=== PATIENT | female | born 1945 | race Caucasian/White ===

== ENCOUNTER 2018-05-31 22:02 | Outpatient (REF) | payer MEDICARE, SELFPAY | END 2018-05-31 22:22 | LOC: NCHCN 22:02 | PROVIDERS: PCP Family Medicine; Visit Provider Physician Assistant Medical | DX: J02.9 Acute pharyngitis, unspecified (principal) | CPT/HCPCS: 87070 ==

== ENCOUNTER 2018-08-24 12:11 | Outpatient (REF) | payer MEDICARE, SELFPAY ==
[2018-08-24 20:37] LABS: Abs Immature Grans 0.01 k/cumm (0.0-0.09); Absolute Basophil Count 0.03 k/cumm (0.0-0.2); Absolute Eosinophil Count 0.11 k/cumm (0.0-0.7); Absolute Monocyte Count 0.47 k/cumm (0.11-0.7); Absolute Neutrophil Count 3.11 k/cumm (1.2-6.7); Basophils % 0.6; HCT 35.9 % (36.0-46.0); HGB 12.3 g/dL (12.0-15.5); Immature Grans % 0.2; Lymphocytes % 31.3; Mean Corp. HGB Concentration 34.3 g/dL (32.0-36.0); Mean Corpuscular Hemoglobin 31.5 pg (27.0-33.0); Mean Corpuscular Volume 92.1 fL (80-95); Monocytes % 8.7; Neutrophils % 57.2; Platelet Count 251 x1000/uL (130-400); RBC Distribution Width 12.2 % (11.7-14.6); White Blood Cell Count 5.43 k/cumm (4.4-10.8)
[2018-08-24 20:49] LABS: ALT 27 U/L (12-78); AST 24 U/L (15-37); Albumin 3.7 g/dL (3.4-5.0); Alkaline Phosphatase 99 U/L (46-116); Anion Gap 7.3 mmol/L (3-11); BUN 25 mg/dL (7-18); Bilirubin, Total 0.4 mg/dL (0.2-1.0); CO2 29.7 mmol/L (21.0-32.0); CREATININE 0.92 mg/dL (0.55-1.02); Calcium 9.4 mg/dL (8.5-10.1); Chloride 104 mmol/L (98-107); Estimated GFR 59.84 (mL/min/1.73m2); Glucose 85 mg/dL (70-100); Potassium 4.3 mmol/L (3.5-5.1); Sodium 141 mmol/L (136-145); Total Protein 6.5 g/dL (6.4-8.2)
== END 2018-08-24 12:31 ==
LOC: NCHCN 12:11
PROVIDERS: PCP Family Medicine; Visit Provider Specialist/Technologist Athletic Trainer
DX: R55 Syncope and collapse (principal); D64.9 Anemia, unspecified; I10 Essential (primary) hypertension
CPT/HCPCS: 80053; 83735; 85025

== ENCOUNTER 2018-08-29 01:40 | Outpatient (CLI) | payer MEDICARE, SELFPAY | END 2018-08-29 02:00 | PROVIDERS: PCP Family Medicine; Visit Provider Specialist/Technologist Athletic Trainer | DX: R55 Syncope and collapse (principal); I49.1 Atrial premature depolarization; I47.1 Supraventricular tachycardia | CPT/HCPCS: 93225 ==

== ENCOUNTER 2018-09-01 09:04 | Outpatient (CLI) | payer MEDICARE, SELFPAY ==
--- NOTE | 2018-09-01 13:33 | W.HOLTRPT ---
Holter Monitor Report Holter Monitor Note: 48-hour Holter monitor. Indication: Syncope Baseline: Sinus rhythm. Average heart rate 73 bpm. There are rare isolated PVCs. No nonsustained VT. Rare PACs. No atrial fibrillation. No significant pauses or bradyarrhythmias. No diary entries. Overall sinus rhythm with rare ectopy.
--- NOTE | 2018-09-05 09:41 | HOLTER_ITS ---
HOLTER MONITOR DATE OF DICTATION September 05, 2018 Baseline rhythm sinus. Rare single PAC. 2 bursts SVT, longest 3-beat duration, fastest 171 beats per minute. No fibrillation . Rare single PVC. No VT. Nocturnal heart rate as low as 50-55 beats per minute, sinus bradycardia. Average heart rate 73 beats per minute. SYMPTOMS None. Meliton Balderrama M.D. ROXANA/calvin T - 09/05/2018
== END 2018-09-01 09:24 ==
PROVIDERS: PCP Family Medicine; Visit Provider Specialist/Technologist Athletic Trainer
DX: I49.1 Atrial premature depolarization (principal); I47.1 Supraventricular tachycardia; R55 Syncope and collapse
CPT/HCPCS: 93226

== ENCOUNTER 2018-09-05 08:52 | Outpatient (CLI) | payer MEDICARE, SELFPAY | END 2018-09-05 09:12 | PROVIDERS: PCP Family Medicine; Referring Provider Family Medicine; Visit Provider Internal Medicine Interventional Cardiology | DX: R55 Syncope and collapse (principal); I49.1 Atrial premature depolarization; I47.1 Supraventricular tachycardia | CPT/HCPCS: 93227 ==

== ENCOUNTER 2018-09-13 01:26 | Outpatient (CLI) | payer MEDICARE, SELFPAY ==
--- NOTE | 2018-09-13 15:15 | DI.US_ITS ---
SYMPTOM/DIAGNOSIS: SYNCOPE, COLLAPSE, R55 CAROTID ULTRASOUND: Note is made of mild plaque in the left carotid bulb. Note is also made of mild intimal thickening bilaterally. There is bilateral antegrade flow in the vertebrals. SUMMARY: No evidence of significant carotid stenosis. Please see the ultrasound laboratory worksheet for the complete results of this study.
== END 2018-09-13 01:46 ==
PROVIDERS: PCP Family Medicine; Visit Provider Specialist/Technologist Athletic Trainer
DX: R55 Syncope and collapse (principal); I65.22 Occlusion and stenosis of left carotid artery
CPT/HCPCS: 93880

== ENCOUNTER 2018-10-28 11:16 | Outpatient (REF) | payer MEDICARE, SELFPAY | END 2018-10-28 11:36 | LOC: NCHCN 11:16 | PROVIDERS: PCP Family Medicine; Visit Provider Family Medicine | DX: R35.0 Frequency of micturition (principal) | CPT/HCPCS: 87086 ==

== ENCOUNTER 2019-10-31 12:42 | Outpatient (REF) | payer MEDICARE, SELFPAY ==
[2019-10-31 21:50] LABS: HCT 36.2 % (36.0-46.0); HGB 12.1 g/dL (12.0-15.5); Mean Corp. HGB Concentration 33.4 g/dL (32.0-36.0); Mean Corpuscular Hemoglobin 30.5 pg (27.0-33.0); Mean Corpuscular Volume 91.2 fL (80-95); Mean Platelet Volume 10.4 fL (8.0-11.0); Platelet Count 263 x1000/uL (130-400); RBC 3.97 m/cumm (4.00-5.20); RBC Distribution Width 12.2 % (11.7-14.6); White Blood Cell Count 5.24 k/cumm (4.4-10.8)
[2019-10-31 22:26] LABS: Anion Gap 7.4 mmol/L (3-11); BUN 19 mg/dL (7-18); CO2 28.6 mmol/L (21.0-32.0); CREATININE 1.06 mg/dL (0.55-1.02); Chloride 105 mmol/L (98-107); Estimated GFR 50.67 (mL/min/1.73m2); Glucose 76 mg/dL (74-106); Potassium 4.1 mmol/L (3.5-5.1); Sodium 141 mmol/L (136-145); TSH (W/Ref FT4) 1.92 uIU/mL (0.36-3.74)
== END 2019-10-31 13:02 ==
LOC: NCHCN 12:42
PROVIDERS: PCP Family Medicine; Visit Provider Family Medicine
DX: D64.9 Anemia, unspecified (principal); I10 Essential (primary) hypertension; G62.9 Polyneuropathy, unspecified
CPT/HCPCS: 80048; 85027; 84443

== ENCOUNTER 2019-11-24 04:16 | Outpatient (CLI) | payer MEDICARE, SELFPAY ==
--- NOTE | 2019-11-24 13:38 | DI.US_ITS ---
APPROVED REPORT EXAM: Comprehensive 2D, Doppler, and color-flow Echocardiogram Patient Location: Out-Patient Mechanical Inspector: Delma Tee RDCS (AE) Indications: Dyspnea on Exertion Conclusion Left Ventricle : The left ventricle is mildly dilated. Left ventricular systolic function is mildly d ecreased. There is normal left ventricular wall thickness. There is normal LV segmental wall motion. Apical and anterolateral segments are poorly visualized without contrast. The left ventricular diast olic function is normal. LVEF is 45-49%. Right Ventricle : The right ventricle is normal size. The right ventricular systolic function is norm al. Atria : The left atrium size is normal. The right atrium size is normal. Aortic Valve : Aortic valve is trileaflet. Trace aortic regurgitation. There is no aortic valvular st enosis. Mitral Valve : The mitral valve is normal in structure. Mild mitral regurgitation. No evidence of larry ral valve stenosis. Tricuspid Valve : The tricuspid valve is normal in structure. Trace to mild tricuspid regurgitation. Great Vessels : The aortic root is normal in size. IVC is normal in size and collapses >50% with ins piration. The ascending aorta is normal in size. There is no prior echocardiogram available for comparison. Wall motion Left Ventricle The left ventricle is mildly dilated. Left ventricular systolic function is mildly decreased. There i s normal left ventricular wall thickness. There is normal LV segmental wall motion. Apical and ridge lateral segments are poorly visualized without contrast. The left ventricular diastolic function is n ormal. LVEF is 45-49%. Right Ventricle The right ventricle is normal size. The right ventricular systolic function is normal. Atria The left atrium size is normal. The right atrium size is normal. Aortic Valve Aortic valve is trileaflet. There is no aortic valvular stenosis. Trace aortic regurgitation. Mitral Valve The mitral valve is normal in structure. No evidence of mitral valve stenosis. Mild mitral regurgitat ion. Tricuspid Valve The tricuspid valve is normal in structure. There is no tricuspid valve stenosis. Trace to mild tricu spid regurgitation. Pulmonic Valve The pulmonary valve is normal in structure. There is no pulmonic valvular stenosis. Trace pulmonic re gurgitation. Great Vessels The aortic root is normal in size. The ascending aorta is normal in size. IVC is normal in size and c ollapses >50% with inspiration. 2D Dimensions IVSD d PLAX 0.79 cm F: 0.6-1.0 LV Vol A2C d MOD 83.4 mL LVPW d PLAX 0.76 cm F: 0.6 - 1.0 LV Vol A4C d MOD 96.0 mL LVID d PLAX 5.55 cm F: 3.8 - 5.2 LA vol/ BSA A2C s A-L 29.5 mL/m2 LVDs 3.90 cm F: 2.2 - 3.5 LA vol/ BSA A4C s A-L 30.2 mL/m2 Ao Root d 2.96 cm F: 2.7 - 3.3 LA Vol/ BSA Biplane s A-L 30.1 mL/m2 RA Area A4C 15.96 cm2 LA Area A4C s MOD 19.80 cm2 RA Vol/ BSA A4C s A-L 18.9 mL/m2 LA Area A2C s MOD 19.40 cm2 Ao Asc Diam d 3.17 cm F: 2.3 - 3.1 LV EF A4C MOD 51.0 % LV EF Teichholz 55.3 % LV EF A2C MOD 50.6 % LVEF (Bullock's) 49.76 % F: 54 - 74 LV EF Biplane MOD 49.8 % LV Volume 65.21 mL F: 46 - 106 LV Volume Index 29.77 mL/m2 F: 29 - 61 LV Vol Biplane MOD 89.6 mL FS 29.10 % LV Diastology MV E' medial 0.076 (>0.07 m/s) E/A Ratio 0.9 LV E/e MED 10.30 (<14) MV E Vmax 0.79 (0.4-1.3 m/s) MV E' lateral 0.084 (>0.1 m/s) MV A Vmax 0.90 (0.4-1.3 m/s) LV E/e LAT 9.35 (<14) MV E/A Ratio 0.86 MV E/E' medial 10.34 MV E/E' lateral 9.38 Aortic Valve LVOT Area 3.02 cm2 AoV Area Vmax 2.35 cm2 LVOT Vmax 1.18 m/s AoV Area/ BSA (Vmax) 1.07 cm2/m2 LVOT Mean Jerson. 0.72 m/s MARSHAL Mean Jerson. 2.01 cm2 LVOT Peak Grad 5.6 mmHg MARSHAL Mean Jerson. Index 0.92 cm2/m2 LVOT Mean Grad 2.5 mmHg AR DT 1842 msec LVOT VTI 0.264 m AR PHT 534 msec LVOT Diam s 1.95 cm (M/F) 1.5-2.5 AoV Vmax 1.52 (0.5-1.3 m/s) Velocity Ratio 0.77 AoV Mean Jerson. 1.07 m/s AoV Peak Grad 9.2 mmHg LVOT SV 79.86 mL AoV Mean Grad 5.0 (<5 mmHg) AoV VTI 0.361 (0.18-0.25 m) AoV Area VTI 2.21 (2.5-4.5 cm2) AoV Area/ BSA (VTI) 1.01 cm/m2 Mitral Valve MV DT 193 (160-240 msec) MR Vmax 5.27 m/s MV PHT 56 msec MR VTI 2.019 m MV Area PHT 3.94 cm2 MR Peak Grad 111.0 mmHg MR Mean Grad 88.5 mmHg Pulmonary Valve PV Vmax 1.05 (0.5-1.5 m/s) RVOT Peak Gr. 1.91 mmHg PV Peak Grad 4.4 mmHg RVOT Mean Gr. 0.90 mmHg PV Mean Grad 2.4 mmHg RVOT VTI 0.152 m PV VTI 0.227 m RVOT Vmax 0.69 m/s Tricuspid Valve TR Peak Grad 31.4 mmHg TR Vmax 2.80 m/s
== END 2019-11-24 04:36 ==
PROVIDERS: PCP Family Medicine; Visit Provider Family Medicine
DX: R06.09 Other forms of dyspnea (principal); I50.1 Left ventricular failure, unspecified; I34.0 Nonrheumatic mitral (valve) insufficiency
CPT/HCPCS: 93306

== ENCOUNTER 2020-01-11 00:07 | Outpatient (CLI) | payer MEDICARE, SELFPAY ==
--- NOTE | 2020-01-11 08:45 | DI.NM_ITS ---
APPROVED REPORT Exam: Exercise Treadmill Patient Location: Out-Patient Room/Bed: Stress Nurse: Lillie Morales RN BMI: 30.68 Baseline Rhythm: Sinus Rhythm Indications: Dyspnea on exertion. Systolic heart murmur. Medical History Medical History: HTN Cardiac Medications: hydrochlorothiazide. LosartanPotassium. Aspirin., Allergies: No known drug allergies Cardiac Risk Factors: HTN, FHX of CAD Pretest Chest Pain Characteristics: Dyspnea on exertion Exercise History: Physically active Lung Sounds: Clear to auscultation Heart Sounds: Murmur Stress Test Details Test: Exercise stress testing was performed using a Per protocol. Nuclear Acquisition: Rest Tc-99m/Stress Tc-99m 1 day Rest Isotope: Tc-99m Sestamibi. Dose: 10.8 Date: 01/11/2020 Injection Time: 0900 Stress Isotope: Tc-99m Sestamibi. Dose: 34.0 Date: 01/11/2020 Injection Time: 1025 HR Resting HR Supine: 67 bpm Max Heart Rate (APMHR): 146 bpm Resting HR Standin bpm Target HR (85% APMHR): 124 bpm Max HR Achieved: 130 bpm % of APMHR: 89 Recovery HR: 89 bpm HR response to stress: Normal HR response to stress BP Resting BP Supine: 170/90 mmHg Resting BP Standin/80 mmHg Max BP: 184/76 mmHg Recovery BP: 174/80 mmHg BP response to stress: Normal blood pressure response to stress. ECG Resting ECG: Sinus Rhythm Stress ECG: Sinus Tachycardia ST Change: No significant ST segment changes Recovery ECG: Sinus Rhythm Recovery ST Change: No significant ST segment changes Clinical Reason for Termination: Dizziness Stress Symptoms: Dizziness Exercise duration: 4 min30 sec Highest Stage Reached: Stage 2: 2.5 mph at 12% grade. Exercise capacity: 6.43 METs Functional Capacity: Average Capacity Stress ECG Conclusion 1. She excised for 4 minutes and 30 seconds (6 METS). Exercise was stopped due to dizziness. 2. Rate-pressure product was 22,000. 3. There is no evidence of ischemia on the ECG portion of the exam Stress Test Summary STAGE Time (mins) Speed (mph) Grade (%) HR BP SYMPTOMS METS Supine 67 170/90 Standing 75 168/80 1 3 1.7 10 117 174/92 4.6 1 min recovery 120 174/88 Dizzyness. 3 min recovery 99 184/76 6 min recovery 89 174/80 Dizzyness subsided. MPI Conclusion Ejection fraction was 68%. There were no wall motion abnormalities. There was no evidence of reversible ischemia on the imaging portion of the exam. A small fixed perfu elizabeth defect at the apex likely represents artifact. This represents a normal SPECT stress test. Radiologist Interpretation Radiologist agrees with Feed Project Engineer's Interpretation. Radiologist Interpretation by: Shellie Majano MD Interpretation Date/Time: 01/11/2020 13:23:30
== END 2020-01-11 00:27 ==
PROVIDERS: PCP Family Medicine; Visit Provider Family Medicine
DX: R06.09 Other forms of dyspnea (principal); R01.1 Cardiac murmur, unspecified; I10 Essential (primary) hypertension; Z82.49 Family history of ischemic heart disease and other diseases of the circulatory system
CPT/HCPCS: 78452; 93016; 93018; 93017

== ENCOUNTER → 2020-01-23 14:55 | Outpatient (BNVA) | payer MEDICARE, SELFPAY | PROVIDERS: PCP Family Medicine; Referring Provider Family Medicine; Visit Provider Internal Medicine Cardiovascular Disease | DX: R06.02 Shortness of breath (principal); I10 Essential (primary) hypertension | CPT/HCPCS: 99204; 99443 ==

== ENCOUNTER 2020-02-27 08:18 | Outpatient (CLI) | payer MEDICARE, SELFPAY ==
[2020-02-28 02:49] LABS: COVID-19 RT-PCR UVMMC Result Negative (Negative)
== END 2020-02-27 08:38 ==
PROVIDERS: PCP Family Medicine; Visit Provider Family Medicine
DX: Z11.59 Encounter for screening for other viral diseases (principal)
CPT/HCPCS: U0003

== ENCOUNTER 2020-03-01 02:47 | Outpatient (CLI) | payer MEDICARE, SELFPAY ==
--- NOTE | 2020-03-06 08:35 | W.PFT ---
Date of service: 03/01/20 Time of Service: 12:56 Pulmonary Function Test Result Interpretation Spirometry: Spirometry shows no evidence of obstructive airways disease, no bronchodilator response Lung Volumes: No evidence of restriction Diffusion Capacity: Moderately severe fully reduced diffusion capacity which is mildly reduced when corrected to alveolar volume Airway Pressure: Normal Impression Isolated moderate diffusion defect. This can be seen in early developing interstitial lung disease or in pulmonary hypertension. Therefore if any of these entities are suspected, further evaluation is recommended. Clinical correlation recommended. Clinical Correlation therefore is recommended.
== END 2020-03-01 03:07 ==
PROVIDERS: PCP Family Medicine; Visit Provider Internal Medicine Cardiovascular Disease
DX: R06.02 Shortness of breath (principal); R06.9 Unspecified abnormalities of breathing
CPT/HCPCS: 94060; 94726; 94729

== ENCOUNTER 2020-05-02 01:20 | Outpatient (CLI) | payer MEDICARE, SELFPAY ==
--- NOTE | 2020-05-02 12:50 | DI.CT_ITS ---
EXAM: CT CHEST WO CLINICAL HISTORY: DYSPNEA, R06.00 COMPARISON: No exams were available for comparison FINDINGS: CT examination of chest was performed without contrast administration. Images obtained through the u pper abdomen show a 25 mm in diameter fluid attenuation mass of the right hepatic lobe and a 12 gerson meter fluid attenuation left hepatic lobe mass also noted, these are consistent with cysts. Visuali zed spleen is unremarkable. There is probable wall thickening of the mid to distal esophagus with more focal wall thickening a fe w cm above the GE junction at the level of the right atrium. The possibility of neoplasm of the esoph polo is raised. Correlation with esophagoscopy is suggested. No gross mediastinal or hilar adenopathy. Thoracic aorta is of normal diameter. The lungs are predominantly clear with unremarkable appearance of the pulmonary interstitium. There is a 7 x 4 x 3 millimeter in diameter nodule which may be a fissural nodule of the superior aspect of the right middle lobe. Follow-up chest CT recommended in 12 months. Tracheobronchial tree appears intact. No pleural effusion. IMPRESSION: Findings suggesting mid esophageal wall thickening and/or mass. Correlation with esophagoscopy reque sted to evaluate the possibility of neoplasm. Incidental non calcified 5 millimeter mean diameter right pulmonary nodule which may be fissural. Fo llow-up chest CT recommended in 12 months.
== END 2020-05-02 01:40 ==
PROVIDERS: PCP Family Medicine; Visit Provider Internal Medicine
DX: R06.00 Dyspnea, unspecified (principal); R91.1 Solitary pulmonary nodule
CPT/HCPCS: 71250

== ENCOUNTER 2020-05-22 12:10 | Emergency (ER) | payer MEDICARE, SELFPAY ==
--- NOTE | 2020-05-22 12:56 | NUR.NOTE ---
Nursing Note: Per Mishel Moreno RN the patient does not want to be a patient. She was entered in error. Ayaka Lund
--- NOTE | 2020-05-22 15:00 | W.ED.GENAD ---
Discharge Plan Disposition Patient Disposition: OTHER Condition: Stable Discharge Details Primary Care Provider: Nanci Gomez V ED Provider: Maribeth Vidal Home Meds and New Rx's Prescriptions: No Action losartan 25 mg tablet 25 mg PO DAILY RF: 0 gabapentin 100 mg capsule 100 mg PO QHS RF: 0 multivitamin [Daily Multi-Vitamin] 1 EACH tablet 1 tab PO DAILY RF: 0 fexofenadine [Constanza Allergy] 60 MG tablet 1 cap PO DAILY RF: 0 Stress B Plus Zinc 1 EACH tablet 1 tab PO .QHS RF: 0 hydrochlorothiazide 12.5 MG tablet 12.5 mg PO DAILY RF: 0 Fish Oil 300 MG capsule 300 mg PO .QHS RF: 0 Discharge Data Discharge Date/Time-TO BE ENTERED AT DEPARTURE: 05/22/20 12:22 HPI Related Data Home Medications Medication Instructions Recorded Confirmed Stress B Plus Zinc 1 tab PO .QHS 05/02/13 01/23/20 fexofenadine [Constanza Allergy] 1 cap PO DAILY 05/02/13 01/23/20 hydrochlorothiazide 12.5 mg PO DAILY 05/02/13 01/23/20 multivitamin [Multi-Vitamin Daily] 1 tab PO DAILY 05/02/13 01/23/20 omega-3 fatty acids [Fish Oil] 300 mg PO .QHS 05/02/13 01/23/20 gabapentin 100 mg capsule 100 mg PO QHS 01/23/20 01/23/20 losartan 25 mg tablet 25 mg PO DAILY 01/23/20 01/23/20 Allergies Allergy/AdvReac Type Severity Reaction Status Date / Time seasonal Allergy Mild Uncoded 05/02/13 16:52 PFSH Social History Smoking/Tobacco Use Status: Never Drug use: Never
== END 2020-05-22 12:22 | disposition other institution (70) ==
LOC: ER 12:23
PROVIDERS: Emergency Provider Registered Nurse Emergency; PCP Family Medicine
DX: Z53.21 Procedure and treatment not carried out due to patient leaving prior to being seen by health care provider (principal)

== ENCOUNTER → 2020-07-16 09:13 | Outpatient (BNVA) | payer MEDICARE, SELFPAY | PROVIDERS: PCP Family Medicine; Referring Provider Family Medicine; Visit Provider Internal Medicine Cardiovascular Disease | DX: R06.09 Other forms of dyspnea (principal); I10 Essential (primary) hypertension | CPT/HCPCS: 99214 ==

== ENCOUNTER 2020-10-18 01:50 | Outpatient (CLI) | payer MEDICARE, SELFPAY ==
[2020-10-20 10:35] LABS: COVID-19 RT-PCR Result NEGATIVE (Negative)
== END 2020-10-18 02:10 ==
PROVIDERS: PCP Family Medicine; Visit Provider Family Medicine
DX: Z11.52 Encounter for screening for COVID-19 (principal); Z01.811 Encounter for preprocedural respiratory examination
CPT/HCPCS: U0003

== ENCOUNTER 2020-10-21 05:27 | Outpatient (CLI) | payer MEDICARE, SELFPAY ==
--- NOTE | 2020-10-23 16:37 | W.PFT ---
Date of service: 10/21/20 Time of Service: 10:02 Pulmonary Function Test Result Interpretation Spirometry: Respiratory neuromuscular function testing shows MIP and MVV but extremely low MEP Impression Isolated extremely severe expiratory respiratory neuromuscular weakness with an MEP of 31% predicted. MIP and MVV were normal. Clinical Correlation therefore is recommended.
== END 2020-10-21 05:47 ==
PROVIDERS: PCP Family Medicine; Visit Provider Internal Medicine
DX: R06.09 Other forms of dyspnea (principal); J98.8 Other specified respiratory disorders
CPT/HCPCS: 94200

== ENCOUNTER 2020-10-31 09:54 | Outpatient (REF) | payer MEDICARE, SELFPAY ==
[2020-10-31 15:35] LABS: HCT 34.2 % (36.0-46.0); HGB 11.6 g/dL (11.2-15.7)
[2020-11-01 07:45] LABS: ESR 20 mm/hr (<30)
[2020-11-01 17:07] LABS: CRP, High Sensitivity 3.76 mg/L (See Note)
[2020-11-04 15:09] LABS: ANA Interpretation Negative (Negative)
== END 2020-10-31 09:55 | disposition home or self-care (01) ==
LOC: NCHCN 09:54
PROVIDERS: PCP Family Medicine; Visit Provider Family Medicine
DX: R51.9 Headache, unspecified (principal); K22.8 Other specified diseases of esophagus; R06.09 Other forms of dyspnea; I10 Essential (primary) hypertension
CPT/HCPCS: 85652; 86141; 85014; 85018; 86038

== ENCOUNTER 2021-04-09 01:47 | Outpatient (CLI) | payer MEDICARE, SELFPAY ==
--- NOTE | 2021-04-09 | DI.MAMMO_ITS ---
Exam(s) MAMMO SCREENING EXAM: MAMMO SCREENING CLINICAL HISTORY: SCREENING, PREVENTIVE [facility],Z00.00. TECHNIQUE: Bilateral full field digital CC and MLO mammographic images were obtained with 3D tomosyn thesis and utilizing computer aided detection (CAD). COMPARISON: Prior mammograms dating back to 2010, the most recent being February 2020.. Sister with breast cancer FINDINGS: In the left breast there is a 6 by 5 well-defined noncalcified nodule lateral of center approximately 5 cm in from the nipple approximately 3 o'clock position. This has slightly increased in size from prior study. Ultrasound recommended. More posteriorly in the left breast there is another nodule se en on the 3D MLO imaging approximately 9 cm in from the nipple which more evident on prior studies me asures approximately 6 x 4 millimeters. Posteriorly in the right breast there is an asymmetric density-nodular density located 10 cm in from the nipple which is unchanged from prior studies. In addition, there are few small benign-appearing nodules lateral of center in the right breast located approximately 10 cm in from the nipple which pr obably benign lymph nodes., similar to previous. Malignant-appearing microcalcifications in either breast There is no significant architectural distortion nor skin thickening-retraction. IMPRESSION: No radiographic evidence of malignancy in the right breast. Two findings in left breast which have increased from previous. Spot compression view and ultrasound recommended. BI-RADS Category 0 - Assessment Incomplete: Need additional imaging evaluation Breast Density - Category B - Scattered areas of fibroglandular density Breast density Category C or D implies that the patient has dense breast tissue. Dense breast tissue can make it harder to find cancer on a mammogram. Dense breast tissue is also associated with an incr eased risk of breast cancer. This information about the result of the mammogram report was provided to the patient to raise their awareness. Use this report when you speak with the patient about their risks for breast cancer, which includes their family history. At that time, you may recommend additional screening tests (Ultrasoun d or MRI) as these tests may add significant information. A negative radiographic report should not delay biopsy if a dominant or clinically suspicious mass is present. Up to ten percent of cancers are not identified on mammography. A negative report may reinforce clinical impression. Adenosis and dense breasts may obscure an underlying neoplasm. False positive reports average 6 to 10%. Patient will receive a letter notifying them of these results.
== END 2021-04-09 02:07 ==
PROVIDERS: PCP Family Medicine; Visit Provider Family Medicine
DX: Z12.31 Encounter for screening mammogram for malignant neoplasm of breast (principal); R92.8 Other abnormal and inconclusive findings on diagnostic imaging of breast; Z80.3 Family history of malignant neoplasm of breast
CPT/HCPCS: 77063; 77067

== ENCOUNTER → 2021-04-14 09:37 | Outpatient (BNVA) | payer MEDICARE, SELFPAY | PROVIDERS: PCP Family Medicine; Referring Provider Internal Medicine; Visit Provider Psychiatry & Neurology Neurology | DX: G62.9 Polyneuropathy, unspecified (principal); R06.00 Dyspnea, unspecified; R51.9 Headache, unspecified; G89.29 Other chronic pain | CPT/HCPCS: 99215; G2212 ==

== ENCOUNTER 2021-04-17 01:17 | Outpatient (CLI) | payer MEDICARE, SELFPAY ==
--- NOTE | 2021-04-17 | DI.MAMMO_ITS ---
Exam(s) MG MAMMO SCREEN CALL BACK UNI US BREAST LT COMPLETE EXAM: MG MAMMO SCREEN CALL BACK UNI -LEFT AND COMPLETE LEFT BREAST ULTRASOUND CLINICAL HISTORY: F/U MAMMO, LT BREAST NODULE,INCREASED IN SIZE. TECHNIQUE: Unilateral spot mammographic images were obtained with 3D tomosynthesis and utilizing [employer] puter aided detection (CAD). . LEFT Breast Ultrasound was also performed, including all 4 quadrants, the retroareolar region, and th e left axilla.. COMPARISON: Prior mammograms were reviewed. This additional imaging was performed due to findings described on the recent screening mammogram of 04/09/2021. FINDINGS: Additional mammographic views performed todayrender the more posterior of the 2 nodules somewhat less concerning appearance exhibiting a notch probably benign lymph node.The more anterior of the 2 nodul e persists. Ultrasound performed following this mammogram today reveals 2 findings.. At the 1 o'clock position th ere is a wider than taller 5 x 3 millimeter microcyst. This corresponds to the more anterior of the 2 findings on the mammogram. At the 3 o'clock position there is a smaller microcysts measuring 3 millimeters. This does not corres pond to anything visible on the mammogram. There are no focal ultrasound findings to correspond to the more posteriorly of the 2 nodules seen on the mammogram (which has appearance of probable benign intramammary lymph node on spot compression m ammographic view performed today). Most importantly, there are no solid lesions seen in all 4 quadrants of the left breast nor in the re troareolar region. The left axilla is negative for significant adenopathy. IMPRESSION: Benign findings, as described above. Appropriate follow-up is repeat left breast imaging in 6 months to include repeat left breast mammogr am and ultrasound. The patient was informed of these findings and recommendations by myself prior to leaving the departm ent today. BI-RADS Category 3 - 6 month - Probably Benign Finding: Recommend follow-up mammography in 6 months Breast Density - Category B - Scattered areas of fibroglandular density Breast density Category C or D implies that the patient has dense breast tissue. Dense breast tissue can make it harder to find cancer on a mammogram. Dense breast tissue is also associated with an incr eased risk of breast cancer. This information about the result of the mammogram report was provided to the patient to raise their awareness. Use this report when you speak with the patient about their risks for breast cancer, which includes their family history. At that time, you may recommend additional screening tests (Ultrasoun d or MRI) as these tests may add significant information. A negative radiographic report should not delay biopsy if a dominant or clinically suspicious mass is present. Up to ten percent of cancers are not identified on mammography. A negative report may reinforce clinical impression. Adenosis and dense breasts may obscure an underlying neoplasm. False positive reports average 6 to 10%. Patient will receive a letter notifying them of these results.
== END 2021-04-17 01:37 ==
PROVIDERS: PCP Family Medicine; Visit Provider Family Medicine
DX: R92.8 Other abnormal and inconclusive findings on diagnostic imaging of breast (principal); N63.20 Unspecified lump in the left breast, unspecified quadrant
CPT/HCPCS: 76642; 77063; 77067

== ENCOUNTER 2021-07-02 01:15 | Outpatient (CLI) | payer MEDICARE, SELFPAY ==
--- NOTE | 2021-07-02 07:00 | DI.CT_ITS ---
Exam(s) CT CHEST WO EXAM: CT CHEST WO CLINICAL HISTORY: f/u nodule seen 1 year ago,R91.1,DYSPNEA ON EXERTION, R06.00. TECHNIQUE: Imaging protocol: Axial computed tomography images were obtained and coronal and sagittal reformatted images were created and reviewed. COMPARISON: CT CT CHEST WO from 05/02/2020 FINDINGS: The examination is limited due to patient motion artifact. Tracheobronchial tree: Patent where visualized. Pulmonary parenchyma: No focal consolidating infiltrate. There is a stable 7 mm nodule in the right middle lobe. No other pulmonary nodules are identified. No architectural distortion. Mediastinum and Haritha: No dominant adenopathy or fluid collection. Small hiatal hernia. There is unch anged diffuse thickening of the wall of the esophagus. Thyroid gland: Unremarkable. Pleura: No effusion or pneumothorax. Heart: Mild cardiomegaly. Coronary artery calcification. No pericardial effusion. Aorta: Thoracic aorta non-dilated. Atherosclerosis. Upper abdomen: Stable hepatic cysts. 5.4 cm incompletely imaged right renal cyst. Lymph nodes: Within normal limits. Soft tissues: Unremarkable. Bones:Within normal limits for the patient's age. IMPRESSION: 1. Stable right middle lobe pulmonary nodule. Follow-up CT scan in 1 year is recommended. 2. Diffuse thickening of the wall of the esophagus. This may represent an infectious or inflammatory esophagitis. Upper GI or endoscopy should be considered for further evaluation. 3. Hepatic cysts. 4. Incompletely imaged right renal cyst. Ultrasound of the right kidney may be obtained for further characterization. RADIATION DOSE DELIVERED: 594.58mGy.cm Total DLP 594.58mGy.cm Total DLP DATA REPOSITORY: All CT scans at this facility are submitted to the National Radiology Data Registry (NRDR) Dose Index Registry (DIR) with the [employer] (ACR). RADIATION OPTIMIZATION: All CT scans at this facility use at least one of these dose optimization te chniques: automated exposure control; mA and/or kV adjustment per patient size (includes targeted exa ms where dose is matched to clinical indication); or iterative reconstruction.
--- NOTE | 2021-07-02 07:00 | DI.NM_ITS ---
Exam(s) NM LUNG SCAN VENT PERF GRP EXAM: NM LUNG SCAN VENT PERF GRP CLINICAL HISTORY: concern for CTED/CTEPH,DYSPNEA ON EXERTION,R06.00,ABNL PFT'S.R94.2. TECHNIQUE: Injected Dose: Ventilation: 29.2 mCi Tc-99m DTPA via inhalation Perfusion: 5.1 mCi Tc-99m MAA via IV COMPARISON: CT CT CHEST WO from 07/02/[address] CHEST WO from 07/02/2021 FINDINGS: Perfusion: Normal. Ventilation:Normal IMPRESSION: 1. Normal VQ scan. No perfusion or ventilation defects. Modified PIOPED II criteria Probability Criteria High Two or more segments of V/Q mismatch Low Normal Perfusion, Non segmental perfusion abnormalitie s, pleural effusion in at least 1/3 of pleural cavity with no other defect Radiograph/perfusion matched defect in mid to upper lung confined to segment, one to three small segmental perfusion defects (<25% of segment) Perfusion defect smaller than corresponding radiogra phic lesion. Intermediate All other findings DATA REPOSITORY:
== END 2021-07-02 01:35 ==
PROVIDERS: PCP Family Medicine; Visit Provider Student in an Organized Health Care Education/Training Program
DX: R06.00 Dyspnea, unspecified (principal); R94.2 Abnormal results of pulmonary function studies; R91.1 Solitary pulmonary nodule; K76.89 Other specified diseases of liver; N28.1 Cyst of kidney, acquired
CPT/HCPCS: 71250; 78582

== ENCOUNTER → 2021-07-24 11:30 | Outpatient (BNVA) | payer MEDICARE, SELFPAY | PROVIDERS: PCP Family Medicine; Referring Provider Family Medicine; Visit Provider Internal Medicine Cardiovascular Disease | DX: R06.00 Dyspnea, unspecified (principal); I10 Essential (primary) hypertension | CPT/HCPCS: 99213 ==

== ENCOUNTER 2021-07-30 01:00 | Outpatient (CLI) | payer MEDICARE, SELFPAY ==
--- NOTE | 2021-07-30 13:49 | DI.US_ITS ---
APPROVED REPORT EXAM: Comprehensive 2D, Doppler, and color-flow Echocardiogram Patient Location: Out-Patient Wigs Salesperson: Delma Tee RDCS (AE) Indications: Dyspnea, Concern for pulmonary HTN Other Information Study Quality: Fair. Technically limited study due to body habitus. Conclusion Normal left ventricular wall thickness and chamber size. Estimated ejection fraction is 65 to 70%. Wall motion is normal The right ventricle appears normal in size and systolic function Both atria are normal in size The aortic valve is trileaflet and mildly thickened with trace to mild regurgitation Normal mitral valve with trace regurgitation Normal tricuspid valve with trace regurgitation. Estimated right ventricular systolic pressure is 29 mmHg Wall motion Left Ventricle The left ventricle is normal size. The left ventricular systolic function is normal. The left ventric ular ejection fraction is within the normal range. There is normal left ventricular wall thickness. T here is normal LV segmental wall motion. There is no ventricular septal defect visualized. There is n o ventricular septal defect visualized. LVEF is 65-70%. Right Ventricle Right ventricle is grossly normal in size. Right ventricular systolic function is grossly normal. The RVSP is 29.2mmHg. Atria The left atrium size is normal. The right atrium size is normal. The interatrial septum is intact wit h no evidence for an atrial septal defect. Aortic Valve Aortic valve leaflets are mildly thickened. Aortic valve is trileaflet. There is no aortic valvular s tenosis. Trace to mild aortic regurgitation. Mitral Valve The mitral valve is normal in structure. No evidence of mitral valve stenosis. Trace mitral regurgita tion. Tricuspid Valve The tricuspid valve is normal in structure. There is no tricuspid valve stenosis. Trace tricuspid reg urgitation. Pulmonic Valve The pulmonary valve is normal in structure. There is no pulmonic valvular stenosis. Trace pulmonic re gurgitation. Great Vessels The aortic root is normal in size. The ascending aorta is normal in size. Aortic arch is normal in ca liber. IVC is normal in size and collapses >50% with inspiration. Pericardium There is no pericardial effusion. 2D Dimensions IVSD d PLAX 0.95 cm F: 0.6-1.0 LV Vol A2C d MOD 84.5 mL LVPW d PLAX 0.94 cm F: 0.6 - 1.0 LV Vol A4C d MOD 103.8 mL LVID d PLAX 4.87 cm F: 3.8 - 5.2 LA vol/ BSA A2C s A-L 28.8 mL/m2 LVDs 3.45 cm F: 2.2 - 3.5 LA vol/ BSA A4C s A-L 31.5 mL/m2 Ao Root d 3.00 cm F: 2.7 - 3.3 LA Vol/ BSA Biplane s A-L 31.1 mL/m2 RA Area A4C 13.30 cm2 LA Area A4C s MOD 21.46 cm2 RA Vol/ BSA A4C s A-L 13.9 mL/m2 LA Area A2C s MOD 19.89 cm2 Ao Asc Diam d 3.29 cm F: 2.3 - 3.1 LV EF A4C MOD 57.9 % LV EF Teichholz 54.6 % LV EF A2C MOD 57.4 % LVEF (Bullock's) 58.00 % F: 54 - 74 LV EF Biplane MOD 58.0 % LV Volume 70.09 mL F: 46 - 106 SV 55.68 mL LV Volume Index 32.29 mL/m2 F: 29 - 61 SV Index 25.62 mL/m2 LV Vol Biplane MOD 96.0 mL FS 28.30 % M-Mode TAPSE 2.93 cm (M/F) >1.7 LV Diastology MV E' medial 0.086 (>0.07 m/s) E/A Ratio 0.7 LV E/e MED 6.50 (<14) MV E Vmax 0.56 (0.4-1.3 m/s) MV E' lateral 0.065 (>0.1 m/s) MV A Vmax 0.80 (0.4-1.3 m/s) LV E/e LAT 8.60 (<14) MV E/A Ratio 0.67 MV E/E' medial 6.51 MV E/E' lateral 8.63 Aortic Valve LVOT Area 3.09 cm2 AoV Area Vmax 2.38 cm2 LVOT Vmax 1.05 m/s AoV Area/ BSA (Vmax) 1.09 cm2/m2 LVOT Mean Jerson. 0.66 m/s MARSHAL Mean Jerson. 2.03 cm2 LVOT Peak Grad 4.4 mmHg MARSHAL Mean Jerson. Index 0.93 cm2/m2 LVOT Mean Grad 2.1 mmHg AR DT 2211 msec LVOT VTI 0.256 m AR PHT 641 msec LVOT Diam s 1.95 cm AoV Vmax 1.37 m/s Velocity Ratio 0.76 AoV Mean Jerson. 1.00 m/s AoV Peak Grad 7.5 mmHg LVOT SV 79.19 mL AoV Mean Grad 4.4 mmHg AoV VTI 0.332 m AoV Area VTI 2.38 cm2 AoV Area/ BSA (VTI) 1.10 cm/m2 Mitral Valve MV DT 304 (160-240 msec) MV PHT 88 msec MV Area PHT 2.50 cm2 MV VTI 0.290 m MV Area VTI 2.73 (4.0-6.0 cm2) Pulmonary Valve PV Vmax 0.96 (0.5-1.5 m/s) RVOT Peak Gr. 1.74 mmHg PV Peak Grad 3.7 mmHg RVOT Mean Gr. 0.85 mmHg PV Mean Grad 1.9 mmHg RVOT VTI 0.140 m PV VTI 0.199 m RVOT Vmax 0.66 m/s Tricuspid Valve TR Peak Grad 26.1 mmHg TR Vmax 2.56 m/s RA Pressure 3.00 mmHg RVSP (TR) 29.2 mmHg
== END 2021-07-30 01:20 ==
PROVIDERS: PCP Family Medicine; Visit Provider Student in an Organized Health Care Education/Training Program
DX: R06.00 Dyspnea, unspecified (principal); I35.0 Nonrheumatic aortic (valve) stenosis
CPT/HCPCS: 93306

== ENCOUNTER 2021-10-27 00:24 | Outpatient (CLI) | payer MEDICARE, SELFPAY ==
--- NOTE | 2021-10-27 13:55 | DI.MAMMO_ITS ---
Exam(s) MG MAMMO DIAGNOSTIC UNI US BREAST LT LIMITED EXAM: MG MAMMO DIAGNOSTIC UNI CLINICAL HISTORY: ABNL BREAST FINDINGS, N64.59, 6-MO F/U ABNL MAMMO. TECHNIQUE: Craniocaudal and mediolateral oblique Full Field Digital Mammography views of the left br east with Computer Aided Diagnosis followed by Tomosynthesis and left breast ultrasound. COMPARISON: US US BREAST LT COMPLETE from 04/17/2021 US US BREAST LT LIMITED from 10/27/2021 Mammograms from 2011 through 2020 FINDINGS: Mammography/Tomosynthesis: Masses/Architectural Distortion: Stable circumscribed nodule upper-outer quadrant measuring 6 millime ters. Microcalcifictions: No suspicious pleomorphic-type are seen. Skin Thickening/Nipple Retraction: None. Left breast ultrasound: In the 1 o'clock position, 4 cm from the nipple, there is a 5 x [address] cyst[address] This was measured on the previous exam be 6 x 3 x 5 millimeters, this is within limits of measurements error. IMPRESSION: 1. No evidence of malignancy is noted. Stable cystic lesion in the upper outer quadrant of the left b reast. 2. Unless there is more urgent need, follow-up screening mammography is recommended, as per [employer] [place] [employer] guidelines. 3. The findings were discussed with the patient on the date of the examination. BI-RADS Category 3 - 6 month - Probably Benign Finding: Recommend follow-up imaging in 6 months, when the patient is due for bilateral screening. Breast Density - Category B - Scattered areas of fibroglandular density A negative radiographic report should not delay biopsy if a dominant or clinically suspicious mass is present. Up to ten percent of cancers are not identified on mammography. A negative report may reinforce clinical impression. Adenosis and dense breasts may obscure an underlying neoplasm. False positive reports average 6 to 10%. Patient will receive a letter notifying them of these results.
== END 2021-10-27 00:44 ==
PROVIDERS: PCP Family Medicine; Visit Provider Family Medicine
DX: R92.8 Other abnormal and inconclusive findings on diagnostic imaging of breast (principal); N63.21 Unspecified lump in the left breast, upper outer quadrant; N60.02 Solitary cyst of left breast
CPT/HCPCS: 76642; 77061; 77065; G0279

== ENCOUNTER 2021-11-18 16:01 | Outpatient (REF) | payer MEDICARE, SELFPAY ==
[2021-11-18 14:51] LABS: HCT 35.3 % (36.0-46.0); HGB 11.7 g/dL (11.2-15.7)
[2021-11-18 15:01] LABS: Anion Gap 4.5 mmol/L (3-11); BUN 21 mg/dL (7-18); CO2 32.5 mmol/L (21.0-32.0); CREATININE 1.2 mg/dL (0.55-1.02); Calcium 9.4 mg/dL (8.5-10.1); Chloride 105 mmol/L (98-107); Estimated GFR 43.68 (mL/min/1.73m2); Glucose 102 mg/dL (74-106); Potassium 4.4 mmol/L (3.5-5.1); Sodium 142 mmol/L (136-145)
== END 2021-11-18 16:02 | disposition home or self-care (01) ==
LOC: NCHCN 16:01
PROVIDERS: PCP Family Medicine; Visit Provider Family Medicine
DX: D64.9 Anemia, unspecified (principal); I10 Essential (primary) hypertension; R60.0 Localized edema
CPT/HCPCS: 80048; 85014; 85018

== ENCOUNTER 2021-12-17 02:49 | Outpatient (CLI) | payer MEDICARE, SELFPAY ==
[2021-12-17 16:45] LABS: Ferritin 114 ng/mL (8-252)
== END 2021-12-17 02:50 | disposition home or self-care (01) ==
LOC: LBO 02:49
PROVIDERS: PCP Family Medicine; Visit Provider Nurse Practitioner
DX: M25.561 Pain in right knee (principal)
CPT/HCPCS: 36415; 82728

== ENCOUNTER 2021-12-22 03:54 | Outpatient (CLI) | payer MEDICARE, SELFPAY | END 2021-12-22 03:55 | disposition home or self-care (01) | LOC: RT 03:55 | PROVIDERS: PCP Family Medicine; Visit Provider Student in an Organized Health Care Education/Training Program | DX: R06.09 Other forms of dyspnea (principal) | CPT/HCPCS: 94762 ==

== ENCOUNTER 2021-12-22 03:56 | Outpatient (CLI) | payer MEDICARE, SELFPAY ==
[2021-12-22] MEDS: Albuterol HFA 18 GM 200 PUFF INH IH (17:04)
[2021-12-22] MEDS: Inhaler, Assist Device 1 EACH MC (17:04)
== END 2021-12-22 03:57 | disposition home or self-care (01) ==
LOC: RT 03:56
PROVIDERS: PCP Family Medicine; Visit Provider Student in an Organized Health Care Education/Training Program
DX: J98.4 Other disorders of lung (principal); R06.09 Other forms of dyspnea
CPT/HCPCS: 94060; 94618; 94726; 94729

== ENCOUNTER 2022-02-05 18:31 | Outpatient (REF) | payer MEDICARE, SELFPAY ==
[2022-02-05 19:15] LABS: Anion Gap 7.1 mmol/L (3-11); BUN 25 mg/dL (7-18); CO2 29.9 mmol/L (21.0-32.0); CREATININE 1.3 mg/dL (0.55-1.02); Calcium 9.4 mg/dL (8.5-10.1); Chloride 102 mmol/L (98-107); Estimated GFR 39.82 (mL/min/1.73m2); Glucose 122 mg/dL (74-106); Potassium 4.1 mmol/L (3.5-5.1); Sodium 139 mmol/L (136-145)
== END 2022-02-05 18:32 | disposition home or self-care (01) ==
LOC: NCHCN 18:31
PROVIDERS: PCP Family Medicine; Visit Provider Nurse Practitioner Family
DX: R25.2 Cramp and spasm (principal)
CPT/HCPCS: 80048

== ENCOUNTER 2022-02-26 19:07 | Outpatient (CLI) | payer MEDICARE, SELFPAY ==
[2022-02-26 15:19] LABS: HCT 33.5 % (36.0-46.0); HGB 11.8 g/dL (11.2-15.7)
[2022-02-26 16:52] LABS: Magnesium 1.8 mg/dL (1.8-2.4); TSH 2.05 uIU/mL (0.36-3.74); Vitamin B12 805 pg/mL (193-986)
== END 2022-02-26 19:08 | disposition home or self-care (01) ==
LOC: LBO 19:09
PROVIDERS: PCP Family Medicine; Visit Provider Family Medicine
DX: I10 Essential (primary) hypertension (principal); Z86.69 Personal history of other diseases of the nervous system and sense organs; D64.9 Anemia, unspecified
CPT/HCPCS: 36415; 82607; 83735; 84443; 85014; 85018

== ENCOUNTER 2022-04-16 01:52 | Outpatient (CLI) | payer MEDICARE, SELFPAY ==
--- OUTSIDE RECORDS SUMMARY | 2022-04-16 02:00 | XMS_ITS | Encounter Summary ---
:1945 Author Organization [facility] [place] [address] Care Team Providers Name Role Phone Nanci Gomez MD Primary Care Provider Encounter Details Date Type Department Care Team Description 03/23/2022 Telephone General Surgery at [facility] Patrizia Chavez, [place] [address] Social History Tobacco Use Types Packs/Day Years Used Date Never Smoker Smokeless Tobacco: Never Used Alcohol Use Standard Drinks/Week Comments No 0 (1 standard drink = 0.6 oz pure alcoho l) Sex Assigned at Date Recorded Not on file documented as of this encounter Miscellaneous Notes Telephone Encounter - Patrizia Chavez, RN - 03/23/2022 2:40 PM EDT Nursing Triage - Phone Note CALLER: PT to the general surgery clinic Learning Needs Assessment Reviewed: Yes CHIEF COMPLAINT: Dysphagia SUBJECTIVE- If I am in the air port and I choke, can they do the heimlich maneuver on me. [facility] Operative Note ?? Patient Name: Ivis Laureano : [id number] MR#: [id number] ?? Case Date: 10/28/2017 ?? Surgeon: Surgeon(s) and Role: * Jasmina Aguilar MD - Primary * Ami Mondragon MD - Fellow * Loraine Helms MD - Resident-Exercise Equipment Specialist ?? Preoperative diagnosis: ACHALASIA ?? Postoperative diagnosis: ACHALASIA ?? Procedure(s) (LRB): @LAPAROSCOPIC HELLER MYOTOMY, ESOPHAGOMYOTOMY W FUNDOPLASTY (WRVU 22.1) (N/A) ENDOSCOPY, UPPER GI, DIAGNOSTIC, WITH OR WITHOUT SPECIMENS (N/A) ??PERTINENT PAST SURGICAL HISTORY: Pt is NURSING ASSESSMENT: Pt reports that she having trouble swallowing and somet imes things come back up. Discussed coming in for assessment but she is traveling tomorrow with her cousin . She does have anendoscopy scheduled for April. She will call the clinic when she returns from her trip. Check if wecan change her date to earlier. Pt aware they can do the heimlich maneuver . INTERVENTION/PLAN/ FOLLOW UP: Disposition:Patient to continue to monitor from home. Teaching:I reviewed the signs and symptoms of infection (fever of 101, spreading redness that is hotto the touch, purulent drainage, severe persistent pain) and instructed the patient to continue to monitor. (enter in other pt specific instructions) Patient able to verbalize teaching plan: Y/Worsening symptoms:If you develop fever of 101, spreadingredness, purulent drainage, severe prolonged pain, prolonged nausea and vomiting, please call ([phone] during daytime and [phone] at night/weekends) and/or go to the ED for evaluation. If youare bleeding and cannot get it to stop, have chest pain or breathing difficulties please go to the closest ED or call 911 for assistance. Patient able to verbalize worsening symptom plan: Y Resource in decision making: PCP: Nanci Gomez MD documented in this encounter Plan of Treatment Upcoming Encounters Date Type Specialty Care Team Description 05/14/2022 Hospital Encounter Gastroenterology Evelyn Michel MD [facility] GASTROENTEROLOGY DEPT. [place], [place] [address] 05/14/2022 Surgery Gastroenterology Evelyn Michel, EGD, U PPER GI ENDOSCOPY [facility] GASTROENTEROLOGY DEPT. [place], [place] [address] 05/28/2022 Appointment Pulmonology Scheduled Procedures Name Priority Associated Diagnoses Date/Time EGD, UPPER GI ENDOSCOPY Achalasia 05/14/2022 2:30 PM EDT Dysphagia, unspecified type COLONOSCOPY, DIAGNOSTIC Achalasia 05/14/2022 2:30 PM EDT Dysphagia, unspecified type documented as of this encounter Visit Diagnoses Not on filedocumented in this encounter Care Teams Lamp Shade Joiner Relationship Specialty Start Date End Date Nanci Gomez MD PCP - General 08/19/10 [address] [place] [address] documented as of this encounter
--- OUTSIDE RECORDS SUMMARY | 2022-04-16 02:00 | XMS_ITS | Encounter Summary ---
:1945 Author Organization [place] [address] Care Team Providers Name Role Phone Nanci Gomez MD Primary Care Provider Encounter Details Date Type Department Care Team Description 06/25/2020 Orders Only Gastroenterology at [facility] Shu Preciado, [facility] [place] [address] [facility] [phone] GASTROENTEROLOGY [place], [place] [address] (Wo rk) Social History Tobacco Use Types Packs/Day Years Used Date Never Smoker Smokeless Tobacco: Never Used Alcohol Use Standard Drinks/Week Comments No 0 (1 standard drink = 0.6 oz pure alcoho l) Sex Assigned at Date Recorded Not on file documented as of this encounter Plan of Treatment Upcoming Encounters Date Type Specialty Care Team Description 05/14/2022 Hospital Encounter Gastroenterology Evelyn Michel MD [facility] GASTROENTEROLOGY DEPT. [place], [place] [address] 05/14/2022 Surgery Gastroenterology Evelyn Michel, EGD, U PPER GI ENDOSCOPY [facility] GASTROENTEROLOGY DEPT. [place], [place] [address] 05/28/2022 Appointment Pulmonology Scheduled Procedures Name Priority Associated Diagnoses Date/Time EGD, UPPER GI ENDOSCOPY Achalasia 05/14/2022 2:30 PM EDT Dysphagia, unspecified type COLONOSCOPY, DIAGNOSTIC Achalasia 05/14/2022 2:30 PM EDT Dysphagia, unspecified type documented as of this encounter Visit Diagnoses Not on filedocumented in this encounter Care Teams Yardage Caller Relationship Specialty Start Date End Date Nanci Gomez MD PCP - General 08/19/10 [address] [place] [address] documented as of this encounter
--- OUTSIDE RECORDS SUMMARY | 2022-04-16 02:00 | XMS_ITS | Encounter Summary ---
:1945 Author Organization [facility] [place] [address] Care Team Providers Name Role Phone Nanci Gomez MD Primary Care Provider Encounter Details Date Type Department Care Team Description 03/21/2021 Orders Only Gastro[place]ology at [facility] [place]u Preciado, [facility] [place] [address] [facility] [phone] GASTROENTEROLOGY [place], [place] [address] (Wo rk) Social History Tobacco [...] 05/14/2022 Hospital Encounter Gastroenterology Evelyn Michel MD [facility] GASTROENTEROLOGY DEPT. [place], [place] [address] 05/14/2022 Surgery Gastroenterology Evelyn Michel, EGD, U PPER GI ENDOSCOPY [facility] GASTROENTEROLOGY DEPT. [place], [place] [address] 05/28/2022 Appointment Pulmonology Scheduled Procedures Name Priority Associated Diagnoses Date/Time EGD, UPPER GI ENDOSCOPY Achalasia 05/14/2022 2:30 PM EDT Dysphagia, unspecified type COLONOSCOPY, DIAGNOSTIC Achalasia 05/14/2022 2:30 PM EDT Dysphagia, unspecified type documented as of this encounter Visit Diagnoses Not on filedocumented in this encounter Care Teams Railway Equipment Operator Relationship Specialty Start Date End Date Nanci Gomez MD PCP - General 08/19/10 [address] [place] [address] documented as of this encounter
--- OUTSIDE RECORDS SUMMARY | 2022-04-16 02:00 | XMS_ITS | Encounter Summary ---
:1945 Author Organization [facility] [place] [address] Care Team Providers Name Role Phone Nanci Gomez MD Primary Care Provider Encounter Details Date Type Department Care Team Description 11/26/2020 Office Visit Gastroenterology at [facility] Juliane Preciado; [facility] Lucretia Guillen APRN Dysphagia, [place] [address] [facility] [phone] [place] [address] Social History Tobacco Use Types Packs/Day Years Used Date Never Smoker Smokeless Tobacco: Never Used Alcohol Use Standard Drinks/Week Comments No 0 (1 standard drink = 0.6 oz pure alcoho l) Sex Assigned at Date Recorded Not on file documented as of this encounter Last Filed Vital Signs Vital Sign Reading Time Taken Comments Blood Pressure 129/63 11/26/2020 8:51 AM EST Pulse 78 11/26/2020 8:51 AM EST Temperature - - Respiratory Rate - - Oxygen Saturation - - Inhaled Oxygen Concentration - - Weight 104.9 kg (231 lb 3.2 oz) 11/26/2020 8:51 AM EST Height - - Body Mass Index 32.7 12/20/2018 8:13 AM EDT documented in this encounter Patient Instructions Patient InstructionsSiegShu govea APRN - 11/26/2020 9:00 AM EST 1. Continue pantoprazole 40mg twice daily 30-60 minutes prior eating morning and evening meal 2. Upper endoscopy as scheduled 3. HREM and impedence pH as scheduled 4. Eat smaller more frequent meals throughout the day 5. Continue warm fluids before and with meals 6. Follow up end of February 2021 documented in this encounter Progress Notes Shu Preciado APRN - 11/26/2020 9:00 AM EST GASTROENTEROLOGY TELEMEDICINE PROGRAM - ESTABLISHED PATIENT VISIT Chief Complaint: Ivis Laureano is a 75 y[address] patient of Dr[address] Ana delcid. provider found here for follow-up of Achalasia. Detailed history: Ivis Laureano is a 75 y.o. female With a history significant for s/p lap Hellermyotomy (done 10/28/[address] Aguilar), achalasia (type I), tubular adenoma on colonoscopy, hypertension, and nondiet diabetic neuropathy. She has been followed by me in our clinic since 07/12/2017. She was diagnosed with type I achalasia on high resolution esophageal manometry on 05/28/2017. She subsequently underwent a laparoscopic Heller myotomy on 10/28/2017. During her appointment on 12/20/2018, she endorsed persistent dysphagia, although not as severe as prior to surgery. She was taking omeprazole for management of her reflux symptoms. I recommended changing the timing of omeprazole, warm fluids before and with meals, and Levsin for suspected esophageal spasms. During her appointment on 06/04/2020, she endorsed worsening dysphagia occurring most days to both solids and liquids. Recommendations included increasing lansoprazole to 30 mg twice daily, 5-minute timed barium swallow, impedance pH on twice daily lansoprazole with combined esophageal manometry, and an EGD. Interval history: EGD scheduled December. Impedence pH and HREM scheduled in February. Continues to have dysphagia. I've developed this problem with breathing. Currently taking pantoprazole 40mg twice daily. Tried stopped pantoprazole without relief. Warm fluids have been helpful/peppermint tea. Will occasional take luciano tea. Has been maintaining weight. Very infrequent reflux symptoms. Review of systems: 14-point review of systems reviewed and negative except as above. Medications: Outpatient Medications Prior to Visit Medication Sig Dispense Refill ??? pantoprazole EC (Protonix) 40 mg Tablet, Delayed Release (E.C.) Take 1 tablet by mouth 2 times daily. 180 tablet 3 ??? lansoprazole (PREVACID SOLUTAB) 30 mg Tablet,Rapid Dissolve, DR Take 1 tablet by mouth 2 times daily. 180 tablet 3 ??? lansoprazole (PREVACID) 30 mg Capsule, Delayed Release(E.C.) Take 30 mg by mouth daily. ??? UNABLE TO FIND Med Name: anoroellipepta (umeclidinium) inhaled powder 62.5mcg ??? acetaminophen (TYLENOL) 650 mg/20.3 mL Solution Take 20.3 mLs by mouth every 4 hours. ??? multivitamin Tablet, Chewable Take by mouth. ??? b complex vitamins Capsule Take 1 capsule by mouth daily. ??? losartan (COZAAR) 25 mg Tablet ??? hydrochlorothiazide (HYDRODIURIL) 50 mg tablet (Patient taking differently: Take 25 mg by mouth.) ??? fexofenadine (CHANTAL) 60 mg tablet No facility-administered medications prior to visit. Allergies: is allergic to unable to find [unclassified drug]. Past Medical History: has no past medical history on file. Past Surgical History: has a past surgical history that includes Colonoscopy, Diagnostic (90454) (05/06/2012); Colonoscopy, Diagnostic (74344) (N/A, 04/15/2017); Upper Gi Endoscopy, Biopsy (32845) (N/A, 04/15/2017); Upper GI Endoscopy, Diagnostic (35103) (N/A, 07/22/2017); Lap, Esophagomyotomy W Fundoplasty (11992) (N/A, 10/28/2017); and Upper GI Endoscopy, Diagnostic (42912) (N/A, 10/28/2017). Family History: family history includes Breast Cancer in her maternal aunt, paternal aunt, and sister. Social History: reports that she has never smoked. She has never used smokeless tobacco. She reportsthat she does not drink alcohol and does not use drugs. No Physical Examination performed during this telemedicine visit Laboratory studies, imaging, and procedures (my review of prior records): 1. EGD 04/15/2017; abnormal esophageal motility, suspicious for presbyesophagus. Z line regular. Normal stomach. Normal duodenum. 2. REM 9 09/27/2016; findings consistent with type I achalasia 3. Barium swallow 07/12/2017 complete emptying of the esophagus within 5 minutes of barium ingestion 4. EGD with Botox injection 07/22/2017; dilated distal esophagus. A large amount of food in stomach 5. Barium swallow done at [facility] 11/10/2018; normal esophageal emptying. 6. Colonoscopy 04/15/2017 uttered mild diverticulosis in the sigmoid and descending colon 2 polyps. Biopsies sessile serrated adenoma 7. CT chest 05/02/2020 outside hospital; s/p Heller myotomy esophagus. 8. 5-minute timed barium swallow 06/13/2020; patient unable to tolerate full volume of barium. At 5 minutes there is only trace residual contrast in the lower esophagus Assessment/Plan: Ms. Laureano is a 75 y.o. patient with Achalasia (type 1) and persistent dysphagia 1. Type Achalasia I s/p Heller myotomy; Underwent a Heller myotomy in October 2017. Persistent dysphagia despite myotomy. Has undergone several botox injections for symptom management. Symptoms have been getting progressively worse. 5 minute timed barium swallow in May 2020 showed residual barium in esophagus after 5 minutes. She has an upcoming EGD and impedence pH/HREM scheduled in December andFebruary respectively. She has been taking pantoprazole 40mg twice daily. The next step is testing as previously recommended to determine next steps. Recommendations: -Continue pantoprazole 40mg twice daily 30-60 minutes prior eating morning and evening meal -Upper endoscopy as scheduled -HREM/Impedence pH as scheduled -Eat smaller more frequent meals throughout the day -Continue warm fluids before and with meals -Follow up end of February 2021 Shu Preciado APRN [facility] [place] [address] documented in this encounter Plan of Treatment Upcoming Encounters Date Type Specialty Care Team Description 05/14/2022 Hospital Encounter Gastroenterology Evelyn Michel MD [facility] GASTROENTEROLOGY DEPT. [place], [place] [address] 05/14/2022 Surgery Gastroenterology Evelyn Michel, EGLucretia, U PPER GI MD ENDOSCOPY [facility] GASTROENTEROLOGY DEPT. [place], [place] [address] 05/28/2022 Appointment Pulmonology Scheduled Procedures Name Priority Associated Diagnoses Date/Time EGD, UPPER GI ENDOSCOPY Achalasia 05/14/2022 2:30 PM EDT Dysphagia, unspecified type COLONOSCOPY, DIAGNOSTIC Achalasia 05/14/2022 2:30 PM EDT Dysphagia, unspecified type documented as of this encounter Visit Diagnoses Diagnosis Achalasia Achalasia and cardiospasm Dysphagia, unspecified type Achalasia Achalasia and cardiospasm Dysphagia, unspecified type documented in this encounter Care Teams Waiter/Waitress Informal Relationship Specialty Start Date End Date Nanci Gomez MD PCP - General 08/19/10 [address] [place] [address] documented as of this encounter
--- OUTSIDE RECORDS SUMMARY | 2022-04-16 02:00 | XMS_ITS | Encounter Summary ---
:1945 Author Organization [facility] [place] [address] Care Team Providers Name Role Phone Nanci Gomez MD Primary Care Provider Encounter Details Date Type Department Care Team Description 01/14/2021 Hospital En[place] [facility] [place] [facility] [place] [address] [place] [address] [place], [place] [address] Social History Tobacco Use Types Packs/Day Years Used Date Never Smoker Smokeless Tobacco: Never Used Alcohol Use Standard Drinks/Week Comments No 0 (1 standard drink = 0.6 oz pure alcoho l) Sex Assigned at Date Recorded Not on file documented as of this encounter Last Filed Vital Signs Vital Sign Reading Time Taken Comments Blood Pressure 165/96 01/14/2021 12:30 PM EDT Pulse 86 01/14/2021 11:05 AM EDT Temperature 36.3 ??C (97.3 ??F) 01/14/2021 11:05 AM EDT Respiratory Rate 16 01/14/2021 12:30 PM EDT Oxygen Saturation 100% 01/14/2021 12:30 PM EDT Inhaled Oxygen Concentration - - Weight 103.4 kg (228 lb) 01/14/2021 11:07 AM EDT Height 179.1 cm (5' 10.5) 01/14/2021 11:07 AM EDT Body Mass Index 32.25 01/14/2021 11:07 AM EDT documented in this encounter Discharge Instructions Discharge InstructionsSara Levy RN - 01/14/2021 12:17 PM EDT Upper GI Endoscopy: What to Expect at Home Your Recovery You will be able to go home after your doctor or nurse checks to make sure you are not having any problems. You may have to stay overnight if you had treatment during the test. You may have a sore throat for a day or two after the test. This care sheet gives you a general idea about what to expect after the test. How can you care for yourself at home? Activity Rest when you feel tired. ?? You can do your normal activities when it feels okay to do so. Diet ?? Follow your doctor's directions for eating. ?? Unless your doctor has told you not to, drink plenty of fluids. This helps to replace the fluidsthat were lost during the prep. ?? Do not drink alcohol. Medicines ?? Your doctor will tell you if and when you can restart your medicines. He or she will also give you instructions about taking any new medicines. ?? If you take blood thinners, such as warfarin (Coumadin), clopidogrel (Plavix), or aspirin, be sure to talk to your doctor. He or she will tell you if and when to start taking those medicines again.Make sure that you understand exactly what your doctor wants you to do. ?? If polyps were removed or a biopsy was done during the test, your doctor may tell you not to take aspirin or other anti-inflammatory medicines for a few days. These include ibuprofen (Advil, Motrin) and naproxen (Aleve). ?? If you have a sore throat the day after the procedure, use an durq-ocf-xsrfpdr spray to numb yourthroat. Sucking on throat lozenges and gargling with warm salt water may also help relieve your symptoms. Other instructions ?? For your safety, do not drive or operate machinery until the medicine wears off and you can think clearly. Your doctor may tell you not to drive or operate machinery until the day after your test. ?? Do not sign legal documents or make major decisions until the medicine wears off and you can think clearly. The anesthesia can make it hard for you to fully understand what you are agreeing to. Additional Information for Sedation Patients For patients who received sedation: ?? You may have received medications before and/or during your procedure which effects your judgement and reaction time. ?? Do not drive, operate machinery, drink alcoholic beverages or make important decisions for 24 hours. ?? Be careful on stairs as you may be unsteady on your feet. ?? You may eat a regular diet as tolerated. ?? Do not smoke if you are alone. ?? IV site: Slight redness or tenderness is normal, you can use a warm compress if you would like. If tenderness and/or redness increase or if foul drainage occurs, please contact your Doctor. Please call [phone] before 8pm Mon-Fri with problems, questions or concerns. If you call after 8pm or on weekends, call the Hospital at [phone] and ask to speak to the Inclusion Intern status controller and the bumper operator will contact that person for you. When should you call for help? Call 151 anytime you think you may need emergency care. For example, call if: ?? You passed out (lost consciousness). ?? You pass maroon or bloody stools. ?? You have trouble breathing. Call your doctor now or seek immediate medical care if: ?? You have pain that does not get better after you take pain medicine. ?? You are sick to your stomach or cannot drink fluids. ?? You have new or worse belly pain. ?? You have blood in your stools. ?? You have a fever. ?? You cannot pass stools or gas. Watch closely for changes in your health, and be sure to contact your doctor if you have any problems. Where can you learn more? [facility] View your After Visit Summary and more online at [email or web address] If you would like to provide feedback about your hospital experience, please call the Office of Patient and Family Relations at . If you have received this After Visit Summary in error, please immediately return it in person to the department, or notify the [facility] Privacy Office by calling toll free at between the hours of 8AM and 5PM to arrange for our retrieval of the documents at no cost to you. Content Version: 12.2 ?? [id number] [employer]. Care instructions adapted under license by [facility]. If you have questions about a medical condition or this instruction, always ask your healthcare professional. [employer] disclaims any warranty or liability for your use of this information. documented in this encounter Medications at Time of Discharge Medication Sig Dispensed Refills Start Date End Date acetaminophen (TYLENOL) Take 20.3 mLs by 0 2017 650 mg/20.3 mL Solution mouth every 4 hours. multivitamin Tablet, Take by mouth. 0 Chewable b complex vitamins Take 1 capsule by 0 Capsule mouth daily. losartan (COZAAR) 25 mg 0 06/26/2017 Tablet hydrochlorothiazide 0 04/22/2007 (HYDRODIURIL) 50 mg tablet fexofenadine (CHANTAL) 60 0 04/22/2007 mg tablet Combivent Respimat 20-100 INHALE ONE PUFF BY 0 03/18/2022 mcg/actuation Mist MOUTH FOUR TIMES A DAY pantoprazole EC Take 1 tablet by 180 tablet 3 06/25/202003/2021 (Protonix) 40 mg Tablet, mouth 2 times daily. Delayed Release (E.C.) UNABLE TO FIND Med Name: 0 03/18/2022 anoroellipepta (umeclidinium) inhaled powder 62.5mcg documented as of this encounter H&P Notes Meliton Hammond MD - 01/14/2021 11:35 AM EDT Patient Name: Ivis Laureano Patient Age: 75 y.o. Birthdate: 1945 Admit date: 01/14/2021 Attending Physician: Meliton Hammond MD Gastroenterology and Hepatology Pre-Procedure History and Physical Exam Procedure: EGD: Indication: Achalasia Patient Active Problem List Diagnosis Code ??? Achalasia K22.0 EXAM: HEENT: Airway examined, oropharynx clear Mallampati Score: II (soft palate, uvula, fauces visible) LUNGS: Clear to auscultation HEART: Regular rate and rhythm, normal S1, S2 ABDOMEN: Normal bowel sounds, soft, non tender, non distended, A/P Proceed with the planned endoscopic procedure. ASA 2 - Patient with mild systemic disease with no functional limitations Sedation Plan: anesthesia Risks and benefits of the procedure explained to the patient. Consent signed. documented in this encounter Plan of Treatment Upcoming Encounters Date Type Specialty Care Team Description 05/14/2022 Hospital Encounter Gastroenterology Evelyn Michel MD [facility] DR GASTROENTEROLOGY DEPT. [place], [place] [address] 05/14/2022 Surgery Gastroenterology Evelyn Michel, EGD, U PPER GI MD ENDOSCOPY [facility] GASTROENTEROLOGY DEPT. [place], [place] [address] 05/28/2022 Appointment Pulmonology Scheduled Procedures Name Priority Associated Diagnoses Date/Time EGD, UPPER GI ENDOSCOPY Achalasia 05/14/2022 2:30 PM EDT Dysphagia, unspecified type COLONOSCOPY, DIAGNOSTIC Achalasia 05/14/2022 2:30 PM EDT Dysphagia, unspecified type documented as of this encounter Procedures Procedure Name Priority Date/Time Associated Diagnosis Comme nts SPECIMEN TO Routine 01/14/2021 11:54 AM Results for this PATHOLOGY EDT procedure are i n the results section. SPECIMEN TO Routine 01/14/2021 11:54 AM Results for this PATHOLOGY EDT procedure are i n the results section. SPECIMEN TO Routine 01/14/2021 11:54 AM Results for this PATHOLOGY EDT procedure are i n the results section. SURGICAL PATHOLOGY Routine 01/14/2021 11:49 AM Re sults for this REPORT EDT procedure are i n the results section. EGD, UPPER GI 01/14/2021 11:34 AM EGD with IVCS (APD ENDOSCOPY EDT ok). INDICATION: Patient with achalasia and worsening dysphagia. ??Please evaluate esophagus and LES UPPER GI ENDOSCOPY Routine 01/14/2021 11:20 AM Re sults for this EDT procedure are i n the results section. documented in this encounter Results Specimen to Pathology (01/14/2021 11:54 AM EDT) Specimen Anatomical Collection Method Collection Time Receive d Time (Source) Location / / Volume Laterality AP Specimen 01/14/2021 11:54 01/14/2021 AM EDT 11:54 AM EDT Narrative [facility] - 01/14/2021 11:54 AM EDT Specimen requisition ordered. ??Separate Pathology report to follow Meliton Hammond MD PATHOLOGY/CYTOLOGY ORDERABLE S Performing Organization Address City/[facility]/ZIP [place] [address] Specimen to Pathology (01/14/2021 11:54 AM EDT) Specimen Anatomical Collection Method Collection Time Receive d Time (Source) Location / / Volume Laterality AP Specimen 01/14/2021 11:54 01/14/2021 AM EDT 11:54 AM EDT Narrative [facility] - 01/14/2021 11:54 AM EDT Specimen requisition ordered. ??Separate Pathology report to follow Meliton Hammond MD PATHOLOGY/CYTOLOGY ORDERABLE S Performing Organization Address City/[facility]/ZIP Code Phon e Number [place] [phone] Specimen to Pathology (01/14/2021 11:54 AM EDT) Specimen Anatomical Collection Method Collection Time Receive d Time (Source) Location / / Volume Laterality AP Specimen 01/14/2021 11:54 01/14/2021 AM EDT 11:54 AM EDT Narrative [facility] - 01/14/2021 11:54 AM EDT Specimen requisition ordered. ??Separate Pathology report to follow Meliton Hammond MD PATHOLOGY/CYTOLOGY ORDERABLE S Performing Organization Address City/[facility]/ZIP [place] [address] Surgical Pathology Report (01/14/2021 11:49 AM EDT) Component Value Ref Test Analysis Performed At [facility] gist Range Method Time Signature Surgical [id number] ? Location: 4T; EA11; Magalie [facility] Pathology RANDOLPH Report The signing pathologist has (i) examined the relevant preparation(s) for the [facility]IAL specimen(s) and (ii) rendered or confirmed the diagnosis(es) . [facility]OSPITAL LAB[facility]ORY . ?Surgic al Pathology DIAGNOSIS A - Stomach, ??polypectomy: Gastric fundic gland polyp. B - Stomach, ??biopsy: Gastric antral gland mucosa with nonspecific reactive gastro carlos. Gastric fundic gland mucosa with nonspecific parietal cell alterations of the type sometimes seen in hypergastrinemic conditions o r in patients on PPI therapy. No H. pylori-like microorganism is seen. C - GE junction, ??biopsy: Gastric fundic mucosa with mild foveolar hyperpl diamond, negative for dysplasia. Electronically signed by: ?Irma Moody MD Verified: ??01/19/2021 16:12 ??Pathologist Performed at: ??-[facility] [place]. [place], [place], [place] SPECIMEN(S) SUBMITTED A - gastric polyp, resection (1) B - gastric biopsies r/o H.pylori, biopsy (1) C - GE junction biopsies r/o Poe's, biopsy (Multiple) CLINICAL INFORMATION 75-year-old female history of achalasia SPECIMEN PROCESSING A - Labeled/Fixative: Gastric polyp, formalin. Quantity/Size: Two, 0.2-0.3 cm. Tissue Description: Soft, bryan-pink tissues. Sections/Processing: Submitted en toto ??in 1 cassette labeled A1. B - Labeled/Fixative: Gastric biopsies R/O H. pylori, formal in. Quantity/Size: Three, 0.2-0.4 cm. Tissue Description: Soft, bryan-pink tissues. Sections/Processing: Submitted en toto ??in 1 cassette labeled B1. C - Labeled/Fixative: GE junction biopsies R/O Poe's, fo rmalin. Quantity/Size: Two, 0.1-0.3 cm. Tissue Description: Soft, bryan tissues. Sections/Processing: Submitted en toto ??in 1 cassette labeled C1. ??zack Specimen (Source) Anatomical Collection Method Collection Time Re ceived Time Location / / Volume Laterality 01/14/2021 11:49 AM EDT Meliton Hammond MD PATHOLOGY/CYTOLOGY ORDERABLE S Performing Organization Address City/[facility]/ZIP [place] [address] UPPER GI ENDOSCOPY (01/14/2021 11:20 AM EDT) Component Value Ref Test Analysis Performed At [facility] Range Method Time Signature UPPER GI [facility] ENDOSCOPY Endoscopy Procedure Date: 01/14/2021 11:20 AM ? Patient Name: Ivis Laureano ? N: [id number] ? Date of : 1945 ? Age: 75 ? Order #: [id number] ? Instrument Name: [id number] ? Procedure: ? Upper GI endoscopy Indications: ? Achalasia. Sensation of food stasis ? in epigastrium/retrosternum - unclear ? if food holding up in esophag us or ? stomach. No barium hold up in ? esophagus. Prior EGD showed r etained ? food in stomach. Discussed Sander tox role ? pre-procedure. Providers: ? Meliton Hammond, Anton Munoz, ? Marie Fong MD: ?Nanci Gomez MD Medicines: ? Monitored Anesthesia Care Complications: ? No immediate complications. Procedure: ? Pre-Anesthesia Assessment: ? - See the other procedure not e for ? documentation of the pre-proc edure ? assessment. ? The procedure, indications, b enefits, ? risks and alternatives were e xplained ? to the patient. Specifically ? discussed were potential ? complications including, but not ? limited to, bleeding, perfora tion, ? infection, missing a cancer, and ? adverse medication reactions. The ? Endoscope was introduced thro ugh the ? mouth, and advanced to the se cond ? part of duodenum. The patient ? tolerated the procedure well. The ? upper GI endoscopy was accomp lished ? without difficulty. The patie nt ? tolerated the procedure well. ? Findings: ? The examined esophagus was significantly tortuous. ? Esophagogastric landmarks were identified: the Z-line ? was found at 40 cm, the gastroesophageal junction was ? found at 40 cm and the site of hiatal narrowing was ? found at 42 cm from the incisors. ? The esophagus and gastroesophageal junction were ? examined with white light and narrow band imaging ? (NBI). There were esophageal mucosal changes ? suspicious for short-segment Poe's esophagus, ? classified as Poe's stage C0-M1 per Imtiaz ? criteria. These changes involved the mucosa extending ? to the Z-line. The maximum longitudinal extent of ? these esophageal mucosal changes was 1 cm in length. ? Biopsies were taken with a cold forceps for histology . ? Multiple diminutive sessile polyps were found in the ? stomach. This was biopsied with a cold forceps for ? histology. ? The examined duodenum was normal. ? Moderate Sedation: ? Not applicable - See Anesthesia documentation Impression: ?- Tortuous esophagus. ? - Esophagogastric landmarks ? identified. ? - Possible resistance at LES (unclear ? if just spasm) so proceeded w ith ? Botox - 4 quadrant injection of 25 ? u/0.5 cc ? - Esophageal mucosal changes ? 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 Poe's stage C0-M1 per Monse wagner ? criteria. Biopsied. ? - Multiple gastric polyps. Bi opsied. ? - Normal examined duodenum. Recommendation: ?- Patient has a contact number ? available for emergencies. Th e signs ? and symptoms of potential del ayed ? complications were discussed with the ? patient. Return to normal act ivities ? tomorrow. Written discharge ? instructions were provided to the ? patient. ? - Discharge patient to home. ? - If improvement with Botox c onsider ? repeat if sypmtoms return ? - We could be just dealing fo r loss ? of esophageal body motility - ? discussed ? - If no improvement consider further ? work-up of esophagus and stom ach ? motility ? - Follow-up with Shu ureña ? HAMMERER HELPER. ? Attending Participation: ? I personally performed the entire procedure. ? Meliton Hammond Meliton Hammond, 01/14/2021 12:10:30 PM Number of Addenda: 0 Note Initiated On: 01/14/2021 11:20 AM Specimen (Source) Anatomical Collection Method Collection Time Re ceived Time Location / / Volume Laterality 01/14/2021 11:20 AM EDT Nanci Gomez MD GENERAL SURGICAL ORDERABLES Performing Organization Address City/State/ZIP Code Phon e Number [facility] documented in this encounter Visit Diagnoses Not on filedocumented in this encounter Administered Medications Inactive Administered Medications - up to 3 most recent administrations Medication Order MAR Action Action Date Dose Rate Site lactated ringers infusion New Bag 01/14/2021 11:13 AM 100 mL/hr 100 mL/hr 100 mL/hr, Intravenous, EDT CONTINUOUS, Starting on 01/14/21 at 1130, Until Tu01/14/21 at 1522, Endoscopy (Day of Procedure) documented in this encounter Active and Recently Administered Medications Times are shown in EDT. Continuous Medication Order 01/12/2021 01/13/2021 01/14/2021 lactated ringers infusion 1113 ( New Bag - Provider: Lala Jean-Baptiste RN) 100 mL/hr, at 100 mL/hr, Intravenous, CO NTINUOUS, Starting 01/14/21 at 1130, Until 01/14/21 at 1522, Endo (Day of Procedure) documented in this encounter Care Teams Car Shifter Relationship Specialty Start Date End Date Nanci Gomez MD PCP - General 08/19/10 [address] [place] [address] documented as of this encounter
--- OUTSIDE RECORDS SUMMARY | 2022-04-16 02:00 | XMS_ITS | Encounter Summary ---
:1945 Author Organization [place] [address] Care Team Providers Name Role Phone Nanci Gomez MD Primary Care Provider Encounter Details Date Type Department Care Team Description 12/08/2021 Telephone Gastroenterology at [facility] [place] Shalonda Curran, [facility] [place] [address] Social History Tobacco Use Types Packs/Day Years Used Date Never Smoker Smokeless Tobacco: Never Used Alcohol Use Standard Drinks/Week Comments No 0 (1 standard drink = 0.6 oz pure alcoho l) Sex Assigned at Date Recorded Not on file documented as of this encounter Miscellaneous Notes Telephone Encounter - Shalonda Curran RN - 12/09/2021 4:33 PM EDT Follow-up call placed to patient to relay message from provider: Order is all set for EGD. ??Can put in an order for consultation with Dr. Coello pending response tobotox. ?? Ivis agrees with plan. She awaits scheduling. EGD order is placed as [place]/within one month. Telephone Encounter - Shalonda Curran RN - 12/08/2021 12:56 PM EDT Received call from patient who states that her esophageal symptoms have worsened and she is looking to take next steps in treatment/work-up. Ivis states that she trialed Dexilant 150 mg daily since her office visit last March. For a time, her local provider had her increase dose to twice daily. She never felt any benefit and so she just recently weaned off. Currently taking Pantoprazole 40 mg BID. She reports that feeling of food piling up in her esophagus has worsened. spells last for greater than five minutes and pain has worsened. She understands next step might be a re-trial of botox injection but she did not feel this was helpfulpreviously. She is agreeable to a discussion with Dr. Coello on POEM. She would like to discuss options with Shu. documented in this encounter Plan of Treatment Upcoming Encounters Date Type Specialty Care Team Description 05/14/2022 Hospital Encounter Gastroenterology Evelyn Michel MD [facility] DR GASTROENTEROLOGY DEPT. [place], [place] [address] 05/14/2022 Surgery Gastroenterology Evelyn Michel, EGD, U PPER GI MD ENDOSCOPY [facility] GASTROENTEROLOGY DEPT. [place], [place] [address] 05/28/2022 Appointment Pulmonology Scheduled Procedures Name Priority Associated Diagnoses Date/Time EGD, UPPER GI ENDOSCOPY Achalasia 05/14/2022 2:30 PM EDT Dysphagia, unspecified type COLONOSCOPY, DIAGNOSTIC Achalasia 05/14/2022 2:30 PM EDT Dysphagia, unspecified type documented as of this encounter Visit Diagnoses Not on filedocumented in this encounter Care Teams Industrial Chemist Relationship Specialty Start Date End Date Nanci Gomez MD PCP - General 08/19/10 [address] [place] [address] documented as of this encounter
--- OUTSIDE RECORDS SUMMARY | 2022-04-16 02:00 | XMS_ITS | Encounter Summary ---
:1945 Author Organization [place] [address] Care Team Providers Name Role Phone Nanci Gomez MD Primary Care Provider Encounter Details Date Type Department Care Team Description 09/03/2021 Telephone [place] [facility]ilo Villasenor [facility] [place] [address] Social History Tobacco Use Types Packs/Day Years Used Date Never Smoker Smokeless Tobacco: Never Used Alcohol Use Standard Drinks/Week Comments No 0 (1 standard drink = 0.6 oz pure alcoho l) Sex Assigned at Date Recorded Not on file documented as of this encounter Miscellaneous Notes Telephone Encounter - Chilo Villasenor RN - 09/03/2021 3:04 PM EST Patient calls the office leaving a message on the RN voicemail requesting information on the Pantoprazole prescription that she is being asked to have her PCP refill. Returned call to patient to to make her aware that provider sent a prescription for 180 tabs of her Pantoprazole to her pharmacy in [place] and explained that we would like her to discuss future refills with her PCP. Patient will call our office if there is any issue with her PCP taking over refills. documented in this encounter Plan of Treatment Upcoming Encounters Date Type Specialty Care Team Description 05/14/2022 Hospital Encounter Gastroenterology Evelyn Michel MD [facility] DR GASTROENTEROLOGY DEPT. [place], [place] [address] 05/14/2022 Surgery Gastroenterology Evelyn Michel, EGD, U PPER GI MD ENDOSCOPY [facility] GASTROENTEROLOGY DEPT. [place], [place] [address] 05/28/2022 Appointment Pulmonology Scheduled Procedures Name Priority Associated Diagnoses Date/Time EGD, UPPER GI ENDOSCOPY Achalasia 05/14/2022 2:30 PM EDT Dysphagia, unspecified type COLONOSCOPY, DIAGNOSTIC Achalasia 05/14/2022 2:30 PM EDT Dysphagia, unspecified type documented as of this encounter Visit Diagnoses Not on filedocumented in this encounter Care Teams Cloth Handler Relationship Specialty Start Date End Date Nanci Gomez MD PCP - General 08/19/10 [address] [place] [address] documented as of this encounter
--- OUTSIDE RECORDS SUMMARY | 2022-04-16 02:00 | XMS_ITS | Clinical Summary ---
:1945 Author Organization [facility] [place] [address] Care Team Providers Name Role Phone Nanci Gomez MD Primary Care Provider Allergies Active Allergy Reactions Severity Noted Date Comments Unclassified Drug 12/20/2018 Seasonal Medications Medication Sig Dispensed Refills Start Date End Date Status hydrochlorothiazide 0 04/22/2007 Active (HYDRODIURIL) 50 mg tablet fexofenadine (CHANTAL) 60 0 04/22/2007 Active mg tablet b complex vitamins Capsule Take 1 0 Active capsule by mouth daily. losartan (COZAAR) 25 mg 0 06/26/2017 Active Tablet multivitamin Tablet, Take by 0 Active Chewable mouth. acetaminophen (TYLENOL) Take 20.3 mLs 0 10/29/2017 Active 650 mg/20.3 mL Solution by mouth every 4 hours. pantoprazole EC (Protonix) TAKE ONE 180 tablet 0 09/02/2021 Active 40 mg Tablet, Delayed TABLET BY Release (E.C.)Indications: MOUTH TWICE A Achalasia DAY rOPINIRole (Requip) 1 mg Take 1 mg by 0 Active Tablet mouth nightly. cholecalciferol, Vitamin Take by 0 Active D3, (cholecalciferol, mouth. Vitamin D3,) 50 mcg (2,000 unit) Capsule Active Problems Problem Noted Date Achalasia 09/14/2017 Encounters Date Type Specialty Care Team Description 03/31/2022 Telephone Pulmonology Alesia Monteiro 03/31/2022 Telephone Pulmonology Alesia Monteiro 03/31/2022 Telephone Pulmonology Kathryn Hendricks 03/24/2022 Telephone Gastroenterology Olman Shreya L 03/23/2022 Telephone General Surgery Patrizia Chavez, ONEL 03/23/2022 Telephone Gastroenterology Shalonda Curran RN 03/18/2022 TH Visit Gastroenterology Sieglinger, Achalasia; (TeleHealth) Shu Guillen, BALANCE WHEEL ARM BURNISHER Gastroesophage al reflux disease, unspecified whether esophagitis present 03/18/2022 Telephone Gastroenterology Seamus Gaston CCMA 03/16/2022 Orders Only Pulmonology Maxx Reyes, Solitary pul jair ARMSTRONG nodule (Primary Dx) 03/13/2022 Telephone Gastroenterology Chilo Villasenor RN 01/26/2022 Telephone Gastroenterology Luciana Smith from Last 3 Months Family History Medical History Relation Comments Breast Cancer Maternal Aunt Breast Cancer Paternal Aunt Breast Cancer Sister Relation Status Comments Maternal Aunt Alive Paternal Aunt Sister Social History Tobacco Use Types Packs/Day Years Used Date Never Smoker Smokeless Tobacco: Never Used Alcohol Use Standard Drinks/Week Comments No 0 (1 standard drink = 0.6 oz pure alcoho l) Sex Assigned at Date Recorded Not on file Last Filed Vital Signs Vital Sign Reading Time Taken Comments Blood Pressure 151/79 04/01/2021 11:18 AM EDT Pulse 64 04/01/2021 11:18 AM EDT Temperature 36.3 ??C (97.3 ??F) 01/14/2021 11:05 AM EDT Respiratory Rate 16 01/14/2021 12:30 PM EDT Oxygen Saturation 100% 01/14/2021 12:30 PM EDT Inhaled Oxygen Concentration - - Weight 105.5 kg (232 lb 9.6 oz) 04/01/2021 11:18 AM EDT Height 179.1 cm (5' 10.5) 01/14/2021 11:07 AM EDT Body Mass Index 32.9 01/14/2021 11:07 AM EDT Plan of Treatment Upcoming Encounters Date Type Specialty Care Team Description 05/14/2022 Hospital Encounter Gastroenterology Evelyn Michel MD [facility] GASTROENTEROLOGY DEPT. [place], [place] [address] 05/14/2022 Surgery Gastroenterology Evelyn Michel, EGD, U PPER GI MD ENDOSCOPY [facility] DR GASTROENTEROLOGY DEPT. [place], [place] [address] 05/28/2022 Appointment Pulmonology Scheduled Procedures Name Priority Associated Diagnoses Date/Time EGD, UPPER GI ENDOSCOPY Achalasia 05/14/2022 2:30 PM EDT Dysphagia, unspecified type COLONOSCOPY, DIAGNOSTIC Achalasia 05/14/2022 2:30 PM EDT Dysphagia, unspecified type Health Maintenance Due Date Last Done Comments Covid-19 Vaccine (#1) 1950 Hepatitis C Screening 1963 Tdap adult 1964 Tetanus vaccine 1964 Zoster vaccine (1 of 2) 1995 Advance Directive 2000 Pneumoccocal Vaccine: 65+ (1 - 2010 PCV) Colonoscopy 04/15/2022 04/15/2017, 04/15/2017, 05/06/2012, Additional history exists Influenza (Flu) vaccine (1 of - 05/28/2022 Influenza standard series) Bone Density Scan Completed 02/29/2020, 05/12/2013 Procedures Procedure Name Priority Date/Time Associated Diagnosis Comme nts PFT SCAN 03/16/2022 12:00 AM Results for this EDT procedure are i n the results section . from Last 3 Months Results SCAN DOC: PFT (03/16/2022 12:00 AM EDT) Narrative This result has an attachment that is no t available. Unknown MEDIA MGR SCAN EXT ORDR/RSLT from Last 3 Months Insurance Payer Benefit Plan / Subscriber ID Effective Dates Phone Addre ss Type Group MEDICARE MEDICARE PART [id number] 2010-Prese [phone] [facility] [phone] [employer] [id number] 2010-Prese [address] [place] [address] (Work) [phone] Advance Directives Latest Code Status on File Code Status Date Activated Date Inactivated Comments Full Code 10/28/2017 7:51 PM 10/29/2017 5:17 PM Does patient have capacity to make decision: Yes Care Teams Centralized Traffic Control Operator Relationship Specialty Start Date End Date Nanci Gomez MD PCP - General 08/19/10 [address] [place], [place] [address]
--- OUTSIDE RECORDS SUMMARY | 2022-04-16 02:00 | XMS_ITS | Encounter Summary ---
:1945 Author Organization [facility] Address [facility] [place] [address] Care Team Providers Name Role Phone Nanci Gomez MD Primary Care Provider Reason for Visit Reason Comments Medication Refill Encounter Details Date Type Department Care Team Description 09/01/2021 Refill Gastroenterology at [facility] Shu Preciado Achalasia [facility] [place] [address] [facility] [phone] GASTROENTEROLOGY [place] [id number] (Wo rk) Social History Tobacco Use Types Packs/Day Years Used Date Never Smoker Smokeless Tobacco: Never Used Alcohol Use Standard Drinks/Week Comments No 0 (1 standard drink = 0.6 oz pure alcoho l) Sex Assigned at Date Recorded Not on file documented as of this encounter Miscellaneous Notes Telephone Encounter - Shalonda Curran RN - 09/02/2021 10:17 AM EST Call placed to patient. LVMM advising that temp supply of Pantoprazole to be sent to her pharmacy. Requested patient f/u with PCP for future refills on maintenance prescription. documented in this encounter Plan of Treatment Upcoming Encounters Date Type Specialty Care Team Description 05/14/2022 Hospital Encounter Gastroenterology Evelyn Michel MD [facility] GASTROENTEROLOGY DEPT. [place], [place] [address] 05/14/2022 Surgery Gastroenterology Evelyn Michel, EGD, U PPER GI MD ENDOSCOPY [facility] GASTROENTEROLOGY DEPT. [place], [place] [address] 05/28/2022 Appointment Pulmonology Scheduled Procedures Name Priority Associated Diagnoses Date/Time EGD, UPPER GI ENDOSCOPY Achalasia 05/14/2022 2:30 PM EDT Dysphagia, unspecified type COLONOSCOPY, DIAGNOSTIC Achalasia 05/14/2022 2:30 PM EDT Dysphagia, unspecified type documented as of this encounter Visit Diagnoses Diagnosis Achalasia Achalasia and cardiospasm Achalasia Achalasia and cardiospasm Dysphagia, unspecified type documented in this encounter Care Teams Instructor Of Nursing Relationship Specialty Start Date End Date Nanci Gomez MD PCP - General 08/19/10 [address] [place] [address] documented as of this encounter
--- OUTSIDE RECORDS SUMMARY | 2022-04-16 02:00 | XMS_ITS | Encounter Summary ---
:1945 Author Organization [facility] [place] [address] Care Team Providers Name Role Phone Nanci Gomez MD Primary Care Provider Encounter Details Date Type Department Care Team Description 03/21/2021 Telephone Gastroenterology at [facility] Chilo Villasenor [facility] [place] [address] Social History Tobacco Use Types Packs/Day Years Used Date Never Smoker Smokeless Tobacco: Never Used Alcohol Use Standard Drinks/Week Comments No 0 (1 standard drink = 0.6 oz pure alcoho l) Sex Assigned at Date Recorded Not on file documented as of this encounter Miscellaneous Notes Telephone Encounter - Chilo Villasenor RN - 03/21/2021 1:37 PM EDT Called patient to discuss below. Patient verbalized understanding and agrees with plan. Shu Preciado APRN sent to [facility] Gastro Motility Nurse Mark-- alaina call her. ??Let her know we discussed her ase during meeting. ??We are not recommending another surgical procedure at this time. ??She and I can discuss a few different options during our upcoming appointment. Manuel Ireland documented in this encounter Plan of Treatment Upcoming Encounters Date Type Specialty Care Team Description 05/14/2022 Hospital Encounter Gastroenterology Evelyn Michel MD [facility] GASTROENTEROLOGY DEPT. [place], [place] [address] 05/14/2022 Surgery Gastroenterology Evelyn Michel, EGD, U PPER GI MD ENDOSCOPY [facility] GASTROENTEROLOGY DEPT. [place], [place] [address] 05/28/2022 Appointment Pulmonology Scheduled Procedures Name Priority Associated Diagnoses Date/Time EGD, UPPER GI ENDOSCOPY Achalasia 05/14/2022 2:30 PM EDT Dysphagia, unspecified type COLONOSCOPY, DIAGNOSTIC Achalasia 05/14/2022 2:30 PM EDT Dysphagia, unspecified type documented as of this encounter Visit Diagnoses Not on filedocumented in this encounter Care Teams Traffic Engineer Relationship Specialty Start Date End Date Nanci Gomez MD PCP - General 08/19/[address] [place] [id number] documented as of this encounter
--- OUTSIDE RECORDS SUMMARY | 2022-04-16 02:00 | XMS_ITS | Encounter Summary ---
:1945 [place] [address] Care Team Providers Name Role Phone Nanci Gomez MD Primary Care Provider Encounter Details Date Type Department Care Team Description 03/13/2022 Telephone Gastroenterology at [facility] Chilo Villasenor [facility] [place] [address] Social History Tobacco Use Types Packs/Day Years Used Date Never Smoker Smokeless Tobacco: Never Used Alcohol Use Standard Drinks/Week Comments No 0 (1 standard drink = 0.6 oz pure alcoho l) Sex Assigned at Date Recorded Not on file documented as of this encounter Miscellaneous Notes Telephone Encounter - Chilo Villasenor RN - 03/13/2022 8:44 AM EDT Notified by senior interactive developer, Donna, that patient was on the line stating that the medication Shu prescribed her was causing her shortness of breath and other side effects. Spoke with patient how states that she is now on oxygen since the last appointment with Shu, March 2021, and is asking if the pantoprazole that was prescribed to her has caused the breath issue. Patient also states that she is starting to experience leg cramps. Patient has discussed these concerns with her PCP a couple of times and states she is not getting answers. Explained that she has been taking the pantoprazole for a while now and most likely would have starting experiencing symptoms before now. Patient would like to discuss medication and symptoms with Shu. Recommended patient call our office to schedule an appointment to discuss concerns. Patient instructed to continue to follow up withher PCP for urgent concerns and if breathing/ shortness of breath worsens to go to her local emergency room for evaluation. Patient did not sound short of breath during this phone conversation and was able to complete the conversation with full sentences. Notified by the senior interactive developer that patient is scheduled for a telephone visit with Shu Preciado APRN on 03/18/22. EGD schedule for 05/14/2022 Last visit 04/01/21 documented in this encounter Plan of Treatment Upcoming Encounters Date Type Specialty Care Team Description 05/14/2022 Hospital Encounter Gastroenterology Evelyn Michel MD [facility] DR GASTROENTEROLOGY DEPT. [place], [place] [address] 05/14/2022 Surgery Gastroenterology Evelyn Michel, EGD, U PPER GI MD ENDOSCOPY [facility] DR GASTROENTEROLOGY DEPT. [place], [place] [address] 05/28/2022 Appointment Pulmonology Scheduled Procedures Name Priority Associated Diagnoses Date/Time EGD, UPPER GI ENDOSCOPY Achalasia 05/14/2022 2:30 PM EDT Dysphagia, unspecified type COLONOSCOPY, DIAGNOSTIC Achalasia 05/14/2022 2:30 PM EDT Dysphagia, unspecified type documented as of this encounter Visit Diagnoses Not on filedocumented in this encounter Care Teams Manager English Relationship Specialty Start Date End Date Nanci Gomez MD PCP - General 08/19/10 [address] [place] [address] documented as of this encounter
--- OUTSIDE RECORDS SUMMARY | 2022-04-16 02:00 | XMS_ITS | Encounter Summary ---
:1945 Author Organization [facility] [place] [address] Care Team Providers Name Role Phone Nanci Gomez MD Primary Care Provider Reason for Referral Consultation (Routine) - Authorized Specialty Diagnoses / Procedures Referred By Contact Refer red To Contact Gastroenterology Diagnoses Achalasia Shu Preciado Salwen-Deremer, APRN Jessica K, PhD [facility] [address] [facility] [address] [place] [id number] [place] [address] Referral ID Status Reason Start Date Expiration Visits Visits Date Requested Authorized [id number] Authorized Consult, 03/18/2022 03/18/2023 1 1 Test & Treat Encounter Details Date Type Department Care Team Description 03/18/2022 TH Visit Gastroenterology at [facility] Juliane Preciado; (TeleHealth) [facility] Lucretia Guillen APRN Gastroesophageal reflux disease, unspeci [place]ied [place] [address] [facility] [phone] [place] [address] Social History Tobacco Use Types Packs/Day Years Used Date Never Smoker Smokeless Tobacco: Never Used Alcohol Use Standard Drinks/Week Comments No 0 (1 standard drink = 0.6 oz pure alcoho l) Sex Assigned at Date Recorded Not on file documented as of this encounter Progress Notes Laieriberto Shu Guillen, SOLUTION MAKER - 03/18/2022 9:30 AM EDT GASTROENTEROLOGY TELEMEDICINE PROGRAM - ESTABLISHED PATIENT VISIT Chief Complaint: Ivis Laureano is a [address] y[address] of [address] Jones here for follow-up of Achalasia. Detailed history: Ivis Laureano is a 76 y.o. female With a history significant for s/p lap Hellermyotomy (done 10/28/[address] Aguilar), achalasia (type I), tubular adenoma on colonoscopy, hypertension, nondiabetic neuropathy. She has been followed by me in our clinic since 07/12/2017. She was diagnosed with type I achalasia on high resolution esophageal manometry on 05/28/2017. She subsequently underwent a laparoscopic Heller myotomy on 10/28/2017. Appointments -12/20/2018, she endorsed persistent dysphagia, although not as severe as prior to surgery. She was taking omeprazole for management of her reflux symptoms. I recommended changing the timing of omeprazole, warm fluids before and with meals, and Levsin for suspected esophageal spasms. -06/04/2020, she endorsed worsening dysphagia occurring most days to both solids and liquids. Recommendations included increasing lansoprazole to 30 mg twice daily, 5-minute timed barium swallow, impedance pH on twice daily lansoprazole with combined esophageal manometry, and an EGD. -11/26/2020, she endorsed persistent dysphagia. Recommendations included continuing pantoprazole twicedaily, EGD, high-resolution esophageal manometry with impedance pH, warm fluids before and with meals, and eating smaller more frequent meals throughout the day. - 04/01/2021; she endorsed occasional heartburn symptoms a few times per month despite twice daily PPI. She continued to have esophageal dysphagia. Recommendations included follow-up with PCP to start diltiazem. We discussed if no improvement with diltiazem, will we would arrange for an EGD with Botox in jection midesophagus. If needed, we would refer to Dr. Coello to discuss POEM. We also discussed continuing pantoprazole twice daily. Interval history: My swallowing is more difficult. Was using advair for a breathing issue. Developed multiple side effects. Swallowing became worse. She stopped taking advair and swallowing has improved. Has been to the sleep clinic. Started on oxygen at bedtime. Heartburn approximately once every 1-3 weeks. Currently taking pantoprazole twice daily. Endorses choking fits. She did try diltiazem. This didn't help with swallowing. Unpleasant side effects. Stopped taking. EGD scheduled for April. Review of systems: 14-point review of systems reviewed and negative except as above. Medications: Outpatient Medications Prior to Visit Medication Sig Dispense Refill ??? pantoprazole EC (Protonix) 40 mg Tablet, Delayed Release (E.C.) TAKE ONE TABLET BY MOUTH TWICE ADAY 180 tablet 0 ??? Combivent Respimat 20-100 mcg/actuation Mist INHALE ONE PUFF BY MOUTH FOUR TIMES A DAY ??? UNABLE TO FIND Med Name: anoroellipepta [...] past surgical history that includes Colonoscopy, Diagnostic (19347) (05/06/2012); Colonoscopy, Diagnostic (36096) (N/A, 04/15/2017); Upper Gi Endoscopy, Biopsy (58413) (N/A, 04/15/2017); Upper GI Endoscopy, Diagnostic (62727) (N/A, 07/22/2017); Lap, Esophagomyotomy W Fundoplasty (79557) (N/A, 10/28/2017); Upper GI Endoscopy, Diagnostic (14822) (N/A, 10/28/2017); and Upper GI Endoscopy, Diagnostic (19606) (N/A, 01/14/2021). Family History: family history includes Breast Cancer [...] in stomach 5. Barium swallow done at [facility] 11/10/2018; normal esophageal emptying. 6. Colonoscopy 04/15/2017 uttered mild diverticulosis in the sigmoid and descending colon 2 polyps. Biopsies sessile serrated adenoma 7. CT chest 05/02/2020 outside hospital; s/p Heller myotomy esophagus. 8. 5-minute timed barium swallow 06/13/2020; patient unable to tolerate full volume of barium. At 5 minutes there is only trace residual contrast in the lower esophagus 9. High resolution esophageal manometry 03/10/2021; no evidence of residual LES pressure seen making identification difficult. Persistent motility in body of esophagus, all swallows premature consistentwith distal esophageal spasm. 10. Impedance pH on pantoprazole twice daily 03/10/2021; borderline or inconclusive evidence for breakthrough acid reflux tested on pantoprazole 40 mg twice daily. No convincing association between reflux and recorded symptoms. Evidence of elevated reflux burden measured by impedance. DeMeester score 25.6. 11. EGD 01/14/2021; tortuous esophagus. Possible resistance to LES. 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 Multiple gastric polyps. Normal examined duodenum. Biopsies at [facility] for dysplasia. Stomach biopsies unremarkable. Fundic gland polyp. Assessment/Plan: Ms. Laureano is a 76 y.o. patient with Achalasia (type 1) and persistent dysphagia 1. Type Achalasia I s/p Heller myotomy; Underwent a Heller myotomy in October 2017. Persistent dysphagia despite myotomy. Has undergone several botox injections for symptom management without relief of symptoms. 5 minute timed barium swallow in May 2020 with residual trace remaining in the esophagusat 5 minutes. HREM 03/10/21 consistent with esophageal spasms. Impedence pH with evidence of elevatedreflux burden, inconclusive for pathologic acid reflux. She denies frequent heartburn symptoms and continues to take pantoprazole twice daily. I reviewed her case with the motility team and Dr. Coello during our group meeting on 03/21/21. Recommendations are based on our discussion during the meeting. She has tried diltiazem for relief of symptoms. She does have an EGD pending. 2. Heartburn symptoms currently well controlled with pantoprazole twice daily Recommendations: - EGD as scheduled with Botox injection mid esophagus --If needed, we will refer to Dr. Coello to discuss POEM procedure -Referral to GI behavioral health for coping with chronic illness class. --Continue pantoprazole twice daily as previously prescribed --Follow up approximately 2 to 3 weeks after EGD TIME SPENT WITH PATIENT Time spent reviewing records prior to this encounter: 10 minutes Time spent during encounter with patient including counselin minutes Time spent documenting encounter after office visit: 5 minutes Approximate total time on the date of the encounter devoted to this single encounter: 35 minutes . Shu Preciado APRN [facility] [place] [phone] documented in this encounter Plan of Treatment Upcoming Encounters Date Type Specialty Care Team Description 05/14/2022 Hospital Encounter Gastroenterology Evelyn Michel MD [facility] GASTROENTEROLOGY DEPT. [place], [place] [address] 05/14/2022 Surgery Gastroenterology Evelyn Michel, EGD, U PPER GI ENDOSCOPY [facility] GASTROENTERJHONATHAN DEPT. [place], [place] [address] 05/28/2022 Appointment Pulmonology Scheduled Procedures Name Priority Associated Diagnoses Date/Time EGD, UPPER GI ENDOSCOPY Achalasia 05/14/2022 2:30 PM EDT Dysphagia, unspecified type COLONOSCOPY, DIAGNOSTIC Achalasia 05/14/2022 2:30 PM EDT Dysphagia, unspecified type Scheduled Referrals Name Type Priority Associated Order Schedule Diagnoses Amb Referral to GI Outpatient Referral Routine Achalasia Or dered: Behavioral Health 03/18/2022 documented as of this encounter Visit Diagnoses Diagnosis Achalasia Achalasia and cardiospasm Gastroesophageal reflux disease, unspeci fied whether esophagitis present Achalasia Achalasia and cardiospasm Dysphagia, unspecified type documented in this encounter Care Teams Bill Poster Installer Relationship Specialty Start Date End Date Nanci Gomez MD PCP - General 08/19/10 [address] [place] [address] documented as of this encounter
--- OUTSIDE RECORDS SUMMARY | 2022-04-16 02:00 | XMS_ITS | Encounter Summary ---
:1945 Author Organization [facility] [place] [address] Care Team Providers Name Role Phone Nanci Gomez MD Primary Care Provider Encounter Details Date Type Department Care Team Description 12/09/2021 Orders Only Gastroenterology at [facility] Sieglinger, Achalasia; [facility] Lucretia Guillen APRN [place], [place] [address] [facility] [phone] [place] [address] Social History Tobacco Use Types Packs/Day Years Used Date Never Smoker Smokeless Tobacco: Never Used Alcohol Use Standard Drinks/Week Comments No 0 (1 standard drink = 0.6 oz pure alcoho l) Sex Assigned at Date Recorded Not on file documented as of this encounter Plan of Treatment Upcoming Encounters Date Type Specialty Care Team Description 05/14/2022 Hospital Encounter Gastroenterology Evelyn Michel MD [facility] GASTROENTEROLOGY DEPT. [place], [place] [address] 05/14/2022 Surgery Gastroenterology Evelyn Michel, EGD, U PPER GI MD ENDOSCOPY [facility] GASTROENTEROLOGY DEPT. [place], [place] [address] 05/28/2022 Appointment Pulmonology Scheduled Orders Name Type Priority Associated Diagnoses Order S chedule ENDOSCOPY CASE Procedures Routine Achalasia Ordered: 12/09/2021 REQUEST: EGD, UPPER GI Dysphagia, unspeci fied ENDOSCOPY type Scheduled Procedures Name Priority Associated Diagnoses Date/Time EGD, UPPER GI ENDOSCOPY Achalasia 05/14/2022 2:30 PM EDT Dysphagia, unspecified type COLONOSCOPY, DIAGNOSTIC Achalasia 05/14/2022 2:30 PM EDT Dysphagia, unspecified type documented as of this encounter Visit Diagnoses Diagnosis Achalasia Achalasia and cardiospasm Dysphagia, unspecified type Achalasia Achalasia and cardiospasm Dysphagia, unspecified type documented in this encounter Care Teams Hospital Director Relationship Specialty Start Date End Date Nanci Gomez MD PCP - General 08/19/10 [address] [place] [address] documented as of this encounter
--- OUTSIDE RECORDS SUMMARY | 2022-04-16 02:00 | XMS_ITS | Encounter Summary ---
:1945 Author Organization [facility] [place] [address] Care Team Providers Name Role Phone Nanci Gomez MD Primary Care Provider Encounter Details Date Type Department Care Team Description 11/28/2020 Telephone Gastroenterology at [facility] [place] [address] Social History Tobacco Use Types Packs/Day Years Used Date Never Smoker Smokeless Tobacco: Never Used Alcohol Use Standard Drinks/Week Comments No 0 (1 standard drink = 0.6 oz pure alcoho l) Sex Assigned at Date Recorded Not on file documented as of this encounter Miscellaneous Notes Telephone Encounter - Shryea Thurman - 12/05/2020 12:26 PM EST Scheduled for 04/01/21 Telephone Encounter - Shreya Thurman - 12/02/2020 9:45 AM EST Left message for patient to contact the office for scheduling. LUIS MIGUEL Preciado would like the patient scheduled for a gif with her at the end of February/early March following her motility study. Telephone Encounter - Shreya Thurman - 11/28/2020 10:23 AM EST Attempted phoning patient for scheduling but her said she was not home at this time. CHORAL DIRECTOR Ilana would like the patient scheduled for a gif with her end of February/early March. The patient's was informed that our office would reach out to her at another time. documented in this encounter Plan of Treatment Upcoming Encounters Date Type Specialty Care Team Description 05/14/2022 Hospital Encounter Gastroenterology Evelyn Michel MD [facility] DR GASTROENTEROLOGY DEPT. [place], [place] [address] 05/14/2022 Surgery Gastroenterology Evelyn Michel, EGD, U PPER GI MD ENDOSCOPY [facility] GASTROENTEROLOGY DEPT. [place], [place] [address] 05/28/2022 Appointment Pulmonology Scheduled Procedures Name Priority Associated Diagnoses Date/Time EGD, UPPER GI ENDOSCOPY Achalasia 05/14/2022 2:30 PM EDT Dysphagia, unspecified type COLONOSCOPY, DIAGNOSTIC Achalasia 05/14/2022 2:30 PM EDT Dysphagia, unspecified type documented as of this encounter Visit Diagnoses Not on filedocumented in this encounter Care Teams Patient Observer Relationship Specialty Start Date End Date Nanci Gomez MD PCP - General 08/19/[address] [place] [address] documented as of this encounter
--- OUTSIDE RECORDS SUMMARY | 2022-04-16 02:00 | XMS_ITS | Encounter Summary ---
:1945 Author Organization [facility] [place] [address] Care Team Providers Name Role Phone Nanci Gomez MD Primary Care Provider Encounter Details Date Type Department Care Team Description 01/26/2022 Telephone Gastroenterology at [facility] [place] [address] Social History Tobacco Use Types Packs/Day Years Used Date Never Smoker Smokeless Tobacco: Never Used Alcohol Use Standard Drinks/Week Comments No 0 (1 standard drink = 0.6 oz pure alcoho l) Sex Assigned at Date Recorded Not on file documented as of this encounter Miscellaneous Notes Telephone Encounter - Luciana Smith - 01/26/2022 10:15 AM EDT Ivis Laureano [id number] Diagnosis/Indication: Botox injection for esophagal dysphagia hx poylps- 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 Have you ever had a/an Upper Endoscopy & Colonoscopy before? Yes: Date EGD 01/14/21 COLO 04/15/2017 If yes, did you have any problems with the procedure? No What type of sedation was used: Other: EGD MAC / COLO IVCS 2. Do you take any blood thinners or have you been diagnosed with a bleeding disorder that increasesyour risk of bleeding with procedures? No 3. Do you have a Pacemaker or Defibrillator device? No 4. Are you a diabetic? No 5. Do you have any Allergies to Eggs, Latex or Medications? No 6. Do you take any Oral Iron Supplements (Including multi-vitamins)? Yes (Multivitamin) 7. Do you have a history of three or more abdominal surgeries? No 8. Have you had a problem with sedation or anesthesia? No 9. Do you use a c-pap machine or oxygen tank? Oxygen 10. Do you take prescription narcotic pain medications, including suboxone or methodone? No 11. Do you have a preference regarding the gender of your provider? No Preference 12. Is there any other information you would like to us to note for the provider and nursing team who will perform your case? No 13. Say to patient: You must have a responsible republican who will drive you to your procedure, stay on campus for the entire duration of your procedure, and drive you home from your procedure? *Please Verify the height and weight, and adjust if height and/or weight have changed* Estimated body mass index is 32.9 kg/m?? as calculated from the following: Height as of 01/14/21: 179.1 cm (5' 10.5). Weight as of 04/01/21: 105.5 kg (232 lb 9.6 oz). *Delete if not needed* Height: 5'10.5 Weight: 230 BMI: 32.5 Age:76 y.o. documented in this encounter Plan of Treatment Upcoming Encounters Date Type Specialty Care Team Description 05/14/2022 Hospital Encounter Gastroenterology Evelyn Michel MD [facility] DR GASTROENTEROLOGY DEPT. [place], [place] [address] 05/14/2022 Surgery Gastroenterology Evelyn Michel, EGD, U PPER GI ENDOSCOPY [facility] GASTROENTEROLOGY DEPT. [place], [place] [address] 05/28/2022 Appointment Pulmonology Scheduled Procedures Name Priority Associated Diagnoses Date/Time EGD, UPPER GI ENDOSCOPY Achalasia 05/14/2022 2:30 PM EDT Dysphagia, unspecified type COLONOSCOPY, DIAGNOSTIC Achalasia 05/14/2022 2:30 PM EDT Dysphagia, unspecified type documented as of this encounter Visit Diagnoses Not on filedocumented in this encounter Care Teams Chemical Dependency Professional Relationship Specialty Start Date End Date Nanci Gomez MD PCP - General 08/19/10 [address] [place] [address] documented as of this encounter
--- OUTSIDE RECORDS SUMMARY | 2022-04-16 02:00 | XMS_ITS | Encounter Summary ---
:1945 Author Organization [facility] [place] [address] Care Team Providers Name Role Phone Nanci Gomez MD Primary Care Provider Encounter Details Date Type Department Care Team Description 03/31/2022 Telephone Pulmonology at [place] Alesia Monteiro [facility] [place] [address] Social History Tobacco Use Types Packs/Day Years Used Date Never Smoker Smokeless Tobacco: Never Used Alcohol Use Standard Drinks/Week Comments No 0 (1 standard drink = 0.6 oz pure alcoho l) Sex Assigned at Date Recorded Not on file documented as of this encounter Plan of Treatment Upcoming Encounters Date Type Specialty Care Team Description 05/14/2022 Hospital Encounter Gastroenterology Evelyn Michel MD [facility] GASTROENTEROLOGY DEPT. [place], [place] [address] 05/14/2022 Surgery Gastroenterology Evelyn Michel, EGD, U PPER GI ENDOSCOPY [facility] GASTROENTEROLOGY DEPT. [place], [place] [address] 05/28/2022 Appointment Pulmonology Scheduled Procedures Name Priority Associated Diagnoses Date/Time EGD, UPPER GI ENDOSCOPY Achalasia 05/14/2022 2:30 PM EDT Dysphagia, unspecified type COLONOSCOPY, DIAGNOSTIC Achalasia 05/14/2022 2:30 PM EDT Dysphagia, unspecified type documented as of this encounter Visit Diagnoses Not on filedocumented in this encounter Care Teams Production Checker Relationship Specialty Start Date End Date Nanci Gomez MD PCP - General 08/19/10 [address] [place] [address] documented as of this encounter
--- OUTSIDE RECORDS SUMMARY | 2022-04-16 02:00 | XMS_ITS | Encounter Summary ---
:1945 Author Organization [facility] Address [facility] [place] [address] Care Team Providers Name Role Phone Nanci Gomez MD Primary Care Provider Encounter Details Date Type Department Care Team Description 10/22/2020 Telephone [place]ology [place] [facility] Shalonda Curran, [facility] [place] [address] Social History Tobacco Use Types Packs/Day Years Used Date Never Smoker Smokeless Tobacco: Never Used Alcohol Use Standard Drinks/Week Comments No 0 (1 standard drink = 0.6 oz pure alcoho l) Sex Assigned at Date Recorded Not on file documented as of this encounter Miscellaneous Notes Telephone Encounter - Shalonda Curran RN - 10/22/2020 11:48 AM EST Received vmm from patient asking for call back to discuss next steps on follow- up with GI. States I saw cardiology and they said I was ok. I saw pulmonology and they said I should come back to GI. Attempted to return call x 2. Phone rang with no answering service. Patient is scheduled for follow-up with Shu in November. documented in this encounter Plan of Treatment Upcoming Encounters Date Type Specialty Care Team Description 05/14/2022 Hospital Encounter Gastroenterology Evelyn Michel MD [facility] GASTROENTEROLOGY DEPT. [place], [place] [address] 05/14/2022 Surgery Gastroenterology Evelyn Michel, EGD, U PPER GI MD ENDOSCOPY [facility] DR GASTROENTEROLOGY DEPT. [place], [place] [address] 05/28/2022 Appointment Pulmonology Scheduled Procedures Name Priority Associated Diagnoses Date/Time EGD, UPPER GI ENDOSCOPY Achalasia 05/14/2022 2:30 PM EDT Dysphagia, unspecified type COLONOSCOPY, DIAGNOSTIC Achalasia 05/14/2022 2:30 PM EDT Dysphagia, unspecified type documented as of this encounter Visit Diagnoses Not on filedocumented in this encounter Care Teams Wax Pattern Repairer Relationship Specialty Start Date End Date Nanci Gomez MD PCP - General 08/19/[address] [place] [address] documented as of this encounter
--- OUTSIDE RECORDS SUMMARY | 2022-04-16 02:00 | XMS_ITS | Encounter Summary ---
:1945 Author Organization [facility] [place] [address] Care Team Providers Name Role Phone Nanci Gomez MD Primary Care Provider Reason for Visit Reason Onset Date Comments Reminder Appointment 03/18/2022 Encounter Details Date Type Department Care Team Description 03/18/2022 Telephone Gastroenterology at [facility] Mary Gaston Reminder Appointment [facility] [place] [address] Social History Tobacco Use Types Packs/Day Years Used Date Never Smoker Smokeless Tobacco: Never Used Alcohol Use Standard Drinks/Week Comments No 0 (1 standard drink = 0.6 oz pure alcoho l) Sex Assigned at Date Recorded Not on file documented as of this encounter Miscellaneous Notes Telephone Encounter - Mary Gaston CCMA - 03/18/2022 8:55 AM EDT Called patient to review medications and allergies for their upcoming gastroenterology Type of Appointment: Phone appointment. Reach Patient during MA Check: Yes Notes for the provider: Notes for the nurse: documented in this encounter Plan of Treatment Upcoming Encounters Date Type Specialty Care Team Description 05/14/2022 Hospital Encounter Gastroenterology Evelyn Michel MD [facility] GASTROENTEROLOGY DEPT. [place], [place] [address] 05/14/2022 Surgery Gastroenterology Evelyn Michel, EGD, U PPER GI MD ENDOSCOPY [facility] DR GASTROENTEROLOGY DEPT. [place], [place] [address] 05/28/2022 Appointment Pulmonology Scheduled Procedures Name Priority Associated Diagnoses Date/Time EGD, UPPER GI ENDOSCOPY Achalasia 05/14/2022 2:30 PM EDT Dysphagia, unspecified type COLONOSCOPY, DIAGNOSTIC Achalasia 05/14/2022 2:30 PM EDT Dysphagia, unspecified type documented as of this encounter Visit Diagnoses Not on filedocumented in this encounter Care Teams Data Review Specialist Relationship Specialty Start Date End Date Nanci Gomez MD PCP - General 08/19/10 [address] [place] [address] documented as of this encounter
--- OUTSIDE RECORDS SUMMARY | 2022-04-16 02:00 | XMS_ITS | Encounter Summary ---
:1945 Author Organization [facility] Address [place] [id number] Care Team Providers Name Role Phone Nanci Gomez MD Primary Care Provider Reason for Visit Consultation (Routine) - Closed Specialty Diagnoses / Procedures Referred By Contact Refer red To Contact Gastroenterology Diagnoses Achalasia combined HREM/pH impedance ON PPI for heartburn Shu Preciado, [facility] G vicente 4t Procedures HIGH RESOLUTION ESOPHAGEAL MANOMETRY PH IMPEDANCE - 24 HOUR combined HREM/pH impedance ON PPI for heartburn FILE DRAWER FINISHER [facility] GASTROENTEROLOGY [place], [place] [id number] [place] [address] Referral ID Status Reason Start Date Expiration Date Visits V isits Requested Authorized [id number] Closed Test Only 05/31/2020 05/31/2021 1 1 Encounter Details Date Type Department Care Team Description 03/10/2021 Procedure visit [place] [address] Social History Tobacco Use Types Packs/Day Years Used Date Never Smoker Smokeless Tobacco: Never Used Alcohol Use Standard Drinks/Week Comments No 0 (1 standard drink = 0.6 oz pure alcoho l) Sex Assigned at Date Recorded Not on file documented as of this encounter Progress Notes Jermaine Crain LPN - 03/10/2021 9:00 AM EDT A description of the esophageal manometry procedure was provided to the patient. All questions were answered and the patient verbalized understanding. The HREM catheter was placed via the left naris without difficulty. The esophageal manometry procedure was performed and the catheter was removed. The patient tolerated the procedure well. Prior to placement of the impedance catheter, a description of the procedure was provided to patient. All questions were answered and the patient verbalized understanding. Written instructions were given to the patient as well. At 0915 the impedance catheter was placed in the left naris without difficulty. It was secured at 39cm with tape. This study is being performed on acid suppressants, which was confirmed by the patient. The patient is taking pantoprazole 40mg twice daily. Meliton Hammond MD - 03/10/2021 9:00 AM EDT Catheter-based pH/impedance procedure report Patient: Ivis Laureano Address: [address] [place] [address] [place] [address] : 1945 Referring provider: Shu Preciado Date of service: 03/10/2021 Indication: Heartburn Procedure: The catheter was placed transnasally after topical anesthetic (1cc of 4% aerosol lidocaine and 1cc of 2% viscous lidocaine), with the esophageal pH sensor located 32cm from the nares, 5 cm above the manometrically identified lower esophageal sphincter. A gastric pH sensor was located 10 cm distal to the top of the lower esophageal sphincter. The patient was instructed to keep a diary of symptoms, andreturned the next day for removal of the probe. Testing performed ON pantoprazole 40 mg BID acid-suppressive therapy. Analysis Duration Total (HH:MM): 22:08 Analysis Duration Upright (HH:MM): 09:04 Analysis Duration Supine (HH:MM): 13:04 Acid exposure time (AET): Total distal esophageal acid exposure time: 5.9 % of testing period Upright distal esophageal acid exposure time: 0.0 % of testing period Supine distal esophageal acid exposure time: 10.1 % of testing period DeMeester Score: 25.6 (normal: <14.7) Normal values for acid exposure time (AET) defined as the % of time with a pH <4 Conclusive evidence for pathologic reflux: AET >7.0% Borderline or inconclusive evidence for pathologic reflux: AET 4.0% to 7.0% Evidence against pathologic reflux: AET <4.0% Reflux symptom association (RSA): Symptom Index (SI) Symptom (# of occurrences) Acid Weak acid Nonacid All reflux Symptom (2) 50% 50% 0% 100% Symptom Association Probability (SAP) Symptom (# of occurrences) Acid Weak acid Nonacid All reflux Symptom 84.9% 57.0% 0% 84.7% Interpretation of reflux symptom association (RSA) Positive association: Symptom Associated Probability [SAP] > 95% AND Symptom Index [SI] > 50% No convincing association: Symptom Associated Probability [SAP] > 95% OR Symptom Index [SI] > 50% No evidence of association: Symptom Associated Probability [SAP] < 95% AND Symptom Index [SI] < 50% Number of reflux events by impedance: 150 total (normal < 80) and 9 acidic (normal < 80) and 141 weakly acidic (normal < 80) Esophageal bolus exposure time by impedance: 20.1 % (normal < 2%) Impression based on the Jack classification: Borderline or inconclusive evidence for breakthrough acid reflux tested ON pantoprazole 40 mg BID medication. No convincing association between reflux and recorded symptoms of symptom. Evidence of elevated reflux burden measured by impedance. References: 1) Modern diagnosis of GERD: the Jack Consensus. Gut. 2018 Mar; 67(7): 1676-1051. 2) Validation of the Jack classification for GORD diagnosis: acid exposure time assessed by prolonged wireless pH monitoring in healthy controls and patients with erosive oesophagitis. Gut. 2020. doi 10.1136/uwcrki-2652-716461. Meliton Hammond MD, [facility] Section of Gastroenterology and Hepatology [facility] [place] [address] V: [phone] F: [phone] CC/EC: Nanci Gomez MD [address] [address] Meliton Hammond MD - 03/10/2021 9:00 AM EDT Images from the original note were not included. HIGH-RESOLUTION ESOPHAGEAL MANOMETRY PROCEDURE NOTE Patient: Ivis Laureano Address: [address] [place] [address] [place] [address] : 1945 Date of service: 02/28/2021 Indication: Heartburn Procedure: The patient arrived after an overnight fast. After verbal consent, a Karen motility catheter with 36 circumferential sensors on 1 cm spacing with impedance sensors was inserted transnasally after application of topical anesthesia to the nasal passage. The catheter was positioned so that at least 2 distal sensors were in the stomach and 2 proximal sensors were located above the UES. A 3-5 minute acclimation period was provided followed by 10 wet swallows of 5 cc of water while supine. Normal values while supine: Upper esophageal sphincter residual pressure: < 12 mmHg Upper esophageal sphincter relaxation duration: > 480 msec Distal contractile integral (DCI): > 450 and < 8,000 mmHg x cm x s Distal latency time: > 4.5 sec Integrated EGJ relaxation pressure (IRP): < 15 mmHg Normal EGJ resting pressure (respiratory mean): 15-34 mmHg Findings: - Upper Esophageal Sphincter: normal mean residual pressure and relaxation duration - Body: 10% of swallows failed. 90% of swallows had premature contractions with shortened distal latency time. The remaining 0% of swallows were peristaltic, includin% of swallows with hypercontractility, 0% of swallows with weak peristalsis, and 0% of swallows with large breaks (>5 cm) in the 20mmHg isocontour line. - Esophagogastric Junction: Midpoint located 40 cm from the nares, and proximal extent located at 39cm. 2cm hiatal hernia present. Hypotensive resting pressure (mean 0 mmHg) and normal IRP in 100% of swallows (median 0 mmHg). - Bolus transit: Liquid boluses cleared in 0% of swallows. - Multiple rapid swallows: Peristaltic reserve: reduced (ratio of post-multiple rapid swallow DCI to median DCI on 10 supine swallows is <1.0) Deglutitive inhibition: normal deglutitive inhibition (DCI <100 mmHg*s*cm) during the maneuver Integrated relaxation pressure: 0 (normal <12 mmHg) Diesel Engine Pipe Fitter swallow: Impressions based on [place] Classification v4.0: History of myotomy for achalasia and recent botox injection of LES noted. There is no evidence of residual LES pressure seen making identification difficult. There is persistent motility in the body of the esophagus - all swallows premature consistent with distal esophageal spasm. Recommend presentation at esophageal case conference rounds for discussion on whether offering further invention such as POEM would benefit patient. *These findings assume that mechanical obstruction has been ruled out. Meliton Hammond MD, [facility] Section of Gastroenterology and Hepatology [facility] [place] [address] V: [phone] F: [phone] CC/EC: Nanci Gomez MD [address] [place] [address] documented in this encounter Plan of Treatment Upcoming Encounters Date Type Specialty Care Team Description 05/14/2022 Hospital Encounter Gastroenterology Evelyn Michel MD [facility] GASTROENTEROLOGY DEPT. [place], [place] [address] 05/14/2022 Surgery Gastroenterology Evelyn Michel, EGD, U PPER GI ENDOSCOPY [facility] GASTROENTEROLOGY DEPT. [place], [place] [address] 05/28/2022 Appointment Pulmonology Scheduled Procedures Name Priority Associated Diagnoses Date/Time EGD, UPPER GI ENDOSCOPY Achalasia 05/14/2022 2:30 PM EDT Dysphagia, unspecified type COLONOSCOPY, DIAGNOSTIC Achalasia 05/14/2022 2:30 PM EDT Dysphagia, unspecified type Scheduled Referrals Name Type Priority Associated Order Schedule Diagnoses Referral to Outpatient Routine Achalasia Ordered: Gastroenterology Referral 05/31/2020 documented as of this encounter Visit Diagnoses Diagnosis Achalasia Achalasia and cardiospasm Achalasia Achalasia and cardiospasm Dysphagia, unspecified type documented in this encounter Care Teams Water Supervisor Relationship Specialty Start Date End Date Nanci Gomez MD PCP - General 08/19/10 [address] [place] [address] documented as of this encounter
--- OUTSIDE RECORDS SUMMARY | 2022-04-16 02:00 | XMS_ITS | Encounter Summary ---
:1945 Author Organization [facility] [place] [address] Care Team Providers Name Role Phone Nanci Gomez MD Primary Care Provider Encounter Details Date Type Department Care Team Description 03/18/2021 Telephone Gastroenterology at [facility] Shu Preciado, [facility] [place] [address] [facility] [phone] GASTROENTEROLOGY [place], [place] [address] (Wo rk) Social History Tobacco [...] MD [facility] GASTROENTEROLOGY DEPT. [place], [place] [address] 05/14/2022 Surgery Gastroenterology Evelyn Michel, EGD, U PPER GI ENDOSCOPY [facility] GASTROENTEROLOGY DEPT. [place], [place] [address] 05/28/2022 Appointment Pulmonology Scheduled Procedures Name Priority Associated Diagnoses Date/Time EGD, UPPER GI ENDOSCOPY Achalasia 05/14/2022 2:30 PM EDT Dysphagia, unspecified type COLONOSCOPY, DIAGNOSTIC Achalasia 05/14/2022 2:30 PM EDT Dysphagia, unspecified type documented as of this encounter Visit Diagnoses Not on filedocumented in this encounter Care Teams Tariff Counsel Relationship Specialty Start Date End Date Nanci Gomez MD PCP - General 08/19/10 [address] [place] [address] documented as of this encounter
--- OUTSIDE RECORDS SUMMARY | 2022-04-16 02:00 | XMS_ITS | Encounter Summary ---
:1945 [place] [address] Care Team Providers Name Role Phone Nanci Gomez MD Primary Care Provider Encounter Details Date Type Department Care Team Description 07/03/2020 Telephone G[place]enterology at [facility] Chilo Villasenor [facility] [place] [address] Social History Tobacco Use Types Packs/Day Years Used Date Never Smoker Smokeless Tobacco: Never Used Alcohol Use Standard Drinks/Week Comments No 0 (1 standard drink = 0.6 oz pure alcoho l) Sex Assigned at Date Recorded Not on file documented as of this encounter Miscellaneous Notes Telephone Encounter - Chilo Villasenor RN - 07/04/2020 3:13 PM EDT Called patient to see if she picked up the pantoprazole prescription. Patient stated that she did and was much happier with the lower salcedo. Telephone Encounter - Chilo Villasenor RN - 07/03/2020 11:56 AM EDT Call made to patient to follow up and see if she picked up the prescription. Unable to reach patientby phone, stated she may be back home by 4:30pm today if not she will be available tomorrow afternoon (07/04/20). Per Shu Sieglinger, ROLLER SKATES ASSEMBLER: Tried writing for pantoprazole 40mg twice daily. ??Essentially we just want her on BID PPI. ??Sent to pharmacy. Thanks, Shu documented in this encounter Plan of Treatment Upcoming Encounters Date Type Specialty Care Team Description 05/14/2022 Hospital Encounter Gastroenterology Evelyn Michel MD [facility] DR GASTROENTEROLOGY DEPT. [place], [place] [address] 05/14/2022 Surgery Gastroenterology Evelyn Michel, EGD, U PPER GI MD ENDOSCOPY [facility] GASTROENTEROLOGY DEPT. [place], [place] [address] 05/28/2022 Appointment Pulmonology Scheduled Procedures Name Priority Associated Diagnoses Date/Time EGD, UPPER GI ENDOSCOPY Achalasia 05/14/2022 2:30 PM EDT Dysphagia, unspecified type COLONOSCOPY, DIAGNOSTIC Achalasia 05/14/2022 2:30 PM EDT Dysphagia, unspecified type documented as of this encounter Visit Diagnoses Not on filedocumented in this encounter Care Teams Research Engineer Marine Equipment Relationship Specialty Start Date End Date Nanci Gomez MD PCP - General 08/19/10 [address] [place] [address] documented as of this encounter
--- OUTSIDE RECORDS SUMMARY | 2022-04-16 02:00 | XMS_ITS | Encounter Summary ---
:1945 Author Organization [facility] [place] [address] Care Team Providers Name Role Phone Nanci Gomez MD Primary Care Provider Encounter Details Date Type Department Care Team Description 03/31/2022 Telephone Pulmonology at [facility] [place] [address] Social History Tobacco Use Types Packs/Day Years Used Date Never Smoker Smokeless Tobacco: Never Used Alcohol Use Standard Drinks/Week Comments No 0 (1 standard drink = 0.6 oz pure alcoho l) Sex Assigned at Date Recorded Not on file documented as of this encounter Miscellaneous Notes Telephone Encounter - Kathryn Hendricks - 03/31/2022 3:30 PM EDT sched pft for Apr pt aware dtl.sent appt letter documented in this encounter Plan of Treatment Upcoming Encounters Date Type Specialty Care Team Description 05/14/2022 Hospital Encounter Gastroenterology Evelyn Michel MD [facility] GASTROENTEROLOGY DEPT. [place], [place] [address] 05/14/2022 Surgery Gastroenterology Evelyn Michel, EGD, U PPER GI ENDOSCOPY [facility] GASTROENTEROLOGY DEPT. [place], [place] [address] 05/28/2022 Appointment Pulmonology Scheduled Procedures Name Priority Associated Diagnoses Date/Time EGD, UPPER GI ENDOSCOPY Achalasia 05/14/2022 2:30 PM EDT Dysphagia, unspecified type COLONOSCOPY, DIAGNOSTIC Achalasia 05/14/2022 2:30 PM EDT Dysphagia, unspecified type documented as of this encounter Visit Diagnoses Not on filedocumented in this encounter Care Teams Chief Controller Center Relationship Specialty Start Date End Date Nanci Gomez MD PCP - General 08/19/[address] [place] [address] documented as of this encounter
--- OUTSIDE RECORDS SUMMARY | 2022-04-16 02:00 | XMS_ITS | Encounter Summary ---
:1945 [place] [address] Care Team Providers Name Role Phone Nanci Gomez MD Primary Care Provider Encounter Details Date Type Department Care Team Description 01/14/2021 Surgery [place] [facility] Meliton Hammond, MICHAELD, UPPER GI [facility] [place]cret[place] [address] [facility] [phone] [place], [place] [address] Social History Tobacco Use Types Packs/Day Years Used Date Never Smoker Smokeless Tobacco: Never Used Alcohol Use Standard Drinks/Week Comments No 0 (1 standard drink = 0.6 oz pure alcoho l) Sex Assigned at Date Recorded Not on file documented as of this encounter Last Filed Vital Signs Vital Sign Reading Time Taken Comments Blood Pressure 153/75 01/14/2021 12:10 PM EDT Pulse 86 01/14/2021 11:05 AM EDT Temperature 36.3 ??C (97.3 ??F) 01/14/2021 11:05 AM EDT Respiratory Rate 16 01/14/2021 12:10 PM EDT Oxygen Saturation 99% 01/14/2021 12:10 PM EDT Inhaled Oxygen Concentration - - [...] the day after the procedure, use an andu-ddg-dscfwem spray to numb yourthroat. Sucking on throat [...] occurs, please contact your Doctor. Please call [phone] before 8pm Mon-Fri with problems, questions or concerns. If you call after 8pm or on weekends, call the Hospital at [phone] and ask to speak to the Clinic Specialist construction skills teacher and the cold work operator will contact that person for you. When should you call for help? Call 511 anytime you think you may need emergency [...] any problems. Where can you learn more? [facility] View your After Visit Summary and more online at [email or web address] If you would like to provide feedback about your hospital experience, please call the Office of Patient and Family Relations at . If you have received this After Visit Summary in error, please immediately return it in person to the department, or notify the [facility] Privacy Office by calling toll free at between the hours of 8AM and 5PM to arrange for our retrieval of the documents at no cost to you. Content Version: 12.2 ?? [id number] [employer]. Care instructions adapted under license by [facility]. If you have questions about a medical condition or this instruction, always ask your healthcare professional. [employer] disclaims any warranty or liability for your [...] Gastroenterology Evelyn Michel MD [facility] DR GASTROENTEROLOGY DEPT. [place], [place] [address] 05/14/2022 Surgery Gastroenterology Evelyn Michel, EGD, U PPER GI ENDOSCOPY [facility] DR GASTROENTEROLOGY DEPT. [place], [place] [address] 05/28/2022 Appointment Pulmonology Scheduled Procedures [...] 01/14/2021 AM EDT 11:54 AM EDT Narrative [facility] - 01/14/2021 11:54 AM EDT Specimen requisition ordered. ??Separate Pathology report to follow Meliton Hammond MD PATHOLOGY/CYTOLOGY ORDERABLE S Performing Organization Address City/[facility]/[place] [address] Specimen to Pathology (01/14/2021 11:54 AM EDT) Specimen Anatomical Collection Method Collection Time Receive d Time (Source) Location / / Volume Laterality AP Specimen 01/14/2021 11:54 01/14/2021 AM EDT 11:54 AM EDT Narrative [facility] - 01/14/2021 11:54 AM EDT Specimen requisition ordered. ??Separate Pathology report to follow Meliton Hammond MD PATHOLOGY/CYTOLOGY ORDERABLE S Performing Organization Address City/[facility]/[place] [address] Specimen to Pathology (01/14/2021 11:54 AM EDT) Specimen Anatomical Collection Method Collection Time Receive d Time (Source) Location / / Volume Laterality AP Specimen 01/14/2021 11:54 01/14/2021 AM EDT 11:54 AM EDT Narrative [facility] - 01/14/2021 11:54 AM EDT Specimen requisition ordered. ??Separate Pathology report to follow Meliton Hammond MD PATHOLOGY/CYTOLOGY ORDERABLE S Performing Organization Address City/[facility]/ZIP [facility] [place] [address] Surgical Pathology Report (01/14/2021 11:49 AM EDT) Component Value Ref Test Analysis Performed At [facility] Method Time Signature Surgical [id number] ? Location: 4T; EA11; A [facility] Pathology SEAN Report The signing pathologist has (i) examined [...] MD Verified: ??01/19/2021 16:12 ??Pathologist Performed at: ??-[facility] Dept. of Pathology, [place], [place] SPECIMEN(S) SUBMITTED A - gastric polyp, [...] MD PATHOLOGY/CYTOLOGY ORDERABLE S Performing Organization Address City/State/[place] [address] UPPER GI ENDOSCOPY (01/14/2021 11:20 AM EDT) Component Value Ref Test Analysis Performed At [facility] Method Time Signature UPPER GI [facility] ENDOSCOPY Endoscopy Procedure Date: 01/14/2021 11:20 AM ? Patient Name: Ivis Laureano ? N: [id number] ? Date of : 1945 ? Age: 75 ? Order #: [id number] ? Instrument Name: [id number] ? Procedure: ? Upper GI endoscopy Indications: ? Achalasia. Sensation of food stasis ? in epigastrium/retrosternum - unclear ? if food holding up in esophag us or ? stomach. No barium hold up in ? esophagus. Prior EGD showed r etained ? food in stomach. Discussed Sander tox role ? pre-procedure. Providers: ? Meliton Hammond, Anton Munoz, ? Marie Lewis Referring : ?Nanci Gomez MD Medicines: ? Monitored Anesthesia [...] ? 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 criteria. These changes involved the mucosa [...] ? - Follow-up with Shu ureña ? GAME ADVISOR. ? Attending Participation: ? I personally performed [...] CONTINUOUS, Starting on 01/14/21 at 1130, Until 01/14/21 at 1522, Endoscopy (Day of Procedure) documented in this encounter Active and Recently Administered Medications Times are shown in EDT. Continuous Medication Order 01/12/2021 01/13/2021 01/14/2021 lactated ringers infusion 1113 ( New Bag - Provider: Lala Jean-Baptiste, ONEL) 100 mL/hr, at 100 mL/hr, Intravenous, CO NTINUOUS, Starting 01/14/21 at 1130, Until 01/14/21 at 1522, Endo (Day of Procedure) documented in this encounter Care Teams Club Director Relationship Specialty Start Date End Date Nanci Gomez MD PCP - General 08/19/10 [address] [place] [address] documented as of this encounter
--- OUTSIDE RECORDS SUMMARY | 2022-04-16 02:00 | XMS_ITS | Encounter Summary ---
:1945 Author Organization [facility] [place] [address] Care Team Providers Name Role Phone Nanci Gomez MD Primary Care Provider Encounter Details Date Type Department Care Team Description 11/12/2020 Telephone [place]ology at [facility] [place] [address] Social History Tobacco Use Types Packs/Day Years Used Date Never Smoker Smokeless Tobacco: Never Used Alcohol Use Standard Drinks/Week Comments No 0 (1 standard drink = 0.6 oz pure alcoho l) Sex Assigned at Date Recorded Not on file documented as of this encounter Miscellaneous Notes Telephone Encounter - Elan Ornelas - 11/12/2020 3:03 PM EST 24 HOUR PH IMPEDANCE CLINICAL SAFETY CHECKLIST 11/12/2020 Elan Langston Vika Laureano [address] [place] [address] [id number] : 1945 REFERRING PROVIDER: Shu Preciado PRIMARY CARE PROVIDER: Nanci Gomez MD PRIMARY SYMPTOM (PROCEDURE INDICATION): heartburn SAFETY QUESTIONS FOR THE PATIENT HISTORY OF TRANSSPHENOIDAL OR PITUITARY SURGERY? No IF YES, please inform the patient that the test cannot be scheduled due to safety concerns about testing, and the patient should speak with their provider to consider alternative testing. The schedulershould also contact the provider's office directly to notify them that we are unable to schedule dueto a contraindication to testing. Then, delete the remainder of this checklist and close out the referral. HISTORY OF NASAL SURGERY IN THE LAST SIX MONTHS? No IF YES: PT CANNOT BE SCHEDULED DUE TO SAFETY CONCERNS until we receive documented clearance by theirENT provider. Then, delete the remainder of this checklist and close out the referral. PLEASE LOOK THIS UP IN THE CHART IN THE PRIOR 12 MONTHS, HAS AN ESOPHAGEAL MANOMETRY BEEN PERFORMED AT [facility]? No IF NO, please inform the patient that an esophageal manometry will be scheduled at the same time as the pH impedance test as part of the procedure. A new referral is not needed. Please add the .xmohremchecklist to bottom of this note. QUESTIONS FOR THE PATIENT DIABETIC? No Diabetic patients should speak with their PCP or managing provider at least two weeks before the test to ask what medication or insulin adjustments are needed for testing. If the patient feels ill while fasting due to diabetes, it is OK to have a little apple juice - just enough to feel better. Patients fast 8 hours before testing and the test lasts 1 hour. ALLERGIC TO LIDOCAINE, BENZOCAINE? No (OK to schedule procedure but please document type of allergy if present) BLOOD THINNERS SUCH PLAVIX, COUMADIN, PRADAXA? No (pt does not have to stop any blood thinners for this procedure) DOES THE PATIENT USE A WHEELCHAIR? No VERBAL PATIENT INSTRUCTIONS FOR on-PPI STUDY The written instructions are very important for the patient to review and contain specific dietary and medication instructions prior to testing. These instructions will give the patient the most accurate test result. The patient should speak with their referring provider or our office if they have any questions. APPOINTMENT NOTES TEMPLATE Document the correct appointment notes template depending on if an esophageal manometry is also needed. Esophageal manometry with pH impedance: HREM with Ph/IMP on PPI, symptom: heartburn, RMD: Shu Preciado, PCP: Nanci Gomez MD, wheelchair: No, blood thinners: No, allergy to lidocaine/benzocaine/novocaine: No documented in this encounter Plan of Treatment Upcoming Encounters Date Type Specialty Care Team Description 05/14/2022 Hospital Encounter Gastroenterology Evelyn Michel MD [facility] GASTROENTEROLOGY DEPT. [place], [place] [address] 05/14/2022 Surgery Gastroenterology Evelyn Michel, EGD, U PPER GI MD ENDOSCOPY [facility] DR GASTROENTEROLOGY DEPT. [place], [place] [address] 05/28/2022 Appointment Pulmonology Scheduled Procedures Name Priority Associated Diagnoses Date/Time EGD, UPPER GI ENDOSCOPY Achalasia 05/14/2022 2:30 PM EDT Dysphagia, unspecified type COLONOSCOPY, DIAGNOSTIC Achalasia 05/14/2022 2:30 PM EDT Dysphagia, unspecified type documented as of this encounter Visit Diagnoses Not on filedocumented in this encounter Care Teams Supervisor Mold Shop Relationship Specialty Start Date End Date Nanci Gomez MD PCP - General 08/19/10 [address] [place] [address] documented as of this encounter
--- OUTSIDE RECORDS SUMMARY | 2022-04-16 02:00 | XMS_ITS | Encounter Summary ---
:1945 Author Organization [facility] Address [address] [place] [address] Care Team Providers Name Role Phone Nanci Gomez MD Primary Care Provider Encounter Details Date Type Department Care Team Description 03/16/2022 Orders Only Pulmonology at [facility] Maxx Reyes MD Solitary pulmonary [facility] nod ule (Primary Dx) [place] [address] Pulmonary Medicine [phone] [place], [place] [address] Social History Tobacco Use Types [...] Hospital Encounter Gastroenterology Evelyn Michel MD [facility] GASTROENTEROLOGY DEPT. [place], [place] [address] 05/14/2022 Surgery Gastroenterology Evelyn Michel, EGD, U PPER GI MD ENDOSCOPY [facility] GASTROENTEROLOGY DEPT. [place], [place] [address] 05/28/2022 Appointment Pulmonology Scheduled Orders Name Type Priority Associated Diagnoses Order S chedule Pulmonary Function PFT Routine Solitary pulmonary nod ule Expected: 03/17/2022, Testing Expires: 2021 Scheduled Procedures Name Priority Associated Diagnoses Date/Time EGD, UPPER GI ENDOSCOPY Achalasia 05/14/2022 2:30 PM EDT Dysphagia, unspecified type COLONOSCOPY, DIAGNOSTIC Achalasia 05/14/2022 2:30 PM EDT Dysphagia, unspecified type documented as of this encounter Visit Diagnoses Diagnosis Solitary pulmonary nodule - Primary Achalasia Achalasia and cardiospasm Dysphagia, unspecified type documented in this encounter Care Teams Bookkeeper Receptionist Relationship Specialty Start Date End Date Nanci Gomez MD PCP - General 08/19/10 [address] [place] [address] documented as of this encounter
--- OUTSIDE RECORDS SUMMARY | 2022-04-16 02:00 | XMS_ITS | Encounter Summary ---
:1945 Author Organization [facility] [place] [address] Care Team Providers Name Role Phone Nanci Gomez MD Primary Care Provider Encounter Details Date Type Department Care Team Description 04/01/2021 Office Visit Gastroenterology at [facility] Shu Preciado Achalasia [facility] [place] [address] [facility] [phone] GASTROENTEROLOGY [place] [address] (Wo rk) Social History Tobacco Use Types [...] Pulse 64 04/01/2021 11:18 AM EDT Temperature - - Respiratory Rate - - Oxygen Saturation - - Inhaled Oxygen Concentration - - Weight 105.5 kg (232 lb 9.6 oz) 04/01/2021 11:18 AM EDT Height - - Body Mass Index 32.9 01/14/2021 11:07 AM EDT documented in this encounter Patient Instructions Patient InstructionsSiegShu govea APRN - 04/01/2021 11:30 AM EDT 1. Please call your PCP's office to discuss starting diltiazem-- typically start at 30mg four times daily 2. If no improvement after 2-3 months with diltiazem , the next step is an upper endoscopy with Dr. Hammond and he will do a botox injection in the middle of the esophagus. Please call us. 3. If no improvement after botox injection, we will arrange for you to meet with Dr. Coello who is asurgeon 4. Continue pantoprazole twice daily 5. Follow up as needed documented in this encounter Progress Notes Shu Preciado APRN - 04/01/2021 11:30 AM EDT GASTROENTEROLOGY TELEMEDICINE PROGRAM - ESTABLISHED PATIENT VISIT Chief Complaint: Ivis Laureano is a [address] Gomez here for follow-up of Achalasia. Detailed history: [...] with combined esophageal manometry, and an EGD. During her appointment on 11/26/2020, she endorsed persistent dysphagia. Recommendations included continuing pantoprazole twice daily, EGD, high- resolution esophageal manometry with impedance pH, warm fluids before and with meals, and eating smaller more frequent meals throughout the day. Interval history: Endorses occasional heartburn symptoms a few times per month. Continues to have dysphagia. Drinks warm peppermint tea before and with meals. Has been taking pantoprazole twice daily. Takes appropriately. Review of systems: 14-point review of systems reviewed and negative except as above. Medications: Outpatient Medications Prior to Visit Medication Sig Dispense Refill ??? Combivent Respimat 20-100 mcg/actuation Mist INHALE ONE PUFF BY MOUTH FOUR TIMES A DAY ??? pantoprazole EC (Protonix) 40 mg Tablet, Delayed Release (E.C.) Take 1 tablet by mouth 2 times daily. 180 tablet 3 ??? UNABLE TO FIND Med Name: anoroellipepta [...] past surgical history that includes Colonoscopy, Diagnostic (90369) (05/06/2012); Colonoscopy, Diagnostic (40892) (N/A, 04/15/2017); Upper Gi Endoscopy, Biopsy (26856) (N/A, 04/15/2017); Upper GI Endoscopy, Diagnostic (99684) (N/A, 07/22/2017); Lap, Esophagomyotomy W Fundoplasty (76913) (N/A, 10/28/2017); Upper GI Endoscopy, Diagnostic (69023) (N/A, 10/28/2017); and Upper GI Endoscopy, Diagnostic (56144) (N/A, 01/14/2021). Family History: family history includes [...] in stomach 5. Barium swallow done at [facility] 11/10/2018; normal esophageal emptying. 6. [...] gastric polyps. Normal examined duodenum. Biopsies at [facility]- for dysplasia. Stomach biopsies unremarkable. Fundic gland polyp. Assessment/Plan: Ms. Laureano is a 75 y.o. [...] based on our discussion during the meeting. Recommendations: --Recommend starting diltiazem 30mg four times daily. She will follow up with her PCP to start this medication. --If no improvement after 2-3 months of diltiazem, we will arrange for an EGD with Dr. Hammond and botox injection mid esophagus. --If needed, we will refer to Dr. Coello to discuss POEM procedure --Continue pantoprazole twice daily as previously prescribed --Follow up as needed Shu Preciado APRN [facility] [place] [address] documented in this encounter Plan of Treatment Upcoming Encounters Date Type Specialty Care Team Description 05/14/2022 Hospital Encounter Gastroenterology Evelyn Michel MD [facility] GASTROENTEROLOGY DEPT. [place], [place] [address] 05/14/2022 Surgery Gastroenterology Evelyn Michel, EGD, U PPER GI ENDOSCOPY [facility] GASTROENTEROLOGY DEPT. [place], [place] [address] 05/28/2022 Appointment Pulmonology Scheduled Procedures Name Priority Associated Diagnoses Date/Time EGD, UPPER GI ENDOSCOPY Achalasia 05/14/2022 2:30 PM EDT Dysphagia, unspecified type COLONOSCOPY, DIAGNOSTIC Achalasia 05/14/2022 2:30 PM EDT Dysphagia, unspecified type documented as of this encounter Visit Diagnoses Diagnosis Achalasia Achalasia and cardiospasm Achalasia Achalasia and cardiospasm Dysphagia, unspecified type documented in this encounter Care Teams Ebay Reseller Relationship Specialty Start Date End Date Nanci Gomez MD PCP - General 08/19/10 [address] [place] [address] documented as of this encounter
--- OUTSIDE RECORDS SUMMARY | 2022-04-16 02:00 | XMS_ITS | Encounter Summary ---
:1945 Author Organization [facility] Address [address] [place] [address] Care Team Providers Name Role Phone Nanci Gomez MD Primary Care Provider Encounter Details Date Type Department Care Team Description 03/23/2022 Telephone Gastroenterology at [facility] Shalonda Curran, [facility] [place] [address] Social History Tobacco Use Types Packs/Day Years Used Date Never Smoker Smokeless Tobacco: Never Used Alcohol Use Standard Drinks/Week Comments No 0 (1 standard drink = 0.6 oz pure alcoho l) Sex Assigned at Date Recorded Not on file documented as of this encounter Miscellaneous Notes Telephone Encounter - Shalonda Curran RN - 03/23/2022 2:16 PM EDT Received call from patient asking if Heimlich Maneuver is contraindicated for her s/p her partial fundoplication and Heller myotomy. Sates I am traveling soon and wanted to know before I left. Returned call and advised patient to review with Dr. Aguilar who performed her surgery. documented in this encounter Plan of Treatment Upcoming Encounters Date Type Specialty Care Team Description 05/14/2022 Hospital Encounter Gastroenterology Evelyn Michel MD [facility] GASTROENTEROLOGY DEPT. [place], [place] [address] 05/14/2022 Surgery Gastroenterology Evelyn Michel, EGD, U PPER GI MD ENDOSCOPY [facility] DR GASTROENTEROLOGY DEPT. [place], [place] [address] 05/28/2022 Appointment Pulmonology Scheduled Procedures Name Priority Associated Diagnoses Date/Time EGD, UPPER GI ENDOSCOPY Achalasia 05/14/2022 2:30 PM EDT Dysphagia, unspecified type COLONOSCOPY, DIAGNOSTIC Achalasia 05/14/2022 2:30 PM EDT Dysphagia, unspecified type documented as of this encounter Visit Diagnoses Not on filedocumented in this encounter Care Teams Machine Maintenance Servicer Relationship Specialty Start Date End Date Nanci Gomez MD PCP - General 08/19/10 [address] [place] [address] documented as of this encounter
--- OUTSIDE RECORDS SUMMARY | 2022-04-16 02:00 | XMS_ITS | Encounter Summary ---
:1945 Author Organization [facility] [place] [address] Care Team Providers Name Role Phone Nanci Gomez MD Primary Care Provider Encounter Details Date Type Department Care Team Description 03/31/2022 Telephone [place] [facility] [place]iro [facility] [place] [address] Social History Tobacco Use Types Packs/Day Years Used Date Never Smoker Smokeless Tobacco: Never Used Alcohol Use Standard Drinks/Week Comments No 0 (1 standard drink = 0.6 oz pure alcoho l) Sex Assigned at Date Recorded Not on file documented as of this encounter Plan of Treatment Upcoming Encounters Date Type Specialty Care Team Description 05/14/2022 Hospital Encounter Gastroenterology Evelyn Michel MD [facility] GASTROENTEROLOGY DEPT. [place], [place] [address] 05/14/2022 Surgery Gastroenterology Evelyn Michel, EGD, U PPER GI ENDOSCOPY [facility] GASTROENTEROLOGY DEPT. [place], [place] [address] 05/28/2022 Appointment Pulmonology Scheduled Procedures Name Priority Associated Diagnoses Date/Time EGD, UPPER GI ENDOSCOPY Achalasia 05/14/2022 2:30 PM EDT Dysphagia, unspecified type COLONOSCOPY, DIAGNOSTIC Achalasia 05/14/2022 2:30 PM EDT Dysphagia, unspecified type documented as of this encounter Visit Diagnoses Not on filedocumented in this encounter Care Teams Bleacher Operator Relationship Specialty Start Date End Date Nanci Gomez MD PCP - General 08/19/10 [address] [place] [address] documented as of this encounter
--- OUTSIDE RECORDS SUMMARY | 2022-04-16 02:00 | XMS_ITS | Encounter Summary ---
:1945 Author Organization [facility] Address [facility] [place] [address] Care Team Providers Name Role Phone Nanci Gomez MD Primary Care Provider Encounter Details Date Type Department Care Team Description 01/14/2021 Anesthesia Event Gastroenterology at [facility] Mason Diaz [facility] [place] [address] [facility] [phone] DR ANESTHESIOLOGY [place] [id number] Anesthesia Record Procedure Summary Procedure Name Responsible Anesthesia Start Anesthesia Stop Time Anesthesiologist Time EGD, UPPER GI Mason Diaz MD 01/14/21 1133 01/14/21 1201 ENDOSCOPY (N/A Trunk) Events Date Time Event Comment 01/14/2021 1122 1133 AN Verify 1133 Start 1133 An Start Data 1138 An Induction 1138 Anesthesia Ready 1201 an stop data 1201 Recovery or ICU Handoff Patient care was transferred to the destination unit staff after review of the patient's medica l history, current anesthetic/surgi elder status and plan, according to the Provider Handoff Checklist. 1201 Stop Name Total IV Lidocaine 60 mg Propofol 100 mg Propofol INF 346.39 mg lactated ringers infusion 0 mL Agents No agents on file. Blood No blood administrations on file. Lines, Drains, and Airways Type Details Placement Removal Incision 10/28/17; 1643; abdomen; 10/28/17 1643 by Kale, laparoscopic puncture; Elana Sandy RN multiple trocar sites. PIV 01/14/21; 1112; median vein 01/14/21 1112 by Dra edgar, 07/02/21 1650 by (underside of arm), right; Lala Rogers RN Jermaine Rico [id number] catheter system; 22 gauge; intradermal injection; 07/02/21 (LDA Cleanup utility RA#[id number]); 1650 (LDA Cleanup utility RA#[id number]) documented in this encounter Social History Tobacco Use Types Packs/Day Years Used Date Never Smoker Smokeless Tobacco: Never Used Alcohol Use Standard Drinks/Week Comments No 0 (1 standard drink = 0.6 oz pure alcoho l) Sex Assigned at Date Recorded Not on file documented as of this encounter OR Notes Anesthesia Postprocedure Evaluation - Mason Diaz MD - 01/14/2021 12:01 PM EDT Department of Anesthesiology Post-procedure Note Patient: Ivis Laureano Procedure Summary Date: 01/14/21 Room / Location: [facility] ENDO 1 / [facility] Anesthesia Start: 1133 Anesthesia Stop: 1201 Procedure: EGD, UPPER GI ENDOSCOPY (N/A Trunk) Diagnosis: (EGD with IVCS (APD ok). INDICATION: Patient with achalasia and worsening dysphagia. ??Please evaluate esophagus and LES) Surgeons: Meliton Hammond MD Responsible Provider: Mason Diaz MD Anesthesia Type: MAC ASA Status: 2 All Anesthesia Providers: Anesthesiologist: Mason Diaz MD COMPUTER SUPPORT SPECIALIST INSTRUCTOR: Elizabeth Biggs CRNA Vitals Value Taken Time BP Temp Pulse Resp SpO2 Pain Level Patient Location: PACU/[facility] Level of Consciousness: Awake and Alert Pain Management: Satisfactory Analgesia PONV: None Cardiovascular Status: At Baseline and Hemodynamically Stable Respiratory Status: At Baseline and Room Air Postoperative Fluid Status: Intravascular EUvolemia Possible Anesthetic Complications: NONE apparent at time of evaluation Final Primary Anesthesia Type: MAC (The anesthetic type performed was the same as planned.) Comments: Mason Diaz MD Anesthesia Preprocedure Evaluation - Mason Diaz MD - 01/14/2021 10:24 AM EDT Pre-Anesthesia Evaluation for: Ivis Laureano a 75 y.o. female. Procedure(s): EGD, UPPER GI ENDOSCOPY Patient Active Problem List Diagnosis ??? Achalasia No past medical history on file. Past Surgical History: Procedure Laterality Date ??? PRO COLONOSCOPY, DIAGNOSTIC 05/06/2012 COLONOSCOPY, DIAGNOSTIC performed by LEO WATT at [facility] END[facility]COPY ??? PRO COLONOSCOPY, DIAGNOSTIC N/A 04/15/2017 COLONOSCOPY, DIAGNOSTIC performed by Ever Orourke MD at [facility] ENDOSCOPY ??? PRO LAP, ESOPHAGOMYOTOMY W FUNDOPLASTY N/A 10/28/2017 @LAPAROSCOPIC HELLER MYOTOMY, ESOPHAGOMYOTOMY W FUNDOPLASTY (WRVU 22.1) performed by Jasmina Aguilar MD at [facility] OR ??? PRO UPPER GI ENDOSCOPY, BIOPSY N/A 04/15/2017 UPPER GASTROINTESTINAL ENDOSCOPY,WITH BIOPSY SINGLE OR MULTIPLE (WRVU 2.49) performed by Ever Orourke MD at [facility] END[facility]COPY ??? PRO UPPER GI ENDOSCOPY, DIAGNOSTIC N/A 07/22/2017 EGD, UPPER GI ENDOSCOPY performed by Ever Orourke MD at [facility] END[facility] ??? PRO UPPER GI ENDOSCOPY, DIAGNOSTIC N/A 10/28/2017 ENDOSCOPY, UPPER GI, DIAGNOSTIC, WITH OR WITHOUT SPECIMENS performed by [facility]mina [facility] Social History Tobacco Use ??? Smoking status: Never Smoker ??? Smokeless tobacco: Never Used Substance Use Topics ??? Alcohol use: No Social History Substance and Sexual Activity Drug Use No Allergies Allergen Reactions ??? Unable To Find [Unclassified Drug] Seasonal Medications: MAR and/or home medications have been reviewed. Physical Exam: Preprocedure Vitals Current as of 01/14/21 1024 No BP, pulse, respiration, SpO2, or temperature recorded. Height: Weight: BMI: IBW: Airway Assessment: Mallampati: II TM distance: >3 FB Neck ROM: full Cardiovascular Assessment: Rhythm: regular Rate: normal system normal Pulmonary Assessment: unlabored breathing pulmonary exam normal Dental Assessment: (+) lower dentures and upper dentures Misc Assessment: Patient is wearing No contact(s). IV access: Peripheral line Other exam findings: Lab Results Component Value Date WBC 6.1 10/29/2017 RBC 3.63 (L) 10/29/2017 HGB 11.5 (L) 10/29/2017 HCT 32.0 (L) 10/29/2017 MCV 88.2 10/29/2017 MCH 31.7 10/29/2017 MCHC 35.9 (H) 10/29/2017 PLATELET 208 10/29/2017 RDWCV 11.9 10/29/2017 Last Filed Perioperative Cognitive Screening None Anesthesia Plan: ASA 2 MAC, with a(n) intravenous induction 75-year-old 104.9 kg F with PMH: HTN (losartan, HCTZ), GERD (pantoprazole), and achalasia presentinghere today for EGD with IVCS for worsening dysphagia. Allergies: Unable to find (unclassified drug) NPO status: Appropriate Plan: MAC, PIV x1, standard ASA monitors Region - Other Informed Consent: Anesthetic plan and risks discussed with patient. Use of blood products discussed with patient who. Plan discussed with COMPUTER SUPPORT SPECIALIST INSTRUCTOR and attending. PAT Clinic Note documented in this encounter Plan of Treatment Upcoming Encounters Date Type Specialty Care Team Description 05/14/2022 Hospital Encounter Gastroenterology Evelyn Michel MD [facility] DR GASTROENTEROLOGY DEPT. [place], [place] [address] 05/14/2022 Surgery Gastroenterology Evelyn Michel, EGD, U PPER GI ENDOSCOPY [facility] GASTROENTEROLOGY DEPT. [place], [place] [address] 05/28/2022 Appointment Pulmonology Scheduled Procedures [...] MAR Action Action Date Dose Rate Site lidocaine (pf) (Xylocaine) (20 Given 01/14/2021 11:37 AM EDT 60 mg mg/mL) 2% injection syringe Intravenous, PRN, Starting on e 01/14/21 at 1137, Until e 01/14/21 at 1201, Anesthesia Intra-op, Routine propofoL (Diprivan) 10 mg/mL bolus injection Given 11:37 AM EDT 100 mg (Anesthesia) Intravenous, PRN, Starting on e 01/14/21 at 1137, Until 01/14/21 at 1201, Anesthesia Intra-op propofoL (Diprivan) infusion Rate/Dose 01/14/2021 150 mcg/kg/min 93.06 Intravenous, CONTINUOUS PRN, Change 11:53 AM EDT mL/hr Starting on Wed01/14/21 at 1137, Until Wed01/14/21 at 1201, Anesthesia Intra-op, Routine New Bag 01/14/2021 11:37 AM EDT 200 mcg/kg/min 124.08 mL/hr documented in this encounter Care Teams Mortgage Manager Relationship Specialty Start Date End Date Nanci Gomez MD PCP - General 08/19/10 [address] [place] [address] documented as of this encounter
--- OUTSIDE RECORDS SUMMARY | 2022-04-16 02:00 | XMS_ITS | Encounter Summary ---
:1945 Author Organization [facility] [place] [address] Care Team Providers Name Role Phone Nanci Gomez MD Primary Care Provider Encounter Details Date Type Department Care Team Description 03/24/2022 Telephone Gastroenterology at [facility] Shreya Thurman [facility] [place] [address] Social History Tobacco Use Types Packs/Day Years Used Date Never Smoker Smokeless Tobacco: Never Used Alcohol Use Standard Drinks/Week Comments No 0 (1 standard drink = 0.6 oz pure alcoho l) Sex Assigned at Date Recorded Not on file documented as of this encounter Miscellaneous Notes Telephone Encounter - Shreya Thurman - 03/24/2022 10:08 AM EDT Attempted phoning patient for scheduling but no voicemail picked up. LUIS MIGUEL Preciado has referred the patient to the Team for the Living w/GI Conditions group. Please confirm with patient that she is able to do telehealth. documented in this encounter Plan of Treatment Upcoming Encounters Date Type Specialty Care Team Description 05/14/2022 Hospital Encounter Gastroenterology Evelyn Michel MD [facility] GASTROENTEROLOGY DEPT. [place], [place] [address] 05/14/2022 Surgery Gastroenterology Evelyn Michel, EGD, U PPER GI MD ENDOSCOPY [facility] DR GASTROENTEROLOGY DEPT. [place], [place] [address] 05/28/2022 Appointment Pulmonology Scheduled Procedures Name Priority Associated Diagnoses Date/Time EGD, UPPER GI ENDOSCOPY Achalasia 05/14/2022 2:30 PM EDT Dysphagia, unspecified type COLONOSCOPY, DIAGNOSTIC Achalasia 05/14/2022 2:30 PM EDT Dysphagia, unspecified type documented as of this encounter Visit Diagnoses Not on filedocumented in this encounter Care Teams Software Engineer Web Services Relationship Specialty Start Date End Date Nanci Gomez MD PCP - General 08/19/10 [address] [place] [address] documented as of this encounter
--- OUTSIDE RECORDS SUMMARY | 2022-04-16 02:00 | XMS_ITS | Encounter Summary ---
:1945 Author Organization [facility] [place] [address] Care Team Providers Name Role Phone Nanci Gomez MD Primary Care Provider Encounter Details Date Type Department Care Team Description 11/12/2020 Telephone [place] [facility] [place] [address] Social History Tobacco Use Types Packs/Day Years Used Date Never Smoker Smokeless Tobacco: Never Used Alcohol Use Standard Drinks/Week Comments No 0 (1 standard drink = 0.6 oz pure alcoho l) Sex Assigned at Date Recorded Not on file documented as of this encounter Miscellaneous Notes Telephone Encounter - Elan Ornelas Huma - 11/12/2020 3:08 PM EST Ivisaz Laureano [id number] Diagnosis/Indication: EGD with IVCS (APD ok). INDICATION: Patient with achalasia and worsening dysphagia. ??Please evaluate esophagus and LES. 1. Have you ever had a/an Upper Endoscopy before? Yes: Date 2016 If yes, did you have any problems with the procedure? Yes: Please Explain: pain after the procedure What type of sedation was used: General Anesthesia 2. Do you take any Blood Thinners? No 3. Do you have a Pacemaker or Defibrillator device? No 4. Are you a diabetic? No 5. Do you have any Allergies to Eggs, Latex or Medications? Yes: seasonal 6. Do you take any Oral Iron Supplements (Including multi-vitamins)? No 7. Do you have a history of three or more abdominal surgeries? No 8. Have you had a problem with sedation or anesthesia? No 9. Do you have a c-pap machine or oxygen tank? Neither 10. Do you take prescription narcotic pain medications, including suboxone or methodone? No 11. Do you have a preference regarding the gender of your provider? No Preference 12. Is there any other information you would like to give us to aid in scheduling? No 13. Say to patient: You must have a responsible republican who will drive you to your procedure, stay on campus for the entire duration of your procedure, and drive you home from your procedure? *Please Verify the height and weight, and adjust if height and/or weight have changed* Estimated body mass index is 31.11 kg/m?? as calculated from the following: Height as of 12/20/18: 179.1 cm (5' 10.5). Weight as of 12/20/18: 99.7 kg (219 lb 14.4 oz). *Delete if not needed* Height: 5'10.5 Weight: 220 BMI: 31.11 Age:75 y.o. documented in this encounter Plan of Treatment Upcoming Encounters Date Type Specialty Care Team Description 05/14/2022 Hospital Encounter Gastroenterology Evelyn Michel MD [facility] GASTROENTEROLOGY DEPT. [place], [place] [address] 05/14/2022 Surgery Gastroenterology Evelyn Michel, EGD, U PPER GI ENDOSCOPY [facility] GASTROENTEROLOGY DEPT. [place], [place] [address] 05/28/2022 Appointment Pulmonology Scheduled Procedures Name Priority Associated Diagnoses Date/Time EGD, UPPER GI ENDOSCOPY Achalasia 05/14/2022 2:30 PM EDT Dysphagia, unspecified type COLONOSCOPY, DIAGNOSTIC Achalasia 05/14/2022 2:30 PM EDT Dysphagia, unspecified type documented as of this encounter Visit Diagnoses Not on filedocumented in this encounter Care Teams Miller First Relationship Specialty Start Date End Date Nanci Gomez MD PCP - General 08/19/10 [address] [place] [address] documented as of this encounter
--- OUTSIDE RECORDS SUMMARY | 2022-04-16 02:00 | XMS_ITS | Encounter Summary ---
:1945 Author Organization [facility] [place] [address] Care Team Providers Name Role Phone Nanci Gomez MD Primary Care Provider Encounter Details Date Type Department Care Team Description 02/17/2021 Telephone Gastroenterology at [facility] [place] Randall Tolbert RN [facility] [place] [address] Social History Tobacco Use Types Packs/Day Years Used Date Never Smoker Smokeless Tobacco: Never Used Alcohol Use Standard Drinks/Week Comments No 0 (1 standard drink = 0.6 oz pure alcoho l) Sex Assigned at Date Recorded Not on file documented as of this encounter Miscellaneous Notes Telephone Encounter - Randall Tolbert RN - 02/17/2021 3:35 PM EDT Ivis calls about 24 hr impedence testing scheduled for 03/10. She has another appointment at [facility] scheduled on 03/11 at 2:00pm. Will she be able to return impendence monitor on 03/11? Advised her impedence study is scheduled to conclude at 10:00 am on 03/11 and she can return the monitor later that day. The patient indicates understanding of these issues and agrees with the plan. documented in this encounter Plan of Treatment Upcoming Encounters Date Type Specialty Care Team Description 05/14/2022 Hospital Encounter Gastroenterology Evelyn Michel MD [facility] GASTROENTEROLOGY DEPT. [place], [place] [address] 05/14/2022 Surgery Gastroenterology Evelyn Michel, EGD, U PPER GI MD ENDOSCOPY [facility] GASTROENTEROLOGY DEPT. [place], [place] [address] 05/28/2022 Appointment Pulmonology Scheduled Procedures Name Priority Associated Diagnoses Date/Time EGD, UPPER GI ENDOSCOPY Achalasia 05/14/2022 2:30 PM EDT Dysphagia, unspecified type COLONOSCOPY, DIAGNOSTIC Achalasia 05/14/2022 2:30 PM EDT Dysphagia, unspecified type documented as of this encounter Visit Diagnoses Not on filedocumented in this encounter Care Teams Bulldozer Operator Relationship Specialty Start Date End Date Nnaci Gomez MD PCP - General 08/19/[address] [place] [id number] documented as of this encounter
--- OUTSIDE RECORDS SUMMARY | 2022-04-16 02:01 | XMS_ITS | Encounter Summary ---
:1945 Author Organization [facility] [address] Care Team Providers Name Role Phone Nanci Gomez MD Primary Care Provider Reason for Referral Consultation (Routine) - Closed Specialty Diagnoses / Procedures Referred By Contact Refer red To Contact General Surgery Diagnoses Achalasia Shu Preciado Trus, Thadeus L, MD APRN [facility] Lucretia menjivar GENERAL [place] [address] Referral ID Status Reason Start Date Expiration Date Visits V isits Requested Authorized [id number] Closed Consult, 08/16/2017 08/16/2018 1 1 Test & Treat Reason for Visit Reason Comments Follow-up Encounter Details Date Type Department Care Team Description 08/16/2017 [place] [facility] [place]; [facility] Lucretia Guillen APRN Gastroesophageal reflux disease, esophag itis presence not specified; [place] [phone] [facility] Constipation, unspecified co nstipation type [phone] [place] [address] Social History Tobacco Use Types Packs/Day Years Used Date Never Smoker Smokeless Tobacco: Never Used Alcohol Use Standard Drinks/Week Comments No 0 (1 standard drink = 0.6 oz pure alcoho l) Sex Assigned at Date Recorded Not on file documented as of this encounter Last Filed Vital Signs Vital Sign Reading Time Taken Comments Blood Pressure 145/62 08/16/2017 9:37 AM EST Pulse 67 08/16/2017 9:37 AM EST Temperature - - Respiratory Rate - - Oxygen Saturation - - Inhaled Oxygen Concentration - - Weight 94 kg (207 lb 3.2 oz) 08/16/2017 9:37 AM EST Height 177.8 cm (5' 10) 08/16/2017 9:37 AM EST Body Mass Index 29.73 08/16/2017 9:37 AM EST documented in this encounter Patient Instructions Patient InstructionsSieglingerShu APRN - 08/16/2017 10:00 AM EST 1. Continue omeprazole 40mg once daily 30-60 minutes prior to eating. 2. Referral to general surgery 3. Follow up as needed. documented in this encounter Progress Notes Shu Preciado APRN - 08/16/2017 10:00 AM EST MIXING SUPERVISOR: Shu Preciado APRN PCP: Nanci Gomez MD REQUESTING PROVIDER: Ever Orourke MD REASON FOR VISIT This is a 72 y.o. 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 She is returning to in today in follow up. GI PROBLEM LIST 1. ACHALASIA --EGD 04/15/17; Abnormal esophageal motility,??suspicious for presbyesophagus. Z- line regular, 40 cm from the incisors. Normal stomach. Normal examined duodenum. Biopsied. Pathology; --HREM 05/28/17; IMPRESSION Elevated LES resting pressure. Incomplete LES relaxation (IRP, integrated relaxation pressure). Normal UES resting pressure. Normal UES relaxation. Absent motility in the bodyof the esophagus. No swallow was transmitted. All were characterized by panesophageal pressurization. No evidence of a hiatal hernia on this study. In the absence of mechanical obstruction, these findings are most consistent with Type I achalasia. A 5 minute timed barium swallow may prove useful to evaluate the presence of esophageal dilation and the degree of impaired emptying. --Barium swallow 07/12/17; Retained contrast at 1 minute and 2 minutes postingestion of barium. Complete emptying of the esophagus within 5 minutes of barium ingestion. Esophageal dysmotility with multiple tertiary contractions in the distal third of the esophagus and persistent dilatation of the proximal esophagus. --EGD w/botox 07/22/17; - Abnormal esophageal motility, ?consistent with achalasia. Injected ?with botulinum toxin. ?- Dilated distal esophagus with ?tertiary contraction also suggestive ?of possible presbyesophagus. ?- A large amount of food (residue) in ?the stomach. ?- Normal examined duodenum. ?- No specimens collected. Recommendation: ?- Await results of Botox injection. ?May take 1-2 weeks for full benefits ?to be noted. ?- Consider??surgical consultation ?regarding myotomy vs rigid balloon ?dilation. ?- Follow an antireflux regimen. ?- Low Residue diet. --MEDICATION TRIALS; *Omeprazole 40mg once daily 2. CONSTIPATION --Colonoscopy 04/15/17; - Scattered mild diverticulosis in the sigmoid colon and in the ??descending colon. One 9 mm polyp in the ascending??colon, removed with a cold snare. Resected and retrieved. One8 mm polyp in the cecum, removed with a cold snare. Resected and retrieved. The examination was otherwise normal on direct and retroflexion views. Pathology; A - Duodenum, ??biopsy: Duodenal mucosa within normal limits, including preserved villous architecture. B - Cecum, ??polypectomy: Tubular adenoma. C - Ascending colon, ?? polypectomy: Sessile serrated adenoma/polyp. INTERVAL HISTORY- 08/16/17 Minimal improvement after botox injection. Continues to have dysphagia with solids and liquids. Thishas been occurring 2-3 times per week. Continues to have reflux symptoms one to two times per week. Taking TUMs for this. Has been taking omeprazole 40mg once daily. Denies unintentional weight loss. Good appetite. Had EGD with botox injection. There was a large amount of food residual. Denies early satiety and bloating. Denies nausea and vomiting. Continues to have constipation. Moving her bowels every 2-3 days. Straining and pelvic maneuvers. Difficulty emptying. No blood or mucus in stool. HPI COMMENTS Dysphagia with bread and cake first noticeable approximately one year. Has been worsening in frequency since this past spring. Sometimes feels like water sits in her throat before it goes down. Occurs one to two times per day. Food usually goes down eventually. If I drink something to try to push it down, then it will come up. Coughing, choking, and gagging. Denies unintentional weight loss. Good appetite. Reports borderline anemia. Reflux symptoms. Takes prilosec for a month or two at a time in intervals when it becomes an issue. Denies nausea and vomiting. Denies early satiety. Denies abdominalpain. Denies bloating. Denies diarrhea and constipation. Reports that bowels can be pretty hard. Reports straining and pelvic maneuvers. Denies difficulty emptying. No blood or mucus in stool. No anal or rectal pain. Denies chronic NSAID use. History of hepatitis A in her 20's. ROS Notable for the gastrointestinal symptoms as described above. CONSTITUTIONAL: Denies anorexia, fever, or unintended weight change INTEGUMENTARY: Denies recent skin rash or lesions. NEURO: Lyme disease. Non-diabetic neuropathy in feet. ALLERGIES No Known Allergies CURRENT MEDICATIONS Medications reviewed and reconciled in e- Current Outpatient Prescriptions: ??? b complex vitamins Capsule, Take 1 capsule by mouth daily., Disp: , Rfl: ??? gabapentin (NEURONTIN) 100 mg Capsule, , Disp: , Rfl: ??? losartan (COZAAR) 25 mg Tablet, , Disp: , Rfl: ??? omeprazole (PRILOSEC) 20 mg Capsule, Delayed Release(E.C.), Take 2 capsules by mouth daily., Disp: 60 capsule, Rfl: 11 ??? cyanocobalamin, vitamin B-12, 100 mcg tablet, Take 100 mcg by mouth daily., Disp: , Rfl: ??? hydrochlorothiazide (HYDRODIURIL) 50 mg tablet, , Disp: , Rfl: ??? fexofenadine (CHANTAL) 60 mg tablet, , Disp: , Rfl: MEDICAL HISTORY 1. HTN 2. Non-diabetic neuropathy SURGICAL HISTORY Past Surgical History: Procedure Laterality Date ??? PRO COLONOSCOPY, DIAGNOSTIC 05/06/2012 COLONOSCOPY, DIAGNOSTIC performed by LEO WATT at [facility] ENDOSCOPY ??? PRO COLONOSCOPY, DIAGNOSTIC N/A 04/15/2017 COLONOSCOPY, DIAGNOSTIC performed by Ever Orourke MD at [facility] ENDOSCOPY ??? PRO UPPER GI ENDOSCOPY, BIOPSY N/A 04/15/2017 UPPER GASTROINTESTINAL ENDOSCOPY,WITH BIOPSY SINGLE OR MULTIPLE (WRVU 2.49) performed by Ever Orourke MD at [facility] ENDOSCOPY ??? 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 - 43. HABITS Denies tobacco use. Very rare alcohol use. Denies using other substances. FAMILY HISTORY Mom is , age: 89 Dad is , age: 89, pancreatitis Paternal uncle; colon cancer Maternal aunt; colon cancer No other GI etiologies PHYSICAL EXAM: Most Recent Vitals: 08/16/17 0937 BP: 145/62 Pulse: 67 Height: 5'11 Weight: Weight - Scale: 94 kg (207 lb 3.2 oz) Body mass index is 29.73 kg/(m^2). GENERAL: Healthy-appearing in no acute distress. Appears stated age. Appropriate weight for height. SKIN: No lesions, rashes, lumps, or angiomas on exposed skin. NEURO: Alert and oriented to person, place, time, and situation. Cranial nerves II-XII intact. PSYCH: Mood appropriate. Good eye contact. Normal interaction. Answers all questions appropriately. LABS: Lab Results Component Value Date BUN 22 (H) 07/12/2017 CREATININE 1.13 07/12/2017 ESTGFR 47 (L) 07/12/2017 ASSESSMENT This is a very nice 72 y.o. female with a history significant for HTN and TAs who comes to me today for evaluation of achalasia. Colonoscopy done in March 2017 showed TA. Onset of dysphagia approximately one year ago with worsening symptoms. Currently occurring daily. Primarily with solids. EGD in March2017 showed abnormal esophageal motility. HREM suggested Achalasia, type 1. Barium swallow today showed delayed emptying of esophagus. Since our last visit, she had an EGD with botox injection. This has improved symptoms slightly. Continues to experience dysphagia to solids and liquids approximately 2-3 times per week. Reflux symptoms are well controlled with omeprazole 40mg once daily. Symptoms 1- 2 times per week. The EGD showed large amount of residual in the stomach, but this was not noted on theprevious EGD in March. She denies early satiety, bloating, nausea and vomiting. Continues to experience constipation, but she this is not a concern for her. 1. ACHALASIA Some improvement with botox injection. Recommend general surgery consult to discuss myotomy vs. Dilation. 2. GERD Reflux symptoms currently controlled with omeprazole 40mg once daily. Recommend continuing this regimen. 3. CONSTIPATION Recommend miralax for constipation if needed. PLAN 1. General surgery referral. 2. Continue Omeprazole 40mg once daily on an empty stomach 30-60 minutes prior to eating. 3. May use TUMs or gaviscon for breakthrough symptoms. 4. GIF as needed. Patient agrees with the above plan. I have done my best to answer all her questions. TIME SPENT WITH PATIENT 15 minutes of this 16 minute visit were spent in [id number] discussion and counseling the patient as detailed per above. Signed, Shu Preciado APRN 08/16/17 10:26 AM Section of Gastroenterology & Hepatology [facility] documented in this encounter Plan of Treatment Upcoming Encounters Date Type Specialty Care Team Description 05/14/2022 Hospital Encounter Gastroenterology Evelyn Michel MD [facility] DR GASTROENTEROLOGY DEPT. [place], [place] [address] 05/14/2022 Surgery Gastroenterology Evelyn Michel, EGD, U PPER GI MD ENDOSCOPY [facility] DR GASTROENTEROLOGY DEPT. [place], [place] [address] 05/28/2022 Appointment Pulmonology Scheduled Procedures Name Priority Associated Diagnoses Date/Time EGD, UPPER GI ENDOSCOPY Achalasia 05/14/2022 2:30 PM EDT Dysphagia, unspecified type COLONOSCOPY, DIAGNOSTIC Achalasia 05/14/2022 2:30 PM EDT Dysphagia, unspecified type Scheduled Referrals Name Type Priority Associated Diagnoses Order S chedule Referral to Outpatient Referral Routine Achalasia Ordered: General Surgery 08/16/2017 documented as of this encounter Visit Diagnoses Diagnosis Achalasia Achalasia and cardiospasm Gastroesophageal reflux disease, esophag itis presence not specified Constipation, unspecified constipation t ype Achalasia Achalasia and cardiospasm Dysphagia, unspecified type documented in this encounter Care Teams Photolettering Machine Operator Relationship Specialty Start Date End Date Nanci Gomez MD PCP - General 08/19/10 [address] [place] [address] documented as of this encounter
--- OUTSIDE RECORDS SUMMARY | 2022-04-16 02:01 | XMS_ITS | Encounter Summary ---
:1945 Author Organization [place] [address] Care Team Providers Name Role Phone Nanci Gomez MD Primary Care Provider Encounter Details Date Type Department Care Team Description 06/04/2020 Telephone Gastroenterology at [facility] Shalonda Curran, [facility] [place] [phone] Social History Tobacco Use Types Packs/Day Years Used Date Never Smoker Smokeless Tobacco: Never Used Alcohol Use Standard Drinks/Week Comments No 0 (1 standard drink = 0.6 oz pure alcoho l) Sex Assigned at Date Recorded Not on file documented as of this encounter Miscellaneous Notes Telephone Encounter - Shalonda Curran RN - 06/04/2020 10:11 AM EDT Call placed to patient to relay below message from provider. Patient agrees with plan. Provided her with telephone number to schedule 5 minute timed barium swallow. Patient would like a new prescription for Lansoprazole to be sent to [facility] in [place], [place]. Telephone Encounter - Shalonda Curran RN - 06/04/2020 10:11 AM EDT ----- Message from Shu Preciado APRN sent at 05/31/2020 12:32 PM EDT ----- Hello-- Please call her with a plan update following motility meeting: Increase lansoprazole to 30mg twice daily 30-60 minutes prior to eating morning and evening meal 5 minute timed barium swallow to be done at [facility] on twice daily lansoprazole with esophageal manometry Upper endoscopy as a diagnostic so we can evaluate her esophagus and LES I would like to check back in with her after all the testing so we can determine next steps. Secretaries-- please help her arrange the barium swallow and GIF a few weeks after testing is complete Thank you, Shu documented in this encounter Plan of Treatment Upcoming Encounters Date Type Specialty Care Team Description 05/14/2022 Hospital Encounter Gastroenterology Evelyn Michel MD [facility] DR GASTROENTEROLOGY DEPT. [place], [place] [address] 05/14/2022 Surgery Gastroenterology Evelyn Michel, EGD, U PPER GI MD ENDOSCOPY [facility] DR GASTROENTEROLOGY DEPT. [place], [place] [address] 05/28/2022 Appointment Pulmonology Scheduled Procedures Name Priority Associated Diagnoses Date/Time EGD, UPPER GI ENDOSCOPY Achalasia 05/14/2022 2:30 PM EDT Dysphagia, unspecified type COLONOSCOPY, DIAGNOSTIC Achalasia 05/14/2022 2:30 PM EDT Dysphagia, unspecified type documented as of this encounter Visit Diagnoses Not on filedocumented in this encounter Care Teams Flower Shop Laborer/Designer Relationship Specialty Start Date End Date Nanci Gomez MD PCP - General 08/19/10 [address] [place] [address] documented as of this encounter
--- OUTSIDE RECORDS SUMMARY | 2022-04-16 02:01 | XMS_ITS | Encounter Summary ---
:1945 Author Organization [facility] [place] [address] Care Team Providers Name Role Phone Nanci Gomez MD Primary Care Provider Encounter Details Date Type Department Care Team Description 05/28/2017 Tech Visit Gastroenterology at [facility] Maxx Wade MD Dysphagia, unspecified type; [facility] [address] [phone] GASTROENTEROLOGY DEPT. [place] [address] Social History Tobacco Use Types Packs/Day Years Used Date Never Smoker Alcohol Use Standard Drinks/Week Comments No 0 (1 standard drink = 0.6 oz pure alcoho l) Sex Assigned at Date Recorded Not on file documented as of this encounter Progress Notes Maxx Wade MD - 05/28/2017 9:00 PM EDT HIGH-RESOLUTION ESOPHAGEAL MANOMETRY Ivis Laureano [address] [place] [address] : 1945 STUDY DATE: 05-28-2017 PROVIDER: Maxx Wade, PhD, [place] ([id number]) INDICATION Dysphagia METHODS Stationary esophageal manometry was performed with the ManoScan ESO version 3.0 in a supervised setting after verbal consent and after topical anesthesia to the nares. This system uses 36 individual circumferential solid state sensors spaced 1 cm apart. The outer diameter of the probe is 4.2 mm. Length, resting pressure, pressure inversion point (PIP), and relaxation of the lower esophageal sphincter (LES) was measured. The high pressure zone of the upper esophageal sphincter (UES) was measured. Water swallows were provided after a 8-eg-9-minute accommodation period to assess LES function and function of the esophageal body. FINDINGS LES (lower esophageal sphincter) Distal border of LES identified at 46.5 cm. Proximal border of LES identified at 43.5 cm. Hiatal hernia present? No Basal pressure respiratory mean pressure 36 mmHg (normal = 15-34 mmHg). Residual mean pressure (integrated relaxation pressure - IRP) 21.4 mmHg (normal = <15 mmHg). BODY OF ESOPHAGUS Water Swallows: 10. Failed: 100%. Transmitted (peristaltic): 0%. Panesophageal pressurization: 100% Premature: 0% Rapid: 0% With large breaks: 0%. With small breaks: 0%. DCI (distal contractile integral): NA mmHg-cm-s (normal is 450 to 5000 mmHg-cm-s). Contractile front velocity: NA cm/s (normal is <9.0 cm/s). Intrabolus pressure (average maximum): NA mmHg (normal is <17.0 mmHg). Distal latency: NA UES (upper esophageal sphincter) Distal border of UES identified at 19.8 cm and extended to 17.2 cm. UES basal pressure 45.6 mmHg (normal = 34-104 mmHg). Residual pressure 9.7 mmHg (normal = <12 mmHg). IMPRESSION 1. Elevated LES resting pressure. 2. Incomplete LES relaxation (IRP, integrated relaxation pressure). 3. Normal UES resting pressure. 4. Normal UES relaxation. 5. Absent motility in the body of the esophagus. No swallow was transmitted. All were characterized by panesophageal pressurization. 6. No evidence of a hiatal hernia on this study. 7. In the absence of mechanical obstruction, these findings are most consistent with Type I achalasia. A 5 minute timed barium swallow may prove useful to evaluate the presence of esophageal dilation and the degree of impaired emptying. *Measurements and diagnostic criteria per Pickett 3.0 Classification. Maxx Wade, PhD, MD criminal investigative agent, [facility] [employer] Chief, Section of Gastroenterology and Hepatology [facility] [address] V: [phone] F: [phone] CC/EC: PCP documented in this encounter Plan of Treatment Upcoming Encounters Date Type Specialty Care Team Description 05/14/2022 Hospital Encounter Gastroenterology Evelyn Mihcel MD [facility] GASTROENTEROLOGY DEPT. [place], [place] [address] 05/14/2022 Surgery Gastroenterology Evelyn Michel, EGD, U PPER GI MD ENDOSCOPY [facility] GASTROENTEROLOGY DEPT. [place], [place] [address] 05/28/2022 Appointment Pulmonology Scheduled Procedures Name Priority Associated Diagnoses Date/Time EGD, UPPER GI ENDOSCOPY Achalasia 05/14/2022 2:30 PM EDT Dysphagia, unspecified type COLONOSCOPY, DIAGNOSTIC Achalasia 05/14/2022 2:30 PM EDT Dysphagia, unspecified type documented as of this encounter Visit Diagnoses Diagnosis Dysphagia, unspecified type Achalasia Achalasia and cardiospasm Achalasia Achalasia and cardiospasm Dysphagia, unspecified type documented in this encounter Care Teams Lock Corner Machine Operator Relationship Specialty Start Date End Date Nanci Gomez MD PCP - General 08/19/10 [address] [place] [address] documented as of this encounter
--- OUTSIDE RECORDS SUMMARY | 2022-04-16 02:01 | XMS_ITS | Encounter Summary ---
:1945 Author Organization [facility] [place] [address] Care Team Providers Name Role Phone Nanci Gomez MD Primary Care Provider Encounter Details Date Type Department Care Team Description 12/06/2018 Hospital Encounter Mammography/DXA at Nanci Gomez ncounter for [facility] MD Vika screening mammogram [facility] [address] [place] [phone] Social History Tobacco Use Types Packs/Day Years Used Date Never Smoker Smokeless Tobacco: Never Used Alcohol Use Standard Drinks/Week Comments No 0 (1 standard drink = 0.6 oz pure alcoho l) Sex Assigned at Date Recorded Not on file documented as of this encounter Medications at Time of Discharge Medication Sig Dispensed Refills Start Date End Date acetaminophen (TYLENOL) 650 Take 20.3 mLs by 0 mg/20.3 mL Solution mouth every 4 hours. multivitamin Tablet, Take by mouth. 0 Chewable b complex vitamins Capsule Take 1 capsule 0 by mouth daily. losartan (COZAAR) 25 mg 0 06/26/2017 Tablet hydrochlorothiazide 0 04/22/2007 (HYDRODIURIL) 50 mg tablet fexofenadine (CHANTAL) 60 mg 0 007 tablet omeprazole (PRILOSEC) 20 mg Take 1 capsule 60 capsule 09/2910/26/2019 Capsule, Delayed by mouth 2 times Release(E.C.) daily. oxyCODONE (ROXICODONE) 5 Take 5 mLs by 50 mL 0 10/29/19 18 05/29/2020 mg/5 mL Solution mouth every 4 hours as needed for Pain. ondansetron (ZOFRAN-ODT) 4 Take 1 tablet by 20 tablet 0 10/201705/29/2020 mg Tablet, Rapid Dissolve mouth every 8 hours as needed for Nausea. documented as of this encounter Plan of Treatment Upcoming Encounters Date Type Specialty Care Team Description 05/14/2022 Hospital Encounter Gastroenterology Evelyn Michel MD [facility] DR GASTROENTEROLOGY DEPT. [place], [place] [address] 05/14/2022 Surgery Gastroenterology Evelyn Michel, EGD, U PPER GI ENDOSCOPY [facility] GASTROENTEROLOGY DEPT. [place], [place] [address] 05/28/2022 Appointment Pulmonology Scheduled Procedures Name Priority Associated Diagnoses Date/Time EGD, UPPER GI ENDOSCOPY Achalasia 05/14/2022 2:30 PM EDT Dysphagia, unspecified type COLONOSCOPY, DIAGNOSTIC Achalasia 05/14/2022 2:30 PM EDT Dysphagia, unspecified type documented as of this encounter Procedures Procedure Name Priority Date/Time Associated Diagnosis Comme nts MAMMO SCREENING CAD Routine 12/06/2018 11:22 AM Encounter for Results for this AND LEOPOLDO BILATERAL EDT screening mammogram pr ocedure are in for breast cancer the result s section. documented in this encounter Results Mammo Screening Cad and Leopoldo Bilateral (12/06/2018 11:22 AM EDT) Anatomical Region Laterality Modality Breast Bilateral Mammography Specimen (Source) Anatomical Location Collection Method / Collectio n Time Received Time / Laterality Volume Narrative 12/06/2018 11:29 AM EDT BILATERAL MAMMOGRAPHY REASON FOR EXAM: Screening TECHNIQUE: CC and MLO views were obtaine d of each breast using standard 2-D mammography as well as 3-D tomosynth esis. Computer aided detection was used. This is compared with prior images . FINDINGS: ??The breasts are almost entir anjum fatty. There are no suspicious microcalcifications, masses, or areas of distortion. The pattern is stable. CONCLUSION: No mammographic evidence of malignancy. RECOMMENDATION: Medical organizations ag ree that annual screening mammography beginning at age 40 saves th e most lives. The risks of screening are negligible compared to dyi ng from breast cancer or suffering from more aggressive treatment required when detected at a later stage. No woman is at low risk for breast cancer. Some women, because of their family history, a genetic tendency, or c ertain other factors, should be screened with breast MRI along with mamm ograms. (The number of women who fall into this category is very small). The patient and health care provider should discuss the patient hist ory and decide if earlier screening and breast MRI are appropriate . Screening should continue as long as a woman is in good health and is expected to live 10 years or longer. Screening mammography may not de tect 10-15% of breast cancers. Women should report any breast changes t o a health care provider right away. A result letter has been sent to this pa hermelinda by the [facility]. BIRADS CATEGORY 1: NEGATIVE Nanci Gomez MD IMG MAMMO ORDERABLES documented in this encounter Visit Diagnoses Diagnosis Encounter for screening mammogram for br east cancer Achalasia Achalasia and cardiospasm Dysphagia, unspecified type documented in this encounter Care Teams Cutter Grinder Relationship Specialty Start Date End Date Nanci Gomez MD PCP - General 08/19/10 [address] [place] [address] documented as of this encounter
--- OUTSIDE RECORDS SUMMARY | 2022-04-16 02:01 | XMS_ITS | Encounter Summary ---
:1945 Author Organization [facility] [place] [address] Care Team Providers Name Role Phone Nanci Gomez MD Primary Care Provider Reason for Visit Reason Onset Date Comments Prior Authorization 06/05/2020 Encounter Details Date Type Department Care Team Description 06/05/2020 Telephone Gastroenterology at [facility] [place] Gaston Prior Authorization [facility] [place] [address] Social History Tobacco Use Types Packs/Day Years Used Date Never Smoker Smokeless Tobacco: Never Used Alcohol Use Standard Drinks/Week Comments No 0 (1 standard drink = 0.6 oz pure alcoho l) Sex Assigned at Date Recorded Not on file documented as of this encounter Miscellaneous Notes Telephone Encounter - Mary Gaston [facility] - 06/05/2020 1:39 PM EDT Medication Prior Authorization 4L Gastroenterology / [place] [address] Subscriber Insurance: Moped Phone: Fax: Insurance ID: Physician: Shu Preciado NPI: Return Pharmacy: Phone: Fax: Medication Requested: Lansoprazole Strength: 30mg Frequency: Take 1 tablet by mouth 2 times daily Disp.: 180 Refills: 3 Currently taking: yes Diagnosis for this medication: Achelasia ICD-10 code: (K22.0) Prior medications trialed in this patient: Lansoprazole 30mg daily, Omeprazole, Pantoprazole Medication: Outcome/Adverse Reactions:Treatment Failure Decision: Approved Tracking number/Case number/Reference number:[id number] Effective date: Start: 06/05/2020 End: 06/05/2021 documented in this encounter Plan of Treatment Upcoming Encounters Date Type Specialty Care Team Description 05/14/2022 Hospital Encounter Gastroenterology Evelyn Michel MD [facility] DR GASTROENTEROLOGY DEPT. [place], [place] [address] 05/14/2022 Surgery Gastroenterology Evelyn Michel, EGD, U PPER GI MD ENDOSCOPY [facility] DR GASTROENTEROLOGY DEPT. [place], [place] [address] 05/28/2022 Appointment Pulmonology Scheduled Procedures Name Priority Associated Diagnoses Date/Time EGD, UPPER GI ENDOSCOPY Achalasia 05/14/2022 2:30 PM EDT Dysphagia, unspecified type COLONOSCOPY, DIAGNOSTIC Achalasia 05/14/2022 2:30 PM EDT Dysphagia, unspecified type documented as of this encounter Visit Diagnoses Not on filedocumented in this encounter Care Teams Storage Administrator Relationship Specialty Start Date End Date Nanci Gomez MD PCP - General 08/19/10 [address] [place] [address] documented as of this encounter
--- OUTSIDE RECORDS SUMMARY | 2022-04-16 02:01 | XMS_ITS | Encounter Summary ---
:1945 Author Organization [facility] [place] [address] Care Team Providers Name Role Phone Nanci Gomez MD Primary Care Provider Reason for Visit Diagnostic Test (Routine) - Canceled Specialty Diagnoses / Procedures Referred By Contact Refer red To Contact Radiology Diagnoses Dysphagia, unspecified type Shu Preciado [facility] Rad Ct Scan Procedures CT Chest Abdomen Pelvis w Contrast (Generic) [place] [address] [place] [address] Referral ID Status Reason Start Expiration Visits Visits Date Date Requested Authorized [id number] Canceled Specialty 07/12/2018 1 1 Service 7 Requested Encounter Details Date Type Department Care Team Description 07/14/[address] Scan at [facility] Clay Preciadoed (P-NO [facility] Shu Guillen APRN LONGER NEEDED) [place], [place] [phone] GASTROENTEROLOGY [phone] [place] [address] Social History Tobacco Use Types Packs/Day Years Used Date Never Smoker Smokeless Tobacco: Never Used Alcohol Use Standard Drinks/Week Comments No 0 (1 standard drink = 0.6 oz pure alcoho l) Sex Assigned at Date Recorded Not on file documented as of this encounter Medications at Time of Discharge Medication Sig Dispensed Refills Start Date End Date b complex vitamins Capsule Take 1 capsule 0 by mouth daily. losartan (COZAAR) 25 mg 0 06/26/2017 Tablet hydrochlorothiazide 0 04/22/2007 (HYDRODIURIL) 50 mg tablet fexofenadine (CHANTAL) 60 mg 0 007 tablet gabapentin (NEURONTIN) 100 0 7 10/28/2017 mg Capsule omeprazole (PRILOSEC) 20 mg Take 2 capsules 60 capsule 11 08/16/2017 Capsule, Delayed by mouth daily. Release(E.C.) cyanocobalamin, vitamin Take 100 mcg by 0 10/27/2017 B-12, 100 mcg tablet mouth daily. raloxifene (EVISTA) 60 mg 0 04/22/2007 07/22/2017 tablet documented as of this encounter Plan of Treatment Upcoming Encounters Date Type Specialty Care Team Description 05/14/2022 Hospital Encounter Gastroenterology Evelyn Michel MD [facility] DR GASTROENTEROLOGY DEPT. [place], [place] [address] 05/14/2022 Surgery Gastroenterology Evelyn Michel, EGD, U PPER GI ENDOSCOPY [facility] DR GASTROENTEROLOGY DEPT. [place], [place] [address] 05/28/2022 Appointment Pulmonology Scheduled Procedures Name Priority Associated Diagnoses Date/Time EGD, UPPER GI ENDOSCOPY Achalasia 05/14/2022 2:30 PM EDT Dysphagia, unspecified type COLONOSCOPY, DIAGNOSTIC Achalasia 05/14/2022 2:30 PM EDT Dysphagia, unspecified type documented as of this encounter Visit Diagnoses Not on filedocumented in this encounter Care Teams Grinder Set Up Operator Relationship Specialty Start Date End Date Nanci Gomez MD PCP - General 08/19/10 [address] [place] [address] documented as of this encounter
--- OUTSIDE RECORDS SUMMARY | 2022-04-16 02:01 | XMS_ITS | Encounter Summary ---
:1945 Author Organization [place] [address] Care Team Providers Name Role Phone Nanci Gomez MD Primary Care Provider Encounter Details Date Type Department Care Team Description 03/14/2020 Telephone Pulmonology at [facility] Ami Eaton [facility] [place] [address] Social History Tobacco Use Types Packs/Day Years [...] Evelyn Michel MD [facility] GASTROENTEROLOGY DEPT. [place], [place] [address] 05/14/2022 Surgery Gastroenterology Evelyn Michel, EGD, U PPER GI ENDOSCOPY [facility] GASTROENTEROLOGY DEPT. [place], [place] [address] 05/28/2022 Appointment Pulmonology Scheduled Procedures Name Priority Associated Diagnoses Date/Time EGD, UPPER GI ENDOSCOPY Achalasia 05/14/2022 2:30 PM EDT Dysphagia, unspecified type COLONOSCOPY, DIAGNOSTIC Achalasia 05/14/2022 2:30 PM EDT Dysphagia, unspecified type documented as of this encounter Visit Diagnoses Not on filedocumented in this encounter Care Teams Director Operations Broadcast Relationship Specialty Start Date End Date Nanci Gomez MD PCP - General 08/19/10 [address] [place] [address] documented as of this encounter
--- OUTSIDE RECORDS SUMMARY | 2022-04-16 02:01 | XMS_ITS | Encounter Summary ---
:1945 Author Organization [facility] [place] [address] Care Team Providers Name Role Phone Nanci Gomez MD Primary Care Provider Encounter Details Date Type Department Care Team Description 07/22/2017 Anesthesia Event Gastroenterology at [facility] Kobi Plaza MD [facility] [place] [address] [facility] Anton Mary MD [facility] [place] [address] [place] [address] Anesthesia Record Procedure Summary Procedure Name Responsible Anesthesia Start Anesthesia Stop Time Anesthesiologist Time EGD, UPPER GI Kobi Plaza MD 07/22/17 1102 07/22/17 1140 ENDOSCOPY (N/A Trunk) Events Date Time Event Comment 07/22/2017 0948 1102 Start 1104 AN Verify 1104 An Start Data 1107 An Induction 1108 Anesthesia Ready 1137 an stop data 1140 Recovery or ICU Handoff Patient care was transferred to the destination unit staff after review of the patient's medica l history, current anesthetic/surgi edler status and plan, according to the Provider Handoff Checklist. 1140 Stop Name Total Midazolam 1 mg Propofol 20 mg Propofol INF 235.82 mg Lactated Ringers 300 mL Agents No agents on file. Blood No blood administrations on file. Lines, Drains, and Airways Type Details Placement Removal PIV 04/15/17; 1618; median 04/15/17 1618 by Gloria , 01/10/18 0921 by Epic, cubital vein (antecubital Rosa Sandy RN User fossa), right; [id number] catheter system; 20 gauge; 01/10/18 (Auto removal via utility); 0921 (Auto removal via utility) PIV 07/22/17; 0948; metacarpal 07/22/17 0948 by Nitin larios, 01/10/18 0921 by Epic, vein (top of hand), right; Emely Martines RN User [id number] catheter system; 22 gauge; christiano lee rn; distraction, intradermal injection, tolerated well; 01/10/18 (Auto removal via utility); 0921 (Auto removal via utility) documented in this encounter Social History Tobacco Use Types Packs/Day Years Used Date Never Smoker Smokeless Tobacco: Never Used Alcohol Use Standard Drinks/Week Comments No 0 (1 standard drink = 0.6 oz pure alcoho l) Sex Assigned at Date Recorded Not on file documented as of this encounter OR Notes Anesthesia Postprocedure Evaluation - Kobi Plaza MD - 07/22/2017 12:51 PM EDT [facility] Department of Anesthesiology Post-procedure Note Patient: Ivis Laureano Procedure Summary Date Anesthesia Start Anesthesia Stop Room / Location 07/22/17 1102 1140 [facility] / [facility] Procedure Diagnosis Surgeon Responsible Provider EGD, UPPER GI ENDOSCOPY (N/A Trunk) Achalasia (botox for achalasia type I) Ever Orourke MD Morley, Benjamin D, MD All Anesthesia Providers: Anesthesiologist: Kobi Plaza MD Water Engineer: Anton Tellez MD Most Recent Vitals: 07/22/17 1140 BP: 119/55 Pulse: 53 Resp: 16 SpO2: Pain Patient Location: PACU/[facility] Level of Consciousness: Awake and Alert Pain Management: Satisfactory Analgesia PONV: None Cardiovascular Status: At Baseline and Hemodynamically Stable Respiratory Status: At Baseline and Room Air Postoperative Fluid Status: Intravascular EUvolemia Possible Anesthetic Complications: NONE apparent at time of evaluation Final Primary Anesthesia Type: MAC (The anesthetic type performed was the same as planned.) Comments: KOBI PLAZA MD Anesthesia Preprocedure Evaluation - Kobi Plaza MD - 07/21/2017 8:14 PM EDT Pre-Anesthesia Evaluation for: Ivis Laureano a 72 y.o. female. Procedure(s): EGD, UPPER GI ENDOSCOPY There are no active problems to display for this patient. No past medical history on file. Past Surgical History: Procedure Laterality Date ??? PRO COLONOSCOPY, DIAGNOSTIC 05/06/2012 COLONOSCOPY, DIAGNOSTIC performed by LEO WATT at [facility] ??? PRO COLONOSCOPY, DIAGNOSTIC N/A 04/15/2017 COLONOSCOPY, DIAGNOSTIC performed by Ever Orourke MD at [facility] ??? PRO UPPER GI ENDOSCOPY, BIOPSY N/A 04/15/2017 UPPER GASTROINTESTINAL ENDOSCOPY,WITH BIOPSY SINGLE OR MULTIPLE (WRVU 2.49) performed by Ever Orourke MD at [facility] Social History Substance Use Topics ??? Smoking status: Never Smoker ??? Smokeless tobacco: Never Used ??? Alcohol use No History Drug Use No No Known Allergies Medications: MAR and/or home medications have been reviewed. Physical Exam: There were no vitals filed for this visit. There is no height or weight on file to calculate BMI. Airway Assessment: Mallampati: II TM distance: <3 FB Neck ROM: full Cardiovascular Assessment: cardiovascular exam normal Pulmonary Assessment: pulmonary exam normal Dental Assessment: (+) implants Misc Assessment: Anesthesia Plan: ASA 2 MAC, with a(n) intravenous induction Ivis Laureano is a 72 y/o 93.9kg female with type 1 achalasia presenting for EGD with botox injection. PMH significant for obesity, HTN, neuropathy, GERD. No prior anesthetic records. NKDA Anesthetic plan: Propofol MAC with [place] airway vs ETT for airway protection in setting of GERD/esophageal emptying restriction Standard ASA monitors Region - Other Informed Consent: Anesthetic plan and risks discussed with patient. Plan discussed with resident and attending. PAT Staff Note documented in this encounter Plan of Treatment Upcoming Encounters Date Type Specialty Care Team Description 05/14/2022 Hospital Encounter Gastroenterology Evelyn Michel MD [facility] DR GASTROENTEROLOGY DEPT. [place], [place] [address] 05/14/2022 Surgery Gastroenterology Evelyn Michel, EGD, U PPER GI ENDOSCOPY [facility] GASTROENTEROLOGY DEPT. [place], [place] [address] 05/28/2022 Appointment Pulmonology Scheduled Procedures [...] Action Action Date Dose Rate Site lactated Ringers infusion New Bag 07/22/2017 11:02 AM EDT CONTINUOUS PRN, Starting on Jillian 07/22/17 at 1102, Until Jillian 07/22/17 at 1140, Anesthesia Intra-op midazolam (PF) (VERSED) 1 mg/mL multi-dose Given 07/22/2017 11:0 4 AM EDT 1 mg injection PRN, Starting on Jillian 07/22/17 at 1104, Until Jillian 07/22/17 at 1140, Sleep, Anesthesia Intra-op, Routine propofol (DIPRIVAN) 10 mg/mL bolus injection Given 11:07 AM EDT 20 mg (Anesthesia) PRN, Starting on Jillian 07/22/17 at 1107, Until Jillian 07/22/17 at 1140, Anesthesia Intra-op propofol (DIPRIVAN) infusion New Bag 07/22/2017 11:07 AM 100 mcg/kg/min 54.4 mL/hr CONTINUOUS PRN, Starting on EDT Jillian 07/22/17 at 1107, Until Jillian 07/22/17 at 1140, Anesthesia Intra-op, Routine documented in this encounter Care Teams Energy Operations Vice President Relationship Specialty Start Date End Date Nanci Gomez MD PCP - General 08/19/10 [address] [place] [address] documented as of this encounter
--- OUTSIDE RECORDS SUMMARY | 2022-04-16 02:01 | XMS_ITS | Encounter Summary ---
:1945 [place] [address] Care Team Providers Name Role Phone Nanci Gomez MD Primary Care Provider Encounter Details Date Type Department Care Team Description 06/21/2020 Telephone Gastroenterology at [place] Chilo Villasenor [facility] [place] [address] Social History Tobacco Use Types Packs/Day Years Used Date Never Smoker Smokeless Tobacco: Never Used Alcohol Use Standard Drinks/Week Comments No 0 (1 standard drink = 0.6 oz pure alcoho l) Sex Assigned at Date Recorded Not on file documented as of this encounter Miscellaneous Notes Telephone Encounter - Chilo Villasenor RN - 06/21/2020 3:21 PM EDT Per Shu Preciado, BOX BLANK MACHINE OPERATOR: Mark Weller-- it looks fine. ??Actually-- not much of a delay. ??I need the results of ALL the tests before we can determine what next steps will be. ?? Shu Returned call to patient to discuss below, she verbalized understanding. Patient stated that she hadanother question, she stated she called the pharmacy after she and I spoke last and the pharmacist told he that the PA for the Lansoprazole did not change the amount that she would need to pay out of pocket. PA was approved. Made patient aware that this selling underwriter would call the pharmacy to see if there was more information. pateint has been taking the left over Omeprazole that she had from before, but only has enough medication for the next week or so. Called pharmacy to discuss Lansoprazole PA, spoke with Cris the pharmacist who stated that they ran the lansoprazole through both of her insurances and the out of pocket with the PA approved would be $1,065.00 for a 3 month supply. Will forward to Shu Preciado APRN to make her aware of above and let her know patient does not want to nor can she pay the out of pocket. Telephone Encounter - Chilo Villasenor RN - 06/21/2020 12:32 PM EDT Patient calls the office leaving a message on the RN voicemail requesting results of her barium swallow. Forwarding to Leatha Preciado APRN for review. documented in this encounter Plan of Treatment Upcoming Encounters Date Type Specialty Care Team Description 05/14/2022 Hospital Encounter Gastroenterology Evelyn Michel MD [facility] DR GASTROENTEROLOGY DEPT. [place], [place] [address] 05/14/2022 Surgery Gastroenterology Evelyn Michel, EGD, U PPER GI ENDOSCOPY [facility] GASTROENTEROLOGY DEPT. [place], [place] [address] 05/28/2022 Appointment Pulmonology Scheduled Procedures Name Priority Associated Diagnoses Date/Time EGD, UPPER GI ENDOSCOPY Achalasia 05/14/2022 2:30 PM EDT Dysphagia, unspecified type COLONOSCOPY, DIAGNOSTIC Achalasia 05/14/2022 2:30 PM EDT Dysphagia, unspecified type documented as of this encounter Visit Diagnoses Not on filedocumented in this encounter Care Teams Curb Supervisor Relationship Specialty Start Date End Date Nanci Gomez MD PCP - General 08/19/10 [address] [place] [address] documented as of this encounter
--- OUTSIDE RECORDS SUMMARY | 2022-04-16 02:01 | XMS_ITS | Encounter Summary ---
:1945 [place] [address] Care Team Providers Name Role Phone Nanci Gomez MD Primary Care Provider Encounter Details Date Type Department Care Team Description 11/01/2017 Telephone General [facility] Andres Loaiza MD [facility] [place] [address] EMERGENCY MEDICINE [phone] [place] [id number] (Wo rk) Social History Tobacco Use Types Packs/Day Years Used Date Never Smoker Smokeless Tobacco: Never Used Alcohol Use Standard Drinks/Week Comments No 0 (1 standard drink = 0.6 oz pure alcoho l) Sex Assigned at Date Recorded Not on file documented as of this encounter Miscellaneous Notes Telephone Encounter - Andres Loaiza MD - 11/01/2017 5:44 PM EST Ivis Laureano is POD#4 from Heller myotomy and intraoperative upper endoscopy for achalasia with Dr. Aguilar. She reports that she has had no bowel movements since surgery. She has not attempted any treatment of this. She has not required any narcotics since surgery. I recommended that she try an overthe counter stool softener such as Miralax, Docusate or senna. If her pain worsens or she develops fevers, nausea or vomiting she should go to the emergency department. Otherwise she may attempt to move up her follow up appointment in clinic, currently schedyled for 2 weeks from now. ANDRES LOAIZA MD 5:51 PM 11/01/2017 documented in this encounter Plan of Treatment Upcoming Encounters Date Type Specialty Care Team Description 05/14/2022 Hospital Encounter Gastroenterology Evelyn Michel MD [facility] DR GASTROENTEROLOGY DEPT. [place], [place] [address] 05/14/2022 Surgery Gastroenterology Evelyn Michel, EGD, U PPER GI MD ENDOSCOPY [facility] DR GASTROENTEROLOGY DEPT. [place], [place] [address] 05/28/2022 Appointment Pulmonology Scheduled Procedures Name Priority Associated Diagnoses Date/Time EGD, UPPER GI ENDOSCOPY Achalasia 05/14/2022 2:30 PM EDT Dysphagia, unspecified type COLONOSCOPY, DIAGNOSTIC Achalasia 05/14/2022 2:30 PM EDT Dysphagia, unspecified type documented as of this encounter Visit Diagnoses Not on filedocumented in this encounter Care Teams Affirmative Action Specialist Relationship Specialty Start Date End Date Nanci Gomez MD PCP - General 08/19/10 [address] [place] [address] documented as of this encounter
--- OUTSIDE RECORDS SUMMARY | 2022-04-16 02:01 | XMS_ITS | Encounter Summary ---
:1945 Author Organization [facility] [place] [address] Care Team Providers Name Role Phone Nanci Gomez MD Primary Care Provider Encounter Details Date Type Department Care Team Description 10/26/2018 Office Visit Gastroenterology at [facility] SieEle weia; [facility] Lucretia Guillen APRN Dysphagia, unspecified type; [place] [address] [facility] Gastroesophageal reflux dise ase, esophagitis presence not specified [phone] [place] [address] Social History Tobacco Use Types Packs/Day Years Used Date Never Smoker Smokeless Tobacco: Never Used Alcohol Use Standard Drinks/Week Comments No 0 (1 standard drink = 0.6 oz pure alcoho l) Sex Assigned at Date Recorded Not on file documented as of this encounter Last Filed Vital Signs Vital Sign Reading Time Taken Comments Blood Pressure 129/67 10/26/2018 3:21 PM EST Pulse 71 10/26/2018 3:21 PM EST Temperature - - Respiratory Rate - - Oxygen Saturation - - Inhaled Oxygen Concentration - - Weight 95.3 kg (210 lb) 10/26/2018 3:21 PM EST Height 177.8 cm (5' 10) 10/26/2018 3:21 PM EST Body Mass Index 30.13 10/26/2018 3:21 PM EST documented in this encounter Patient Instructions Patient InstructionsSieglingShu alexander APRN - 10/26/2018 3:30 PM EST 1. Decrease omeprazole to 20mg once daily 30-60 minutes prior to eating first meal of the day. 2. 5 minute timed barium swallow to be done at [place]. Please call the hospital if you don't hearfrom them by next Wednesday. 3. Please send me a message or call me after you have the test done. documented in this encounter Progress Notes Shu Preciado APRN - 10/26/2018 3:30 PM EST TELECOMMUNICATIONS SWITCH TECHNICIAN: Shu Preciado APRN PCP: Nanci Gomez MD REQUESTING PROVIDER: Ever Orourke MD REASON FOR VISIT This is a 73 y.o. 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 She is returning [facility] today in follow up. GI PROBLEM LIST [...] ?? polypectomy: Sessile serrated adenoma/polyp. INTERVAL HISTORY- 10/26/18 Had the myotomy. Was doing really well until this fall. Dysphagia most days. Getting progressively worse. Occurring mostly with bread and rice. Both solids and liquids. Food will become lodged in her esophagus. Food may go down eventually after approximately 10 minutes. Denies unintentional weight loss. Has been taking omeprazole once daily. Tolerating well. Denies reflux symptoms. INTERVAL HISTORY- 08/16/17 Minimal improvement after botox [...] CURRENT MEDICATIONS Medications reviewed and reconciled in e-DH Current Outpatient Medications: ??? acetaminophen (TYLENOL) 650 mg/20.3 mL Solution, Take 20.3 mLs by mouth every 4 hours., Disp: , Rfl: ??? oxyCODONE (ROXICODONE) 5 mg/5 mL Solution, Take 5 mLs by mouth every 4 hours as needed for Pain., Disp: 50 mL, Rfl: 0 ??? ondansetron (ZOFRAN-ODT) 4 mg Tablet, Rapid Dissolve, Take 1 tablet by mouth every 8 hours as needed for Nausea., Disp: 20 tablet, Rfl: 0 ??? multivitamin Tablet, Chewable, Take by mouth., Disp: , Rfl: ??? b complex vitamins Capsule, Take 1 capsule by mouth daily., Disp: , Rfl: ??? losartan (COZAAR) 25 mg Tablet, , Disp: , Rfl: ??? hydrochlorothiazide (HYDRODIURIL) 50 mg tablet, , Disp: , Rfl: ??? fexofenadine (CHANTAL) 60 mg tablet, , Disp: , Rfl: MEDICAL HISTORY 1. HTN 2. Non-diabetic neuropathy SURGICAL HISTORY Past Surgical History: Procedure Laterality Date ??? PRO COLONOSCOPY, DIAGNOSTIC 05/06/2012 COLONOSCOPY, DIAGNOSTIC performed by LEO WATT at [facility] ENDOSCOPY ??? PRO COLONOSCOPY, DIAGNOSTIC N/A 04/15/2017 COLONOSCOPY, DIAGNOSTIC performed by Ever Orourke MD at [facility] ENDOSCOPY ??? PRO LAP, ESOPHAGOMYOTOMY W FUNDOPLASTY N/A 10/28/2017 @LAPAROSCOPIC HELLER MYOTOMY, ESOPHAGOMYOTOMY W FUNDOPLASTY (WRVU 22.1) performed by Jasmina Aguilar MD at [facility] MAIN OR ??? PRO UPPER GI ENDOSCOPY, BIOPSY N/A 04/15/2017 UPPER GASTROINTESTINAL ENDOSCOPY,WITH BIOPSY SINGLE OR MULTIPLE (WRVU 2.49) performed by Ever Orourke MD at [facility] ENDOSCOPY ??? PRO UPPER GI ENDOSCOPY, DIAGNOSTIC N/A 07/22/2017 EGD, UPPER GI ENDOSCOPY performed by Ever Orourke MD at [facility] ENDOSCOPY ??? 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 HABITS Denies tobacco use. Very rare alcohol use. Denies using other substances. FAMILY HISTORY Mom is , age: 89 Dad is , age: 89, pancreatitis Paternal uncle; colon cancer Maternal aunt; colon cancer No other GI etiologies PHYSICAL EXAM: Most Recent Vitals: 10/26/18 1521 BP: 129/67 Pulse: 71 Height: 5'11 Weight: Weight: 95.3 kg (210 lb) Body mass index is 30.13 kg/m??. GENERAL: Healthy-appearing in no acute distress. Appears stated age. Appropriate weight for height. SKIN: No lesions, rashes, lumps, or angiomas on exposed skin. NEURO: Alert and oriented to person, place, time, and situation. Cranial nerves II-XII intact. PSYCH: Mood appropriate. Good eye contact. Normal interaction. Answers all questions appropriately. LABS: Lab Results Component Value Date NA 141 10/29/2017 K 3.7 10/29/2017 CL 99 10/29/2017 CO2 26 10/29/2017 BUN 12 10/29/2017 CREATININE 0.90 10/29/2017 GLUCOSE 130 10/29/2017 CALCIUM 8.9 10/29/2017 ESTGFR >60 10/29/2017 ASSESSMENT 1. ACHALASIA s/p Heller myotomy Heller myotomy October 2017 beneficial. Started experiencing recurrent symptoms this past fall. Recommend 5 minute timed barium swallow. She would like this done at [facility]. We will determine next steps based on these results. May require repeat botox or possible dilitation. 2. GERD; Improved Currently asymptomatic on omeprazole 40mg dose. Recommend trial of 20mg dose. If she has recurrent symptoms, will increase to 40mg dose. PLAN 1. 5 minute timed barium swallow to be done at [place]. 2. Decrease omeprazole to 20mg once daily on an empty stomach 30-60 minutes prior to eating. Prescription provided for omeprazole 20mg twice daily. 3. I will follow up with her after barium swallow results are available. Patient agrees with the above plan. I have done my best to answer all her questions. TIME SPENT WITH PATIENT 25 minutes of this 26 minute visit were spent in [id number] discussion and counseling the patient as detailed per above. Signed, Shu Preciado APRN 10/27/18 7:18 AM Section of Gastroenterology & Hepatology [facility] documented in this encounter Plan of Treatment Upcoming Encounters Date Type Specialty Care Team Description 05/14/2022 Hospital Encounter Gastroenterology Evelyn Michel MD [facility] DR GASTROENTEROLOGY DEPT. [place], [place] [address] 05/14/2022 Surgery Gastroenterology Evelyn Michel, EGD, U PPER GI ENDOSCOPY [facility] DR GASTROENTEROLOGY DEPT. [place], [place] [address] 05/28/2022 Appointment Pulmonology Scheduled Procedures Name Priority Associated Diagnoses Date/Time EGD, UPPER GI ENDOSCOPY Achalasia 05/14/2022 2:30 PM EDT Dysphagia, unspecified type COLONOSCOPY, DIAGNOSTIC Achalasia 05/14/2022 2:30 PM EDT Dysphagia, unspecified type documented as of this encounter Visit Diagnoses Diagnosis Achalasia Achalasia and cardiospasm Dysphagia, unspecified type Gastroesophageal reflux disease, esophag itis presence not specified Achalasia Achalasia and cardiospasm Dysphagia, unspecified type documented in this encounter Care Teams Steel Estimator Relationship Specialty Start Date End Date Nanci Gomez MD PCP - General 08/19/10 [address] [place] [address] documented as of this encounter
--- OUTSIDE RECORDS SUMMARY | 2022-04-16 02:01 | XMS_ITS | Encounter Summary ---
:1945 Author Organization [facility] [place] [address] Care Team Providers Name Role Phone Nanci Gomez MD Primary Care Provider Reason for Referral Diagnostic Test (Routine) - Closed Specialty Diagnoses / Procedures Referred By Contact Refer red To Contact Radiology Diagnoses Achalasia Shu Preciado, [facility] Rad Xray Procedures XR Fluoro Barium Swallow BANK TELLER MACHINE MECHANIC [address] [place] [address] [place] [address] [place] [address] Referral ID Status Reason Start Date Expiration Date Visits V isits Requested Authorized [id number] Closed Specialty 05/31/2020 11/28/2021 1 1 Service Requested Consultation (Routine) - Closed Specialty Diagnoses / Procedures Referred By Contact Refer red To Contact Gastroenterology Diagnoses Achalasia combined HREM/pH impedance ON PPI for heartburn Shu Preciado, [facility] G vicente 4t Procedures HIGH RESOLUTION ESOPHAGEAL MANOMETRY PH IMPEDANCE - 24 HOUR combined HREM/pH impedance ON PPI for heartburn BANK TELLER MACHINE MECHANIC [facility] GASTROENTEROLOGY [place], [place] [id number] [place] [address] Referral ID Status Reason Start Date Expiration Date Visits V isits Requested Authorized [id number] Closed Test Only 05/31/2020 05/31/2021 1 1 Consultation (Routine) - Closed Specialty Diagnoses / Procedures Referred By Contact Refer red To Contact Gastroenterology Diagnoses Achalasia Shu Preciado, [facility] Endoscopy 4t BANK TELLER MACHINE MECHANIC On License Of [facility] [address] [place] [address] [place] [address] Referral ID Status Reason Start Date Expiration Date Visits V isits Requested Authorized [id number] Closed Consult, 05/31/2020 05/31/2021 1 1 Test & Treat Encounter Details Date Type Department Care Team Description 05/31/2020 Orders Only Gastroenterology at [facility] Shu Preciado, Juliane [facility] D [place]ve [place] [address] [facility] [phone] GASTROENTEROLOGY [place] [id number] (Wo rk) Social History Tobacco Use Types Packs/Day Years Used Date Never Smoker Smokeless Tobacco: Never Used Alcohol Use Standard Drinks/Week Comments No 0 (1 standard drink = 0.6 oz pure alcoho l) Sex Assigned at Date Recorded Not on file documented as of this encounter Progress Notes Shu Preciado APRN - 05/31/2020 12:26 PM EDT Reviewed patient's case with motility team. Plan outlined below: -Increase lansoprazole to 30mg twice daily 30-60 minutes prior to eating breakfast and dinner. Sent to [facility] in [place], [place] -EGD to evaluate esophagus and LES. May need repeat EGD with dilitation pending results -HREM with impedence pH on twice daily lansoprazole -5 minute timed barium swallow documented in this encounter Plan of Treatment Upcoming Encounters Date Type Specialty Care Team Description 05/14/2022 Hospital Encounter Gastroenterology Evelyn Michel MD [facility] GASTROENTEROLOGY DEPT. [place], [place] [address] 05/14/2022 Surgery Gastroenterology Evelyn Michel, EGD, U PPER GI ENDOSCOPY [facility] GASTROENTEROLOGY DEPT. [place], [place] [address] 05/28/2022 Appointment Pulmonology Scheduled Procedures Name Priority Associated Diagnoses Date/Time EGD, UPPER GI ENDOSCOPY Achalasia 05/14/2022 2:30 PM EDT Dysphagia, unspecified type COLONOSCOPY, DIAGNOSTIC Achalasia 05/14/2022 2:30 PM EDT Dysphagia, unspecified type Scheduled Referrals Name Type Priority Associated Order Schedule Diagnoses Referral to Outpatient Routine Achalasia Ordered: Gastroenterology Referral 05/31/2020 Referral to Outpatient Routine Achalasia Ordered: Gastroenterology Referral 05/31/2020 documented as of this encounter Results XR Fluoro Barium Swallow (06/13/2020 2:00 PM EDT) Anatomical Region Laterality Modality N/A Radio Fluoroscopy Specimen (Source) Anatomical Location Collection Method / Collectio n Time Received Time / Laterality Volume Impressions 06/13/2020 4:39 PM EDT IMPRESSION: The patient was unable to tolerate the f ull volume of barium in the time allotted, which limits the sensitivity o f this test. Within that limitation, the study was normal. I have personally reviewed the image(s) and the resident's interpretation and agree with the findings, Vika BANUELOS at 06/13/2020 4:39 PM Thank you for letting us participate in the care of this patient. For questions regarding this report, please contact e number below. ? Electronically signed by: PIYUSH COBIAN MD, [facility] ([phone]), at 06/13/2020 4:39 PM Narrative 06/13/2020 4:39 PM EDT EXAMINATION: XR FLUORO BARIUM SWALLOW SINGLE CONTRAST CLINICAL HISTORY: achalasia. ??5 minute timed barium swallow TECHNIQUE: 5 minute time the barium swallow study w as performed with fluoroscopic images taken at 1 minute, 2 minutes, and 5 corbin franck post contrast ingestion. Fluoro time: 0.07 minutes COMPARISON: None FINDINGS: Patient drank approximately 40 cc of bar ium, as much as she was able to tolerate, within the [id number] seconds. Limited volume of ingested contrast limits sensitivity. At 1 minute the majority of contrast had passed into the stomach with a small amount of barium within the lower esopha eliot, maximum height approximately 2 cm above the GE junction. At 2 minutes there was partial emptying with a small amount of contrast approximately 1 cm above the GE junction . At 5 minutes there was only trace residu al contrast in the lower esophagus. Procedure Note Piyush Cobian MD - 06/13/2020 EXAMINATION: XR FLUORO BARIUM SWALLOW SI NGLE CONTRAST CLINICAL HISTORY: achalasia. 5 minute ti med barium swallow TECHNIQUE: 5 minute time the barium swallow study w as performed with fluoroscopic images taken at 1 minute, 2 minutes, and 5 corbin franck post contrast ingestion. Fluoro time: 0.07 minutes COMPARISON: None FINDINGS: Patient drank approximately 40 cc of bar ium, as much as she was able to tolerate, within the [id number] seconds. Limited volume of ingested contrast limits sensitivity. At 1 minute the majority of contrast had passed into the stomach with a small amount of barium within the lower esopha eliot, maximum height approximately 2 cm above the GE junction. At 2 minutes there was partial emptying with a small amount of contrast approximately 1 cm above the GE junction . At 5 minutes there was only trace residu al contrast in the lower esophagus. IMPRESSION IMPRESSION: The patient was unable to tolerate the f ull volume of barium in the time allotted, which limits the sensitivity o f this test. Within that limitation, the study was normal. I have personally reviewed the image(s) and the resident's interpretation and agree with the findings, Vika BANUELOS at 06/13/2020 4:39 PM Thank you for letting us participate in the care of this patient. For questions regarding this report, please contact e number below. Shu Preciado BANK TELLER MACHINE MECHANIC IMG FLUORO ORDERABLES documented in this encounter Visit Diagnoses Diagnosis Achalasia Achalasia and cardiospasm Achalasia Achalasia and cardiospasm Achalasia Achalasia and cardiospasm Dysphagia, unspecified type documented in this encounter Care Teams Government Sales Manager Relationship Specialty Start Date End Date Nanci Gomez MD PCP - General 08/19/10 [address] [place] [address] documented as of this encounter
--- OUTSIDE RECORDS SUMMARY | 2022-04-16 02:01 | XMS_ITS | Encounter Summary ---
:1945 Author Organization [place] [phone] Care Team Providers Name Role Phone Nanci Gomez MD Primary Care Provider Reason for Referral Diagnostic Test (Routine) - Closed Specialty Diagnoses / Procedures Referred By Contact Refer red To Contact Radiology Diagnoses Dysphagia, unspecified type Ever Orourke MD Procedures XR Fluoro Barium Swallow [facility] [place] [address] Referral ID Status Reason Start Date Expiration Date Visits V isits Requested Authorized [id number] Closed Specialty 06/17/2017 06/17/2018 1 1 Service Requested Reason for Visit Diagnostic Test (Routine) - Closed Specialty Diagnoses / Procedures Referred By Contact Refer red To Contact Radiology Diagnoses Dysphagia, unspecified type Ever Orourke MD Procedures XR Fluoro Barium Swallow [facility] [place] [address] Referral ID Status Reason Start Date Expiration Date Visits V isits Requested Authorized [id number] Closed Specialty 06/17/2017 06/17/2018 1 1 Service Requested Encounter Details Date Type Department Care Team Description 07/12/2017 Hospital Encounter XRay at [facility] Ever Orourke Dysphagia, [address] [place] [address] Dr Arnulfo MD unspecified type [facility] [id number] GASTROENTEROLOGY [place], [place] [address] Social History Tobacco Use Types [...] 05/14/2022 Hospital Encounter Gastroenterology Evelyn Michel MD [facility] GASTROENTEROLOGY DEPT. [place], [place] [address] 05/14/2022 Surgery Gastroenterology Evelyn Michel, EGD, U PPER GI ENDOSCOPY [facility] GASTROENTEROLOGY DEPT. [place], [place] [address] 05/28/2022 Appointment Pulmonology Scheduled Procedures Name Priority Associated Diagnoses Date/Time EGD, UPPER GI ENDOSCOPY Achalasia 05/14/2022 2:30 PM EDT Dysphagia, unspecified type COLONOSCOPY, DIAGNOSTIC Achalasia 05/14/2022 2:30 PM EDT Dysphagia, unspecified type documented as of this encounter Procedures Procedure Name Priority Date/Time Associated Diagnosis Comme nts XR FLUORO BARIUM Routine 07/12/2017 11:28 AM Dysphagia, Resu lts for this SWALLOW (SINGLE EDT unspecified type procedur e are in CONTRAST) the results section. documented in this encounter Results XR Fluoro Barium Swallow (07/12/2017 11:28 AM EDT) Anatomical Region Laterality Modality N/A Radio Fluoroscopy Specimen (Source) Anatomical Location Collection Method / Collectio n Time Received Time / Laterality Volume Impressions 07/12/2017 12:48 PM EDT 1. ??Retained contrast at 1 minute and 2 minutes postingestion of barium. Complete emptying of the esophagus withi n 5 minutes of barium ingestion. 2. ??Esophageal dysmotility with multipl e tertiary contractions in the distal third of the esophagus and persistent di latation of the proximal esophagus. I have personally reviewed the image(s) and the residents interpretation and agree with the findings, Lynnette flores at 07/12/2017 12:48 PM Narrative 07/12/2017 12:48 PM EDT EXAMINATION: XR FLUORO BARIUM SWALLOW CLINICAL HISTORY: dysphagia, question ac halasia on esophageal manmetry TECHNIQUE: Wire Winding Machine Tender images were obtained. The patient was then given thick barium and real exposure post-ingestion images of the up per and lower esophagus were obtained at 1, 2 and 5 minutes intervals. Fluoro time: 0.12 minutes. COMPARISON: None. FINDINGS: At 1 minute, residual contrast is seen i n the lower third of the esophagus with dilatation of the proximal esophagus and tertiary contractions in the distal third of the esophagus. At 2 minutes, there was only partial emp tying of the esophagus, with persistent residual contrast in the lower third of the esophagus and dilatation of the proximal esophagus. At 5 minutes, there was complete emptyin g of the esophagus, with persistent dilatation of the proximal esophagus. There is evidence of esophageal dysmotil ity with multiple tertiary contractions and luminal narrowing in the distal thir d of the esophagus. The proximal esophagus remained dilated throughout th e exam. Procedure Note Lynnette Blum MD - 7 EXAMINATION: XR FLUORO BARIUM SWALLOW CLINICAL HISTORY: dysphagia, question ac halasia on esophageal manmetry TECHNIQUE: Wire Winding Machine Tender images were obtained. The patient was then given thick barium and real exposure post-ingestion images of the up per and lower esophagus were obtained at 1, 2 and 5 minutes intervals. Fluoro time: 0.12 minutes. COMPARISON: None. FINDINGS: At 1 minute, residual contrast is seen i n the lower third of the esophagus with dilatation of the proximal esophagus and tertiary contractions in the distal third of the esophagus. At 2 minutes, there was only partial emp tying of the esophagus, with persistent residual contrast in the lower third of the esophagus and dilatation of the proximal esophagus. At 5 minutes, there was complete emptyin g of the esophagus, with persistent dilatation of the proximal esophagus. There is evidence of esophageal dysmotil ity with multiple tertiary contractions and luminal narrowing in the distal thir d of the esophagus. The proximal esophagus remained dilated throughout th e exam. IMPRESSION 1. Retained contrast at 1 minute and 2 m inutes postingestion of barium. Complete emptying of the esophagus withi n 5 minutes of barium ingestion. 2. Esophageal dysmotility with multiple tertiary contractions in the distal third of the esophagus and persistent di latation of the proximal esophagus. I have personally reviewed the image(s) and the residents interpretation and agree with the findings, Lynnette flores at 07/12/2017 12:48 PM Ever Orourke MD IMG FLUORO ORDERABLES documented in this encounter Visit Diagnoses Diagnosis Dysphagia, unspecified type Achalasia Achalasia and cardiospasm Dysphagia, unspecified type documented in this encounter Care Teams Programmer Engineering And Scientific Relationship Specialty Start Date End Date Nanci Gomez MD PCP - General 08/19/[address] [place] [id number] documented as of this encounter
--- OUTSIDE RECORDS SUMMARY | 2022-04-16 02:01 | XMS_ITS | Encounter Summary ---
:1945 Author Organization [place] [address] Care Team Providers Name Role Phone Nanci Gomez MD Primary Care Provider Reason for Visit Reason Onset Date Comments Reminder Appointment 05/29/2020 Encounter Details Date Type Department Care Team Description 05/29/2020 Telephone Gastroenterology at [facility] Mary Gaston Reminder Appointment [facility] [place] [address] Social History Tobacco Use Types Packs/Day Years Used Date Never Smoker Smokeless Tobacco: Never Used Alcohol Use Standard Drinks/Week Comments No 0 (1 standard drink = 0.6 oz pure alcoho l) Sex Assigned at Date Recorded Not on file documented as of this encounter Miscellaneous Notes Telephone Encounter - Mary Gaston CCMA - 05/29/2020 11:22 AM EDT Called patient to review medications and allergies for their upcoming gastroenterology Type of Appointment: Telehealth appointment. Reach Patient during MA Check: No, Left Message Was unable to reach patient before appointment time Notes for the provider: Notes for the nurse: documented in this encounter Plan of Treatment Upcoming Encounters Date Type Specialty Care Team Description 05/14/2022 Hospital Encounter Gastroenterology Evelyn Michel MD [facility] GASTROENTEROLOGY DEPT. [place], [place] [address] 05/14/2022 Surgery Gastroenterology Evelyn Michel, EGD, U PPER GI MD ENDOSCOPY [facility] DR GASTROENTEROLOGY DEPT. [place], [place] [address] 05/28/2022 Appointment Pulmonology Scheduled Procedures Name Priority Associated Diagnoses Date/Time EGD, UPPER GI ENDOSCOPY Achalasia 05/14/2022 2:30 PM EDT Dysphagia, unspecified type COLONOSCOPY, DIAGNOSTIC Achalasia 05/14/2022 2:30 PM EDT Dysphagia, unspecified type documented as of this encounter Visit Diagnoses Not on filedocumented in this encounter Care Teams Color Shop Helper Relationship Specialty Start Date End Date Nanci Gomez MD PCP - General 08/19/10 [address] [place] [address] documented as of this encounter
--- OUTSIDE RECORDS SUMMARY | 2022-04-16 02:01 | XMS_ITS | Encounter Summary ---
:1945 Author Organization [facility] [place] [address] Care Team Providers Name Role Phone Nanci Gomez MD Primary Care Provider Reason for Visit Consultation (Routine) - Closed Specialty Diagnoses / Procedures Referred By Contact Refer red To Contact General Surgery Diagnoses Shu Pederson Trus, Thadeus L, MD [facility] D r GENERAL SURG[place] [address] [place] [address] Referral ID Status Reason Start Date Expiration Date Visits V isits Requested Authorized [id number] Closed Consult, 08/16/2017 08/16/2018 1 1 Test & Treat Encounter Details Date Type Department Care Team Description 09/14/2017 Office Visit General Surgery at [facility] Jasmina Aguilar MD Achalasia [facility] [place] [address] GENERAL SURGERY [phone] [place] [id number] (Wo rk) Social History Tobacco Use Types Packs/Day Years Used Date Never Smoker Smokeless Tobacco: Never Used Alcohol Use Standard Drinks/Week Comments No 0 (1 standard drink = 0.6 oz pure alcoho l) Sex Assigned at Date Recorded Not on file documented as of this encounter Last Filed Vital Signs Vital Sign Reading Time Taken Comments Blood Pressure 158/75 09/14/2017 8:21 AM EST Pulse 78 09/14/2017 8:21 AM EST Temperature 36.4 ??C (97.5 ??F) 09/14/2017 8:21 AM EST Respiratory Rate - - Oxygen Saturation 94% 09/14/2017 8:21 AM EST Inhaled Oxygen Concentration - - Weight 94.5 kg (208 lb 4.8 oz) 09/14/2017 8:21 AM EST Height - - Body Mass Index 29.89 08/16/2017 9:37 AM EST documented in this encounter Progress Notes Jasmina Aguilar MD - 09/14/2017 8:40 AM EST Ms. Laureano is a 72 y.o. female referred by Shu Preciado APRN and Nanci Gomez MD for evaluation of achalasia and consideration for Heller myotomy. She describes problems with progressive dysphagia for the year or so. The symptoms include regurgitation on a regular basis despite therapy and lifestyle modifications (elevated head of bed, avoidance of caffeine, chocolate etc). She also has occasional heartburn with marginal response to acid suppression. She has maintained her weight. Other complaints include the following: Globus sensation Her workup to date includes upper endoscopy, by report, this revealed remained food/fluid in the esophagus and stomach. There appeared to be decreased peristalsis and a tight LES. Minimal response to Botox injection. Manometry: Confirmed the diagnosis of achalasia. Non relaxing LES with aperistalsis. Past medical history: Hypertension Neuropathy Hip replacement Medications: Current Outpatient Prescriptions on File Prior to Visit Medication Sig Dispense Refill ??? multivitamin Tablet, Chewable Take by mouth. ??? omeprazole (PRILOSEC) 40 mg Capsule, Delayed Release(E.C.) Take 1 capsule by mouth daily. 90 capsule 3 ??? b complex vitamins Capsule Take 1 capsule by mouth daily. ??? gabapentin (NEURONTIN) 100 mg Capsule ??? losartan (COZAAR) 25 mg Tablet ??? cyanocobalamin, vitamin B-12, 100 mcg tablet Take 100 mcg by mouth daily. ??? hydrochlorothiazide (HYDRODIURIL) 50 mg tablet ??? fexofenadine (CHANTAL) 60 mg tablet No current facility-administered medications on file prior to visit. Allergies: Review of patient's allergies indicates no known allergies. Family History: Family History Problem Relation Age of Onset ??? Breast Cancer Sister ??? Breast Cancer Maternal Aunt ??? Breast Cancer Paternal Aunt Social History: reports that she has never smoked. She has never used smokeless tobacco. 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 She denies any cough, chest pain or shortness on breath on exertion. She has no fevers, chills or night sweats. She denies headaches, dizziness, weakness, numbness or ataxia. Bowel and bladder elimination is normal. All other system reviews are negative. Impression. Achalasia. I believe this patient is an appropriate candidate for laparoscopic Heller myotomy and partial fundoplication. The majority of this visit was spent discussing how this procedure works and its pros and cons. We also discussed surgical alternatives of Botox, Calcium channel blockers and balloon dilation. We also reviewed the risks of surgery, including the possibility of bleeding requiring transfusion, infection, injury to the stomach or esophagus, and the occasional need to convert to an open procedure. I also explained that surgery improves dysphagia symptoms in the large majority of patients, but not all and that the patient may develop some GERD. Overall, she seems well informed and wishes to proceed. Total visit duration was 30 minutes with over 20 minutes spent in face to face discussion with the patient. documented in this encounter Plan of Treatment Upcoming Encounters Date Type Specialty Care Team Description 05/14/2022 Hospital Encounter Gastroenterology Evelyn Michel MD [facility] GASTROENTEROLOGY DEPT. [place], [place] [address] 05/14/2022 Surgery Gastroenterology Evelyn Michel, EGD, U PPER GI ENDOSCOPY [facility] GASTROENTEROLOGY DEPT. [place], [place] [address] 05/28/2022 Appointment Pulmonology Scheduled Procedures Name Priority Associated Diagnoses Date/Time EGD, UPPER GI ENDOSCOPY Achalasia 05/14/2022 2:30 PM EDT Dysphagia, unspecified type COLONOSCOPY, DIAGNOSTIC Achalasia 05/14/2022 2:30 PM EDT Dysphagia, unspecified type documented as of this encounter Visit Diagnoses Diagnosis Achalasia Achalasia and cardiospasm Achalasia Achalasia and cardiospasm Dysphagia, unspecified type documented in this encounter Care Teams Carpet Layer Helper Relationship Specialty Start Date End Date Nanci Gomez MD PCP - General 08/19/10 [address] [place] [address] documented as of this encounter
--- OUTSIDE RECORDS SUMMARY | 2022-04-16 02:01 | XMS_ITS | Encounter Summary ---
:1945 Author Organization [facility] [address] Care Team Providers Name Role Phone Nanci Gomez MD Primary Care Provider Reason for Visit Consultation (Routine) - Specialty Diagnoses / Procedures Referred By Contact Refer red To Contact Gastroenterology Diagnoses Other specified diseases of esophagus Achalasia of cardia ESOPHAGEAL THICKENING ON CHEST CT AND RECURRENCE OF ACHALASIA/ SWALLOWING DIFFICULTY Nanci Gomez MD [facility] Gastro 4l [address] [place] [address] [place] [address] Phone: Fax: Referral ID Status Reason Start Date Expiration Date Visits V isits Requested Authorized [id number] Consult, Test 05/08/2020 05/08/2021 6 [facility] PCP Updated and/or Approved Encounter Details Date Type Department Care Team Description 05/29/2020 TH Visit Gastroenterology at [facility] Shu Preciado Achalasia (TeleHealth) [facility] [place] [address] [facility] [phone] GASTROENTEROLOGY [place], [place] [address] Social History Tobacco Use Types Packs/Day Years Used Date Never Smoker Smokeless Tobacco: Never Used Alcohol Use Standard Drinks/Week Comments No 0 (1 standard drink = 0.6 oz pure alcoho l) Sex Assigned at Date Recorded Not on file documented as of this encounter Patient Instructions Patient InstructionsSieglingerShu APRN - 05/29/2020 2:00 PM EDT 1. documented in this encounter Progress Notes Shu Preciado APRN - 05/29/2020 2:00 PM EDT GASTROENTEROLOGY TELEMEDICINE PROGRAM - ESTABLISHED PATIENT VISIT Chief Complaint: Ivis Laureano is a [address] of [address] Gomez here for follow-up of Achalasia. Detailed history: Ivis Laureano is a 74 y.o. female With a history significant for s/p lap Hellermyotomy (done 10/28/[address] Aguilar), achalasia (type I), tubular adenoma on colonoscopy, hypertension, and nondiet diabetic neuropathy. She has been followed by me in our clinic since 07/12/2017. She was diagnosed with type I achalasia on high resolution esophageal manometry on 05/28/2017. She subsequently underwent a laparoscopic Heller myotomy on 10/28/2017. During her last appointment on 12/20/2018, she endorsed persistent dysphagia, although not as severe as prior to surgery. She was taking omeprazole for management of her reflux symptoms. I recommended changing the timing of omeprazole, warm fluids before and with meals, and Levsin for suspected esophageal spasms. Interval history: Continued to have dysphagia after myotomy. Dysphagia has been getting worse. Has been experiencing hangup of food. Typically food bolus will pass after approximately 5 minutes. Seems to have issues with cold fluids. Occurring a few days a week. Hot tea seems to help. Has been taking lansoprazole 30mg once daily. Denies chronic NSAID use. Good appetite. Denies reflux symptoms currently. Review of systems: 14-point review of systems reviewed and negative except as above. Medications: Outpatient Medications Prior to Visit Medication Sig Dispense Refill ??? dicyclomine (BENTYL) 10 mg Capsule Take 1 capsule by mouth 4 times daily as needed. 120 capsule 0 ??? hyoscyamine (LEVSIN SL) 0.125 mg Tablet, Sublingual Take 1 tablet by mouth every 4 hours as needed for Cramping. 90 each 3 ??? acetaminophen (TYLENOL) 650 mg/20.3 mL Solution Take 20.3 mLs by mouth every 4 hours. ??? oxyCODONE (ROXICODONE) 5 mg/5 mL Solution Take 5 mLs by mouth every 4 hours as needed for Pain. 50 mL 0 ??? ondansetron (ZOFRAN-ODT) 4 mg Tablet, Rapid Dissolve Take 1 tablet by mouth every 8 hours as needed for Nausea. 20 tablet 0 ??? multivitamin Tablet, Chewable Take by mouth. ??? b complex vitamins Capsule Take 1 capsule by mouth daily. ??? losartan (COZAAR) 25 mg Tablet ??? hydrochlorothiazide (HYDRODIURIL) 50 mg tablet ??? fexofenadine (CHANTAL) 60 mg tablet No facility-administered medications prior to visit. Allergies: is allergic to unable to find [unclassified drug]. Past Medical History: has no past medical history on file. Past Surgical History: has a past surgical history that includes Colonoscopy, Diagnostic (99725) (05/06/2012); Colonoscopy, Diagnostic (22131) (N/A, 04/15/2017); Upper Gi Endoscopy, Biopsy (47870) (N/A, 04/15/2017); Upper GI Endoscopy, Diagnostic (72390) (N/A, 07/22/2017); Lap, Esophagomyotomy W Fundoplasty (43643) (N/A, 10/28/2017); and Upper GI Endoscopy, Diagnostic (91517) (N/A, 10/28/2017). Family History: family history includes Breast Cancer in her maternal aunt, paternal aunt, and sister. Social History: reports that she has never smoked. She has never used smokeless tobacco. She reportsthat she does not drink alcohol or use drugs. No Physical Examination performed during [...] in stomach 5. Barium swallow done at [facility] 11/10/2018; normal esophageal emptying. 6. Colonoscopy 04/15/2017 uttered mild diverticulosis in the sigmoid and descending colon 2 polyps. Biopsies sessile serrated adenoma 7. CT chest 05/02/2020 outside hospital; s/p Heller myotomy esophagus. Assessment/Plan: Ms. Laureano is a 74 y.o. patient with Achalasia (type 1) who underwent a Heller myotomy at with Dr. Aguilar on October 28, 2017. Although this did result in an improvement, she has had some degree of dysphagia since that time. Today, she endorses worsening dysphagia occurring most days to both solids and liquids. She also endorses respiratory symptoms. Given the persistent nature of dysphasia, she may benefit from Botox injection or pneumatic dilatation. In terms of respiratory symptoms, it is possible she has poorly controlled acid reflux status post myotomy. She may benefit from an increased doseof PPI therapy. Will await results of upper endoscopy. In terms of the plan, I will review with the m otility group during our weekly meeting to discuss. Recommendations: -Continue lansoprazole 30 mg once daily - I will review with the motility group during our weekly meeting -Upper endoscopy with either Botox injection or pneumatic dilatation Patient verbally consents to this telephone visit and understands that this visit may be billed, similar to a clinic office visit. I provided care to the patient today via telephone call, 30 minutes telephone visit was spent in discussion with patient on above. Shu Preciado APRN [facility] [address] [place] [address] documented in this encounter Plan of Treatment Upcoming Encounters Date Type Specialty Care Team Description 05/14/2022 Hospital Encounter Gastroenterology Evelyn Michel MD [facility] GASTROENTEROLOGY DEPT. [place] [address] 05/14/2022 Surgery Gastroenterology Evelyn Michel, EGD, U PPER GI MD ENDOSCOPY [facility] DR GASTROENTEROLOGY DEPT. [place], [place] [address] 05/28/2022 Appointment Pulmonology Scheduled Procedures Name Priority Associated Diagnoses Date/Time EGD, UPPER GI ENDOSCOPY Achalasia 05/14/2022 2:30 PM EDT Dysphagia, unspecified type COLONOSCOPY, DIAGNOSTIC Achalasia 05/14/2022 2:30 PM EDT Dysphagia, unspecified type documented as of this encounter Visit Diagnoses Diagnosis Achalasia Achalasia and cardiospasm Achalasia Achalasia and cardiospasm Dysphagia, unspecified type documented in this encounter Care Teams Consulting Services Associate Relationship Specialty Start Date End Date Nanci Gomez MD PCP - General 08/19/10 [address] [place] [address] documented as of this encounter
--- OUTSIDE RECORDS SUMMARY | 2022-04-16 02:01 | XMS_ITS | Encounter Summary ---
:1945 [place] [address] Care Team Providers Name Role Phone Nanci Gomez MD Primary Care Provider Encounter Details Date Type Department Care Team Description 07/22/2017 Surgery G[facility]ology at [facility] Ever Orourke EGD, UPPER GI [facility] Lucretia [place] [address] [facility] [phone] GASTROENTEROLOGY [place] [id number] (Wo rk) Social History Tobacco Use Types Packs/Day Years Used Date Never Smoker Smokeless Tobacco: Never Used Alcohol Use Standard Drinks/Week Comments No 0 (1 standard drink = 0.6 oz pure alcoho l) Sex Assigned at Date Recorded Not on file documented as of this encounter Last Filed Vital Signs Vital Sign Reading Time Taken Comments Blood Pressure 119/55 07/22/2017 11:40 AM EDT Pulse 53 07/22/2017 11:40 AM EDT Temperature - - Respiratory Rate 16 07/22/2017 11:40 AM EDT Oxygen Saturation 97% 07/22/2017 9:29 AM EDT Inhaled Oxygen Concentration - - Weight 90.7 kg (200 lb) 07/22/2017 9:29 AM EDT Height 180.3 cm (5' 11) 07/22/2017 9:29 AM EDT Body Mass Index 27.89 07/22/2017 9:29 AM EDT documented in this encounter Discharge Instructions Discharge Lane Toribio RN - 07/22/2017 11:41 AM EDT You may have received medication before and/or during your procedure which effects judgement and reaction time. Do not drive, operate machinery, drink alcoholic beverages, or make important decisions for 24 hours. Be careful on stairs, as you may be unsteady on your feet. You may eat a regular diet as tolerated. Do not smoke if you are alone. IV site -- slight redness or tenderness is normal. You may use a warm compress. If tenderness and redness increases or foul drainage occurs please contact your M.D. Please call [phone] before 5 pm with problems, questions or concerns. After 5pm call [phone] and ask to speak with the warehouse freight handler construction equipment mechanic. Discharge instructions reviewed with patientwho expresses understanding. AttachmentsThe following attachments cannot be sent through Care Everywhere.EGD (UPPER ENDOSCOPY): POST-OP (SPANISH)documented in this encounter Medications at Time of [...] 10/27/2017 B-12, 100 mcg tablet mouth daily. documented as of this encounter H&P Notes Ever Orourke MD - 07/22/2017 10:43 AM EDT Patient Name: Ivis Laureano Patient Age: 72 y.o. Birthdate: 1945 Admit date: 07/22/2017 Attending Physician: Evre Orourke MD Gastroenterology & Hepatology Pre-Procedure History and Physical Planned Procedure: EGD: Indication: dysphagia, achalasia for possible botox Medications: Reviewed in EDH No Known Allergies Social History/Family History: Reviewed in EDH. No changes Exam: Most Recent Vitals: 07/22/17 0929 BP: (!) 168/97 Pulse: 69 SpO2: 97% GEN: NAD, AAOX3 HEENT: NC/AT dryMM, anicteric Chest: CTAB Heart: RRR, nl s1, s2 Abdomen: normal bowel sounds, soft, non tender Assessment and Plan: Proceed with EGD: ASA Grade: ASA 3 - Patient with moderate systemic disease with functional limitations Mallampati: I (soft palate, uvula, fauces, tonsillar pillars visible) Sedation plan: Monitored Anesthesia Care Risks and benefits of the procedure were discussed with the patient. Consent has been signed. documented in this encounter Plan of Treatment Upcoming Encounters Date Type Specialty Care Team Description 05/14/2022 Hospital Encounter Gastroenterology Evelyn Michel MD [facility] DR GASTROENTEROLOGY DEPT. [place], [place] [address] 05/14/2022 Surgery Gastroenterology Evelyn Michel EGD, U PPER GI ENDOSCOPY [facility] GASTROENTEROLOGY DEPT. [place], [place] [address] 05/28/2022 Appointment Pulmonology Scheduled Procedures Name Priority Associated Diagnoses Date/Time EGD, UPPER GI ENDOSCOPY Achalasia 05/14/2022 2:30 PM EDT Dysphagia, unspecified type COLONOSCOPY, DIAGNOSTIC Achalasia 05/14/2022 2:30 PM EDT Dysphagia, unspecified type documented as of this encounter Procedures Procedure Name Priority Date/Time Associated Diagnosis Comme nts EGD, UPPER GI 07/22/2017 11:01 AM Achalasia ENDOSCOPY EDT UPPER GI ENDOSCOPY Routine 07/22/2017 8:17 AM Res ults for this EDT procedure are i n the results section. documented in this encounter Results UPPER GI ENDOSCOPY (07/22/2017 8:17 AM EDT) Component Value Ref Test Analysis Performed At Patholo gist Range Method Time Signature UPPER GI [facility] ENDOSCOPY Endoscopy Procedure Date: 07/22/2017 8:17 AM ? Patient Name: Ivis Laureano ? Date of : 1945 ? Age: 72 ? Order #: [id number] ? Instrument Name: [id number] ? Procedure: ? Upper GI endoscopy Indications: ? Dysphagia, For botulinum toxin ? injection of achalasia Providers: ? Ever Orourke MD, Toni ? ONEL Kaye, Sylvia Carr, ? Agricultural Engineering Technician Referring MD: ?Nanci Gomez MD Requesting Provider: Shu Preciado Medicines: ? Monitored Anesthesia Care Complications: ? No immediate complications. Procedure: ? Pre-Anesthesia Assessment: ? - Prior to the procedure, a H istory ? and Physical was performed, a nd ? patient medications and aller gies ? were reviewed. The patient's ? tolerance of previous anesthe miles was ? also reviewed. The risks and benefits ? of the procedure and the tom tion ? options and risks were discus sed with ? the patient. All questions we re ? answered, and informed consen t was ? obtained. Prior Anticoagulant s: The ? patient has taken no previous ? anticoagulant or antiplatelet agents. ? ASA Grade Assessment: III - A patient ? with severe systemic disease. After ? reviewing the risks and benef its, the ? patient was deemed in satisfa ctory ? condition to undergo the proc edure. ? The procedure, indications, b enefits, ? [...] tolerated the procedure well. ? Findings: ? Abnormal motility was noted in the lower third of the ? esophagus. The cricopharyngeus was normal. There are ? extra peristaltic waves in the esophageal body which ? was mildly dilated. The distal esophagus/lower ? esophageal sphincter is spastic, but gives up passage ? to the endoscope. Tertiary peristaltic waves are ? noted suggestive of presbyesophagus. Area was ? successfully injected with 100 units botulinum toxin ? diluted in 2 cc sterile normal saline. Injections ? circumferentially at 37-39 cm. ? Normal z-line at 40 cm. ? A large amount of solid food (residue) was found in ? the cardia, in the gastric fundus, in the gastric ? body and in the prepyloric region of the stomach. ? Pushed some food in cardia into body to move away ? from GE junction and cardia. ? The exam of the stomach was otherwise normal. ? The examined duodenum was normal, limited to bulb and ? second portion given food residue in the stomach. ? Moderate Sedation: ? Not applicable - See Anesthesia documentation Impression: ?- Abnormal esophageal motility, ? consistent with achalasia. In jected ? with botulinum toxin. ? - Dilated distal esophagus wi th ? tertiary contraction also sug gestive ? of possible presbyesophagus. ? - A large amount of food (res idue) in ? the stomach. ? - Normal examined duodenum. ? - No specimens collected. Recommendation: ?- Await results of Botox injection. ? May take 1-2 weeks for full b enefits ? to be noted. ? - Consider surgical consultat ion ? regarding myotomy vs rigid ba lloon ? dilation. ? - Follow an antireflux regime n. ? - Low Residue diet. ? - Consider Gastric emptying s tudy. ? Attending Participation: ? I personally performed the entire procedure. ? Dr. Dagoberto Orourke Ever Orourke MD 07/22/2017 12:02:29 PM Number of Addenda: 0 Note Initiated On: 07/22/2017 8:17 AM Specimen (Source) Anatomical Collection Method Collection Time Re ceived Time Location / / Volume Laterality 07/22/2017 8:17 AM EDT Nanci Gomez MD GENERAL SURGICAL ORDERABLES Performing Organization Address City/State/ZIP Code Phon e Number [facility] documented in this encounter Visit Diagnoses Diagnosis Achalasia Achalasia and cardiospasm Achalasia Achalasia and cardiospasm Dysphagia, unspecified type documented in this encounter Administered Medications Inactive Administered Medications - up to 3 most recent administrations Medication Order MAR Action Action Date Dose Rate Site lactated Ringers infusion New Bag 07/22/2017 9:45 AM EDT 1,000 mLs 100 mL/hr 1,000 mL 1,000 mL, at 100 mL/hr, Intravenous, CONTINUOUS, Starting on Jillian 07/22/17 at 0945, Until Jillian 07/22/17 at 1434, Day of Surgery (Day of Procedure) documented in this encounter Active and Recently Administered Medications Times are shown in EDT. Continuous Medication Order 07/20/2017 07/21/2017 07/22/2017 lactated Ringers infusion 1,000 mL 0945 (New Bag - Provider: Emely García RN) 1,000 mL, at 100 mL/hr, Intravenous, CON TINUOUS, Starting Jillian 07/22/17 at 0945, Until Jillian 07/22/17 at 1434, Day of Surgery (Day of Procedure) documented in this encounter Care Teams Plant Health Manager Relationship Specialty Start Date End Date Nanci Gomez MD PCP - General 08/19/10 [address] [place] [address] documented as of this encounter
--- OUTSIDE RECORDS SUMMARY | 2022-04-16 02:01 | XMS_ITS | Encounter Summary ---
:1945 Author Organization [facility] [place] [address] Care Team Providers Name Role Phone Nanci Gomez MD Primary Care Provider Encounter Details Date Type Department Care Team Description 03/19/2020 Telephone Pulmonology at [facility] [place] [address] Social History Tobacco Use Types Packs/Day Years [...] MD [facility] GASTROENTEROLOGY DEPT. [place], [place] [address] 05/14/2022 Surgery Gastroenterology Evelyn Michel, EGD, U PPER GI ENDOSCOPY [facility] GASTROENTEROLOGY DEPT. [place], [place] [address] 05/28/2022 Appointment Pulmonology Scheduled Procedures Name Priority Associated Diagnoses Date/Time EGD, UPPER GI ENDOSCOPY Achalasia 05/14/2022 2:30 PM EDT Dysphagia, unspecified type COLONOSCOPY, DIAGNOSTIC Achalasia 05/14/2022 2:30 PM EDT Dysphagia, unspecified type documented as of this encounter Visit Diagnoses Not on filedocumented in this encounter Care Teams Drill Sharpener Relationship Specialty Start Date End Date Nanci Gomez MD PCP - General 08/19/10 [address] [place] [address] documented as of this encounter
--- OUTSIDE RECORDS SUMMARY | 2022-04-16 02:01 | XMS_ITS | Encounter Summary ---
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 [address] [facility] [place] [address] [place] [address] Referral ID Status Reason Start Date Expiration Date Visits V isits Requested Authorized [id number] Closed Specialty 05/31/2020 11/28/2021 1 1 Service Requested Reason for Visit Diagnostic Test (Routine) - Closed Specialty Diagnoses / Procedures Referred By Contact Refer red To Contact Radiology Diagnoses [facility]ala[facility] Rad Xray Procedures 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 [address] [place] [address] [place] [address] Referral ID Status Reason Start Date Expiration Date Visits V isits Requested Authorized [id number] Closed Specialty 05/31/2020 11/28/2021 1 1 Service Requested Encounter Details Date Type Department Care Team Description 06/13/2020 Hospital Encounter XRay at [facility] Laieriberto Shu E, Achalasia [address] [place] [address] [place] [phone] [facility] [phone] GASTROENTEROLOGY [place], [place] [address] (Wo rk) Social History Tobacco [...] fexofenadine (CHANTAL) 60 0 04/22/2007 mg tablet lansoprazole (PREVACID Take 1 tablet by 180 tablet 3 020 11/26/2020 SOLUTAB) 30 mg mouth 2 times daily. Tablet,Rapid Dissolve, lansoprazole (PREVACID) Take 30 mg by mouth 0 11/26/2020 30 mg Capsule, Delayed daily. Release(E.C.) UNABLE TO FIND Med Name: 0 03/18/2022 anoroellipepta (umeclidinium) inhaled powder 62.5mcg documented as of this encounter Plan of Treatment Upcoming Encounters Date Type Specialty Care Team Description 05/14/2022 Hospital Encounter Gastroenterology Evelyn Michel MD [facility] GASTROENTEROLOGY DEPT. [place], [place] [address] 05/14/2022 Surgery Gastroenterology Evelyn Michel, EGD, U PPER GI ENDOSCOPY [facility] GASTROENTEROLOGY DEPT. [place], [place] [address] 05/28/2022 Appointment Pulmonology Scheduled Procedures Name Priority Associated Diagnoses Date/Time EGD, UPPER GI ENDOSCOPY Achalasia 05/14/2022 2:30 PM EDT Dysphagia, unspecified type COLONOSCOPY, DIAGNOSTIC Achalasia 05/14/2022 2:30 PM EDT Dysphagia, unspecified type documented as of this encounter Procedures Procedure Name Priority Date/Time Associated Diagnosis Comme nts XR FLUORO BARIUM Routine 06/13/2020 2:00 PM Achalasia Resul ts for this SWALLOW (SINGLE EDT procedure ar e in CONTRAST) the results section. documented in [...] ? Electronically signed by: PIYUSH COBIAN MD, [facility] ([phone]), at 06/13/2020 4:39 PM Narrative 06/13/2020 4:39 [...] she was able to tolerate, within the [id number] seconds. Limited volume of ingested contrast limits [...] she was able to tolerate, within the [id number] seconds. Limited volume of ingested contrast limits [...] this report, please contact e number below. 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
--- OUTSIDE RECORDS SUMMARY | 2022-04-16 02:01 | XMS_ITS | Encounter Summary ---
:1945 [place] [address] Care Team Providers Name Role Phone Nanci Gomez MD Primary Care Provider Reason for Visit Auth/Cert Specialty Diagnoses / Procedures Referred By Contact Refer red To Contact Diagnoses Achalasia ACHALASIA achalacia Procedures PRO LAP, ESOPHAGOMYOTOMY W FUNDOPLASTY PRO UPPER GI ENDOSCOPY, DIAGNOSTIC @LAPAROSCOPIC HELLER MYOTOMY, ESOPHAGOMYOTOMY W FUNDOPLASTY (WRVU 22.1) ENDOSCOPY, UPPER GI, DIAGNOSTIC, WITH OR WITHOUT SPECIMENS Referral ID Status Reason Start Date Expiration Date Visits Requ ested Visits Authorized [id number] 1 1 Encounter Details Date Type Department Care Team Description 10/28/2017 Surgery Main Operating Room Jasmina Gillespie, @LAP AROSCOPIC HELLER Yael Almaguer MD MYOTOMY, ESOPHAGOMYOTOMY [facility] FUNDOPLASTY (WRVU 22.1) [facility] [address] [place] [address] [place] [address] [phone] Social History Tobacco Use Types Packs/Day Years Used Date Never Smoker Smokeless Tobacco: Never Used Alcohol Use Standard Drinks/Week Comments No 0 (1 standard drink = 0.6 oz pure alcoho l) Sex Assigned at Date Recorded Not on file documented as of this encounter Last Filed Vital Signs Vital Sign Reading Time Taken Comments Blood Pressure 160/72 10/28/2017 1:44 PM EST Pulse 72 10/28/2017 1:44 PM EST Temperature 36.1 ??C (97 ??F) 10/28/2017 1:44 PM EST Respiratory Rate 16 10/28/2017 1:44 PM EST Oxygen Saturation 97% 10/28/2017 1:44 PM EST Inhaled Oxygen Concentration - - Weight 87.8 kg (193 lb 9 oz) 10/28/2017 1:44 PM EST Height 177.8 cm (5' 10) 10/28/2017 1:44 PM EST Body Mass Index 27.77 10/28/2017 1:44 PM EST documented in this encounter Discharge Summaries Dorie Mckinney PA - 10/29/2017 11:22 AM EST General Surgery Discharge Summary Patient Name: Ivis Laureano Patient Age: 72 y.o. Birthdate: 1945 Admit date: 10/28/2017 Discharge date and time: 10/29/2017 Attending Physician: Jasmina Gillespie MD Primary Diagnosis: Achalasia Secondary Diagnosis: HTN Operations and Procedures: Laparoscopic Heller Myotomy with Intraoperative Upper Endosocpy Surgeons: Surgeon(s) and Role: * Jasmina Gillespie MD - Primary * Ami Mondragon MD - Fellow * Loraine Helms MD - Resident-Toll Lineman History of Present Illness: Ms. Laureano is a 72 y.o. female referred by hSu Preciado APRN and Nanci Gomez MD for [...] maintained her weight. Other complaints include the following a globus sensation. Her workup to date includes upper endoscopy, by report, this revealed remained food/fluid in the esophagus and stomach. There appeared to be decreased peristalsis and a tight LES. Minimal response to Botox injection. Manometry confirmed the diagnosis of achalasia. Non relaxing LES with aperistalsis. Hospital Course: Ivis Laureano is a 72 y.o. female who was admitted on 10/28/2017 for laparoscopic heller myotomy with intraoperative upper endosocpy. The operative course was uneventful. On POD#1 shewas started on a post Eliza full liquid diet that she will remain on for the next 2 weeks. Her painwas managed with IV Tylenol and Dilaudid injection until she tolerated po and was changed to elixir Tylenol and Oxycodone. She was voiding without difficulty. On POD# 1 the dressings were dry and intact and the wounds were benign. She did not have a bowel movement prior to discharge and/but was passing flatus and taking PO without difficulty. Prior to discharge on POD# 1 Ivis Laureano was afebrile, with stable vital signs. On POD# 1, she was discharged to home in stable condition. Vital Signs: Last value Range last 24hrs Temperature Temp: 37 ??C (98.6 ??F) Temp: [36.1 ??C (97 ??F)-37 ??C (98.6 ??F)] Heart Rate Heart Rate: 74 Heart Rate: [65-78] Blood Pressure BP: 133/60 BP: (133-166)/(56-74) Respiratory Rate Resp: 16 Resp: [14-18] SpO2 SpO2: 95 % SpO2: [92 %-100 %] Pertinent Lab Data: Recent Labs 02/02/18 0310 WBC 6.1 HGB 11.5* HCT 32.0* PLATELET 208 Recent Labs 02/02/18 0310 NA 141 K 3.7 CL 99 CO2 26 BUN 12 CREATININE 0.90 GLUCOSE 130 CALCIUM 8.9 Physical Exam: General: NAD, resting comfortably, pleasant, conversant HEENT: PERRL, anicteric sclerae CVS: RRR Pulm: CTAB Abd: soft, appropriately tender, non-distended. 5 port sites without evidence of edema, erythema or ecchymosis. No drainage or s/s of infection were noted. : no problems with voiding Skin: warm, dry Ext: no c/c/e Neuro: CN 2-12 grossly intact, nonfocal,moving all four extremities spontaneously Imaging: No results found. Condition at discharge: Stable Mental Status: awake and alert, oriented x 3 Medications: Your Medications Notice Some of the medications listed here do not show instructions, such as how often to take the medication. Ask your doctor or nurse how to use these medications. Specifically ask about these and similar medications: - hydrochlorothiazide (HYDRODIURIL) 50 mg tablet - fexofenadine (CHANTAL) 60 mg tablet New Medications Dose Details acetaminophen 650 mg/20.3 mL Soln Commonly known as: TYLENOL Take 20.3 mLs by mouth every 4 hours. 650 mg Refills: 0 gabapentin 250 mg/5 mL Soln Commonly known as: NEURONTIN Take 4 mLs by mouth daily for 30 days. Replaces: gabapentin 100 mg Cap 200 mg Quantity: 120 mL Refills: 0 ondansetron 4 mg Tbdl Commonly known as: ZOFRAN-ODT Take 1 tablet by mouth every 8 hours as needed for Nausea. 4 mg Quantity: 20 tablet Refills: 0 oxyCODONE 5 mg/5 mL Soln Commonly known as: ROXICODONE Take 5 mLs by mouth every 4 hours as needed for Pain. 5 mg Quantity: 50 mL Refills: 0 Continued medications, unchanged Dose Details CHANTAL 60 mg Tab ?nk?wn!?? Generic drug: fexofenadine Refills: 0 b complex vitamins Cap Take 1 capsule by mouth daily. 1 capsule Refills: 0 hydroCHLOROthiazide 50 mg Tab Commonly known as: HYDRODIURIL ?nk?wn!?? Refills: 0 losartan 25 mg Tab Commonly known as: COZAAR Refills: 0 multivitamin Chew Take by mouth. Refills: 0 omeprazole 40 mg Cpdr Commonly known as: PriLOSEC Take 1 capsule by mouth daily. 40 mg Quantity: 90 capsule Refills: 3 STOPPED Medications aspirin 81 mg Tbec gabapentin 100 mg Cap Commonly known as: NEURONTIN Replaced by: gabapentin 250 mg/5 mL Soln Disposition: Home Allergies: No Known Allergies Outpatient Services/Studies: No discharge procedures on file. Scheduled Appointments: Future Appointments and Orders Future Appointments Provider Department Dept Phone 11/18/2017 3:00 PM Jasmina Gillespie MD General Surgery at [place] [phone] Instructions Given to Patient at Discharge: Minimally Invasive Surgery Discharge Instructions If you have any questions or concerns, please call [phone] before 5pm Wednesday through Wednesday; [phone] after 5pm and on weekends. Call your doctor if you develop: Fever greater than 101.3 degrees Farenheit (38.5 degrees Celcius), chills, nausea or vomiting. Also call if you develop severe pain not relieved by your prescribed oral pain medicine. CALL THE GENERAL SURGERY CLINIC DURING WORKING HOURS AT , OR CALL AFTER CLINIC HOURS, WEEKENDS AND HOLIDAYS: ASK FOR THE GENERAL SURGERY RESIDENT ASSOCIATE SPA DIRECTOR IF ANY OF THE ABOVEOCCUR. Diet: Please continue on the full liquid diet as instructed by the fence repairman for the next 2 weeks. The main purpose of this diet is to have you consume foods that will slide easily down into your stomach. Most foods when well chewed should pass through the esophagus and into your stomach. However, patients do not always chew foods well enough. You should not drink carbonated beverages. After 2 weeks you may advance to a post Eliza diet. You should start with more bland foods and if these are tolerated you may increase the amount of spice in your food. If you find there are foods that don't agree with you, try these sparingly until you can tolerate them. You need to remain in an upright position for 30-60 minutes after you eat. You may find that you need to eat smaller meals with frequent between meal snacks to get enough calories. Activity: Increase your activity slowly. You may tire easily, so frequent rest periods may be necessary. Do not lift more than 10 pounds for 4 weeks. Walk three times a day. Use common sense. Don't exhaust yourself. Driving: Do not drive while taking narcotic pain medications. Pain Medications: -Take the medication exactly as it is prescribed and make sure to read all instructions that come with the medication. -Over the next couple of days you should be requiring less of this medication to control your pain, so that eventually you will not need any at all. You do not have to take all of the medication that was prescribed, you may have some left over. -You may use ibuprofen (motrin, advil) or tylenol in addition to this medication if your pain is notcontrolled. -Taking more than the prescribed amount of medication or using with alcohol or other drugs can causeyou to stop breathing resulting in coma, brain damage or . -Opioids can slow reaction time, cause drowsiness or cloud judgement. No driving for 8 hours after any dose of opioid pain medication if one was prescribed for you. -Using this drug may cause addiction. While addiction is more common in people with a personal or family history of addiction, it can occur in anyone. -Opioids are at risk of being diverted by anyone with access to your home. Opioids should be stored in a safe and secure place, such as a locked cabinet or safe. -Unused opioids should be disposed of appropriately. They may be returned to a take-back location, or mixed with a small amount of water and poured over an undesirable waste such as used coffee groundsor cat litter. -Please note that most pain medications can cause constipation. You may use a stool softener such asMiralax to prevent this. Other Means for Pain Relief: Other than medications. ?? Learn deep breathing exercises or meditation to help you relax ?? Reduce stress ?? Your body produces natural endorphins from exercise which can help reduce pain. Even walking is considered exercise. Talk with your provider/surgical team about what exercises are appropriate for you to perform. ?? You may use a heating pad or apply ice to the painful area unless specifically discouraged by thesurgical team. ?? Find ways to distract yourself from the pain. Other Medication Changes: Please crush all pills for the next 4 weeks, do not swallow them whole. Your surgeon will let you know at your follow-up appointment if you are able to resume swallowing pillsat that time. If your medication comes in capsule form, you may open it and sprinkle it on yogurt, applesauce, etc. If one of your medications cannot be crushed or opened, it may have been changed to liquid form while in the hospital, and you will be given a new prescription for it. You received a prescription for liquid Neurontin (Gabapentin). Please use this medication for the next month. Do not take the pill form of Neurontin while you are taking the liquid. Call your Dr: Please call if you notice worsening redness or drainage from incision(s) lasting longer than 5 days after your surgery, any foul-smelling drainage from the incision, pain not controlled by pain medications, persistent nausea and vomiting, or for any fevers greater than 101.3 F. Showering: You may shower and let water run over the wound 48 hours after your surgery. No soaking baths or swimming for 2 weeks from surgery. Wound Care: Once showering, wash your incision(s) daily with soap and rinse well, pat dry. Assess for any signs of infection such as increased redness, pain, warmth or drainage. The Steri-Strips will fall off in 7-10 days. The brown bandaids can be removed at any time. Follow-up: You have a follow-up appointment Dr. Gillespie in the General Surgery clinic on October at 3pm. You will receive a letter in the mail confirming the appointment date and time. Your follow-up is very important to us. Please call [phone] if you do not hear from us within 7 days of discharge or if you need to change the appointment date/time. Signed: AMNADA Dial 10/29/2017 Primary Care Physician: Nanci Gomez MD [address] / [place] [address] documented in this encounter Discharge Instructions Discharge InstructionsWeDorie bravo PA - 10/29/2017 2:15 PM EST Scheduled Appointments: Future Appointments and Orders Future Appointments Provider Department Dept Phone ?? 11/18/2017 3:00 PM Jasmina Gillespie MD [facility] [phone] ? Instructions Given to Patient at Discharge: ?? Minimally Invasive Surgery Discharge Instructions ?? If you have any questions or concerns, please call [phone] before 5pm Wednesday through Wednesday; [phone] after 5pm and on weekends. ?? Call your doctor if you develop: Fever greater than 101.3 degrees Farenheit (38.5 degrees Celcius), chills, nausea or vomiting. Also call if you develop severe pain not relieved by your prescribed oral pain medicine. ?? CALL THE GENERAL SURGERY CLINIC DURING WORKING HOURS AT , OR CALL AFTER CLINIC HOURS, WEEKENDS AND HOLIDAYS: ASK FOR THE GENERAL SURGERY RESIDENT ASSOCIATE SPA DIRECTOR IF ANY OF THE ABOVEOCCUR. ?? Diet: Please continue on the full liquid diet as instructed by the fence repairman for the next 2 weeks. The main purpose of this diet is to have you consume foods that will slide easily down into your stomach. Most foods when well chewed should pass through the esophagus and into your stomach. However, patients do not always chew foods well enough. You should not drink carbonated beverages. After 2 weeks you may advance to a post Eliza diet. You should start with more bland foods and if these are tolerated you may increase the amount of spice in your food. If you find there are foods that don't agree with you, try these sparingly until you can tolerate them. You need to remain in an upright position for 30-60 minutes after you eat. You may find that you need to eat smaller meals with frequent between meal snacks to get enough calories. ?? Activity: Increase your activity slowly. You may tire easily, so frequent rest periods may be necessary. Do not lift more than 10 pounds for 4 weeks. Walk three times a day. Use common sense. Don't exhaust yourself. ?? Driving: Do not drive while taking narcotic pain medications. ?? Pain Medications: -Take the medication exactly as it is prescribed and make sure to read all instructions that come with the medication. -Over the next couple of days you should be requiring less of this medication to control your pain, so that eventually you will not need any at all. You do not have to take all of the medication that was prescribed, you may have some left over. -You may use ibuprofen (motrin, advil) or tylenol in addition to this medication if your pain is notcontrolled. -Taking more than the prescribed amount of medication or using with alcohol or other drugs can causeyou to stop breathing resulting in coma, brain damage or . -Opioids can slow reaction time, cause drowsiness or cloud judgement. No driving for 8 hours after any dose of opioid pain medication if one was prescribed for you. -Using this drug may cause addiction. While addiction is more common in people with a personal or family history of addiction, it can occur in anyone. -Opioids are at risk of being diverted by anyone with access to your home. Opioids should be stored in a safe and secure place, such as a locked cabinet or safe. -Unused opioids should be disposed of appropriately. They may be returned to a take-back location, or mixed with a small amount of water and poured over an undesirable waste such as used coffee groundsor cat litter. -Please note that most pain medications can cause constipation. You may use a stool softener such asMiralax to prevent this. ?? Other Means for Pain Relief: Other than medications. ?? Learn deep breathing exercises or meditation to help you relax ?? Reduce stress ?? Your body produces natural endorphins from exercise which can help reduce pain. Even walking is considered exercise. Talk with your provider/surgical team about what exercises are appropriate for you to perform. ?? You may use a heating pad or apply ice to the painful area unless specifically discouraged by thesurgical team. ?? Find ways to distract yourself from the pain. ? Other Medication Changes: Please crush all pills for the next 4 weeks, do not swallow them whole. Your surgeon will let you know at your follow-up appointment if you are able to resume swallowing pillsat that time. If your medication comes in capsule form, you may open it and sprinkle it on yogurt, applesauce, etc. If one of your medications cannot be crushed or opened, it may have been changed to liquid form while in the hospital, and you will be given a new prescription for it. ?? You received a prescription for liquid Neurontin (Gabapentin). Please use this medication for the next month. Do not take the pill form of Neurontin while you are taking the liquid. ?? Call your Dr: Please call if you notice worsening redness or drainage from incision(s) lasting longer than 5 days after your surgery, any foul-smelling drainage from the incision, pain not controlled by pain medications, persistent nausea and vomiting, or for any fevers greater than 101.3 F. ? Showering: You may shower and let water run over the wound 48 hours after your surgery. No soaking baths or swimming for 2 weeks from surgery. ?? Wound Care: Once showering, wash your incision(s) daily with soap and rinse well, pat dry. Assess for any signs of infection such as increased redness, pain, warmth or drainage. The Steri-Strips will fall off in 7-10 days. The brown bandaids can be removed at any time. ?? Follow-up: You have a follow-up appointment Dr. Gillespie in the General Surgery clinic on October at 3pm. You will receive a letter in the mail confirming the appointment date and time. Your follow-up is very important to us. ?? Please call [phone] if you do not hear from us within 7 days of discharge or if you need to change the appointment date/time. ? documented in this encounter Medications at Time [...] 60 mg 0 007 tablet gabapentin (NEURONTIN) 250 Take 4 mLs by 120 mL 0 201711/28/2017 mg/5 mL Solution mouth daily for 30 days. oxyCODONE (ROXICODONE) 5 Take 5 mLs by 50 mL 0 10/29/19 18 05/29/2020 mg/5 mL Solution mouth every 4 hours as needed for Pain. ondansetron (ZOFRAN-ODT) 4 Take 1 tablet by 20 tablet 0 10/201705/29/2020 mg Tablet, Rapid Dissolve mouth every 8 hours as needed for Nausea. omeprazole (PRILOSEC) 40 mg Take 1 capsule 90 capsule 3 07/2908/16/2018 Capsule, Delayed by mouth daily. Release(E.C.) documented as of this encounter Progress Notes Porsha Estrada RN - 10/29/2017 3:15 PM EST Pt d/c to home per md order. Patient AOx4 hrr, lung sounds clear, no n/v sob or chest pain at time of discharge. +bs, lbm 2/2, voiding clear yellow urine. Patient ambulating independently at this time.Pain well controlled with scheduled tylenol. All LDA's removed. All belongings home with patient. Pre scriptions sent to pharmacy, all discharge instructions reviewed with patient. All questions answered. Please see flowsheet for full assessment. Porsha Estrada RN Dorie Mckinney PA - 10/29/2017 11:30 AM EST Minimally Invasive Surgery Inpatient Progress Note ID: Ivis Laureano is a 72 y.o. female s/p laparoscopic heller myotomy with intraoperative upper endosocpy. Now 1 Day Post-Op. 24hr events: ?? No acute events Subjective: She admits to feeling good this am. She has been sipping clear liquids without any problems. She admits she is not having much pain. She has ambulated to the bathroom multiple times and is not having any problems with voiding. She also tolerated most of her breakfast of full liquids without any increase in pain or nausea. She currently denies n/v/cp/sob O: Last value Range last 24hrs Temperature Temp: 37 ??C (98.6 ??F) Temp: [36.1 ??C (97 ??F)-37 ??C (98.6 ??F)] Heart Rate Heart Rate: 74 Heart Rate: [65-78] Blood Pressure BP: 133/60 BP: (133-166)/(56-74) Respiratory Rate Resp: 16 Resp: [14-18] SpO2 SpO2: 95 % SpO2: [92 %-100 %] 10/28 0701 - 10/29 0700 In: 1000 [I.V.:1000] Out: 1075 [Urine:1075] Physical Exam: General: NAD, resting comfortably, pleasant, conversant HEENT: PERRL, anicteric sclerae CVS: RRR Pulm: CTAB Abd: soft, appropriately tender, non-distended. 5 port sites without evidence of edema, erythema or ecchymosis. No drainage or s/s of infection were noted. : no problems with voiding Skin: warm, dry Ext: no c/c/e Neuro: non-focal, moving all four extremities spontaneously Labs: Recent Labs 10/29/17 0310 WBC 6.1 HGB 11.5* HCT 32.0* PLATELET 208 Recent Labs 10/29/17 0310 NA 141 K 3.7 CL 99 CO2 26 BUN 12 CREATININE 0.90 GLUCOSE 130 CALCIUM 8.9 Microbiology: None New Studies: None ASSESSMENT: Ivis Laureano is a 72 y.o. female s/p laparoscopic heller myotomy with intraoperativeupper endosocpy. Now 1 Day Post-Op Progressing post-operatively without any concerns. PLAN: NEURO: Pain control with IV Tylenol and Dilaudid injection; transition to elixir Tylenol and Oxycodone. Continue home Neurontin. CV: no active issues. Continue home HCTZ and Cozaar. PULM: Encourage frequent ambulation and IS use GI: Diet Post-Eliza Full Liquid diet Full Liquid : no problems with voiding; monitor UOP closely FEK: HLIV; monitor lytes and replace prn ID: no indication of active infection HEME: no indication of active bleeding ENDO: no active issues PROPHYLAXIS: DARRYL for DVT; Protonix for gastric DISPO: Floor status, Full Code Plan for discharge later today or tomorrow based on progress. AMANDA DIAL 10/29/2017 Ami Ram DT - 10/29/2017 10:35 AM EST Patient Active Problem List Diagnosis Date Noted ??? Hospital-Achalasia 09/14/2017 Reason for Nutrition Intervention: Consult Diet Order: Eliza, Full Liquids Appetite: Fair Food allergies: NKFA Ht Readings from Last 3 Encounters: 10/28/17 177.8 cm (5' 10) 08/16/17 177.8 cm (5' 10) 07/22/17 180.3 cm (5' 11) Wt Readings from Last 3 Encounters: 10/28/17 87.8 kg (193 lb 9 oz) 09/14/17 94.5 kg (208 lb 4.8 oz) 08/16/17 94 kg (207 lb 3.2 oz) Body mass index is 27.77 kg/(m^2). Education: Full Liquid guidelines. Eliza dietary guidelines. Verbalized good understanding. Education material, with means of contact provided. Assessment: Patient seen for nutrition consult: post-Heller myotomy diet (2 weeks post-eliza full liquids, then 2 weeks post-eliza soft diet until f/u appt). Patient verbalized good understanding of post-op diet guidelines. Went over full liquid diet instruction and emphasized that it was to be followed for two full weeks. Encouraged drinking boost or similar supplements to get adequate calories and protein. Will provide 2 Boost Plus supplemental shakes on lunch tray for patient to try with pt's requested flavors. Provided pt with Boost coupon. Pt thankful. Went over eliza diet education and emphasized, per MD, eliza was to be followed following completion of the 2 weeks of full liquid- eliza. Pt expressed good understanding for timelines for diets. Material Chaser and pt discussed both diets and foods allowed/ not allowed in great detail and answered all questions the pt had. Emphasized the importance of no carbonated beverages and no straw use and why. Pt expressed good understanding. Pt [id number]% PO intake of cream of rice cereal, vanilla yogurt, jello and milk for breakfast this morning, w/o swallowing concerns per pt. Material Chaser collected lunch choices to promote and encourage PO intake withfoods pt likes. Encouraged pt to contact Food and Nutrition Services if any questions should arise when discharged. Contact information was provided. Nutrition will follow. Nutrition Plan: Diet: Eliza-Full Liquid x 2 weeks (Full liquid guidelines provided). Eliza (Soft diet) x 2 weeks until f/u appt. (Eliza Guidelines provided). Encourage good po intake. Boost Plus or similar supplemental shake for home use. No carbonated beverages. No straw use. Monitor weight. Support and encouragement provided. Nutrition services to follow weekly thru hospital course unless consulted in the interim. SUSAN Conte Porsha Estrada RN - 10/29/2017 9:00 AM EST [facility] [facility] via bed from PACU s/p myotomy, esophagomyotomy w/ fundoplasty. Patient AOx4, HRR, lung sounds clear, +bs, lbm 2/1, voiding spontaneously. +csmt to all extremities. Dressing clean dry and intact. Pain 0/10 at this time. Patient oriented to room, call combs to bedside, please see flowsheet for full assessment. Will continue to monitor Porsha Estrada RN Viki Tobin RN - 10/29/2017 8:03 AM EST Report called to ONEL Meredith on [address] to Room 310A. Will continue to monitor patient until transfer. Anna Lion RN - 10/29/2017 3:28 AM EST 2200: Report received from Ángela SYKES, care assumed. Pt awake and alert, denies incisional pain, however c/o bilateral shoulder discomfort. Warmth applied to shoulders. 0000: Assisted up to commode, urinate 175 cc clear, yellow urine. Steady gait, ambulated back to bed. Patient states discomfort has moved from her shoulders to her abdomen. 0200: Eyes closed, respiration even and unlabored. 0330: AM labs drawn and sent. Assisted up to commode, voided 300 cc. 0530: Assisted pt to bathroom approximately. 50', steady gait. Pt independent with ADL's. Yesenia Sanford - 10/28/2017 10:39 PM EST Progress Note/Post-Op Check: Procedure/Intervention: @LAPAROSCOPIC HELLER MYOTOMY, ESOPHAGOMYOTOMY W FUNDOPLASTY (WRVU 22.1) (N/A) ENDOSCOPY, UPPER GI, DIAGNOSTIC, WITH OR WITHOUT SPECIMENS (N/A) S: She is feeling well. Pain is well controlled with current regimen. No nausea or emesis. No CP/SOB. O: Last value Range last 24 hrs Temperature Temp: 36.9 ??C (98.4 ??F) Temp: [36.1 ??C (97 ??F)-36.9 ??C (98.4 ??F)] Heart Rate Heart Rate: 67 Heart Rate: [65-78] Blood Pressure BP: 145/62 BP: (135-160)/(56-72) Respiratory Rate Resp: 17 Resp: [14-18] SpO2 SpO2: 96 % SpO2: [92 %-100 %] I/Os: Intake/Output Summary (Last 24 hours) at 10/28/179 Last data filed at 10/28/17 1816 Gross per 24 hour Intake 1000 ml Output 0 ml Net 1000 ml , I/O last 1 completed shift: In: 1000 [I.V.:1000] Out: - Physical Exam: Gen: alert and oriented, in NAD CV: RRR, no m/r/g Pulm: CTAB Abd: soft, appropriately tender, non-distended, incisions c/d/i Ext: warm, well perfused A/P: Mrs Alegre is a 72 yo woman POD#0 s/p above procedures for achalasia. Progressing well postoperatively. Pain is well controlled and pt is currently stable. - No tachycardia, vitals stable - UOP 400cc via straight cath post-op - Continue sips overnight - Continue ordered post-operative care Yesenia Sanford MD 10/28/2017 Ángela Thapa RN - 10/28/2017 7:43 PM EST 1916-Rec in stable condition via bed with side rails up x2 to PACU bay 3 s/p Laparoscopic Heller Myotomy with Door fundoplasty. Patient is somnolent but arouses slightly to verbal stimuli. Resp reg & even with lungs clear to auscultation. Abd soft with five band aids in place all clean, dry & intact. No s/s bleeding or drainage obs. SCDs on & in use. Saline lock intact to RIGHT hand with site clear of s/s irritation. IV intact to LEFT wrist with site free of s/s irritation. No s/s pain obs. VSS. No acute distress obs. All monitors on with appropriate settings obs. 2150-Transferred in stable condition via bed with side rails up x2 to PACU bay 22. Report given to ONEL Castillo. documented in this encounter H&P Notes Jasmina Gillespie MD - 10/28/2017 1:35 PM EST Patient Name: Ivis Laureano Patient Age: 72 y.o. Birthdate: 1945 Admit date: 10/28/2017 Attending Physician: Jasmina Gillespie MD Ms. Laureano is a 72 y.o. female [...] Other complaints include the following: Globus sensation ?? Her workup to date includes upper endoscopy, by report, this revealed remained food/fluid in the esophagus and stomach. There appeared to be decreased peristalsis and a tight LES. Minimal response to Botox injection. ?? Manometry: Confirmed the diagnosis of achalasia. Non relaxing LES with aperistalsis. ?? She is here today for Heller myotomy ?? Past medical history: Hypertension Neuropathy Hip replacement ? No current facility-administered medications on file prior to encounter. Current Outpatient Prescriptions on File Prior to Encounter Medication Sig Dispense Refill ??? aspirin 81 mg Tablet, Delayed Release (E.C.) Take 81 mg by mouth daily. ??? multivitamin Tablet, Chewable Take by mouth. ??? omeprazole (PRILOSEC) 40 mg Capsule, Delayed Release(E.C.) Take 1 capsule by mouth daily. 90 capsule 3 ??? b complex vitamins Capsule Take 1 capsule by mouth daily. ??? gabapentin (NEURONTIN) 100 mg Capsule ??? losartan (COZAAR) 25 mg Tablet ??? hydrochlorothiazide (HYDRODIURIL) 50 mg tablet ??? fexofenadine (CHANTAL) 60 mg tablet No Known Allergies ?? Family History: Family??History Family History Problem Relation Age of Onset ??? Breast Cancer Sister ? Breast Cancer Maternal Aunt ? Breast Cancer Paternal Aunt ? Social History: reports that she has never smoked. She has never used smokeless tobacco. 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 Review of systems: Review of systems is negative for any unexplained weight loss or weight gain. She denies any cough, chest pain or shortness on breath on exertion. She has no fevers, chills or night sweats. She denies headaches, dizziness, weakness, numbness or ataxia. Bowel and bladder elimination is normal. All other system reviews are negative. On examination, she appears well and in no distress. Head and neck exam reveals equal, reactive pupils and a supple neck. Her chest is clear bilaterally and her heart sounds are normal with no adventitious sounds or murmurs. Her abdomen is soft with no masses or tenderness. Extremity and Neuro exams are grossly normal. ?? Impression. Achalasia. documented in this encounter Miscellaneous Notes Op Note - Jasmina Gillespie MD - 10/28/2017 6:58 PM EST [facility] [place] Patient Name: Ivis Laureano : [id number] MR#: [id number] Case Date: 10/28/2017 Surgeon: Surgeon(s) and Role: * Jasmina Gillespie MD - Primary * Ami Mondragon MD - Fellow * Loraine Helms MD - Resident-Toll Lineman Preoperative diagnosis: ACHALASIA Postoperative diagnosis: ACHALASIA Procedure(s) (LRB): @LAPAROSCOPIC HELLER MYOTOMY, ESOPHAGOMYOTOMY W FUNDOPLASTY (WRVU 22.1) (N/A) ENDOSCOPY, UPPER GI, DIAGNOSTIC, WITH OR WITHOUT SPECIMENS (N/A) Anesthesia: General Estimated Blood Loss: 19 ml Specimens removed during surgery: None Drains: Surgical Closure: Primary Closure - closure of ALL tissue levels during the original surgery regardless of wires, wickes, drains, or other devices extruding through the incision Disposition: awakened from anesthesia, extubated and taken to the recovery room in a stable condition, having suffered no apparent untoward event. Condition: doing well without problems (Please see the Surgical Encounter Summary for any Implant and Specimen details pertinent to this patient.) This 72 y.o. female presented with a long history of progressive dysphagia. The diagnosis of achalasia was suspected from the barium swallow and confirmed with manometry. Endoscopy did not reveal another esophageal pathology. The risks and benefits of Heller myotomy and partial fundoplication were discussed with her and she chose to have this done laparoscopically. Under general anesthesia and endotracheal intubation, the patient was prepped and draped in the supine position. The abdomen was entered using a 5mm Optiview port and the abdomen was insufflated with CO2 to a pressure of 15 mmHg. The 45- degree telescope was inserted and, under direct vision, the 5-mm port was placed approximately 10 cm along the xiphoid to the left of midline. A 5-mm port was placed approximately 15 cm along the xiphoid on the right side of the subcostal margin. Several omental adhesions on the left side were taken down with the harmonic scalpel. The liver retractor was placed through this and used to elevate the left lobe of the liver thus exposing the hiatus. Another 5-mm port was placed approximately 10 cm along the right costal margin directed through the falciform. A final 5-mm port was placed approximately 25 cm along the left costal margin. The gastrohepatic ligament was divided using harmonic scalpel. Blunt dissection was used to free the esophagus from the lateral and posterolateral aspect of the right marshal. The peritoneum over the arch of the otilio was divided, thus giving it more mobility. The left otilio was similarly dissected free of peritoneal adhesions. The esophagus was then easily encircled with a Wilfredo drain and this was used for further traction. Short gastric vessels were divided approximately 10-cm below the tip of the fundus and worked over the fundus, including the posterior attachments. Care was taken to identify and preserve the vagus nerves. A myotomy was made on the anterior wall of the esophagus extending two cm below the esophago-gastric junction and 6+cm above the EG junction. The mucosal integrity was tested by passing endoscopy where a patulous LES was noted and no leaks were seen. A 2-0 Surgilon was placed on the anterior fundus near the angle of His and then along the lateral muscle border of the myotomy on the left. The fundus was then rolled anteriorly and fixed to the edge of the right otilio with interrupted 2-0 Surgilon sutures thus creating a loose Chris fundoplication. The area was copiously irrigated with saline to assure adequate hemostasis. All ports were then removed under direct vision and the Wilfredo drain and liver retractor were removed. The patient's wounds were closed with running subcuticular 4-0 Vicryl suture, followed by Steri-Strips and Band-aids. The patient tolerated the procedure without any complication and sponge, instrument and needle counts were correct. The patient returned to the Recovery Room in stable condition. No specimen sent to pathology Attestation: Case Date: 10/28/2017 I was present and I participated during the entire procedure (does not need to include opening and closing). JASMINA GILLESPIE MD 10/28/2017 documented in this encounter Plan of Treatment Upcoming Encounters Date Type Specialty Care Team Description 05/14/2022 Hospital Encounter Gastroenterology Evelyn Michel MD [facility] DR GASTROENTEROLOGY DEPT. [place], [place] [address] 05/14/2022 Surgery Gastroenterology Evelyn Michel, EGD, U PPER GI ENDOSCOPY [facility] GASTROENTEROLOGY DEPT. [place], [place] [address] 05/28/2022 Appointment Pulmonology Scheduled Procedures Name Priority Associated Diagnoses Date/Time EGD, UPPER GI ENDOSCOPY Achalasia 05/14/2022 2:30 PM EDT Dysphagia, unspecified type COLONOSCOPY, DIAGNOSTIC Achalasia 05/14/2022 2:30 PM EDT Dysphagia, unspecified type documented as of this encounter Procedures Procedure Name Priority Date/Time Associated Comments Diagnosis HEMOGRAM Routine 10/29/2017 3:10 Results for this AM EST procedure are i n the results section. DIFFERENTIAL, AUTOMATED Routine 10/29/2017 3:10 R esults for this AM EST procedure are i n the results section. CBC (WITH DIFF) Routine 10/29/2017 3:10 AM EST BASIC METABOLIC PANEL Routine 10/29/2017 3:10 Res ults for this (NON-FASTING) AM EST procedure are in the results section. ENDOSCOPY, UPPER GI, Yes 10/28/2017 4:05 ACHALASIA DIAGNOSTIC, WITH OR PM EST WITHOUT SPECIMENS @LAPAROSCOPIC HELLER Yes 10/28/2017 4:05 ACHALASIA MYOTOMY, ESOPHAGOMYOTOMY PM EST W FUNDOPLASTY (WRVU 22.1) BANKING OFFICER SCAN 10/04/2017 12:00 Res ults for this AM EST procedure are i n the results section. documented in this encounter Results (ABNORMAL) Differential, Automated (10/29/2017 3:10 AM EST) [facility] gist Method Time Signature Neutrophils % 90.4 % [facility] Neutr Abs (ANC) 5.55 1.70 - [facility] 6.10 [facility] x10(3)/[facility] Lymphocytes % 7.8 % [facility] Lymphocytes Abs 0.5 (L) 0.9 - 3.2 [facility] x10(3)/[facility]ORAT[facility] Monocytes % 1.6 % [facility] Monocyte Abs 0.1 (L) 0.3 - 0.9 [facility] x10(3)/[facility] Eosinophils % 0.0 % [facility] Eosinophils Abs 0.0 0.0 - 0.4 [facility] x10(3)/[facility] Basophils % 0.0 % [facility] Basophils Abs 0.0 0.0 - 0.1 [facility] x10(3)/[facility] Immature Gran % 0.20 % [facility] Comment: Immature granulocytes(IG's)percentage an d absolute count will include metamyelocytes, myelocytes, and promyelo cytes. Blood smears from CBCs yielding IG's will be scanned manually for concor dance. If this scan disagrees with the automated IG or if promyelocytes are not ed, a manual differential will be performed. [place] Gran Abs 0.01 0.00 - 0.04 x10(3)/[facility] Specimen Anatomical Collection Method Collection Time Receive d Time (Source) Location / / Volume Laterality Blood specimen 10/29/2017 3:10 AM 018 3:15 (specimen) EST AM EST Resulting Agency Comment Spec In Lab Ami Perdomo MD HEMATOLOGY ORDERABLES Performing Organization Address City/State/[place] [address] (ABNORMAL) Hemogram (10/29/2017 3:10 AM EST) Analysis Performed At Patho logist Time Signature WBC 6.1 4.0 - 9.5 [facility] x10(3)/[facility] LABORATORY RBC 3.63 (L) 4.00 - YAEL SEAN 5.21 [facility] x10(6)/[facility] LABORATORY Hemoglobin 11.5 (L) 11.7 - [facility] 15.[facility] gm/dL [facility] Hematocrit 32.0 (L) 35.7 - [facility] 45.8 % [facility] MCV 88.2 82.6 - [facility] 94.4 [facility] LAB[facility] MCH 31.7 27.1 - [place] SEAN 32.0 pg [facility] MCHC 35.9 (H) 31.7 - [facility] 35.0 gm/dL [facility] Platelets 208 145 - 357 [facility] x10(3)/[facility] LABORATORY RDWSD 38.6 37.0 - [facility] SEAN 46.0 [facility] LABORATORY RDWCV 11.9 11.5 - [facility] SEAN 14.1 % [facility] MPV 10.1 7.6 - 12.9 [facility] nRBC % Auto 0.0 % [facility] nRBC Abs Auto 0.000 0.000 - [facility] SEAN 0.000 [facility] x10(3)/[facility] LABORATORY Specimen Anatomical Collection Method Collection Time Receive d Time (Source) Location / / Volume Laterality Blood specimen 10/29/2017 3:10 AM 018 3:15 (specimen) EST AM EST Resulting Agency Comment Spec In Lab Ami Perdomo MD HEMATOLOGY ORDERABLES Performing Organization Address City/State/[place] [address] (ABNORMAL) Basic Metabolic Panel (non-fasting) (10/29/2017 3:10 AM EST) P athologist Signature Glucose Lvl 130 65 - 199 [facility] mg/dL [facility] Comment: Diabetes: >=200 mg/dL plus symp toms BUN 12 8 - 18 mg/dL [facility] Creatinine 0.90 0.70 - 1.20 mg/dL [facility] Sodium 141 135 - 145 mmol/L [facility] Potassium 3.7 3.5 - 5.0 mmol/L [facility] Comment: Please note: ??Patients with WBC >100,00 0 may have falsely elevated Potassium levels. ??For accurate Potassium quantif ication in these patients send serum separator tube (gold top) for subsequent determinations. ??Contact the Clinical Chemistry Laboratory if there are any qu estions. Chloride 99 98 - 107 mmol/L [facility] CO2 26 22 - 31 mmol/L [facility] Anion Gap 16 (H) 5 - 15 mmol/L [facility] Calcium 8.9 8.5 - 10.5 mg/dL [facility] Estimated GFR >60 >=60 [facility] Comment: The reported eGFR should be multiplied b y 1.2 for patients. The MDRD is not an appropriate measure o f renal function for patients with body mass extremes or in patients with acute kidney failure. [email or web address] Specimen Anatomical Collection Method Collection Time Receive d Time (Source) Location / / Volume Laterality Blood specimen 10/29/2017 3:10 AM 018 3:15 (specimen) EST AM EST Resulting Agency Comment Spec In Lab Ami Perdomo MD CHEMISTRY ORDERABLES Performing Organization Address City/State/ZIP Code Phon e Number [place] [id number] SCAN DOC: BANKING OFFICER (10/04/2017 12:00 AM EST) Narrative 10/04/2017 12:00 AM EST This result has an attachment that is no t available. Ordered by an unspecified provider. Scanning Provider MEDIA MGR SCAN EXT ORDR/RSLT documented in this encounter Visit Diagnoses Not on filedocumented in this encounter Administered Medications Inactive Administered Medications - up to 3 most recent administrations Medication Order MAR Action Action Date Dose Rate Site acetaminophen (TYLENOL) 650 Given 10/29/2017 2:50 PM EST 650 mg mg/20.3 mL oral liquid 650 mg 650 mg, Oral, EVERY 4 HOURS, First dose on Wed10/29/17 at 1100, Until Discontinued, Maximum dose of acetaminophen is 4,000 mg from all sources in 24 hours., Routine Given 10/29/2017 11:54 AM EST 650 mg aspirin chewable tablet 81 mg Given 10/29/2017 8:18 AM EST 81 mg 81 mg, Oral, DAILY, First dose on Wed10/29/17 at 0900, Until Discontinued, Routine BUpivacaine (PF) (MARCAINE) Given 10/28/2017 7:14 PM EST 20 mLs 19- Surgical Site 0.25 % (2.5 mg/mL) injection ONCE PRN, Starting on Jillian 10/28/17 at 1914, Until Wed10/29/17 at 1717, Intra-Operative (Intra-Procedure), Routine heparin (Porcine) subcutaneous injection Given 018 8:18 AM EST 5,000 Units 5,000 Units 5,000 Units, Subcutaneous, EVERY 8 HOURS SCHEDULED, First dose on Jillian 10/28/17 at 2215, Until Discontinued, Recovery (Recovery-Hospital Unit), Routine Given 10/29/2017 12:22 AM EST 5,000 Units hydroCHLOROthiazide (HYDRODIURIL) tablet 50 Given 10/29/2017 10:02 AM EST 50 mg mg 50 mg, Oral, DAILY, First dose on Wed10/29/17 at 0900, Until Discontinued, CRUSH, Routine iohexol (OMNIPAQUE) 350 mg/mL solution 0 -200 mL 0-200 mL, Intravenous, ONCE PRN, 1 dose, Starting on Jillian 10/28/17 at 2156, Until Wed10/29/17 at 1717, Per Protocol, Warning Vesicant/Irritant Medication , Radiology Contrast, Routine lidocaine (XYLOCAINE) 10 mg/mL (1 %) inj ection 3 mg 3 mg (0.3 mL), Subcutaneous, ONCE PRN, 1 dose, Startin g on Jillian 10/28/17 at 2156, Until Wed10/29/17 at 1717, for discomfort with PIV inse rtion, Recovery (Recovery-Hospital Unit), Routine losartan (COZAAR) tablet 25 mg Given 10/29/2017 10:02 AM EST 25 mg 25 mg, Oral, DAILY, First dose on Wed10/29/17 at 0900, Until Discontinued, CRUSH, Routine ondansetron (ZOFRAN) injection 4 mg 4 mg, Intravenous, EVERY 8 HOURS PRN, Starting on Jillian 10/28/17 at 2156, Until Wed10/29/17 at 1717, Nausea, May repeat times one in 30 minutes if ineffective. If multiple antiemetics are ordered, use ondanstron first , Recovery (Recovery-Hospital Unit) ondansetron (ZOFRAN) tablet 4 mg 4 mg, Oral, EVERY 8 HOURS PRN, Starting on Jillian 10/28/17 at 2156, Until Wed10/29/17 at 1717, Nausea, Vomiting, If multiple antiemetics are ordered, use ondansetron first. PO Preferred. If patient unable to take PO, may give IV if ordered. May repeat times one in 45 minutes if ineffe ctive., Recovery (Recovery-Hospital Unit), Routine oxyCODONE (ROXICODONE) 5 mg/5 mL solutio n 5-10 mg 5-10 mg, Oral, EVERY 4 HOURS PRN, Starti ng on Wed10/29/17 at 1034, Until Wed10/29/17 at 1717, Pain, for pain 1-5 give 5mg; for pain 6-10 gi ve 10mg, Routine pantoprazole (PROTONIX) injection 40 mg Given 10/29/2017 8:18 AM EST 40 mg 40 mg, Intravenous, DAILY, First dose on Wed10/29/17 at 0900, Until Discontinued prochlorperazine (COMPAZINE) injection 1 0 mg 10 mg, Intravenous, EVERY 6 HOURS PRN, S tarting on Jillian 10/28/17 at 2156, Until Wed10/29/17 at 1717, Nausea, Vomiting, If multiple antie metics are ordered, use ondansetron first. If ondansetron ineffe ctive use prochlorperazine. , Recovery (Recovery-Hospital Unit), Routine prochlorperazine (COMPAZINE) tablet 10 m g 10 mg, Oral, EVERY 6 HOURS PRN, Starting on Jillian 10/28/17 at 2156, Until Wed10/29/17 at 1717, Nausea, Vomiting, If multiple antiemetics are ordered, use ondansetron first. If ondansetron ineffective use pr ochlorperazine. PO Preferred. If patient unable to take PO, may give IV if ordered., Recovery ( Recovery-Hospital Unit), Routine sodium chloride 0.9 % flush 5 mL Given 10/29/2017 8:25 AM EST 5 mLs 5 mL, Intravenous, 2 TIMES DAILY, First dose on Jillian 10/28/17 at 2215, Until Discontinued, Recovery (Recovery-Hospital Unit), Routine Given 10/29/2017 12:22 AM EST 5 mLs sodium chloride 0.9 % flush 5-20 mL 5-20 mL, Intravenous, EVERY 1 MIN PRN, S tarting on Jillian 10/28/17 at 2156, Until Wed10/29/17 at 1717, flush, Flush pertains to all indwelling lines. Flush per protocol found in the job aid using the link prov ided on this medication record., Recovery (Recovery-Hospital Unit), Routine documented in this encounter Active and Recently Administered Medications Times are shown in EST. Scheduled Medication Order 10/27/2017 10/28/2017 10/29/2017 acetaminophen ([facility]) injection 1,000 mg (CANCELED) 1958 (Given - Provider: Ángela Thapa RN) 21 (Given - Provider: Anna Loin, ONEL)0536 (Given - Provider: Anna Lion, ONEL) 1,000 mg, Intravenous, at 400 mL/hr, FAYE RY 6 HOURS SCHEDULED, 4 doses, First dose on Jillian 10/28/17 at 2015, Last dose on Wed10/29/17 at 1200, Maximum dose of acetaminophen is 4000 mg from all sources in 24 hours., Recovery (Recovery-Hospital Unit), Routine acetaminophen (TYLENOL) 650 mg/20.3 mL oral liquid 650 mg 1154 (Given - Provider: Porsha Estrada, RN)1450 (Given - Provider: Porsha Estrada RN) 650 mg, Oral, EVERY 4 HOURS, First dose on Wed10/29/17 at 1100, Until Discontinued, Maximum dose of acetaminophen is 4,000 mg from all sources in 24 hours., Routine aspirin chewable tablet 81 mg 05 14 (Given - Provider: Viki Tobin RN) 81 mg, Oral, DAILY, First dose on 11/14 at 0900, Until Discontinued, Routine ceFAZolin (ANCEF) 2g in dextrose 5% 100 mL (COMPLETED) 1619 (Given - Provider: Klarissa Jara CRNA) 2 g, Intravenous, EVERY 3 HOURS, 1 dose, First dose on Jillian 10/28/17 at 1415, Administer over 30 Minutes, Day of Surgery (Day of Procedure), Indication for (Active or Suspected): Prophylaxis heparin (Porcine) subcutaneous injection 5,000 Units (COMPLE MARSHALL) 1559 (Given - Provider: Susana Etienne RN) 5,000 Units, Subcutaneous, ONCE, 1 dose, Jillian 10/28/17 at 1415, Day of Surgery (Day of Procedure), Routine heparin (Porcine) subcutaneous injection 5,000 Units 0022 (Given - Provider: Anna Lion RN)08 (Given - Provider: Viki Tobin RN) 5,000 Units, Subcutaneous, EVERY 8 HOURS SCHEDULED, First dose on Jillian 10/28/17 at 2215, Until Discontinued, Recovery (Recovery-Hospital Unit), Routine hydroCHLOROthiazide (HYDRODIURIL) tablet 50 mg 1002 (Given - Provider: Porsha Estrada RN) 50 mg, Oral, DAILY, First dose on 11/14 at 0900, Until Discontinued, CRUSH, Routine losartan (COZAAR) tablet 25 mg 1 002 (Given - Provider: Porsha Estrada RN) 25 mg, Oral, DAILY, First dose on 11/14 at 0900, Until Discontinued, CRUSH, Routine pantoprazole (PROTONIX) injection 40 mg 08 (Given - Provider: Viki Tobin RN) 40 mg, Intravenous, DAILY, First dose on Wed10/29/17 at 0900, Until Discontinued sodium chloride 0.9 % flush 5 mL 0022 (Given - Provider: Anna Lion, RN)0825 (Given - Provider: Viki Tobin, RN) 5 mL, Intravenous, 2 TIMES DAILY, First dose on Jillian 10/28/17 at 2215, Until Discontinued, Recovery (Recovery-Hospital Unit), Routine Continuous Medication Order 10/27/2017 10/28/2017 10/29/2017 lactated Ringers infusion (CANCELED) 200 4 (New Bag - Provider: Ángela Thapa, RN) 1156 (Stopped - Provider: Porsha ramachandran, ONEL) 90 mL/hr, at 90 mL/hr, Intravenous, CONT INUOUS, Starting Jillian 10/28/17 at 2015, Until Wed10/29/17 at 1034, Recovery (Recovery-Hospital Unit) PRN Medication Order 10/27/2017 10/28/2017 10/29/2017 BUpivacaine (PF) (MARCAINE) 0.25 % (2.5 mg/mL) injection (CA NCELED) 1913 (Given - Provider: Jasmina Gillespie MD) ONCE PRN, Starting Jillian 10/28/17 at 1914, U ntil Wed10/29/17 at 1717, Intra-Operative (Intra-Procedure), Routine HYDROmorphone (DILAUDID) injection 0.2-0.4 mg (CANCELED) 2137 (Given - Provider: Ángela Thapa RN) 0.2-0.4 mg, Intravenous, EVERY 5 MIN PRN , Starting Jillian 10/28/17 at 1910, Until Jillian 10/28/17 at 215, Pain, Give 0.2 mg every 5 minutes PRN for mild to moderate pain (1-5) Give 0.4 mg every 5 minutes PRN for moderate to severe pain (6-10). Hold fo r respiratory rate less than 10 per minute. Maximum dose 4 mg over one hour. If multiple pain medications are ordered, start with hydromorphone or morphine and us e fentanyl for breakthrough pain., PACU Recovery, Routine iohexol (OMNIPAQUE) 350 mg/mL solution 0-200 mL 0-200 mL, Intravenous, ONCE PRN, 1 dose, Starting Jillian 10/28/17 at 2156, Until Wed10/29/17 at 1717, Per Protocol, Warning Vesicant/Irritant Medication , Radiology Contrast, Routine lidocaine (XYLOCAINE) 10 mg/mL (1 %) injection 3 mg 3 mg (0.3 mL), Subcutaneous, ONCE PRN, 1 dose, Starting Jillian 10/28/17 at 2156, Until Wed10/29/17 at 1717, for discomfort with PIV insertion, Recovery (Recovery- Hospital Unit), Routine ondansetron (ZOFRAN) injection 4 mg(Linked Group 1) 4 mg, Intravenous, EVERY 8 HOURS PRN, St arting Jillian 10/28/17 at 2156, Until Wed10/29/17 at 1717, Nausea, May repeat times one in 30 minutes if ineffective. If multiple antiemetics are ordered, use ondanstron first, Recovery (Recovery- Hospital Unit) ondansetron (ZOFRAN) tablet 4 mg(Linked Group 1) 4 mg, Oral, EVERY 8 HOURS PRN, Starting Jillian 10/28/17 at 2156, Until Wed10/29/17 at 1717, Nausea, Vomiting, If multiple antiemetics are ordered, use ondansetron first. PO Preferred. If patient unable t o take PO, may give IV if ordered. May r epeat times one in 45 minutes if ineffective., Recovery (Recovery-Hospital Unit), Routine oxyCODONE (ROXICODONE) 5 mg/5 mL solution 5-10 mg 5-10 mg, Oral, EVERY 4 HOURS PRN, Starti ng Wed10/29/17 at 1034, Until Wed10/29/17 at 1717, Pain, for pain 1-5 give 5mg; for pain 6-10 give 10mg, Routine prochlorperazine (COMPAZINE) injection 10 mg(Linked Group 2) 10 mg, Intravenous, EVERY 6 HOURS PRN, S tarting Jillian 10/28/17 at 2156, Until Wed10/29/17 at 1717, Nausea, Vomiting, If multiple antiemetics are ordered, use ondansetron first. If ondansetron ineffective use prochlorperazine. , Recovery (Recovery-Hospital Unit), Rou franny prochlorperazine (COMPAZINE) tablet 10 mg(Linked Group 2) 10 mg, Oral, EVERY 6 HOURS PRN, Starting Jillian 10/28/17 at 2156, Until Wed10/29/17 at 1717, Nausea, Vomiting, If multiple antiemetics are ordered, use ondansetron first. If ondansetron ineffective use pro chlorperazine. PO Preferred. If patie nt unable to take PO, may give IV if ordered., Recovery (Recovery-Hospital Unit), Routine sodium chloride 0.9 % flush 5-20 mL 5-20 mL, Intravenous, EVERY 1 MIN PRN, S tarting Jillian 10/28/17 at 2156, Until Wed10/29/17 at 1717, flush, Flush pertains to all indwelling lines. Flush per protocol found in the job aid using the link provid ed on this medication record., Recovery (Recovery-Hospital Unit) , Routine Linked Groups Order Group 1: ondansetron (ZOFRAN) tablet 4 mgJump to med 4 mg, Oral, EVERY 8 HOURS PRN, Starting Jillian 10/28/17 at 2156, Until Wed10/29/17 at 1717, Nausea, Vomiting
If multiple antiemetics are ordered, use ondansetron first. PO Preferred. I f patient unable to take PO, may give IV if ordered. May repeat times one in 45 minutes if ineffective.
Recovery (Recovery-Hospital Unit), Routine Or ondansetron (ZOFRAN) injection 4 mgJump to med 4 mg, Intravenous, EVERY 8 HOURS PRN, St arting Jillian 10/28/17 at 2156, Until Wed10/29/17 at 1717, Nausea
May repeat times one in 30 minutes if ineffective. If multiple antiemetics are or dered, use ondanstron first
Recover y (Recovery-Hospital Unit) Group 2: prochlorperazine (COMPAZINE) tablet 10 mgJump to med 10 mg, Oral, EVERY 6 HOURS PRN, Starting Jillian 10/28/17 at 2156, Until Wed10/29/17 at 1717, Nausea, Vomiting
If multiple antiemetics are ordered, use ondansetron first. If onda nsetron ineffective use prochlorperazine . PO Preferred. If patient unable to take PO, may give IV if ordered.
Recovery (Recovery- Hospital Unit), Routine Or prochlorperazine (COMPAZINE) injection 10 mgJump to med 10 mg, Intravenous, EVERY 6 HOURS PRN, S tarting Jillian 10/28/17 at 2156, Until 10/29/17 at 1717, Nausea, Vomiting
If multiple antiemetics are ordered, use ondansetron first. If ondansetron ineffective use prochlorp erazine.
Recovery (Recovery- Hospital Unit), Routine documented in this encounter Care Teams Director Of Student Affairs Relationship Specialty Start Date End Date Nanci Gomez MD PCP - General 08/19/10 [address] [place] [address] documented as of this encounter
--- OUTSIDE RECORDS SUMMARY | 2022-04-16 02:01 | XMS_ITS | Encounter Summary ---
:1945 Author Organization [facility] [place] [address] Care Team Providers Name Role Phone Nanci Gomez MD Primary Care Provider Reason for Visit Reason Onset Date Comments Medication Refill 06/04/2020 Encounter Details Date Type Department Care Team Description 06/04/2020 Refill Gastroenterology at [facility] Shu Preciado, [facility] [place] [address] [facility] [phone] GASTROENTEROLOGY [place] [id number] (Wo rk) Social History Tobacco Use Types [...] 05/14/2022 Hospital Encounter Gastroenterology Evelyn Michel MD [facility] GASTROENTEROLOGY DEPT. [place], [place] [address] 05/14/2022 Surgery Gastroenterology Evelyn Michel, EGD, U PPER GI ENDOSCOPY [facility] GASTROENTEROLOGY DEPT. [place], [place] [address] 05/28/2022 Appointment Pulmonology Scheduled Procedures Name Priority Associated Diagnoses Date/Time EGD, UPPER GI ENDOSCOPY Achalasia 05/14/2022 2:30 PM EDT Dysphagia, unspecified type COLONOSCOPY, DIAGNOSTIC Achalasia 05/14/2022 2:30 PM EDT Dysphagia, unspecified type documented as of this encounter Visit Diagnoses Not on filedocumented in this encounter Care Teams Cyber Crime Investigator Relationship Specialty Start Date End Date Nanci Gomez MD PCP - General 08/19/10 [address] [place] [address] documented as of this encounter
--- OUTSIDE RECORDS SUMMARY | 2022-04-16 02:01 | XMS_ITS | Encounter Summary ---
:1945 Author Organization [facility] [place] [address] Care Team Providers Name Role Phone Nanci Gomez MD Primary Care Provider Encounter Details Date Type Department Care Team Description 05/20/2020 Telephone Gastroenterology at [facility] [place] [address] Social History Tobacco Use Types Packs/Day Years Used Date Never Smoker Smokeless Tobacco: Never Used Alcohol Use Standard Drinks/Week Comments No 0 (1 standard drink = 0.6 oz pure alcoho l) Sex Assigned at Date Recorded Not on file documented as of this encounter Miscellaneous Notes Telephone Encounter - Lillie Cantu - 05/20/2020 11:54 AM EDT [facility] office calling to request Gastro call patient at [phone] documented in this encounter Plan of Treatment Upcoming Encounters Date Type Specialty Care Team Description 05/14/2022 Hospital Encounter Gastroenterology Evelyn Michel MD [facility] GASTROENTEROLOGY DEPT. [place], [place] [address] 05/14/2022 Surgery Gastroenterology Evelyn Michel, EGD, U PPER GI ENDOSCOPY [facility] GASTROENTEROLOGY DEPT. [place], [place] [address] 05/28/2022 Appointment Pulmonology Scheduled Procedures Name Priority Associated Diagnoses Date/Time EGD, UPPER GI ENDOSCOPY Achalasia 05/14/2022 2:30 PM EDT Dysphagia, unspecified type COLONOSCOPY, DIAGNOSTIC Achalasia 05/14/2022 2:30 PM EDT Dysphagia, unspecified type documented as of this encounter Visit Diagnoses Not on filedocumented in this encounter Care Teams Professional Skateboarder Relationship Specialty Start Date End Date Nanci Gomez MD PCP - General 08/19/[address] [place] [id number] documented as of this encounter
--- OUTSIDE RECORDS SUMMARY | 2022-04-16 02:01 | XMS_ITS | Encounter Summary ---
:1945 Author Organization [facility] [place] [address] Care Team Providers Name Role Phone Nanci Gomez MD Primary Care Provider Reason for Visit Reason Comments GI Problem Encounter Details Date Type Department Care Team Description 07/12/2017 Office Visit Gastroenterology at [facility] Sieglinger, Dysphagia, unspecified type; [facility] Lucretia Guillen APRN Gastroesophageal reflux disease without esophagitis; [place] [address] [facility] Achalasia [phone] [place] [address] Social History Tobacco Use Types Packs/Day Years Used Date Never Smoker Smokeless Tobacco: Never Used Alcohol Use Standard Drinks/Week Comments No 0 (1 standard drink = 0.6 oz pure alcoho l) Sex Assigned at Date Recorded Not on file documented as of this encounter Last Filed Vital Signs Vital Sign Reading Time Taken Comments Blood Pressure 148/73 07/12/2017 1:51 PM EDT Pulse 72 07/12/2017 1:51 PM EDT Temperature - - Respiratory Rate - - Oxygen Saturation - - Inhaled Oxygen Concentration - - Weight 93.9 kg (207 lb) 07/12/2017 1:51 PM EDT Height 180.3 cm (5' 11) 07/12/2017 1:51 PM EDT Body Mass Index 28.87 07/12/2017 1:51 PM EDT documented in this encounter Patient Instructions Patient InstructionsSiegShu govea APRN - 07/12/2017 2:00 PM EDT 1. Omeprazole 40mg (2 capsules) daily in the morning on an empty stomach 30-60 minutes prior to eating for 8 weeks, then decrease to 20mg daily 2. CT scan 3. I will call you with results and we will come up with a plan. documented in this encounter Progress Notes Shu Preciado APRN - 07/12/2017 2:00 PM EDT FORKLIFT SUPERVISOR: Shu Preciado APRN PCP: Nanci Gomez MD REQUESTING PROVIDER: Ever Orourke MD REASON FOR CONSULTATION This is a 71 y.o. female with a history significant for TA on colonoscopy, HTN, and non-diabetic neuropathy. I am seeing her as a new patient today in consult for achalasia. GI PROBLEM LIST 1. ACHALASIA --EGD 04/15/17; [...] and persistent dilatation of the proximal esophagus. 2. CONSTIPATION --Colonoscopy 04/15/17; - Scattered mild [...] Ascending colon, ?? polypectomy: Sessile serrated adenoma/polyp. HPI COMMENTS Dysphagia with bread and cake [...] Denies anorexia, fever, or unintended weight change EYES: Denies red or painful eyes ENT: Denies oral ulcers, dysphagia, odynophagia, globus. RESPIRATORY: Denies cough, shortness of breath, wheezing CV: Denies palpitations, chest pain. : Denies dysuria, urinary incontinence, or dyspareunia. MUSC/SKELETAL: Denies chronic joint pains or history of inflammatory arthritis. INTEGUMENTARY: Denies recent skin rash or lesions. NEURO: Lyme disease. Non-diabetic neuropathy in feet. PSYCH: Denies psychiatric problems. ENDO: Denies frequent urination and excessive hunger or thirst. HEM/LYMPH: Denies easy bleeding or bruising. ALL/IMMUNO: Denies seasonal allergies, frequent colds. ALLERGIES No Known Allergies CURRENT MEDICATIONS Medications reviewed and reconciled in e- Current Outpatient Prescriptions: ??? cyanocobalamin, vitamin B-12, 100 mcg tablet, Take 100 mcg by mouth daily., Disp: , Rfl: ??? hydrochlorothiazide (HYDRODIURIL) 50 mg tablet, , Disp: , Rfl: ??? raloxifene (EVISTA) 60 mg tablet, , Disp: , Rfl: ??? fexofenadine (CHANTAL) 60 mg tablet, , Disp: , Rfl: MEDICAL HISTORY 1. HTN 2. Non-diabetic neuropathy SURGICAL HISTORY Past Surgical History: Procedure Laterality Date ??? PRO COLONOSCOPY, DIAGNOSTIC 05/06/2012 COLONOSCOPY, DIAGNOSTIC performed by LEO WATT at [facility] ENDOSCOPY ??? PRO COLONOSCOPY, DIAGNOSTIC N/A 04/15/2017 COLONOSCOPY, DIAGNOSTIC performed by Ever Orourke MD at [facility] ENDOSCOPY ??? PRO UPPER GI ENDOSCOPY, BIOPSY N/A 04/15/2017 UPPER GASTROINTESTINAL ENDOSCOPY,WITH BIOPSY SINGLE OR MULTIPLE (WRVU 2.49) performed by Ever Orourke MD at [facility] ENDOSCOPY SOCIAL HISTORY Currently retired. [employer]. 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 - 43. HABITS Denies tobacco use. Very rare alcohol use. Denies using other substances. FAMILY HISTORY Mom is , age: 89 Dad is , age: 89, pancreatitis Paternal uncle; colon cancer Maternal aunt; colon cancer No other GI etiologies PHYSICAL EXAM: Most Recent Vitals: 07/12/17 1351 BP: 148/73 Pulse: 72 Height: 5'11 Weight: 207 lbs Body mass index is 28.87 kg/(m^2). GENERAL: Healthy-appearing in no acute distress. Appears stated age. Appropriate weight for height. SKIN: No lesions, rashes, lumps, or angiomas on exposed skin. NECK: No adenopathy. No thyromegaly. HEENT: PERRL, EOMI, mucosa clear without ulceration or lesions, normal Dentition LUNGS: Clear to auscultation bilaterally COR: Regular, normal S1 and S2 without murmurs. ABD: Normal active BS. Soft, non-distended. No bruits. No tenderness to deep palpation in all 4 quadrants. No organomegaly. EXT: No cyanosis, clubbing, or edema. NEURO: Alert and oriented to person, place, time, and situation. Cranial nerves II-XII intact. PSYCH: Mood appropriate. Good eye contact. Normal interaction. Answers all questions appropriately. LABS: ASSESSMENT This is a very nice 71 y.o. female with a history significant for HTN and TAs who comes to me today for evaluation of achalasia. Colonoscopy done in March 2017 showed TA. Onset of dysphagia approximately one year ago with worsening symptoms. Currently occurring daily. Primarily with solids. EGD in March2017 showed abnormal esophageal motility. HREM suggested Achalasia, type 1. Barium swallow today showed delayed emptying of esophagus. She does have a slight anemia not explained by the EGD and colonoscopy. Otherwise no warning signs. 1. ACHALASIA Initially upon reviewing the barium swallow, it wasn't clear if she had achalasia. Consulted with MD Ce who confirmed most likely early stages of achalasia. We had discussed etiology, pathophysiology, and treatment options during our visit. Called patient and recommended EGD with botox injection. We discussed risks and benefits of this procedure. Myotomy and dilation were briefly reviewed as well. 2. GERD Uncontrolled reflux symptoms. Recommend PPI. PPI therapy was reviewed. Teaching was provided with regard to the timing of medication administration and side effects. We reviewed GERD diet and lifestylemodifications. PLAN 1. EGD with botox injection. 2. Omeprazole 40mg once daily on an empty stomach 30-60 minutes prior to eating. 3. May use TUMs or gaviscon for breakthrough symptoms. 4. GIF approximately 3 weeks after EGD/Botox I have provided her with my contact information. She has been encouraged to contact me with any questions or concerns. TIME SPENT WITH PATIENT 56 minutes of this 61 minute visit were spent in [id number] discussion and counseling the patient as detailed per above. Signed, Shu Preciado APRN 07/12/17 2:51 PM Section of Gastroenterology & Hepatology [facility] documented in this encounter Plan of Treatment Upcoming Encounters Date Type Specialty Care Team Description 05/14/2022 Hospital Encounter Gastroenterology Evelyn Michel MD [facility] GASTROENTEROLOGY DEPT. [place], [place] [address] 05/14/2022 Surgery Gastroenterology Evelyn Michel, EGD, U PPER GI ENDOSCOPY [facility] GASTROENTEROLOGY DEPT. [place] [address] 05/28/2022 Appointment Pulmonology Scheduled Procedures Name Priority Associated Diagnoses Date/Time EGD, UPPER GI ENDOSCOPY Achalasia 05/14/2022 2:30 PM EDT Dysphagia, unspecified type COLONOSCOPY, DIAGNOSTIC Achalasia 05/14/2022 2:30 PM EDT Dysphagia, unspecified type documented as of this encounter Procedures Procedure Name Priority Date/Time Associated Diagnosis Comme nts CREATININE Routine 07/12/2017 3:19 PM Dysphagia, unspecified Results for this EDT type procedure are i n the results section. BUN Routine 07/12/2017 3:19 PM Dysphagia, unspecified Results for this EDT type procedure are i n the results section. documented in this encounter Results (ABNORMAL) Creatinine (07/12/2017 3:19 PM EDT) athologist Signature Creatinine 1.13 0.70 - 1.20 NELY ESTRADA mg/dL [facility] Comment: Please note that the pediatric reference intervals supplied above were not validated at [facility]. Results from pediatri c patients should be interpreted in conjunction to the patient's age, height and muscle mass. Estimated GFR 47 (L) >=60 [facility] Comment: This estimated GFR (eGFR) value was calc ulated using the MDRD equation which has been validated on patients between t he ages of 18 and 70. The MDRD should not be used to assess kidney function in patients < 18 years of age or in patients with extremes of body mass, or in patients with acute kidney failure. This value should be multiplied by 1.2 f or patients. For further information please copy and past e the following links into your internet browser. [email or web address] [email or web address] Specimen Anatomical Collection Method Collection Time Receive d Time (Source) Location / / Volume Laterality Blood specimen 07/12/2017 3:19 PM 017 3:26 (specimen) EDT PM EDT Resulting Agency Comment Spec In Lab Shu Preciado APRN CHEMISTRY ORDERABLES Performing Organization Address City/State/ZIP Code Phon e Number [place] [phone] (ABNORMAL) BUN (07/12/2017 3:19 PM EDT) P athologist Signature BUN 22 (H) 8 - 18 [facility] mg/dL [facility] Specimen Anatomical Collection Method Collection Time Receive d Time (Source) Location / / Volume Laterality Blood specimen 07/12/2017 3:19 PM 017 3:26 (specimen) EDT PM EDT Resulting Agency Comment Spec In Lab Shu Preciado APRN CHEMISTRY ORDERABLES Performing Organization Address City/State/[place] [address] documented in this encounter Visit Diagnoses Diagnosis Dysphagia, unspecified type Gastroesophageal reflux disease without esophagitis Esophageal reflux Achalasia Achalasia and cardiospasm Achalasia Achalasia and cardiospasm Dysphagia, unspecified type documented in this encounter Care Teams Division Manager Relationship Specialty Start Date End Date Nanci Gomez MD PCP - General 08/19/10 [address] [place] [address] documented as of this encounter
--- OUTSIDE RECORDS SUMMARY | 2022-04-16 02:01 | XMS_ITS | Encounter Summary ---
:1945 Author Organization [facility] [place] [address] Care Team Providers Name Role Phone Nanci Gomez MD Primary Care Provider Reason for Visit Reason Onset Date Comments Diarrhea 11/11/2017 Encounter Details Date Type Department Care Team Description 11/11/2017 Telephone [facility] Angelique Lopez, Diarrhea [facility] [place] [address] Social History Tobacco Use Types Packs/Day Years Used Date Never Smoker Smokeless Tobacco: Never Used Alcohol Use Standard Drinks/Week Comments No 0 (1 standard drink = 0.6 oz pure alcoho l) Sex Assigned at Date Recorded Not on file documented as of this encounter Miscellaneous Notes Telephone Encounter - Angelique Evans RN - 11/11/2017 2:44 PM EST Ivis called. She has been having loose stools today. Denied tarry stools. She has been following the liquid diet, recently adding dairy to the diet, cheese soups. She was seen two days ago at her pcp, was told she has the flu. type B. No difficulty breathing. No elevated temperature. Ivis will increase her clear liquids and will call general surgery back if the diarrhea does not improve, or shedevelops symptoms of infection. documented in this encounter Plan of Treatment Upcoming Encounters Date Type Specialty Care Team Description 05/14/2022 Hospital Encounter Gastroenterology Evelyn Michel MD [facility] GASTROENTEROLOGY DEPT. [place], [place] [address] 05/14/2022 Surgery Gastroenterology Evelyn Michel, EGD, U PPER GI ENDOSCOPY [facility] GASTROENTEROLOGY DEPT. [place], [place] [address] 05/28/2022 Appointment Pulmonology Scheduled Procedures Name Priority Associated Diagnoses Date/Time EGD, UPPER GI ENDOSCOPY Achalasia 05/14/2022 2:30 PM EDT Dysphagia, unspecified type COLONOSCOPY, DIAGNOSTIC Achalasia 05/14/2022 2:30 PM EDT Dysphagia, unspecified type documented as of this encounter Visit Diagnoses Not on filedocumented in this encounter Care Teams Salon Coordinator Relationship Specialty Start Date End Date Nanci Gomez MD PCP - General 08/19/10 [address] [place] [address] documented as of this encounter
--- OUTSIDE RECORDS SUMMARY | 2022-04-16 02:01 | XMS_ITS | Encounter Summary ---
:1945 [place] [address] Care Team Providers Name Role Phone Nanci [...] Expiration Date Visits Requ ested Visits Authorized [id number] 1 1 Encounter Details Date Type Department Care Team Description 10/28/2017 Anesthesia Event Main Operating Room Patricia Conroy MD [facility] [place] [address] Olivia Dinh MD [facility] [place] [address] [place] [address] Anesthesia Record Procedure Summary Procedure Name Responsible Anesthesia Start Anesthesia Stop Anesthesiologist Time Time @LAPAROSCOPIC Mary Martinez MD 10/28/17 1606 1921 MYOTOMY, ESOPHAGOMYOTOMY W FUNDOPLASTY (WRVU 22.1) (N/A Abdomen) Events Date Time Event Comment 10/28/2017 1606 AN Verify 1606 Start 1606 An Start Data 1614 An Induction 1615 An Intubation 1619 Anesthesia Ready 1635 Break/Relief In Rylie Judge an, FLOOR POLISHER 1638 Skin Incision 1639 an lizbet now insuffation 1801 Quick Note De inflated pt t o allow ETCO2 to decrease 1805 Handoff Intra-procedure anesthesia care was transferred afte r review of the patient's history, current anesthetic/surgical status and plan, accord ing to the ANES Provider Handoff Checklis t. 190 Handoff Intra-procedure anesthesia care was transferred afte r review of the patient's history, current anesthetic/surgical status and plan, accord ing to the ANES Provider Handoff Checklis t. 191 Extubation/LMA Out 1914 an stop data 1919 Recovery or ICU Handoff Patient care was transferred to the destination unit staff after review of the patient's medica l history, current anesthetic/surgi elder status and plan, according to the Provider Handoff Checklist. 1920 Stop 2036 Name Total Midazolam 2 mg fentaNYL 100 mcg IV Lidocaine 80 mg Propofol 230 mg Rocuronium 70 mg PHENYLephrine (YESI-SYENEPHRINE) 0.8 mg/10 mL multi-dos e injection 80 mcg Ondansetron 4 mg Dexamethasone 4 mg Neostigmine 5 mg Glycopyrrolate 0.8 mg Succinylcholine 100 mg ceFAZolin (ANCEF) 2g in dextrose 5% 100 mL 2 g PHENYLephrine INF 1,310 mcg Propofol INF 603.63 mg Lactated Ringers 1,000 mL Agents Name O2 Air N2O Isoflurane (et) Blood No blood administrations on file. Lines, Drains, and Airways Type Details Placement Removal Incision 10/28/17; 1643; abdomen; 10/28/17 1643 by Kale, laparoscopic puncture; Elana Sandy RN multiple trocar sites. PIV 04/15/17; 1618; median 04/15/17 1618 by 01/10/18 0921 by Carola cubital vein (antecubital Rosa Castro RN User fossa), right; ldmg-irm-sotmba catheter system; 20 gauge; 01/10/18 (Auto removal via utility); 0921 (Auto removal via utility) PIV 07/22/17; 0948; metacarpal 07/22/17 0948 by 12/26 03/14 0921 by Epic, vein (top of hand), right; Emely Lee , Kristie ddxq-uhm-vfuasi catheter RN system; 22 gauge; christiano lee rn; distraction, intradermal injection, tolerated well; 01/10/18 (Auto removal via utility); 0921 (Auto removal via utility) PIV 10/28/17; 1426; cephalic 10/28/17 1426 by Lowell , 10/29/17 1439 by vein (lateral side of arm), ONEL Gibson Carley M, RN left; zhkj-ykb-podzwv catheter system; 1 in length, 18 gauge; Ismael SYKES; intradermal injection, tolerated well, appears comfortable; 2; 10/29/17; 1439 ETT Mask Ventilation: Not 10/28/17 1615 by Dahl, 1914 by Suze, Attempted (0); ETT Type: KAREN Graves MD Cuffed, Oral; ETT Size: 7 mm; Mac Blade: 3; Notes: Asleep, Pre-O2, Cricoid Pressure, Stylette; Attempts: 1; Laryngoscopy Grade: 1; ETT Placement Verified By: Auscultation, Capnometry; Secured at Teeth: 22 cm; Inserted by: ladan dahl crna PIV 10/28/17; 1626; metacarpal 10/28/17 1626 by Hardy menjivar, 10/29/17 1439 by vein (top of hand), right; KAREN Graves, Porsha Sandy RN gavf-bnc-hgwdos catheter system; 16 gauge; krystle; (after induction); 10/29/17; 1439 documented in this encounter Social History Tobacco Use Types Packs/Day Years Used Date Never Smoker Smokeless Tobacco: Never Used Alcohol Use Standard Drinks/Week Comments No 0 (1 standard drink = 0.6 oz pure alcoho l) Sex Assigned at Date Recorded Not on file documented as of this encounter OR Notes Anesthesia Postprocedure Evaluation - Mary Conroy MD - 10/28/2017 8:36 PM EST [facility] [place] Department of Anesthesiology Post-procedure Note Patient: Ivis Laureano Procedure Summary Date Anesthesia Start Anesthesia Stop Room / Location 10/28/17 1606 [facility] OR [address] [place] [address] MAIN OR Procedure Diagnosis Surgeon Responsible Provider @LAPAROSCOPIC HELLER MYOTOMY, ESOPHAGOMYOTOMY W FUNDOPLASTY (WRVU 22.1) (N/A Abdomen); ENDOSCOPY, UPPER GI, DIAGNOSTIC, WITH OR WITHOUT SPECIMENS (N/A Esophagus) (ACHALASIA) Jasmina Aguilar MD Chinn, Christopher D, MD All Anesthesia Providers: Anesthesiologist: Mary Conroy MD; Olivia Curtis MD FLOOR POLISHER: Anisa Michaels CRNA; Klarissa Dahl CRNA Most Recent Vitals: 10/28/172032 BP: 139/56 Pulse: 67 Resp: 17 Temp: SpO2: 92% Pain 2 (10/28/171947) Patient Location: PACU/[facility] Level of Consciousness: Awake and Alert Pain Management: Satisfactory Analgesia PONV: None Cardiovascular Status: At Baseline and Hemodynamically Stable Respiratory Status: At Baseline and Room Air Postoperative Fluid Status: Intravascular EUvolemia Possible Anesthetic Complications: NONE apparent at time of evaluation Final Primary Anesthesia Type: General (The anesthetic type performed was the same as planned.) Comments: MARY CONROY MD Anesthesia Preprocedure Evaluation - Olivia Curtis MD - 10/27/2017 5:38 PM EST Pre-Anesthesia Evaluation for: Ivis Laureano a 72 y.o. female. Procedure(s): @LAPAROSCOPIC HELLER MYOTOMY, ESOPHAGOMYOTOMY W FUNDOPLASTY (WRVU 22.1) ENDOSCOPY, UPPER GI, DIAGNOSTIC, WITH OR WITHOUT SPECIMENS Patient Active Problem List Diagnosis ??? Achalasia No past medical history on file. Past Surgical History: Procedure Laterality Date ??? PRO COLONOSCOPY, DIAGNOSTIC 05/06/2012 COLONOSCOPY, DIAGNOSTIC performed by LEO WATT at [facility] ENDOSCOPY ??? PRO COLONOSCOPY, DIAGNOSTIC N/A 04/15/2017 COLONOSCOPY, DIAGNOSTIC performed by Ever Orourke MD at [facility] ENDOSCOPY ??? PRO UPPER GI ENDOSCOPY, BIOPSY N/A 04/15/2017 UPPER GASTROINTESTINAL ENDOSCOPY,WITH BIOPSY SINGLE OR MULTIPLE (WRVU 2.49) performed by Ever Orourke MD at [facility] ENDOSCOPY ??? PRO UPPER GI ENDOSCOPY, DIAGNOSTIC N/A 07/22/2017 EGD, UPPER GI ENDOSCOPY performed by Ever Orourke MD at [facility] ENDOSCOPY Social History Substance Use Topics ??? [...] (+) implants Misc Assessment: Anesthesia Plan: ASA 3 general, with a(n) intravenous induction 72 year old female with a PMH significant for obesity, achalasia, HTN, GERD, and neuropathy who presents for Heller myotomy. Patient Active Problem List: Achalasia (K22.0) Informed Consent: Anesthetic plan and risks discussed with patient. Plan discussed with FLOOR POLISHER. PAT Staff Note documented in this encounter Plan of Treatment Upcoming Encounters Date Type Specialty Care Team Description 05/14/2022 Hospital Encounter Gastroenterology Evelyn Michel MD [facility] GASTROENTEROLOGY DEPT. [place], [place] [address] 05/14/2022 Surgery Gastroenterology Evelyn Michel, EGD, U PPER GI ENDOSCOPY [facility] GASTROENTEROLOGY DEPT. [place], [place] [address] 05/28/2022 Appointment Pulmonology Scheduled Procedures [...] MAR Action Action Date Dose Rate Site ceFAZolin (ANCEF) 2g in dextrose 5% Given 10/28/2017 4:19 PM EST 2 g 100 mL 2 g, Intravenous, EVERY 3 HOURS, 1 dose, First dose on Jillian 10/28/17 at 1415, Administer over 30 Minutes, Day of Surgery (Day of Procedure), Indication for (Active or Suspected): Prophylaxis dexamethasone (DECADRON) injection Given 10/28/2017 4:14 PM EST 4 mg PRN, Starting on Jillian 10/28/17 at 1614, Until Jillian 10/28/17 at 203, Anesthesia Intra-op, Routine fentaNYL 50 mcg/mL multi-dose injection Given 10/28/2017 4:14 PM EST 50 mcg PRN, Starting on Jillian 10/28/17 at 1606, Until Jillian 10/28/17 at 203, Pain, Anesthesia Intra-op, Routine Given 10/28/2017 4:06 PM EST 50 mcg glycopyrrolate (ROBINUL) multi-dose inje ction Given 10/28/2017 7:00 PM EST 0.8 mg PRN, Starting on Jillian 10/28/17 at 1900, Until Jillian 10/28/17 at 203, Anesthesia Intra-op, Routine lactated Ringers infusion New Bag 10/28/2017 6:16 PM EST CONTINUOUS PRN, Starting on Jillian 10/28/17 at 1606, Until Jillian 10/28/17 at 2037, Anesthesia Intra-op New Bag 10/28/2017 4:06 PM EST lidocaine (PF) (XYLOCAINE) 100 mg/5 mL (2 %) Given 8 4:14 PM EST 80 mg injection PRN, Starting on Jillian 10/28/17 at 1614, Until Jillian 10/28/17 at 203, Anesthesia Intra-op, Routine midazolam (PF) (VERSED) 1 mg/mL multi-dose Given 10/28/2017 4:06 PM EST 2 mg injection PRN, Starting on Jillian 10/28/17 at 1606, Until Jillian 10/28/17 at 2037, Sleep, Anesthesia Intra-op, Routine neostigmine (BLOXIVERZ) injection Given 10/28/2017 7:00 PM EST 5 mg PRN, Starting on Jillian 10/28/17 at 1900, Until Jillian 10/28/17 at 2036, Anesthesia Intra-op, Routine ondansetron (ZOFRAN) injection Given 10/28/2017 4:06 PM EST 4 mg PRN, Starting on Jillian 10/28/17 at 1606, Until Jillian 10/28/17 at 2036, Nausea, Anesthesia Intra-op, Routine PHENYLephrine Rate/Dose Change 10/28/2017 5:51 PM 20 mcg/min 15 mL/hr (YESI-SYNEPHRINE) 20 mg in EST sodium chloride 250 mL (standard ADULT & Pedi greater than 20kg) infusion CONTINUOUS PRN, Starting on Jillian 10/28/17 at 1635, Until Jillian 10/28/17 at 2036, Anesthesia Intra-op, Routine Rate/Dose Change 10/28/2017 5:49 PM EST 40 mcg/min 30 mL/hr Restarted 10/28/2017 5:46 PM EST 20 mcg/min 15 mL/hr PHENYLephrine in NS (PF) (YESI-SYNEPHRINE) 0.8 Given 5:49 PM EST 80 mcg mg/10 mL (80 mcg/mL) multi-dose injection Syrg PRN, Starting on Jillian 10/28/17 at 1749, Until Jillian 10/28/17 at 2036, Anesthesia Intra-op, Routine propofol (DIPRIVAN) 10 mg/mL bolus injection Given 8 5:56 PM EST 30 mg (Anesthesia) PRN, Starting on Jillian 10/28/17 at 1614, Until Jillian 10/28/17 at 2036, Anesthesia Intra-op Given 10/28/2017 4:47 PM EST 50 mg Given 10/28/2017 4:14 PM EST 150 mg propofol (DIPRIVAN) Rate/Dose 10/28/2017 6:56 50 mcg/kg/min 26.3 mL/ hr infusion Change PM EST CONTINUOUS PRN, Starting on Jillian 10/28/17 at 1619, Until Jillian 10/28/17 at 2036, Anesthesia Intra-op, Routine Rate/Dose Change 10/28/2017 6:49 PM EST 175 mcg/kg/min 92.2 mL/hr Rate/Dose Change 10/28/2017 6:11 PM EST 50 mcg/kg/min 26.3 mL/hr rocuronium (ZEMURON) multi-dose injectio n Given 10/28/2017 5:47 PM EST 20 mg PRN, Starting on Jillian 10/28/17 at 1620, Until Jillian 10/28/17 at 203, Anesthesia Intra-op, Routine Given 10/28/2017 4:49 PM EST 20 mg Given 10/28/2017 4:20 PM EST 30 mg succinylcholine (ANECTINE) injection Given 10/28/2017 4:14 PM EST 100 mg PRN, Starting on Jillian 10/28/17 at 1614, Until Jillian 10/28/17 at 2036, Anesthesia Intra-op, Routine documented in this encounter Care Teams [place] Relationship Specialty Start Date End Date Nanci Gomez MD PCP - General 08/19/10 [address] [place] [address] documented as of this encounter
--- OUTSIDE RECORDS SUMMARY | 2022-04-16 02:01 | XMS_ITS | Encounter Summary ---
:1945 Author Organization [place] [address] Care Team Providers Name Role Phone Nanci Gomez MD Primary Care Provider Encounter Details Date Type Department Care Team Description 07/22/2017 Hospital Encounter [place] [facility] [facility] [place] [address] [facility] [phone] GASTROENTEROLOGY [place] [id number] (Wo rk) Social History Tobacco Use Types [...] occurs please contact your M.D. Please call [phone] before 5 pm with problems, questions or concerns. After 5pm call [phone] and ask to speak with the corporate security manager addiction medicine physician. Discharge instructions reviewed with patientwho expresses understanding. AttachmentsThe following attachments cannot be sent through Care Everywhere.EGD (UPPER ENDOSCOPY): POST-OP (SLOVENIAN)documented in this encounter Medications at Time of [...] Birthdate: 1945 Admit date: 07/22/2017 Attending Physician: Ever Orourke MD Gastroenterology & Hepatology Pre-Procedure History [...] 05/14/2022 Hospital Encounter Gastroenterology Evelyn Michel MD [facility] DR GASTROENTEROLOGY DEPT. [place], [place] [address] 05/14/2022 Surgery Gastroenterology Evelyn Michel, NESSA, U PPER GI ENDOSCOPY [facility] GASTROENTEROLOGY DEPT. [place], [place] [address] 05/28/2022 Appointment Pulmonology Scheduled Procedures [...] Component Value Ref Test Analysis Performed At [facility] Method Time Signature UPPER GI [facility] ENDOSCOPY Endoscopy Procedure Date: 07/22/2017 8:17 AM ? Patient Name: Ivis Laureano ? Date of : 1945 ? Age: 72 ? Order #: [id number] ? Instrument Name: [id number] ? Procedure: ? Upper GI endoscopy Indications: ? Dysphagia, For botulinum toxin ? injection of achalasia Providers: ? Ever Orourke MD, Toni ? ONEL Kaye, Sylvia Carr, ? Water Manager Referring MD: ?Nanci Gomez MD Requesting Provider: [...] Procedure) documented in this encounter Care Teams Personnel Psychologist Relationship Specialty Start Date End Date Nanci Gomez MD PCP - General 08/19/10 [address] [place] [address] documented as of this encounter
--- OUTSIDE RECORDS SUMMARY | 2022-04-16 02:01 | XMS_ITS | Encounter Summary ---
:1945 Author Organization [facility] [place] [address] Care Team Providers Name Role Phone Nanci Gomez MD Primary Care Provider Reason for Referral Diagnostic Test (Routine) - Closed Specialty Diagnoses / Procedures Referred By Contact Refer red To Contact Radiology Diagnoses Asymptomatic postmenopausal estrogen deficiency Nanci Gomez MD [facility] Rad Xray Procedures DXA Central Spine, Hip, and/or Whole Body (Generic) [address] [facility] [address] [place] [place] [id number] [place] [phone] Referral ID Status Reason Start Date Expiration Date Visits V isits Requested Authorized [id number] Closed Specialty 10/31/2019 04/30/2021 1 1 Service Requested Reason for Visit Diagnostic Test (Routine) - Closed Specialty Diagnoses / Procedures Referred By Contact Refer red To Contact Radiology Diagnoses Asymptomatic postmenopausal estrogen deficiency Nanci Gomez MD [facility] Rad Xray Procedures DXA Central Spine, Hip, and/or Whole Body (Generic) [address] [facility] [address] [place] [id number] [place] [phone] Referral ID Status Reason Start Date Expiration Date Visits V isits Requested Authorized [id number] Closed Specialty 10/31/2019 04/30/2021 1 1 Service Requested Encounter Details Date Type Department Care Team Description 02/29/2020 Hospital Encounter XRay at [facility] Nanci Gomez Asymptomatic [address] [place] [address] Dr Vika MD postmenopausal estrogen [place], [place] [address] deficiency [id number] [facility] [place] [phone] [id number] Social History Tobacco Use Types Packs/Day Years Used Date Never Smoker Smokeless Tobacco: Never Used Alcohol Use Standard Drinks/Week Comments No 0 (1 standard drink = 0.6 oz pure alcoho l) Sex Assigned at Date Recorded Not on file documented as of this encounter Medications at Time of Discharge Medication Sig Dispensed Refills Start Date End Date acetaminophen (TYLENOL) 650 Take 20.3 mLs 0 10/29 mg/20.3 mL Solution by mouth every 4 hours. multivitamin Tablet, Take by mouth. 0 Chewable b complex vitamins Capsule Take 1 capsule 0 by mouth daily. losartan (COZAAR) 25 mg 0 06/26/2017 Tablet hydrochlorothiazide 0 04/22/2007 (HYDRODIURIL) 50 mg tablet fexofenadine (CHANTAL) 60 mg 0 007 tablet dicyclomine (BENTYL) 10 mg Take 1 capsule 120 capsule 0 01/201905/29/2020 Capsule by mouth 4 times daily as needed. hyoscyamine (LEVSIN SL) Take 1 tablet 90 each 3 9 05/29/2020 0.125 mg Tablet, Sublingual by mouth every 4 hours as needed for Cramping. oxyCODONE (ROXICODONE) 5 Take 5 mLs by 50 mL 0 10/29/19 18 05/29/2020 mg/5 mL Solution mouth every 4 hours as needed for Pain. ondansetron (ZOFRAN-ODT) 4 Take 1 tablet 20 tablet 0 201705/29/2020 mg Tablet, Rapid Dissolve by mouth every 8 hours as needed for Nausea. documented as of this encounter Plan of Treatment Upcoming Encounters Date Type Specialty Care Team Description 05/14/2022 Hospital Encounter Gastroenterology Evelyn Michel MD [facility] GASTROENTEROLOGY DEPT. [place], [place] [address] 05/14/2022 Surgery Gastroenterology Evelyn Michel, EGD, U PPER GI MD ENDOSCOPY [facility] DR GASTROENTEROLOGY DEPT. [place] 05/28/2022 Appointment Pulmonology Scheduled Procedures Name Priority Associated Diagnoses Date/Time EGD, UPPER GI ENDOSCOPY Achalasia 05/14/2022 2:30 PM EDT Dysphagia, unspecified type COLONOSCOPY, DIAGNOSTIC Achalasia 05/14/2022 2:30 PM EDT Dysphagia, unspecified type documented as of this encounter Procedures Procedure Name Priority Date/Time Associated Diagnosis Comme nts DXA CENTRAL SPINE, Routine 02/29/2020 3:15 PM Asymptomatic Res ults for this HIP, AND/OR WHOLE EDT postmenopausal estrogen procedure are in BODY (GENERIC) deficiency the results section. documented in this encounter Results DXA Central Spine, Hip, and/or Whole Body (Generic) (02/29/2020 3:15 PM EDT) Anatomical Region Laterality Modality C-spine, Hip N/A Other Specimen (Source) Anatomical Location Collection Method / Collectio n Time Received Time / Laterality Volume Impressions 02/29/2020 4:10 PM EDT Measurements meet WHO criteria for normal bone mineral density. Estimating Fracture Risk: The relationship between bone mineral de nsity (BMD) and risk of fracture is well established. As BMD decreases, risk incr eases. Quantifying risk is difficult and is usually limited to estimation of the relative risk - a term which may have limited value when trying to discuss an individual's risk. Estimating the absolute risk for a patient requires an understanding of the incidence rate in a given population and consideration of mu ltiple, partially independent, risk factors in addition to BMD. The World Health Organization (WHO) has developed a fracture risk prediction tool that calculates a ten-year risk of major osteoporotic fracture based on femoral neck bone density measurements a nd nine clinical risk factors for individuals who have not been treated fo r osteoporosis. This is available through an interactive web-based [employer] (http://www.[facility].ac.uk/FRAX/) and can be used to estimate a given patient's ab solute risk of major osteoporotic fracture or hip fracture over the next 1 0 years. These estimates may prove useful when discussing risk with a patie nt. It is important, however, to understand the tool's limitations and ho w a given individual's risk might differ from the tool's estimate. The tool does not take into account the dose-response associated with most risk factors. For e xample, the significant increase in risk associated with multiple prior fractures compared to a single prior fracture is not taken into account. Similarly, the l ocation of a previous fracture, the amount of glucocorticoids and number of cigarettes smoked are not considered. These limitations are discussed in a Fr equently Asked Questions section of the FRAX website which you are encouraged to review. DEXA data sheets with BMD measurements a nd plots are available in [employer] under the imaging tab. Paper copies will be sent to providers without [employer] access. If you have received this report without e data sheet and do not have access to [employer], please contact Radiology [facility] at [phone] Wednesday thru Wednesday 8am-4pm. Thank you for letting us participate in the care of this patient. For questions regarding this report, please contact e number below. ? Narrative 02/29/2020 4:10 PM EDT EXAMINATION: DXA CENTRAL SPINE, HIP, AND/OR WHOLE BODY (GENERIC) CLINICAL HISTORY: ??74 years Female Pos tmenopausal, last was 2012 ?? (as entered by ordering provider) TECHNIQUE: Scans were acquired at the mario mbar spine, and right hip. There are worsening sclerotic changes of the lumba r spine resulting in spuriously increased bone marrow density measuremen ts at this site. As such, the spine region of interest measurements are like ly compromised. In the future, the patient would likely benefit from additi onal measurements at a supplementary region of interest such as the nondomina nt forearm. The right hip was used for measurement o f the hip bone mineral density since the patient had a left hip replacement in . FINDINGS: Femoral neck BMD: 0.758 ? g/cm2 Lowest T-score at the diagnostic region of interest: T-score: -0.8, BHUMI: Right femoral neck, WHO diagnosis: normal bone mineral density. ......... Comparison......... Comparison over time cannot be reliably performed on today's study. Worsening sclerotic degenerative changes of lumbar spine compromise measurements at this site, rendering the measurements obtaine d at this site unreliable for comparison. Since the right hip was used for bone ma rrow density measurements on today's study, rather than the left hip that was used on prior studies, exact comparison cannot be performed for the hip region o f interest either. As such, today's study's right hip measu rements will serve as a new baseline for any future DXA scans performed for this patient. Procedure Note Ami Gonzalez MD - 02/29/2020Formattin g of this note might be different from the original. EXAMINATION: DXA CENTRAL SPINE, HIP, AND /OR WHOLE BODY (GENERIC) CLINICAL HISTORY: 74 years Female Postm enopausal, last was 2012 (as entered by ordering provider) TECHNIQUE: Scans were acquired at the mbar spine, and right hip. There are worsening sclerotic changes of the lumba r spine resulting in spuriously increased bone marrow density measuremen ts at this site. As such, the spine region of interest measurements are like ly compromised. In the future, the patient would likely benefit from additi onal measurements at a supplementary region of interest such as the nondomina nt forearm. The right hip was used for measurement o f the hip bone mineral density since the patient had a left hip replacement in . FINDINGS: Femoral neck BMD: 0.758 g/cm2 Lowest T-score at the diagnostic region of interest: T-score: -0.8, BHUMI: Right femoral neck, WHO diagnosis: normal bone mineral density. ......... Comparison......... Comparison over time cannot be reliably performed on today's study. Worsening sclerotic degenerative changes of lumbar spine compromise measurements at this site, rendering the measurements obtaine d at this site unreliable for comparison. Since the right hip was used for bone ma rrow density measurements on today's study, rather than the left hip that was used on prior studies, exact comparison cannot be performed for the hip region o f interest either. As such, today's study's right hip measu rements will serve as a new baseline for any future DXA scans performed for this patient. IMPRESSION Measurements meet WHO criteria for papo l bone mineral density. Estimating Fracture Risk: The relationship between bone mineral de nsity (BMD) and risk of fracture is well established. As BMD decreases, risk incr eases. Quantifying risk is difficult and is usually limited to estimation of the relative risk - a term which may have limited value when trying to discuss an individual's risk. Estimating the absolute risk for a patient requires an understanding of the incidence rate in a given population and consideration of mu ltiple, partially independent, risk factors in addition to BMD. The World Health Organization (WHO) has developed a fracture risk prediction tool that calculates a ten-year risk of major osteoporotic fracture based on femoral neck bone density measurements a nd nine clinical risk factors for individuals who have not been treated fo r osteoporosis. This is available through an interactive web-based [employer] ce (http://www.shef.ac.uk/FRAX/) and can be used to estimate a given patient's ab solute risk of major osteoporotic fracture or hip fracture over the next 1 0 years. These estimates may prove useful when discussing risk with a patie nt. It is important, however, to understand the tool's limitations and ho w a given individual's risk might differ from the tool's estimate. The tool does not take into account the dose-response associated with most risk factors. For e xample, the significant increase in risk associated with multiple prior fractures compared to a single prior fracture is not taken into account. Similarly, the l ocation of a previous fracture, the amount of glucocorticoids and number of cigarettes smoked are not considered. These limitations are discussed in a Fr equently Asked Questions section of the FRAX website which you are encouraged to review. DEXA data sheets with BMD measurements a nd plots are available in [employer] under the imaging tab. Paper copies will be sent to providers without [employer] access. If you have received this report without e data sheet and do not have access to [facility], please contact Radiology [facility] at [phone] Wednesday thru Wednesday 8am-4pm. Thank you for letting us participate in the care of this patient. For questions regarding this report, please contact e number below. Electronically signed by: Lucretia Gomez [facility] ([phone]), at 02/29/2020 4:10 PM Nanci Gomez MD IMG DEXA ORDERABLES documented in this encounter Visit Diagnoses Diagnosis Asymptomatic postmenopausal estrogen def iciency Achalasia Achalasia and cardiospasm Dysphagia, unspecified type documented in this encounter Care Teams Police Radio Dispatcher Relationship Specialty Start Date End Date Nanci Gomez MD PCP - General 08/19/10 [address] [place] [address] documented as of this encounter
--- OUTSIDE RECORDS SUMMARY | 2022-04-16 02:01 | XMS_ITS | Encounter Summary ---
:1945 Author Organization [facility] [place] [address] Care Team Providers Name Role Phone Nanci Gomez MD Primary Care Provider Encounter Details Date Type Department Care Team Description 02/29/2020 Hospital Encounter Mammography/DXA at Nanci Gomez ncounter for [facility] [place] Vika screening mammogram [facility] [address] [place] [phone] Social History Tobacco Use Types Packs/Day Years [...] mg Take 1 capsule 120 capsule 0 04/01/201905/29/2020 Capsule by mouth 4 times daily as [...] Encounter Gastroenterology Evelyn Michel MD [facility] DR GASTROENTEROLOGY DEPT. [place], [place] [address] 05/14/2022 Surgery Gastroenterology Evelyn Michel, EGD, U PPER GI ENDOSCOPY [facility] GASTROENTEROLOGY DEPT. [place], [place] [address] 05/28/2022 Appointment Pulmonology Scheduled Procedures Name Priority Associated Diagnoses Date/Time EGD, UPPER GI ENDOSCOPY Achalasia 05/14/2022 2:30 PM EDT Dysphagia, unspecified type COLONOSCOPY, DIAGNOSTIC Achalasia 05/14/2022 2:30 PM EDT Dysphagia, unspecified type documented as of this encounter Procedures Procedure Name Priority Date/Time Associated Diagnosis Comme nts MAMMO SCREENING CAD Routine 02/29/2020 2:27 PM Encounter for R esults for this AND LEOPOLDO BILATERAL EDT screening mammogram pr ocedure are in for breast cancer the result s section. documented in this encounter Results Mammo Screening Cad and Leopoldo Bilateral (02/29/2020 2:27 PM EDT) Anatomical Region Laterality Modality Breast Bilateral Mammography Specimen (Source) Anatomical Location Collection Method / Collectio n Time Received Time / Laterality Volume Narrative 03/01/2020 8:35 AM EDT BILATERAL MAMMOGRAPHY REASON FOR EXAM: [...] CONCLUSION: No mammographic evidence of malignancy. RECOMMENDATION: Regular screening mammograms starting be tween age 40 and 50 reduces the risk of from breast cancer. All screening tests have both risks and benefits. These risks and benefits should be assessed for each individual p atient through discussion with their provider to determine their prefer red breast cancer screening schedule. Women should report any breast changes t o a health care provider right away. Some women, because of their family hist ory, a genetic tendency, or other factors, should be screened with annual breast MRI as well as with mammograms. (The number of women who fal l into this category is very small). Patients and health care provide rs should discuss each patient? s history to decide if earlier screening a nd/or breast MRI are appropriate. Screening should continue as long as a w agnieszka is in good health and is expected to live 10 years or longer. Screening mammography may not detect 10- 15% of breast cancers. A result letter has been sent to this pa hermelinda by [facility]. BIRADS CATEGORY 1: NEGATIVE Nanci Gomez MD IMG MAMMO ORDERABLES documented in this encounter Visit Diagnoses Diagnosis Encounter for screening mammogram for br east cancer Achalasia Achalasia and cardiospasm Dysphagia, unspecified type documented in this encounter Care Teams Front Office Coordinator Relationship Specialty Start Date End Date Nanci Gomez MD PCP - General 08/19/10 [address] [place] [address] documented as of this encounter
--- OUTSIDE RECORDS SUMMARY | 2022-04-16 02:01 | XMS_ITS | Encounter Summary ---
:1945 [place] [address] Care Team Providers Name Role Phone Nanci Gomez MD Primary Care Provider Encounter Details Date Type Department Care Team Description 11/18/2017 Office Visit General Surgery at [facility] Jasmina Aguilar MD [facility] [place] [address] GENERAL SURGERY [phone] [place] [id number] (Wo rk) Social History Tobacco Use Types Packs/Day Years Used Date Never Smoker Smokeless Tobacco: Never Used Alcohol Use Standard Drinks/Week Comments No 0 (1 standard drink = 0.6 oz pure alcoho l) Sex Assigned at Date Recorded Not on file documented as of this encounter Progress Notes Jasmina Aguilar MD - 11/18/2017 3:00 PM EST Ms. Laureano returns one month following her laparoscopic Heller myotomy and partial fundoplication. Overall, she has recovered well. Her heartburn and regurgitation are minimal. She has noted a significant improvement in dysphagia since surgery. Her wound sites are well healed without signs of infection or hernia. Overall, she is doing very well and she knows to contact me if further problems develop. documented in this encounter Plan of Treatment Upcoming Encounters Date Type Specialty Care Team Description 05/14/2022 Hospital Encounter Gastroenterology Evelyn Michel MD [facility] DR GASTROENTEROLOGY DEPT. [place], [place] [address] 05/14/2022 Surgery Gastroenterology Evelyn Michel, EGD, U PPER GI ENDOSCOPY [facility] GASTROENTEROLOGY DEPT. [place], [place] [address] 05/28/2022 Appointment Pulmonology Scheduled Procedures Name Priority Associated Diagnoses Date/Time EGD, UPPER GI ENDOSCOPY Achalasia 05/14/2022 2:30 PM EDT Dysphagia, unspecified type COLONOSCOPY, DIAGNOSTIC Achalasia 05/14/2022 2:30 PM EDT Dysphagia, unspecified type documented as of this encounter Visit Diagnoses Diagnosis Achalasia Achalasia and cardiospasm Achalasia Achalasia and cardiospasm Dysphagia, unspecified type documented in this encounter Care Teams Travel Registered Nurse Pacu Relationship Specialty Start Date End Date Nanci Gomez MD PCP - General 08/19/10 [address] [place] [address] documented as of this encounter
--- OUTSIDE RECORDS SUMMARY | 2022-04-16 02:01 | XMS_ITS | Encounter Summary ---
:1945 Author Organization [facility] [place] [address] Care Team Providers Name Role Phone Nanci Gomez MD Primary Care Provider Encounter Details Date Type Department Care Team Description 12/20/2018 Office Visit Gastroenterology at [facility] Juliane Preciado; [facility] Lucretia Guillen APRN Dysphagia, unspecified type; [place] [address] [facility] Gastroesophageal reflux dise ase, esophagitis presence not specified [phone] [place] [address] Social History Tobacco Use Types Packs/Day Years Used Date Never Smoker Smokeless Tobacco: Never Used Alcohol Use Standard Drinks/Week Comments No 0 (1 standard drink = 0.6 oz pure alcoho l) Sex Assigned at Date Recorded Not on file documented as of this encounter Last Filed Vital Signs Vital Sign Reading Time Taken Comments Blood Pressure 172/79 12/20/2018 8:13 AM EDT Pulse 72 12/20/2018 8:13 AM EDT Temperature - - Respiratory Rate - - Oxygen Saturation - - Inhaled Oxygen Concentration - - Weight 99.7 kg (219 lb 14.4 oz) 12/20/2018 8:13 AM EDT Height 179.1 cm (5' 10.5) 12/20/2018 8:13 AM EDT Body Mass Index 31.11 12/20/2018 8:13 AM EDT documented in this encounter Patient Instructions Patient InstructionsSiegShu govea APRN - 12/20/2018 8:30 AM EDT 1. Change timing of omeprazole to 30-60 minutes prior to breakfast and evening meal. 2. Warm fluids before and with meals. May also try using gravies and sauces. 3. Levsin 0.125 mg (IGNORE the label) under the tongue 30 minutes before breakfast, lunch, and dinner 4. Follow up 8-12 weeks documented in this encounter Progress Notes Shu Preciado APRN - 12/20/2018 8:30 AM EDT DIRECTOR EMPLOYEE COMMUNICATIONS: Shu Preciado APRN PCP: Nanci Gomez MD REQUESTING PROVIDER: Ever Orourke MD REASON FOR VISIT This is a 73 y.o. 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 She is returning to [place] today in follow up. GI PROBLEM LIST [...] an antireflux regimen. ?- Low Residue diet. --BARIUM SWALLOW 11/10/18 done at [facility]; normal esophageal emptying. No hang-up of barium. --MEDICATION TRIALS; *Omeprazole 40mg once daily 2. [...] ?? polypectomy: Sessile serrated adenoma/polyp. INTERVAL HISTORY- 12/20/18 Swallowing continues to be an issue. Unchanged since our last visit. Barium swallow was normal. It's not as bad as it was before the surgery. Food has been getting lodged approximately once a day. Eventually the food bolus will go down. Has been using warm tea to help facilitate a swallow. Taking omeprazole once daily. Reflux symptoms controlled with omeprazole. Has not needed TUMs in so long I really have to think about it. INTERVAL HISTORY- 10/26/18 Had the myotomy. Was [...] reconciled in e-DH Current Outpatient Medications: ??? omeprazole (PRILOSEC) 20 mg Capsule, Delayed Release(E.C.), Take 1 capsule by mouth 2 times daily., Disp: 60 capsule, Rfl: 11 ??? acetaminophen (TYLENOL) 650 mg/20.3 mL Solution, [...] COLONOSCOPY, DIAGNOSTIC performed by LEO WATT at [facility] ENDOSCOPY ??? PRO COLONOSCOPY, DIAGNOSTIC N/A 04/15/2017 COLONOSCOPY, DIAGNOSTIC performed by Ever Orourke MD at [facility] ENDOSCOPY ??? PRO LAP, ESOPHAGOMYOTOMY W FUNDOPLASTY N/A 10/28/2017 @LAPAROSCOPIC HELLER MYOTOMY, ESOPHAGOMYOTOMY W FUNDOPLASTY (WRVU 22.1) performed by Jasmina Aguilar MD at [facility] MAIN OR ??? PRO UPPER GI ENDOSCOPY, BIOPSY N/A 04/15/2017 UPPER GASTROINTESTINAL ENDOSCOPY,WITH BIOPSY SINGLE OR MULTIPLE (WRVU 2.49) performed by Ever Orourke MD at [facility] ENDOSCOPY ??? PRO UPPER GI ENDOSCOPY, DIAGNOSTIC N/A 07/22/2017 EGD, UPPER GI ENDOSCOPY performed by vEer Orourke MD at [facility] ENDOSCOPY ??? 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 HABITS Denies tobacco use. Very rare alcohol use. Denies using other substances. FAMILY HISTORY Mom is , age: 89 Dad is , age: 89, pancreatitis Paternal uncle; colon cancer Maternal aunt; colon cancer No other GI etiologies PHYSICAL EXAM: Most Recent Vitals: 12/20/18 0813 BP: 172/79 Pulse: 72 Height: 5'11 Weight: Weight: 99.7 kg (219 lb 14.4 oz) Body mass index is 31.11 kg/m??. GENERAL: Healthy-appearing in no acute distress. [...] >60 10/29/2017 ASSESSMENT 1. ACHALASIA s/p Heller myotomy/DYSPHAGIA; Improved She had a Heller myotomy done last year. Recurrent symptoms. 5 minute timed barium swallow normal. Recommend EGD. She has declined. Recommend HREM. She has declined. We will try increasing PPI to BID. Recommend continuing warm fluids, gravies, and sauces to facilitate swallowing. Recommend trial of levsin before meals. We reviewed medication indications, administration, and side effects. If no improvement, will repeat HREM and EGD. 2. GERD; Improved See above plan. Consider utility of Julio pH/Impedence pH. PLAN 1. Change timing of omeprazole to 30-60 minutes prior to breakfast and evening meal. 2. Warm fluids before and with meals. May also try using gravies and sauces. 3. Levsin 0.125 mg (IGNORE the label) under the tongue 30 minutes before breakfast, lunch, and dinner 4. Follow up 8-12 weeks Patient agrees with the above plan. I did my best to answer her questions. TIME SPENT WITH PATIENT 27 minutes of this 28 minute visit were spent in [id number] discussion and counseling the patient as detailed per above. Signed, Shu Preciado APRN 12/20/18 8:43 AM Section of Gastroenterology & Hepatology [facility] documented in this encounter Plan of Treatment Upcoming Encounters Date Type Specialty Care Team Description 05/14/2022 Hospital Encounter Gastroenterology Evelyn Michel MD [facility] GASTROENTEROLOGY DEPT. [place], [place] [address] 05/14/2022 Surgery Gastroenterology Evelyn Michel, EGD, U PPER GI ENDOSCOPY [facility] GASTROENTEROLOGY DEPT. [place], [place] [address] 05/28/2022 Appointment Pulmonology Scheduled Procedures [...] type documented in this encounter Care Teams Client Server Programmer Relationship Specialty Start Date End Date Nanci Gomez MD PCP - General 08/19/10 [address] [place] [address] documented as of this encounter
--- OUTSIDE RECORDS SUMMARY | 2022-04-16 02:01 | XMS_ITS | Encounter Summary ---
:1945 [place] [address] Care Team Providers Name Role Phone Nanci Gomez MD Primary Care Provider Reason for Visit Reason Onset Date Comments Medication Refill 12/30/2018 Encounter Details Date Type Department Care Team Description 12/30/2018 Refill Gastroenterology at [facility] Kaden Mcclure MD [facility] [place] [address] [place] [address] [phone] (Wo rk) Social History Tobacco Use Types Packs/Day Years Used Date Never Smoker Smokeless Tobacco: Never Used Alcohol Use Standard Drinks/Week Comments No 0 (1 standard drink = 0.6 oz pure alcoho l) Sex Assigned at Date Recorded Not on file documented as of this encounter Miscellaneous Notes Telephone Encounter - Shalonda Curran RN - 12/30/2018 11:20 AM EDT Called patient and [facility]MM letting her know that new script Dicyclomine sent to her pharmacy in place of Levsin which is not covered by insurance. documented in this encounter Plan of Treatment Upcoming Encounters Date Type Specialty Care Team Description 05/14/2022 Hospital Encounter Gastroenterology Evelyn Michel MD [facility] GASTROENTEROLOGY DEPT. [place], [place] [address] 05/14/2022 Surgery Gastroenterology Evelyn Michel, EGD, U PPER GI MD ENDOSCOPY [facility] DR GASTROENTEROLOGY DEPT. [place], [place] [address] 05/28/2022 Appointment Pulmonology Scheduled Procedures Name Priority Associated Diagnoses Date/Time EGD, UPPER GI ENDOSCOPY Achalasia 05/14/2022 2:30 PM EDT Dysphagia, unspecified type COLONOSCOPY, DIAGNOSTIC Achalasia 05/14/2022 2:30 PM EDT Dysphagia, unspecified type documented as of this encounter Visit Diagnoses Not on filedocumented in this encounter Care Teams Chief Fishery Division Relationship Specialty Start Date End Date Nanci Gomez MD PCP - General 08/19/10 [address] [place] [address] documented as of this encounter
--- OUTSIDE RECORDS SUMMARY | 2022-04-16 02:01 | XMS_ITS | Encounter Summary ---
:1945 [place] [address] Care Team Providers Name Role Phone Nanci Gomez MD Primary Care Provider Encounter Details Date Type Department Care Team Description 06/14/2020 Telephone Gastroenterology at [facility] Chilo Villasenor [facility] [place] [address] Social History Tobacco Use Types Packs/Day Years Used Date Never Smoker Smokeless Tobacco: Never Used Alcohol Use Standard Drinks/Week Comments No 0 (1 standard drink = 0.6 oz pure alcoho l) Sex Assigned at Date Recorded Not on file documented as of this encounter Miscellaneous Notes Telephone Encounter - Chilo Villasenor RN - 06/14/2020 12:54 PM EDT Patient calls the office leaving a message on the RN voicemail stating that the lansoprazole that Shu Preciado APRN prescribed is going to cost her over $1000.00 Returned call to patient to discuss above, explained that our office has submitted a prior authorization and her insurance has approved it, so the pharmacy will need to rerun the prescription. Made patient aware that after pharmacy reruns the prescription her out of pocket cost should be much lower, bu t if not asked her to give this designer writer a call back and we could work on another plan. Patient statedthat she has been taking some left over Omeprazole that she had at home until she gets the lansoprazole. Patient verbalized understanding and agreed with plan. documented in this encounter Plan of Treatment Upcoming Encounters Date Type Specialty Care Team Description 05/14/2022 Hospital Encounter Gastroenterology Evelyn Michel MD [facility] GASTROENTEROLOGY DEPT. [place], [place] [address] 05/14/2022 Surgery Gastroenterology Evelyn Michel, EGD, U PPER GI MD ENDOSCOPY [facility] GASTROENTEROLOGY DEPT. [place], [place] [address] 05/28/2022 Appointment Pulmonology Scheduled Procedures Name Priority Associated Diagnoses Date/Time EGD, UPPER GI ENDOSCOPY Achalasia 05/14/2022 2:30 PM EDT Dysphagia, unspecified type COLONOSCOPY, DIAGNOSTIC Achalasia 05/14/2022 2:30 PM EDT Dysphagia, unspecified type documented as of this encounter Visit Diagnoses Not on filedocumented in this encounter Care Teams Brazing Furnace Feeder Relationship Specialty Start Date End Date Nanci Gomez MD PCP - General 08/19/10 [address] [place] [address] documented as of this encounter
--- OUTSIDE RECORDS SUMMARY | 2022-04-16 02:01 | XMS_ITS | Encounter Summary ---
:1945 Author Organization [facility] [place] [address] Care Team Providers Name Role Phone Nanci Gomez MD Primary Care Provider Encounter Details Date Type Department Care Team Description 07/13/2017 Orders Only Gastroenterology at [facility] Shu Preciado, Achalasia [facility] [place] [address] [facility] [phone] GASTROENTEROLOGY [place], [place] [address] (Wo rk) Social History Tobacco [...] Michel MD [facility] GASTROENTEROLOGY DEPT. [place], [place] [address] 05/14/2022 Surgery Gastroenterology Evelyn Michel, EGD, U PPER GI MD ENDOSCOPY [facility] GASTROENTEROLOGY DEPT. 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
--- OUTSIDE RECORDS SUMMARY | 2022-04-16 02:01 | XMS_ITS | Encounter Summary ---
:1945 [place] [address] Care Team Providers Name Role Phone Nanci [...] Expiration Date Visits Requ ested Visits Authorized [id number] 1 1 Encounter Details Date Type Department Care Team Description 10/28/2017 - Hospital Encounter 3 [facility] Jasmina Gillespie, 10/29/2017 [facility] [address] [place], [place] GENERAL SURGERY [id number] [place] [address] [phone] Social History Tobacco Use Types Packs/Day Years Used Date Never Smoker Smokeless Tobacco: Never Used Alcohol Use Standard Drinks/Week Comments No 0 (1 standard drink = 0.6 oz pure alcoho l) Sex Assigned at Date Recorded Not on file documented as of this encounter Last Filed Vital Signs Vital Sign Reading Time Taken Comments Blood Pressure 133/60 10/29/2017 11:19 AM EST Pulse 74 10/29/2017 12:00 AM EST Temperature 37 ??C (98.6 ??F) 10/29/2017 11:19 AM EST Respiratory Rate 16 10/29/2017 11:19 AM EST Oxygen Saturation 95% 10/29/2017 11:19 AM EST Inhaled Oxygen Concentration - - [...] - Fellow * Loraine Helms MD - Resident-Trim Die Maker History of Present Illness: Ms. Laureano is [...] PM Jasmina Gillespie MD General [facility] at [place] [phone] Instructions Given to Patient at Discharge: Minimally Invasive Surgery Discharge Instructions If you have any questions or concerns, please call [phone] before 5pm Wednesday through Wednesday; [phone] after 5pm and on weekends. Call your doctor if you develop: Fever greater than 101.3 degrees Farenheit (38.5 degrees Celcius), chills, nausea or vomiting. Also call if you develop severe pain not relieved by your prescribed oral pain medicine. CALL THE GENERAL SURGERY CLINIC DURING WORKING HOURS AT , OR CALL AFTER CLINIC HOURS, WEEKENDS AND HOLIDAYS: ASK FOR THE GENERAL SURGERY RESIDENT HYDROELECTRIC STATION OPERATOR IF ANY OF THE ABOVEOCCUR. Diet: Please continue on the full liquid diet as instructed by the blood donor recruiter for the next 2 weeks. The main [...] Gillespie in the General Surgery clinic on , November 18, 2017 at 3pm. You will receive a letter in the mail confirming the appointment date and time. Your follow-up is very important to us. Please call [phone] if you do not hear from us within 7 days of discharge or if you need to change the appointment date/time. Signed: AMANDA Dial 10/29/2017 Primary Care Physician: Nanci Gomez MD [address] / [facility] [address] documented in this encounter Discharge Instructions Discharge InstructionsDorie Mckinney PA - 10/29/2017 2:15 PM EST Scheduled Appointments: Future Appointments and Orders Future Appointments Provider Department Dept Phone ?? 11/18/2017 3:00 PM Jasmina Gillespie MD General [facility] [place] [phone] ? Instructions Given to Patient at Discharge: ?? Minimally Invasive Surgery Discharge Instructions ?? If you have any questions or concerns, please call [phone] before 5pm Wednesday through Wednesday; [phone] after 5pm and on weekends. ?? Call [...] HOLIDAYS: ASK FOR THE GENERAL SURGERY RESIDENT HYDROELECTRIC STATION OPERATOR IF ANY OF THE ABOVEOCCUR. ?? Diet: Please continue on the full liquid diet as instructed by the blood donor recruiter for the next 2 weeks. The main [...] Gillespie in the General Surgery clinic on , November 18, 2017 at 3pm. You will receive a letter in the mail confirming the appointment date and time. Your follow-up is very important to us. ?? Please call [phone] if you do not hear from us [...] expressed good understanding for timelines for diets. Cullet Washer and pt discussed both diets and foods allowed/ not allowed in great detail and answered all questions the pt had. Emphasized the importance of no carbonated beverages and no straw use and why. Pt expressed good understanding. Pt [id number]% PO intake of cream of rice cereal, vanilla yogurt, jello and milk for breakfast this morning, w/o swallowing concerns per pt. Cullet Washer collected lunch choices to promote and encourage [...] 10/29/2017 9:00 AM EST Patient [facility] bed from PACU s/p myotomy, esophagomyotomy [...] 50', steady gait. Pt independent with ADL's. Dilan Sanfordjennifer Guillen - 10/28/2017 10:39 PM EST Progress Note/Post-Op [...] I/Os: Intake/Output Summary (Last 24 hours) at 10/28/172238 Last data filed at 10/28/17 1816 Gross [...] drink alcohol or use illicit drugs. , Wool Sacker ?? Review of systems: Review of systems [...] Gillespie MD - 10/28/2017 6:58 PM EST [facility] Operative Note Patient Name: Ivis Laureano : [id number] MR#: [id number] Case Date: 10/28/2017 Surgeon: Surgeon(s) and Role: * Jasmina Gillespie MD - Primary * Ami Mondragon MD - Fellow * Loraine Helms MD - Resident-Trim Die Maker Preoperative diagnosis: ACHALASIA Postoperative diagnosis: ACHALASIA Procedure(s) [...] 05/14/2022 Hospital Encounter Gastroenterology Evelyn Michel MD [facility] DR GASTROENTEROLOGY DEPT. [address] [place] [address] [address] 05/14/2022 Surgery Gastroenterology Evelyn Michel, EGD, U PPER GI ENDOSCOPY [facility] GASTROENTEROLOGY DEPT. [address] [place] [address] [address] 05/28/2022 Appointment Pulmonology Scheduled Procedures [...] ESOPHAGOMYOTOMY PM EST W FUNDOPLASTY (WRVU 22.1) JUNIOR LOAN PROCESSOR SCAN 10/04/2017 12:00 Res ults for this AM EST procedure are i n the results section. documented in this encounter Results (ABNORMAL) Differential, Automated (10/29/2017 3:10 AM EST) [facility] gist Method Time Signature Neutrophils % 90.4 % [facility] Neutr Abs (ANC) 5.55 1.70 - [facility] 6.10 [facility] x10(3)/[facility] LABORATORY Lymphocytes % 7.8 % [facility] Lymphocytes Abs 0.5 (L) 0.9 - 3.2 [facility] x10(3)/[facility] LABORATORY Monocytes % 1.6 % [facility] Monocyte Abs 0.1 (L) 0.3 - 0.9 [facility] x10(3)/[facility] LABORATORY Eosinophils % 0.0 % [facility] Eosinophils Abs 0.0 0.0 - 0.4 [facility] x10(3)/[facility] LABORATORY Basophils % 0.0 % [facility] Basophils Abs 0.0 0.0 - 0.1 [facility] x10(3)/[facility] LABORATORY Immature Gran % 0.20 % [facility] Comment: Immature granulocytes(IG's)percentage an d absolute count will include metamyelocytes, myelocytes, and promyelo cytes. Blood smears from CBCs yielding IG's will be scanned manually for concor dance. If this scan disagrees with the automated IG or if promyelocytes are not ed, a manual differential will be performed. [place] Gran Abs 0.01 0.00 - 0.04 x10(3)/[facility]ORATORY Specimen Anatomical Collection Method Collection Time Receive d Time (Source) Location / / Volume Laterality Blood specimen 10/29/2017 3:10 AM 018 3:15 (specimen) EST AM EST Resulting Agency Comment Spec In Lab Ami Perdomo MD HEMATOLOGY ORDERABLES Performing Organization Address City/State/[place] [address] (ABNORMAL) Hemogram (10/29/2017 3:10 AM EST) Analysis Performed At Patho logist Time Signature WBC 6.1 4.0 - 9.5 [facility] x10(3)/[facility] LABORATORY RBC 3.63 (L) 4.00 - [place] [facility] 5.21 [facility] x10(6)/[facility] LABORATORY Hemoglobin 11.5 (L) 11.7 - [place] [facility] 15.5 gm/dL [facility] Hematocrit 32.0 (L) 35.7 - [facility] 45.8 % [facility] MCV 88.2 82.6 - [facility] 94.4 [facility] LABORATORY MCH 31.7 27.1 - [place] 32.0 pg [facility] MCHC 35.9 (H) 31.7 - [place] 35.0 gm/dL [facility] Platelets 208 145 - 357 [facility] x10(3)/[facility] LABORATORY RDWSD 38.6 37.0 - [place] 46.0 [facility] LABORATORY RDWCV 11.9 11.5 - [place] 14.1 % [facility] MPV 10.1 7.6 - 12.9 [facility] SE[facility] LABORATORY nRBC % Auto 0.0 % [facility] nRBC Abs Auto 0.000 0.000 - [place] 0.000 [facility] x10(3)/[facility] LABORATORY Specimen Anatomical Collection Method Collection Time Receive d Time (Source) Location / / Volume Laterality Blood specimen 10/29/2017 3:10 AM 018 3:15 (specimen) EST AM EST Resulting Agency Comment Spec In Lab Ami Perdomo MD HEMATOLOGY ORDERABLES Performing Organization Address City/State/[place] [address] (ABNORMAL) Basic Metabolic Panel (non-fasting) (10/29/2017 3:10 AM EST) P athologist Signature Glucose Lvl 130 65 - 199 [facility] mg/dL [facility] Comment: Diabetes: >=200 mg/dL plus symp toms BUN 12 8 - 18 mg/dL [facility] Creatinine 0.90 0.70 - 1.20 mg/dL [facility] Sodium 141 135 - 145 mmol/L [facility] Potassium 3.7 3.5 - 5.0 mmol/L [facility] Comment: Please note: ??Patients with WBC >100,00 0 may have falsely elevated Potassium levels. ??For accurate Potassium quantif ication in these patients send serum separator tube (gold top) for subsequent determinations. ??Contact the Clinical Chemistry Laboratory if there are any qu estions. Chloride 99 98 - 107 mmol/L [facility] CO2 26 22 - 31 mmol/L [facility] Anion Gap 16 (H) 5 - 15 mmol/L [facility] Calcium 8.9 8.5 - 10.5 mg/dL [facility] Estimated GFR >60 >=60 [facility] Comment: The reported eGFR should be multiplied b y 1.2 for patients. The MDRD is not an appropriate measure o f renal function for patients with body mass extremes or in patients with acute kidney failure. http://[employer]/DHnkdep http://[employer]/DHMCnkf Specimen Anatomical Collection Method Collection Time Receive d Time (Source) Location / / Volume Laterality Blood specimen 10/29/2017 3:10 AM 018 3:15 (specimen) EST AM EST Resulting Agency Comment Spec In Lab Ami Perdomo MD CHEMISTRY ORDERABLES Performing Organization Address City/State/[place] [address] SCAN DOC: JUNIOR LOAN PROCESSOR (10/04/2017 12:00 AM EST) Narrative 10/04/2017 12:00 AM EST This result has an attachment that is no t available. Ordered by an unspecified provider. Scanning Provider MEDIA MGR SCAN EXT ORDR/RSLT documented in this encounter Visit Diagnoses Diagnosis Achalasia Achalasia and cardiospasm Achalasia Achalasia and cardiospasm Dysphagia, unspecified type documented in this encounter Administered Medications Inactive Administered Medications - up to 3 most recent administrations Medication Order MAR Action Action Date Dose Rate Site acetaminophen (OFIRMEV) Given 10/29/2017 5:36 AM 1,000 mg 400 mL/hr injection 1,000 mg EST 1,000 mg, Intravenous, at 400 mL/hr, EVERY 6 HOURS SCHEDULED, 4 doses, First dose on Jillian 10/28/17 at 2015, Last dose on Wed10/29/17 at 1200, Maximum dose of acetaminophen is 4000 mg from all sources in 24 hours., Recovery (Recovery-Hospital Unit), Routine Given 10/29/2017 12:22 AM EST 1,000 mg 400 mL/hr Given 10/28/2017 7:59 PM EST 1,000 mg 400 mL/hr acetaminophen (TYLENOL) 650 mg/20.3 mL oral Given 10/29/2017 2:50 PM EST 650 mg liquid 650 mg 650 mg, Oral, EVERY 4 HOURS, First dose on Wed10/29/17 at 1100, Until Discontinued, Maximum dose of acetaminophen is 4,000 mg from all sources in 24 hours., Routine Given 10/29/2017 11:54 AM EST 650 mg aspirin chewable tablet 81 mg Given 10/29/2017 8:18 AM EST 81 mg 81 mg, Oral, DAILY, First dose on Wed10/29/17 at 0900, Until Discontinued, Routine heparin (Porcine) subcutaneous injection Given 3:59 PM EST 5,000 Units 5,000 Units 5,000 Units, Subcutaneous, ONCE, 1 dose, On Jillian 10/28/17 at 1415, Day of Surgery (Day of Procedure), Routine heparin (Porcine) subcutaneous injection Given 8:18 AM EST 5,000 Units 5,000 Units 5,000 Units, Subcutaneous, EVERY 8 HOURS SCHEDULED, First dose on Jillian 10/28/17 at 2215, Until Discontinued, Recovery (Recovery-Hospital Unit), Routine Given 10/29/2017 12:22 AM EST 5,000 Units hydroCHLOROthiazide (HYDRODIURIL) tablet 50 Given 10/29/2017 10:02 AM EST 50 mg mg 50 mg, Oral, DAILY, First dose on Wed10/29/17 at 0900, Until Discontinued, CRUSH, Routine HYDROmorphone (DILAUDID) injection Given 10/28/2017 9:38 PM EST 0.2 mg Left Arm 0.2-0.4 mg 0.2-0.4 mg, Intravenous, EVERY 5 MIN PRN, Starting on Jillian 10/28/17 at 1910, Until Wed10/28/17 at 2152, Pain, Give 0.2 mg every 5 minutes PRN for mild to moderate pain (1-5) Give 0.4 mg every 5 minutes PRN for moderate to severe pain (6-10). Hold for respiratory rate less than 10 per minute. Maximum dose 4 mg over one hour. If multiple pain medications are ordered, start with hydromorphone or morphine and use fentanyl for breakthrough pain., PACU Recovery, Routine iohexol (OMNIPAQUE) 350 mg/mL solution 0 -200 mL 0-200 mL, Intravenous, ONCE PRN, 1 dose, Starting on Jillian 10/28/17 at 2156, Until Wed10/29/17 at 1717, Per Protocol, Warning Vesicant/Irritant Medication , Radiology Contrast, Routine lactated Ringers infusion New Bag 10/28/2017 8:04 PM EST 90 mL/hr 90 mL/hr 90 mL/hr, Intravenous, CONTINUOUS, Starting on Jillian 10/28/17 at 2015, Until Wed10/29/17 at 1034, Recovery (Recovery-Hospital Unit) lidocaine (XYLOCAINE) 10 mg/mL (1 %) inj [...] Scheduled Medication Order 10/27/2017 10/28/2017 10/29/2017 acetaminophen (OFIRMEV) injection 1,000 mg (CANCELED) 1958 (Given - Provider: Ángela Thapa, ONEL) 0022 (Given - Provider: Anna Lion, ONEL)0536 (Given - Provider: Anna Lion, ONEL) [...] Porsha Estrada, RN)1450 (Given - Provider: Porsha Estrada, RN) 650 mg, Oral, EVERY 4 HOURS, First dose on Wed10/29/17 at 1100, Until Discontinued, Maximum dose of acetaminophen is 4,000 mg from all sources in 24 hours., Routine aspirin chewable tablet 81 mg 05 14 (Given - Provider: Viki Tobin, RN) 81 mg, Oral, DAILY, First dose [...] (COMPLE MARSHALL) 1559 (Given - Provider: Susana Etienne, RN) 5,000 Units, Subcutaneous, ONCE, 1 dose, Jillian 10/28/17 at 1415, Day of Surgery (Day of Procedure), Routine heparin (Porcine) subcutaneous injection 5,000 Units 0022 (Given - Provider: Anna Lion, ONEL)0818 (Given - Provider: Viki Tobin RN) 5,000 [...] CRUSH, Routine pantoprazole (PROTONIX) injection 40 mg 0818 (Given - Provider: Viki Tobin RN) 40 mg, Intravenous, DAILY, First dose on Wed10/29/17 at 0900, Until Discontinued sodium chloride 0.9 % flush 5 mL 0022 (Given - Provider: Anna Lion RN)0825 (Given - Provider: Viki Tobin RN) 5 mL, Intravenous, 2 TIMES DAILY, First dose on Jillian 10/28/17 at 2215, Until Discontinued, Recovery (Recovery-Hospital Unit), Routine Continuous Medication Order 10/27/2017 10/28/2017 10/29/2017 lactated Ringers infusion (CANCELED) 200 4 (New Bag - Provider: Ángela Thapa, ONEL) 1156 (Stopped - Provider: Porsha M Schwa rtz, RN) 90 mL/hr, at 90 mL/hr, Intravenous, CONT INUOUS, Starting Jillian 10/28/17 at 2015, Until Wed10/29/17 at 1034, Recovery (Recovery-Hospital Unit) PRN Medication Order 10/27/2017 10/28/2017 10/29/2017 BUpivacaine (PF) (MARCAINE) 0.25 % (2.5 mg/mL) injection (CA NCELED) 1913 (Given - Provider: Jasmina Gillespie MD) ONCE PRN, Starting Jillian 10/28/17 at 191, U ntil Wed10/29/17 at 1717, Intra-Operative (Intra-Procedure), Routine HYDROmorphone (DILAUDID) injection 0.2-0.4 mg (CANCELED) 2137 (Given - Provider: Ángela Thapa RN) 0.2-0.4 mg, Intravenous, EVERY 5 MIN PRN , Starting Jillian 10/28/17 at 1910, Until Jillian 10/28/17 at 2151, Pain, Give 0.2 mg every 5 minutes [...] Routine documented in this encounter Care Teams Desk Interviewer Relationship Specialty Start Date End Date Nanci Gomez MD PCP - General 08/19/10 [address] [place] [address] documented as of this encounter
--- OUTSIDE RECORDS SUMMARY | 2022-04-16 02:01 | XMS_ITS | Encounter Summary ---
:1945 Author Organization [facility] [place] [address] Care Team Providers Name Role Phone Nanci Gomez MD Primary Care Provider Reason for Referral Diagnostic Test (Routine) - Closed Specialty Diagnoses / Procedures Referred By Contact Refer red To Contact Radiology Diagnoses Dysphagia, unspecified type Ever Orourke MD Procedures XR Fluoro Barium Swallow [facility] [place] [address] Referral ID Status Reason Start Date Expiration Date Visits V isits Requested Authorized [id number] Closed Specialty 06/17/2017 06/17/2018 1 1 Service Requested Encounter Details Date Type Department Care Team Description 06/17/2017 Orders Only Gastroenterology at [facility] Ever Orourke Dysphagia, [facility] Lucretia [place] [address] [facility] [phone] [address] [place] [id number] Social History Tobacco Use Types Packs/Day Years Used Date Never Smoker Alcohol Use Standard Drinks/Week Comments No 0 (1 standard drink = 0.6 oz pure alcoho l) Sex Assigned at Date Recorded Not on file documented as of this encounter Plan of Treatment Upcoming Encounters Date Type Specialty Care Team Description 05/14/2022 Hospital Encounter Gastroenterology Evelyn Michel MD [facility] GASTROENTEROLOGY DEPT. [place], [place] [address] 05/14/2022 Surgery Gastroenterology Evelyn Michel, EGD, U PPER GI MD ENDOSCOPY [facility] GASTROENTEROLOGY DEPT. [place], [place] [address] 05/28/2022 Appointment Pulmonology Scheduled Procedures Name Priority Associated Diagnoses Date/Time EGD, UPPER GI ENDOSCOPY Achalasia 05/14/2022 2:30 PM EDT Dysphagia, unspecified type COLONOSCOPY, DIAGNOSTIC Achalasia 05/14/2022 2:30 PM EDT Dysphagia, unspecified type documented as of this encounter Results XR [...] question ac halasia on esophageal manmetry TECHNIQUE: Dental Assistant Teacher images were obtained. The patient was then [...] question ac halasia on esophageal manmetry TECHNIQUE: Dental Assistant Teacher images were obtained. The patient was then [...] encounter Visit Diagnoses Diagnosis Dysphagia, unspecified type Dysphagia, unspecified type Achalasia Achalasia and cardiospasm Dysphagia, unspecified type documented in this encounter Care Teams Technology Administrator Relationship Specialty Start Date End Date Nanci Gomez MD PCP - General 08/19/10 [address] [place] [address] documented as of this encounter
--- OUTSIDE RECORDS SUMMARY | 2022-04-16 02:01 | XMS_ITS | Encounter Summary ---
:1945 Author Organization [facility] [place] [address] Care Team Providers Name Role Phone Nanci Gomez MD Primary Care Provider Reason for Visit Reason Onset Date Comments Prior Authorization 12/20/2018 Encounter Details Date Type Department Care Team Description 12/20/2018 Telephone Gastroenterology at [place] Mary Gaston Prior Authorization [facility] [place] [phone] Social History Tobacco Use Types Packs/Day Years Used Date Never Smoker Smokeless Tobacco: Never Used Alcohol Use Standard Drinks/Week Comments No 0 (1 standard drink = 0.6 oz pure alcoho l) Sex Assigned at Date Recorded Not on file documented as of this encounter Miscellaneous Notes Telephone Encounter - Darling Ann CMA - 02/02/2019 3:46 PM EDT I received a fax stating that member's dispensing pharmacy is using an NDC that is not FDA approved and therefore, not eligible for coverage under Medicare Part D. Telephone Encounter - Chilo Villasenor RN - 12/23/2018 11:11 AM EDT Lizett calls the office leaving a message on the RN voicemail stating that the Hyoscyamine is nota covered medication and insurance would like either Dicyclomine or Glycopyrrolate which are coveredmedications. Will forward to Shu Preciado APRN to advise. Telephone Encounter - Mary Gaston LNA - 12/20/2018 3:38 PM EDT Medication Prior Authorization 4L Gastroenterology / [place] [address] Subscriber Insurance: [facility] Phone: Fax: Insurance ID: Physician: Shu Preciado NPI: Return Pharmacy: [facility] Phone: Fax: Medication Requested: Hyoscyamine Sulfate Strength: 0.125mg Frequency: Take 1 table by mouth every 4 hours as needed Disp.: 90 Refills:0 Currently taking: Diagnosis for this medication: Achalasia, Dysphagia ICD-10 code: (K22.0) (R12.10) Prior medications trialed in this patient: Medication: Outcome/Adverse Reactions: Decision: Pending Tracking number/Case number/Reference number: Effective date: Start: End: documented in this encounter Plan of Treatment Upcoming Encounters Date Type Specialty Care Team Description 05/14/2022 Hospital Encounter Gastroenterology Evelyn Michel MD [facility] DR GASTROENTEROLOGY DEPT. [place], [place] [address] 05/14/2022 Surgery Gastroenterology Evelyn Michel, EGD, U PPER GI MD ENDOSCOPY [facility] GASTROENTEROLOGY DEPT. [place], [place] [address] 05/28/2022 Appointment Pulmonology Scheduled Procedures Name Priority Associated Diagnoses Date/Time EGD, UPPER GI ENDOSCOPY Achalasia 05/14/2022 2:30 PM EDT Dysphagia, unspecified type COLONOSCOPY, DIAGNOSTIC Achalasia 05/14/2022 2:30 PM EDT Dysphagia, unspecified type documented as of this encounter Visit Diagnoses Not on filedocumented in this encounter Care Teams Naval Aircrewman Tactical Helicopter Relationship Specialty Start Date End Date Nanci Gomez MD PCP - General 08/19/10 [address] [place] [address] documented as of this encounter
--- OUTSIDE RECORDS SUMMARY | 2022-04-16 02:02 | XMS_ITS | Encounter Summary ---
:1945 Author Organization [facility] [place] [address] Care Team Providers Name Role Phone Nanci Gomez MD Primary Care Provider Encounter Details Date Type Department Care Team Description 06/28/2015 Hospital Encounter Mammography at [facility] Nanci Gomez Breast screening [facility] MD [facility] [address] [place] [id number] [place], [place] [phone] Social History Tobacco Use Types Packs/Day Years Used Date Never Assessed Alcohol Habits Answer Date Recorded How often do you have a drink containing alcohol? Not asked How many drinks containing alcohol do you have on a Not aske d typical day when you are drinking? How often do you have six or more drinks on one occasion? No t asked Comment: occasionally 05/06/2012 Sex Assigned at Date Recorded Not on file documented as of this encounter Medications at Time of Discharge Medication Sig Dispensed Refills Start Date End Date hydrochlorothiazide 0 04/22/2007 (HYDRODIURIL) 50 mg tablet fexofenadine (CHANTAL) 60 mg 0 007 tablet cyanocobalamin, vitamin B-12, Take 100 mcg by 0 10/27/2017 100 mcg tablet mouth daily. raloxifene (EVISTA) 60 mg 0 04/22/2007 07/22/2017 tablet documented as of this encounter Plan of Treatment Upcoming Encounters Date Type Specialty Care Team Description 05/14/2022 Hospital Encounter Gastroenterology Evelyn Michel MD [facility] GASTROENTEROLOGY DEPT. [place], [place] [address] 05/14/2022 Surgery Gastroenterology Evelyn Michel, EGLucretia, U PPER GI MD ENDOSCOPY [facility] GASTROENTEROLOGY DEPT. [place], [place] [address] 05/28/2022 Appointment Pulmonology Scheduled Procedures Name Priority Associated Diagnoses Date/Time EGD, UPPER GI ENDOSCOPY Achalasia 05/14/2022 2:30 PM EDT Dysphagia, unspecified type COLONOSCOPY, DIAGNOSTIC Achalasia 05/14/2022 2:30 PM EDT Dysphagia, unspecified type documented as of this encounter Procedures Procedure Name Priority Date/Time Associated Diagnosis Comme nts MAMMO 2D DIGITAL Routine 06/28/2015 11:29 AM Breast screening Results for this SCREEN LEOPOLDO EDT procedure are i n BILATERAL the results section. documented in this encounter Results Mammo Screen Leopoldo 2D Bilateral (06/28/2015 11:29 AM EDT) Anatomical Region Laterality Modality Breast Bilateral Mammography Specimen (Source) Anatomical Location Collection Method / Collectio n Time Received Time / Laterality Volume Narrative 07/01/2015 12:43 PM EDT BILATERAL MAMMOGRAPHY REASON FOR EXAM: Screening TECHNIQUE: CC and MLO views were obtaine d of each breast using standard 2-D mammography as well as 3-D tomosynth esis. Computer aided detection was used. There are no prior images for comp arison. FINDINGS: ??The breasts are almost entir anjum fatty. There are no suspicious microcalcifications, masses, or areas of distortion. CONCLUSION: No mammographic evidence of malignancy. RECOMMENDATION: Routine screening mammog lex is recommended with the frequency dependent on the patient? s age, breast cancer risk factors and preference. Additional studies may be re commended for women with higher than average risk for breast cancer. A result letter has been sent to this pa hermelinda [facility]. BIRADS CATEGORY 1: NEGATIVE Nanci Gomez MD IMG MAMMO ORDERABLES documented in this encounter Visit Diagnoses Diagnosis Breast screening (Not by Mammogram) Breast screening, unspecified Achalasia Achalasia and cardiospasm Dysphagia, unspecified type documented in this encounter Care Teams Claims Account Specialist Relationship Specialty Start Date End Date Nanci Gomez MD PCP - General 08/19/10 [address] [place] [address] documented as of this encounter
--- OUTSIDE RECORDS SUMMARY | 2022-04-16 02:02 | XMS_ITS | Encounter Summary ---
:1945 Author Organization [facility] [address] Care Team Providers Name Role Phone Nanci Gomez MD Primary Care Provider Encounter Details Date Type Department Care Team Description 04/15/2017 Hospital Encounter Gastroenterology at [facility] Ever Orourke [facility] [place] [address] [facility] [phone] GASTROENTEROLOGY [place] [id number] (Wo rk) Social History Tobacco Use Types Packs/Day Years Used Date Never Smoker Alcohol Use Standard Drinks/Week Comments No 0 (1 standard drink = 0.6 oz pure alcoho l) Sex Assigned at Date Recorded Not on file documented as of this encounter Last Filed Vital Signs Vital Sign Reading Time Taken Comments Blood Pressure 149/67 04/15/2017 6:34 PM EDT Pulse 64 04/15/2017 6:10 PM EDT Temperature - - Respiratory Rate 16 04/15/2017 6:10 PM EDT Oxygen Saturation 98% 04/15/2017 6:34 PM EDT Inhaled Oxygen Concentration - - Weight 90.7 kg (200 lb) 04/15/2017 4:15 PM EDT Height - - Body Mass Index 28.7 05/06/2012 9:33 AM EDT documented in this encounter Discharge Instructions Discharge InstructionsShirley Guzman RN - 04/15/2017 6:15 PM EDT UPPER GI ENDOSCOPY with biopsies WHAT TO EXPECT AFTER THE PROCEDURE Medications You may have a mild sore throat. Ice chips, popsicles, over the counter throat lozenges or spray may help numb your throat. This procedure should not cause a fever. Call your healthcare provider or seek immediate medical attention if: You have trouble swallowing. You have belly pain. Your stools are black or tarlike or have streaks of blood. You are sick to your stomach or cannot keep fluids down. Watch closely for changes in your health, and be sure to contact your doctor IF Your throat still hurts after a day or two You do not get better as expected. Colonoscopy and polyp removal What to expect after the procedure You may feel a little more gassy or bloated than usual, this is normal. You should expect the return of normal bowel function in the next 2 to 3 days. Because some polyps were removed, you may see a little blood with the next few bowel movements, this should be a small amount ( less than a few tablespoons) and will resolve on it's own. ACTIVITY Because of the sedation that you received Your judgement and reaction time are effected ?? Go home and rest for the remainder for the day. You may resume your normal activities tomorrow ?? Change from one position to the next slowly because you may lose your balance unexpectedly. ?? Be careful on stairs, as you may be unsteady. FOR THE NEXT 24 HRS ?? DO NOT DRIVE OR OPERATE MACHINERY ?? DO NOT DRINK ALCOHOLIC BEVERAGES ?? DO NOT SIGN LEGAL DOCUMENTS ?? If you are a smoker: DO NOT SMOKE WHILE YOU ARE ALONE Diet ?? Start by eating small portions of foods that ordinarily will not upset your stomach, avoid gas producing foods for the next few days. ?? Be gentle with what you choose to start with ?? Drink plenty of fluids ( unless your doctor has told you not to). Medicines Avoid medicines that influence the way your blood clots for the next week. These would include anti-inflammatory medicine, such as ibuprofen( Advil, Motrin) and naproxen ( Aleve). If you need something for discomfort, Tylenol (Acetaminophen) is safe if used as directed. Your Doctor will tell you whento restart your prescribed blood thinners The IV site-- slight tenderness, or redness is normal, you can use warm compresses if you get concerned. If the tenderness +/or redness increases or foul drainage and a red streak occurs, please contact your PCP immediately. When should you call for help? Call 911 anytime you think you may need emergency care. For example If you pass out (loss of consciousness) If you pass maroon or bloody stools If you have severe belly pain Call your healthcare provider or seek immediate medical care if: Your stools are black or tar like Your stools have streaks of blood that is more pronounced with each BM You have belly pain, or your belly is swollen and firm You vomit You have a fever You are very dizzy Watch closely for changes in your health, and be sure to contact your doctor if you have any problems. Your Doctor will let you know when you will need your next colonoscopy. The results of your test andyour risk for colorectal cancer will help your doctor decide how often you need to be checked. Wednesday-Wednesday Same Day Endo [phone] 7a-8p Otherwise contact [phone] and ask to speak to the multiple drum sander emission specialist Follow up care is a womack part of your treatment and safety. Be sure to make and go to all appointments, and call your doctor if you are having problems. Discharge instructions reviewed with patient who expresses understanding documented in this encounter Medications at Time of Discharge Medication Sig Dispensed Refills Start Date End Date hydrochlorothiazide 0 04/22/2007 (HYDRODIURIL) 50 mg tablet fexofenadine (CHANTAL) 60 mg 0 007 tablet cyanocobalamin, vitamin B-12, Take 100 mcg by 0 10/27/2017 100 mcg tablet mouth daily. raloxifene (EVISTA) 60 mg 0 04/22/2007 07/22/2017 tablet documented as of this encounter H&P Notes Ever Orourke MD - 04/15/2017 5:01 PM EDT Patient Name: Ivis Laureano Patient Age: 71 y.o. Birthdate: 1945 Admit date: 04/15/2017 Attending Physician: Ever Orourke MD Gastroenterology & Hepatology Pre-Procedure History and Physical Planned Procedure: EGD: Colonoscopy: Indication: anemia, VALERIA Medications: Reviewed in EDH No Known Allergies Social History/Family History: Reviewed in EDH. No changes Exam: Vitals: 04/15/17 1613 BP: 150/83 Pulse: 82 Resp: 18 GEN: NAD, AAOX3 HEENT: NC/AT dryMM, anicteric Chest: CTAB Heart: RRR, nl s1, s2 Abdomen: normal bowel sounds, soft, non tender Assessment and Plan: Proceed with EGD: Colonoscopy: ASA Grade: ASA 2 - Patient with mild systemic disease with no functional limitations Mallampati: II (soft palate, uvula, fauces visible) Sedation plan: Moderate Conscious sedation Risks and benefits of the procedure were discussed with the patient. Consent has been signed. documented in this encounter Plan of Treatment Upcoming Encounters Date Type Specialty Care Team Description 05/14/2022 Hospital Encounter Gastroenterology Evelyn Michel MD [facility] DR GASTROENTEROLOGY DEPT. [place], [place] [address] 05/14/2022 Surgery Gastroenterology Evelyn Michel, EGD, U PPER GI ENDOSCOPY [facility] GASTROENTEROLOGY DEPT. [place], [place] [address] 05/28/2022 Appointment Pulmonology Scheduled Procedures Name Priority Associated Diagnoses Date/Time EGD, UPPER GI ENDOSCOPY Achalasia 05/14/2022 2:30 PM EDT Dysphagia, unspecified type COLONOSCOPY, DIAGNOSTIC Achalasia 05/14/2022 2:30 PM EDT Dysphagia, unspecified type documented as of this encounter Procedures Procedure Name Priority Date/Time Associated Comments Diagnosis SURGICAL PATHOLOGY Routine 04/15/2017 6:05 Result s for this REPORT PM EDT procedure are i n the results section. SPECIMEN TO PATHOLOGY Routine 04/15/2017 6:05 Res ults for this PM EDT procedure are i n the results section. SPECIMEN TO PATHOLOGY Routine 04/15/2017 6:05 Res ults for this PM EDT procedure are i n the results section. SPECIMEN TO PATHOLOGY Routine 04/15/2017 6:05 Res ults for this PM EDT procedure are i n the results section. UPPER GASTROINTESTINAL 04/15/2017 5:06 VALERIA ENDOSCOPY,WITH BIOPSY PM EDT SINGLE OR MULTIPLE (WRVU 2.49) COLONOSCOPY, DIAGNOSTIC 04/15/2017 5:06 VALERIA PM EDT UPPER GI ENDOSCOPY Routine 04/15/2017 4:57 Result s for this PM EDT procedure are i n the results section. COLONOSCOPY Routine 04/15/2017 4:57 Results for this PM EDT procedure are i n the results section. documented in this encounter Results Surgical Pathology Report (04/15/2017 6:05 PM EDT) Component Value Ref Test Analysis Performed At [facility] Range Method Time Signature Surgical [id number] ?Location: 4T; EA06; A [facility] Pathology [place] Report The signing pathologist has (i) examined the relevant preparation(s) for the MEMORIAL specimen(s) and (ii) rendered or confirmed the diagnosis(es) . HOSPITAL LABORATORY . ?Surgic al Pathology DIAGNOSIS A - Duodenum, ??biopsy: Duodenal mucosa within papo l limits, including preserved villous architecture. B - Cecum, ??polypectomy: Tubular adenoma. C - Ascending colon, ?? polypectomy: Sessile serrated adenoma/polyp. [id number] Electronically signed by: ??Familia Borrego MD Verified: ??04/19/2017 ?Pathologist CLINICAL INFORMATION Specimen Submitted: A - Duodenum: normal mucosa B - Cecum: polyp C - Ascending colon polyp Clinical History: Anemia Clinical Diagnosis: Same SPECIMEN PROCESSING A - Labeled/Fixative: Duodenum, formalin. Quantity/Size: Five, averaging 0.4 cm. Tissue Description: ??Soft, bryan-pink tissue ??. Sections/Processing: (T1) B - Labeled/Fixative: Cecum: Polyp, formalin. Quantity/Size: Single, 0.5 cm. Tissue Description: ??Soft, yellow-bryan tissue ??. Sections/Processing: (T1) C - Labeled/Fixative: Ascending colon polyp, formalin. Quantity/Size: Single, 1.3 cm. Tissue Description: Irregular, polypoid pink-bryan tissue. Sections/Processing: (T1) ??ejr Specimen (Source) Anatomical Collection Method Collection Time Re ceived Time Location / / Volume Laterality 04/15/2017 6:05 PM EDT Ever Orourke MD PATHOLOGY/CYTOLOGY ORDERABLE S Performing Organization Address City/[facility]/ZIP [place] [address] Specimen to Pathology (surgical or derm) (04/15/2017 6:05 PM EDT) Specimen Anatomical Collection Method Collection Time Receive d Time (Source) Location / / Volume Laterality AP Specimen 04/15/2017 6:05 PM 7 6:05 EDT PM EDT Narrative [facility] - 04/15/2017 6:05 PM EDT Specimen requisition ordered. ??Separate Pathology report to follow Ever Orourke MD PATHOLOGY/CYTOLOGY ORDERABLE S Performing Organization Address City/[facility]/ZIP [place] [address] Specimen to Pathology (surgical or derm) (04/15/2017 6:05 PM EDT) Specimen Anatomical Collection Method Collection Time Receive d Time (Source) Location / / Volume Laterality AP Specimen 04/15/2017 6:05 PM 7 6:05 EDT PM EDT Narrative [facility] - 04/15/2017 6:05 PM EDT Specimen requisition ordered. ??Separate Pathology report to follow Ever Orourke MD PATHOLOGY/CYTOLOGY ORDERABLE S Performing Organization Address City/[facility]/ZIP [facility] [place] [address] Specimen to Pathology (surgical or derm) (04/15/2017 6:05 PM EDT) Specimen Anatomical Collection Method Collection Time Receive d Time (Source) Location / / Volume Laterality AP Specimen 04/15/2017 6:05 PM 7 6:05 EDT PM EDT Narrative [facility] - 04/15/2017 6:05 PM EDT Specimen requisition ordered. ??Separate Pathology report to follow Ever Orourke MD PATHOLOGY/CYTOLOGY ORDERABLE S Performing Organization Address City/State/ZIP [place] [address] UPPER GI ENDOSCOPY (04/15/2017 4:57 PM EDT) [facility] Method Time Signature UPPER GI [facility] ENDOSCOPY Endoscopy Procedure Date: 04/15/2017 4:57 PM ? Patient Name: Ivis Laureano ? N: [id number] ? Date of : 1945 ? Age: 71 ? Order #: [id number] ? Instrument Name: [id number] ? Procedure: ? Upper GI endoscopy Indications: ? Iron deficiency anemia Patient Profile: ? This is a 71 year old female. Refer ? to note in patient chart for ? documentation of history and physical. Providers: ? Ever Orourke MD, Viridiana arora, ? RN, Ankit Ellison, Travel Director Referring MD: ?Nanci Gomez MD Medicines: ? Midazolam 3 mg IV, Fentanyl 150 ? micrograms IV Complications: ? No immediate complications. Procedure: ? [...] or antiplatelet agents. ? ASA Grade Assessment: II - A patient ? with mild systemic disease. A fter ? reviewing the risks and benef its, [...] reactions. The ? Endoscope was introduced thro h the ? mouth, and advanced to the ird part ? of duodenum. The patient tole rated ? the procedure well. The upper GI ? endoscopy was accomplished wi out ? difficulty. The patient driss ated the ? procedure well. ? Findings: ? Increased motility was noted in the distal esophagus. ? Tertiary peristaltic waves are noted. The esophagus ? was otherwise normal. ? The Z-line was regular and was found 40 cm from the ? incisors. Biopsies were taken with a cold forceps for ? histology. ? The stomach was normal. ? The examined duodenum was normal. Biopsies for ? histology were taken with a cold forceps for ? evaluation of celiac disease. ? Moderate Sedation: ? I was present during the intraservice time as ? documented by the sedation RN. Impression: ?- Abnormal esophageal motility, ? suspicious for presbyesophagu s. ? - Z-line regular, 40 cm from the ? incisors. ? - Normal stomach. ? - Normal examined duodenum. B iopsied. Recommendation: ?- Await pathology results. ? - Proceed with colonoscopy. ? - Recommend Esophageal Manome try. ? Addendum: After reviewing nor mal ? findings with Ms. Laureano she ? mentioned some trouble filiberto wing ? certain foods. Given some ter tiary ? contractions in the esophagus I ? recommend esophageal manometr y and ? pending findings consider Ref erral to ? GI Motility clinic. She will ? follow-up with her PCP. ? Attending Participation: ? I personally performed the entire procedure. ? I was present during the intraservice time as ? documented by the sedation RN. ? Dr. Dagoberto Orourke Ever Orourke MD 04/15/2017 6:05:15 PM Number of Addenda: 0 Note Initiated On: 04/15/2017 4:57 PM Specimen (Source) Anatomical Collection Method Collection Time Re ceived Time Location / / Volume Laterality 04/15/2017 4:57 PM EDT Nanci Gomez MD GENERAL SURGICAL ORDERABLES Performing Organization Address City/State/ZIP Code Phon e Number [facility] COLONOSCOPY (04/15/2017 4:57 PM EDT) [facility] Method Time Signature COLONOSCOPY [facility] Endoscopy Procedure Date: 04/15/2017 4:57 PM ? Patient Name: Ivis Laureano ? Date of : 1945 ? Age: 71 ? Order #: [id number] ? Instrument Name: [facility] [id number] ? Procedure: ? Colonoscopy Indications: ? Screening for colorectal malignant ? neoplasm Patient Profile: ? This is a 71 year old female. Refer ? to note in patient chart for ? documentation of history and physical. Providers: ? Ever Orourke MD, Viridiana arora, ? RN, Ankit Ellison, Travel Director Referring : ?Nanci Gomez MD Medicines: ? Midazolam 2 mg IV, Fentanyl 75 ? micrograms IV, See the other ? procedure note for documentat ion of ? the administered medications Complications: ? No immediate complications. Procedure: ? [...] or antiplatelet agents. ? ASA Grade Assessment: II - A patient ? with mild systemic disease. A fter ? reviewing the risks and benef its, [...] and ? adverse medication reactions. The ? patient was placed in the lef t ? lateral decubitus position, a nd a ? digital rectal exam was perfo rmed. ? The Colonoscope was inserted in the ? anus and under direct visuali zation, ? advanced to 10 cm into the il eum. ? Careful inspection was made a s the ? colonoscope was withdrawn. Th e ? colonoscopy was performed wit jolanta ? difficulty. The patient driss ated the ? procedure well. The quality o f the ? bowel preparation was evaluat ed using ? the BBPS ([place] Bowel Prepar ation ? Scale) with scores of: Right Colon = ? 3, Transverse Colon = 3 and L eft ? Colon = 3 (entire mucosa seen well ? with no residual staining, sm all ? fragments of stool or opaque liquid). ? The total BBPS score equals 9 . The ? terminal ileum, ileocecal karina ve, ? appendiceal orifice, and rect um were ? photographed. Scope withdrawa l time ? was 15 minutes. ? Findings: ? The perianal and digital rectal examinations were ? normal. ? Scattered small-mouthed diverticula were found in the ? sigmoid colon and descending colon. ? A 9 mm polyp was found in the ascending colon. The ? polyp was sessile. The polyp was removed with a cold ? snare. Resection and retrieval were complete. ? A 8 mm polyp was found in the cecum. The polyp was ? sessile. The polyp was removed with a cold snare. ? Resection and retrieval were complete. ? The exam was otherwise without abnormality on direct ? and retroflexion views. ? Moderate Sedation: ? I was present during the intraservice time as ? documented by the sedation RN. Impression: ?- Scattered mild diverticulosis in ? the sigmoid colon and in the ? descending colon. ? - One 9 mm polyp in the ascen ding ? colon, removed with a cold sn are. ? Resected and retrieved. ? - One 8 mm polyp in the cecum , ? removed with a cold snare. Re sected ? and retrieved. ? - The examination was otherwi se ? normal on direct and retrofle xion ? views. ? - There is no cause of anemia found ? on colonoscopy or upper endos copy. Recommendation: ?- Await pathology results. ? - Repeat colonoscopy date to be ? determined after pending path ology ? results are reviewed for surv eillance. ? Attending Participation: ? I personally performed the entire procedure. ? I was present during the intraservice time as ? documented by the sedation RN. ? Dr. Dagoberto Orourke Ever Orourke MD 04/15/2017 6:17:15 PM Number of Addenda: 0 Note Initiated On: 04/15/2017 4:57 PM Specimen (Source) Anatomical Collection Method Collection Time Re ceived Time Location / / Volume Laterality 04/15/2017 4:57 PM EDT Nanci Gomez MD GENERAL SURGICAL ORDERABLES Performing Organization Address City/State/ZIP Code Phon e Number [facility] documented in this encounter Visit Diagnoses Not on filedocumented in this encounter Administered Medications Inactive Administered Medications - up to 3 most recent administrations Medication Order MAR Action Action Date Dose Rate Site lactated Ringers infusion New Bag 04/15/2017 4:30 PM EDT 100 mL/hr 100 mL/hr 100 mL/hr, Intravenous, CONTINUOUS, Starting on Jillian 04/15/17 at 1630, Until Jillian 04/15/17 at 2125, Endoscopy (Day of Procedure) documented in this encounter Active and Recently Administered Medications Times are shown in EDT. Continuous Medication Order 04/13/2017 04/14/2017 04/15/2017 lactated Ringers infusion 1630 ( New Bag - Provider: Rosa Castro RN) 100 mL/hr, at 100 mL/hr, Intravenous, CO NTINUOUS, Starting Jillian 04/15/17 at 1630, Until Jillian 04/15/17 at 2125, Endo (Day of Procedure) PRN Medication Order 04/13/2017 04/14/2017 04/15/2017 fentaNYL 50 mcg/mL multi-dose injection (CANCELED) 1710 (Given - Provider: Viridiana Dahl RN)1714 (Given - Provider: Viridiana Dahl RN)1718 (Given - Provider: Viridiana Dahl RN)1731 (Given - Provider: Viridiana Dahl RN)1737 (Given - Provider: Viridiana Dahl RN) ONCE PRN, Starting Jillian 7 at 1710, Until Jillian 04/15/17 at 2125, Intra- Operative (Intra-Procedure), Routine midazolam (PF) (VERSED) 1 mg/mL multi-dose injection (CANCELED) 1710 (Given - Provider: Viridiana Dahl RN)1714 (Given - Provider: Viridiana Dahl RN)1718 (Given - Provider: Viridiana Dahl, ONEL)1731 (Given - Provider: Viridiana Dahl RN)1737 (Given - Provider: Viridiana Dahl RN) ONCE PRN, Starting Jillian 717 at 1710, Until Jillian 17 at 2125, Intra- Operative (Intra-Procedure), Routine documented in this encounter Care Teams Sr. Strategic Sourcing Manager Relationship Specialty Start Date End Date Nanci Gomez MD PCP - General 08/19/10 [address] [place] [address] documented as of this encounter
--- OUTSIDE RECORDS SUMMARY | 2022-04-16 02:02 | XMS_ITS | Encounter Summary ---
:1945 Author Organization [facility] [place] [address] Care Team Providers Name Role Phone Nanci Gomez MD Primary Care Provider Reason for Visit Surgical (Routine) - Closed Specialty Diagnoses / Procedures Referred By Contact Refer red To Contact Gastroenterology Diagnoses Occasional difficulty swallowing Ever [place], [facility] [place] Procedures HIGH RESOLUTION ESOPHAGEAL MANOMETRY HREM [facility] [place] [address] Referral ID Status Reason Start Date Expiration Date Visits V isits Requested Authorized [id number] Closed Test Only 05/03/2017 05/03/2018 1 1 Encounter Details Date Type Department Care Team Description 05/28/2017 Procedure visit Gastroenterology at [facility] [place] Dysphagia, [facility] [place]cret[place] [address] Social History Tobacco Use Types Packs/Day Years Used Date Never Smoker Alcohol Use Standard Drinks/Week Comments No 0 (1 standard drink = 0.6 oz pure alcoho l) Sex Assigned at Date Recorded Not on file documented as of this encounter Progress Notes Zully Gusman RN - 05/28/2017 1:00 PM EDT HREM catheter placed via let naris without difficulty. Patient tolerated procedure well. documented in this encounter Plan of Treatment Upcoming Encounters Date Type Specialty Care Team Description 05/14/2022 Hospital Encounter Gastroenterology Evelyn Michel MD [facility] GASTROENTEROLOGY DEPT. [place], [place] [address] 05/14/2022 Surgery Gastroenterology Evelyn Michel, EGD, U PPER GI MD ENDOSCOPY [facility] GASTROENTEROLOGY DEPT. [place], [place] [address] 05/28/2022 Appointment Pulmonology Scheduled Procedures Name Priority Associated Diagnoses Date/Time EGD, UPPER GI ENDOSCOPY Achalasia 05/14/2022 2:30 PM EDT Dysphagia, unspecified type COLONOSCOPY, DIAGNOSTIC Achalasia 05/14/2022 2:30 PM EDT Dysphagia, unspecified type documented as of this encounter Visit Diagnoses Diagnosis Dysphagia, unspecified type Achalasia Achalasia and cardiospasm Dysphagia, unspecified type documented in this encounter Care Teams High School Sports Coach Relationship Specialty Start Date End Date Nanci Gomez MD PCP - General 08/19/10 [address] [place] [address] documented as of this encounter
--- OUTSIDE RECORDS SUMMARY | 2022-04-16 02:02 | XMS_ITS | Encounter Summary ---
:1945 Author Organization [facility] Address [facility] [place] [address] Care Team Providers Name Role Phone Nanci Gomez MD Primary Care Provider Encounter Details Date Type Department Care Team Description 05/15/2013 Orders Only Radiology Anne Zabala MD Abnormal mammogram, [facility] uns pecified ([address]) [place] [address] DIAGNOSTIC [phone] RADIOLOGY [place] [id number] Social History Tobacco Use Types Packs/Day Years [...] MD [facility] GASTROENTEROLOGY DEPT. [place], [place] [address] 05/14/2022 Surgery Gastroenterology Evelyn Michel, EGD, U PPER GI ENDOSCOPY [facility] GASTROENTEROLOGY DEPT. [place], [place] [address] 05/28/2022 Appointment Pulmonology Scheduled Procedures Name Priority Associated Diagnoses Date/Time EGD, UPPER GI ENDOSCOPY Achalasia 05/14/2022 2:30 PM EDT Dysphagia, unspecified type COLONOSCOPY, DIAGNOSTIC Achalasia 05/14/2022 2:30 PM EDT Dysphagia, unspecified type documented as of this encounter Results Mammo breast US unilateral bilateral (05/26/2013 2:15 PM EDT) Anatomical Region Laterality Modality Breast N/A Mammography Specimen (Source) Anatomical Collection Method Collection Time Re ceived Time Location / / Volume Laterality 05/26/2013 2:15 PM EDT Anne Zabala MD IMG MAMMO ORDERABLES Mammo call back diagnostic extra view unilateral (05/26/2013 2:04 PM EDT) Anatomical Region Laterality Modality Breast N/A Mammography Specimen (Source) Anatomical Collection Method Collection Time Re ceived Time Location / / Volume Laterality 05/26/2013 2:04 PM EDT Addenda Addendum on 06/09/2013 4:25 PM EDT Addendum Begins is associated with th is exam. ?? Addendum Ends Addendum on 06/09/2013 10:27 AM EDT Addendum Begins is associated with th is exam. ?? Addendum Ends Impressions 05/31/2013 7:59 AM EDT IMPRESSION: ?? BENIGN Right mammogram and ultrasound (B IRADS Category 2). Routine screening mammography recommended in one year. Narrative 05/31/2013 7:59 AM EDT DIAGNOSTIC RIGHT MAMMOGRAPHY AND ULTRASOUND ON 05/26/13: ?? CLINICAL INDICATION: Mass noted on recen t screening mammography. ?? TECHNIQUE: 3D CC tomographic imaging and combined 2D/3D ML views of the Right breast obtained with direct digital capt ure. Ultrasound targeted to the mammographic abnormality. ?? FINDINGS: Additional mammography confirm s a 7mm lobular shaped mass with well-defined margins that does not appea r to contain fat. ? Ultrasound targeted to this site at 0700 , 4cm from the nipple demonstrates a benign cluster of cysts. ?? Procedure Note Nolberto Ko MD - 06/09/2013Format ting of this note might be different from the original. DIAGNOSTIC RIGHT MAMMOGRAPHY AND ULTRASO UND ON 8/30/13: CLINICAL INDICATION: Mass noted on recen t screening mammography. TECHNIQUE: 3D CC tomographic imaging and combined 2D/3D ML views of the Right breast obtained with direct digital capt ure. Ultrasound targeted to the mammographic abnormality. FINDINGS: Additional mammography confirm s a 7mm lobular shaped mass with well-defined margins that does not appea r to contain fat. Ultrasound targeted to this site at 0700 , 4cm from the nipple demonstrates a benign cluster of cysts. IMPRESSION IMPRESSION: BENIGN Right mammogram and ultrasound (B IRADS Category 2). Routine screening mammography recommended in one year. Anne Zabala MD IMG MAMMO ORDERABLES documented in this encounter Visit Diagnoses Diagnosis Abnormal mammogram, unspecified - Primar y Abnormal mammogram, unspecified Achalasia Achalasia and cardiospasm Dysphagia, unspecified type documented in this encounter Care Teams Psychiatrist Relationship Specialty Start Date End Date Nanci Gomez MD PCP - General 08/19/[address] [place] [address] documented as of this encounter
--- OUTSIDE RECORDS SUMMARY | 2022-04-16 02:02 | XMS_ITS | Encounter Summary ---
:1945 Author Organization [facility] [place] [address] Care Team Providers Name Role Phone Nanci Gomez MD Primary Care Provider Encounter Details Date Type Department Care Team Description 09/11/2016 Hospital Encounter Mammography at [facility] [place] [place] Nanci Gomez Encounter for [facility] MD Vika screening mammogram [address] [place] [address] [place] [address] [phone] Social History Tobacco Use Types Packs/Day Years [...] 05/14/2022 Hospital Encounter Gastroenterology Evelyn Michel MD [facility] DR GASTROENTEROLOGY DEPT. [place], [place] [address] 05/14/2022 Surgery Gastroenterology Evelyn Michel, EGD, U PPER GI ENDOSCOPY [facility] DR GASTROENTEROLOGY DEPT. [place], [place] [address] 05/28/2022 Appointment Pulmonology Scheduled Procedures Name Priority Associated Diagnoses Date/Time EGD, UPPER GI ENDOSCOPY Achalasia 05/14/2022 2:30 PM EDT Dysphagia, unspecified type COLONOSCOPY, DIAGNOSTIC Achalasia 05/14/2022 2:30 PM EDT Dysphagia, unspecified type documented as of this encounter Procedures Procedure Name Priority Date/Time Associated Diagnosis Comme nts MAMMO SCREENING CAD Routine 09/11/2016 2:29 PM Encounter for R esults for this AND LEOPOLDO BILATERAL EST screening mammogram pr ocedure are in for breast cancer the result s section. documented in this encounter Results Mammo Screen CAD and Leopoldo Bilat (Generic) (09/11/2016 2:29 PM EST) Anatomical Region Laterality Modality Breast Bilateral Mammography Specimen (Source) Anatomical Location Collection Method / Collectio n Time Received Time / Laterality Volume Narrative 09/14/2016 10:32 AM EST BILATERAL MAMMOGRAPHY REASON FOR EXAM: Screening TECHNIQUE: [...] CONCLUSION: No mammographic evidence of malignancy. RECOMMENDATION: The [employer] and The Society of Breast Imaging recommend annual screenin g beginning at age 40 for the general female population. Screening franca uld continue as long as a woman is in good health and is expected to live 1 0 more years or longer. All women should be familiar with the known benefi ts, limitations, and potential harms linked to breast cancer screening. They should also know how their breasts normally look and feel and repor t any breast changes to a health care provider right away. Some women - b ecause of their family history, a genetic tendency, or certain other facto rs - should be screened with MRIs along with mammograms. (The number of wo men who fall into this category is very small.) The patient and health care provider should discuss the patient history and decide if earlier sc reening and breast MRI are appropriate. A result letter has been sent to this pa tient by the [facility]. BIRADS CATEGORY 1: NEGATIVE Nanci Gomez MD IMG MAMMO ORDERABLES documented in this encounter Visit Diagnoses Diagnosis Encounter for screening mammogram for br east cancer Achalasia Achalasia and cardiospasm Dysphagia, unspecified type documented in this encounter Care Teams Construction Stonemason Relationship Specialty Start Date End Date Nanci Gomez MD PCP - General 08/19/10 [address] [place] [address] documented as of this encounter
--- OUTSIDE RECORDS SUMMARY | 2022-04-16 02:02 | XMS_ITS | Encounter Summary ---
:1945 Author Organization [facility] [place] [address] Care Team Providers Name Role Phone Nanci Gomez MD Primary Care Provider Encounter Details Date Type Department Care Team Description 04/15/2017 Surgery Gastroenterology at [facility] [place] Ever Orourke COLONOSCOPY, [facility] Lucretia [place] [address] [facility] [phone] DR GASTROENTEROLOGY [place] [id number] (Wo rk) Social History Tobacco Use Types [...] to be checked. Wednesday-Wednesday Same Day Endo [phone] Otherwise contact [phone] and ask to speak to the mechanical systems control engineer supervisor electronics processing Follow up care is a womack part [...] Hospital Encounter Gastroenterology Evelyn Michel MD [facility] DR GASTROENTEROLOGY DEPT. [place], [place] [address] 05/14/2022 Surgery Gastroenterology Evelyn Michel, EGD, U PPER GI ENDOSCOPY [facility] GASTROENTEROLOGY DEPT. [place], [place] [address] 05/28/2022 Appointment Pulmonology Scheduled Procedures [...] Component Value Ref Test Analysis Performed At [facility] Range Method Time Signature Surgical [id number] ?Location: 4T; EA06; [facility] Pathology [place] Report The signing pathologist has (i) examined [...] MD PATHOLOGY/CYTOLOGY ORDERABLE S Performing Organization Address City/[facility]/[place] [address] Specimen to Pathology (surgical or derm) (04/15/2017 6:05 PM EDT) Specimen Anatomical Collection Method Collection Time Receive d Time (Source) Location / / Volume Laterality AP Specimen 04/15/2017 6:05 PM 7 6:05 EDT PM EDT [facility] - 04/15/2017 6:05 PM EDT Specimen requisition ordered. ??Separate Pathology report to follow Ever Orourke MD PATHOLOGY/CYTOLOGY ORDERABLE S Performing Organization Address [facility]/[place] [address] Specimen to Pathology (surgical or derm) (04/15/2017 6:05 PM EDT) Specimen Anatomical Collection Method Collection Time Receive d Time (Source) Location / / Volume Laterality AP Specimen 04/15/2017 6:05 PM 7 6:05 EDT PM EDT Narrative [facility] 04/15/2017 6:05 PM EDT Specimen requisition ordered. ??Separate Pathology report to follow Ever Orourke MD PATHOLOGY/CYTOLOGY ORDERABLE S Performing Organization Address [facility]/[place] [address] Specimen to Pathology (surgical or derm) (04/15/2017 6:05 PM EDT) Specimen Anatomical Collection Method Collection Time Receive d Time (Source) Location / / Volume Laterality AP Specimen 04/15/2017 6:05 PM 7 6:05 EDT PM EDT Narrative [facility] 04/15/2017 6:05 PM EDT Specimen requisition ordered. ??Separate Pathology report to follow Ever Orourke MD PATHOLOGY/CYTOLOGY ORDERABLE S Performing Organization Address [facility]/ZIP [facility] [place] [address] UPPER GI ENDOSCOPY (04/15/2017 4:57 PM EDT) [facility] Method Time Signature UPPER GI [facility] ENDOSCOPY Endoscopy Procedure Date: 04/15/2017 4:57 PM ? Patient Name: Ivis Laureano ? N: [id number] ? Date of : 1945 ? Age: 71 ? Order #: [id number] ? Instrument Name: [id number] ? Procedure: ? Upper GI endoscopy Indications: ? Iron deficiency anemia Patient Profile: ? This is a 71 year old female. Refer ? to note in patient chart for ? documentation of history and physical. Providers: ? Ever Orourke MD, Viridiana arora, ? RN, Ankit Ellison, [employer] I Farmworker Referring MD: ?Nanci Gomez MD Medicines: ? [...] Number [facility] COLONOSCOPY (04/15/2017 4:57 PM EDT) [facility] Method Time Signature COLONOSCOPY [facility] Endoscopy Procedure Date: 04/15/2017 4:57 PM ? Patient Name: Ivis Laureano ? Date of : 1945 ? Age: 71 ? Order #: [id number] ? Instrument Name: [facility] [id number] ? Procedure: ? Colonoscopy Indications: ? Screening for colorectal malignant ? neoplasm Patient Profile: ? This is a 71 year old female. Refer ? to note in patient chart for ? documentation of history and physical. Providers: ? Ever Orourke MD, Viridiana arora, ? RN, Ankit Ellison, [employer] I Farmworker Referring : ?Nanci Gomez MD Medicines: ? [...] was evaluat ed using ? the BBPS (Head Waters Bowel Prepar ation ? Scale) with scores [...] MAR Action Action Date Dose Rate Site fentaNYL 50 mcg/mL multi-dose Given 04/15/2017 5:37 PM EDT 25 mc g injection ONCE PRN, Starting on Jillian 04/15/17 at 1710, Until Jillian 04/15/17 at 2125, Intra-Operative (Intra-Procedure), Routine Given 04/15/2017 5:31 PM EDT 50 mcg Given 04/15/2017 5:18 PM EDT 50 mcg lactated Ringers infusion New Bag 04/15/2017 4:30 PM EDT 100 mL/hr 100 mL/hr 100 mL/hr, Intravenous, CONTINUOUS, Starting on Jillian 04/15/17 at 1630, Until Jillian 04/15/17 at 2125, Endoscopy (Day of Procedure) midazolam (PF) (VERSED) 1 mg/mL multi-dose Given 04/15/2017 5:37 PM EDT 1 mg injection ONCE PRN, Starting on Jillian 04/15/17 at 1710, Until Jillian 04/15/17 at 2125, Intra-Operative (Intra-Procedure), Routine Given 04/15/2017 5:31 PM EDT 1 mg Given 04/15/2017 5:18 PM EDT 1 mg documented in this encounter Active and Recently [...] Viridiana Dahl, ONEL)1731 (Given - Provider: Viridiana Dahl, ONEL)1737 (Given - Provider: Viridiana Dahl RN) ONCE PRN, Starting Jillian 04/15/17 at 1710, Until Jillian 04/15/17 at 2125, Intra- Operative (Intra-Procedure), Routine midazolam (PF) (VERSED) 1 mg/mL multi-dose injection (CANCELED) 1710 (Given - Provider: Viridiana Dahl, ONEL)1714 (Given - Provider: Viridiana Dahl, ONEL)1718 (Given - Provider: Viridiana Dahl, ONEL)1731 (Given - Provider: Viridiana Dahl RN)1737 (Given - Provider: Viridiana Dahl RN) ONCE PRN, Starting Jillian 04/15/17 at 1710, Until Jillian 04/15/17 at 2125, Intra- Operative (Intra-Procedure), Routine documented in this encounter Care Teams Business Operations Consultant Relationship Specialty Start Date End Date Nanci Gomez MD PCP - General 08/19/10 [address] [place] [address] documented as of this encounter
--- OUTSIDE RECORDS SUMMARY | 2022-04-16 02:02 | XMS_ITS | Encounter Summary ---
:1945 Author Organization [facility] [address] Care Team Providers Name Role Phone Nanci Gomez MD Primary Care Provider Encounter Details Date Type Department Care Team Description 05/06/2012 [place] En[place] [facility] [place] [facility] [place]olberto [place]ares, [facility] [place] [address] [facility] [phone] [facility] [place] [id number] Social History Tobacco Use Types Packs/Day Years [...] Sign Reading Time Taken Comments Blood Pressure 123/61 05/06/2012 11:31 AM EDT Pulse 61 05/06/2012 11:31 AM EDT Temperature 36.8 ??C (98.2 ??F) 05/06/2012 9:33 AM EDT Respiratory Rate 16 05/06/2012 11:31 AM EDT Oxygen Saturation 94% 05/06/2012 11:31 AM EDT Inhaled Oxygen Concentration - - Weight 88.5 kg (195 lb) 05/06/2012 9:33 AM EDT Height 177.8 cm (5' 10) 05/06/2012 9:33 AM EDT Body Mass Index 27.98 05/06/2012 9:33 AM EDT documented in this encounter Discharge Instructions Discharge InstructionsDonna Camara RN - 05/06/2012 11:32 AM EDT You may have received medication before and/or during your procedure which effects judgement and reaction time. Do not drive, operate machinery,drink alcoholic beverages or make important decisions for 24 hours. Be careful on stairs, as you may be unsteady on your feet. You may eat a regular diet as tolerated. Do not smoke if you are alone. IV site-- slight redness or tenderness is normal. You may use a warm compress. If tenderness and redness increase or foul drainage occur please notify your MD. Please call [phone] before 5pm with problems, questions or concerns. After 5 pm call [phone] and ask to speak with the GI fellow deputy probation officer. Discharge instructions reviewed with patient who expresses understanding. Patient InstructionsNolberto Mares MD - 05/06/2012 9:56 AM EDT Please see Recommendations in the Provation procedure report which is documented in the procedural note in E-[facility]. AttachmentsThe following attachments cannot be sent through Care Everywhere. COLONOSCOPY: WHAT TO EXPECT AT HOME (MALAGASY)documented in this encounter Medications at Time of Discharge Medication Sig Dispensed Refills Start Date End Date hydrochlorothiazide 0 04/22/2007 (HYDRODIURIL) 50 mg tablet fexofenadine (CHANTAL) 60 mg 0 007 tablet cyanocobalamin, vitamin B-12, Take 100 mcg by 0 10/27/2017 100 mcg tablet mouth daily. raloxifene (EVISTA) 60 mg 0 04/22/2007 07/22/2017 tablet documented as of this encounter H&P Notes Nolberto Mares MD - 05/06/2012 9:55 AM EDT Gastroenterology and Hepatology Pre-Procedure History and Physical Exam Procedure: Colonoscopy: Indication: polyp f/u There is no problem list on file for this patient. EXAM: HEENT: Airway examined, oropharynx clear LUNGS: Clear to auscultation HEART: Regular rate and rhythm, normal S1, S2 ABDOMEN: Normal bowel sounds, soft, non tender, non distended, A/P Proceed with the planned endoscopic procedure. Risks and benefits of the procedure explained to the patient. Consent signed. documented in this encounter Miscellaneous Notes Miscellaneous - Provider, Scanning - 05/07/2012 2:09 AM EDT Miscellaneous - Provider, Scanning - 05/06/2012 10:18 AM EDT documented in this encounter Plan of Treatment Upcoming Encounters Date Type Specialty Care Team Description 05/14/2022 Hospital Encounter Gastroenterology Evelyn Michel MD [facility] DR GASTROENTEROLOGY DEPT. [place], [place] [address] 05/14/2022 Surgery Gastroenterology Evelyn Michel, EGD, U PPER GI ENDOSCOPY [facility] GASTROENTEROLOGY DEPT. [place], [place] [address] 05/28/2022 Appointment Pulmonology Scheduled Procedures Name Priority Associated Diagnoses Date/Time EGD, UPPER GI ENDOSCOPY Achalasia 05/14/2022 2:30 PM EDT Dysphagia, unspecified type COLONOSCOPY, DIAGNOSTIC Achalasia 05/14/2022 2:30 PM EDT Dysphagia, unspecified type documented as of this encounter Procedures Procedure Name Priority Date/Time Associated Comments Diagnosis COLONOSCOPY, 05/06/2012 10:51 5 YR FOLLOW UP DIAGNOSTIC AM EDT POLYPS COLONOSCOPY Routine 05/06/2012 10:26 Results for this AM EDT procedure are i n the results section. documented in this encounter Results COLONOSCOPY (05/06/2012 10:26 AM EDT) [facility] Method Time Signature COLONOSCOPY [facility] Endoscopy Patient Name: Ivis Laureano ? Procedure Date: 05/06/2012 10:26 AM ? Date of : 1945 ? Age: 66 ? Order #: [id number] ? Procedure: ? Colonoscopy Indications: ? Follow-up for history of adenomatou s ? polyps in the colon Providers: ? Nolberto Rogers. MD Vishnu, Desiree arora, ? RN, Leo Nesbitt, Itinerant Teacher Assistant Referring MD: ?Nanci Gomez MD Medicines: ? Midazolam 4 mg IV, Fentanyl 250 ? micrograms IV Complications: ? No immediate complications. Procedure: ? The procedure, indications, benefi ts, ? risks and alternatives were e xplained [...] under direct visuali zation, ? advanced to the terminal ileu m. ? Careful inspection was made a s the ? colonoscope was withdrawn. Th e ? quality of the bowel preparat ion was ? good. ? Findings: ? A few small-mouthed diverticula were found in the ? sigmoid colon. The terminal ileum appeared normal. ? Internal hemorrhoids were found during retroflexion ? and were medium-sized. ? Impression: ?- Diverticulosis in the sigmoid co madhu. ? - The examined portion of the ileum ? was normal. ? - Internal hemorrhoids. Recommendation: ?- Repeat colonoscopy in 5 years for ? surveillance. ? Nolberto Mares MD 05/06/2012 11:29 AM ? Number of Addenda: 0 Note Initiated On: 05/06/2012 10:26 AM Specimen (Source) Anatomical Collection Method Collection Time Re ceived Time Location / / Volume Laterality 05/06/2012 10:26 AM EDT Nanci Gomez MD GENERAL SURGICAL ORDERABLES Performing Organization Address City/State/ZIP Code Phon e Number [facility]ATION documented in this encounter Visit Diagnoses Not on filedocumented in this encounter Administered Medications Inactive Administered Medications - up to 3 most recent administrations Medication Order MAR Action Action Date Dose Rate Site sodium chloride 0.9% New Bag 05/06/2012 9:40 AM EDT 30 mL/hr 30 mL/hr infusion 30 mL/hr, Intravenous, CONTINUOUS, Starting on Wed05/06/12 at 0945, Until Wed05/06/12 at 1644, Endoscopy (Day of Procedure) documented in this encounter Active and Recently Administered Medications Times are shown in EDT. Continuous Medication Order 05/04/2012 05/05/2012 05/06/2012 sodium chloride 0.9% infusion (CANCELED) 0940 (New Bag - Provider: Donna Camara RN) 30 mL/hr, at 30 mL/hr, Intravenous, CONT INUOUS, Starting Wed05/06/12 at 0945, Until Wed05/06/12 at 1644, Endo (Day of Procedure) PRN Medication Order 05/04/2012 05/05/2012 05/06/2012 fentaNYL 50mcg/mL injection (CANCELED) 1055 (Given - Provider: Desiree Tenorio RN)1059 (Given - Provider: Desiree Tenorio RN)1106 (Given - Provider: Desiree Tenorio RN)1111 (Given - Provider: Desiree Tenorio RN) ONCE PRN, Starting Wed05/06/12 at 1055, Until Wed05/06/12 at 1644, Pain, Intra- Operative (Intra-Procedure), Routine midazolam (VERSED) injection (CANCELED) 1055 (Given - Provider: Desiree Tenorio RN - Comment: 2 mg given not 5 ;documented by mistake 5 mg)1059 (Given - Provider: Desiree Tenorio RN)1106 (Given - Provider: Desiree Tenorio RN) ONCE PRN, Starting Wed05/06/12 at 1055, Until Wed05/06/12 at 1644, Sleep, Intra- Operative (Intra-Procedure), Routine documented in this encounter Care Teams Space Scheduler Relationship Specialty Start Date End Date Nanci Gomez MD PCP - General 08/19/10 [address] [place] [address] documented as of this encounter
--- OUTSIDE RECORDS SUMMARY | 2022-04-16 02:02 | XMS_ITS | Encounter Summary ---
:1945 Author Organization [facility] [place] [address] Care Team Providers Name Role Phone Nanci Gomez MD Primary Care Provider Encounter Details Date Type Department Care Team Description 05/06/2012 Surgery Gastroenterology at [facility] Nolberto Mares, COLONOSCOPY, [facility] Lucret[place] [address] [facility] [phone] GASTROENTEROLOGY [place] [id number] Social History Tobacco Use Types Packs/Day Years [...] occur please notify your MD. Please call [phone] before 5pm with problems, questions or concerns. After 5 pm call [phone] and ask to speak with the GI fellow senior product consultant. Discharge instructions reviewed with patient who expresses understanding. Patient InstructionsNolberto Mares MD - 05/06/2012 9:56 AM EDT Please see Recommendations in the Provation procedure report which is documented in the procedural note in E-[facility]. AttachmentsThe following attachments cannot be sent through Care Everywhere. COLONOSCOPY: WHAT TO EXPECT AT HOME (SPANISH)documented in this encounter Medications at Time [...] 05/14/2022 Hospital Encounter Gastroenterology Evelyn Michel MD [facility] DR GASTROENTEROLOGY DEPT. [place], [place] [address] 05/14/2022 Surgery Gastroenterology Evelyn Michel, EGD, U PPER GI ENDOSCOPY [facility] GASTROENTEROLOGY DEPT. [place], [place] [address] 05/28/2022 Appointment Pulmonology Scheduled Procedures [...] encounter Results COLONOSCOPY (05/06/2012 10:26 AM EDT) [facility] Method Time Signature COLONOSCOPY [facility] PROVATION Endoscopy Patient Name: Ivis Laureano ? Procedure Date: 05/06/2012 10:26 AM ? Date of : 1945 ? Age: 66 ? Order #: [id number] ? Procedure: ? Colonoscopy Indications: ? Follow-up for history of adenomatou s ? polyps in the colon Providers: ? Nolberto Rogers. MD Vishnu, Desiree arora, ? RN, Leo Nesbitt, Cylinder Grinder Referring MD: ?Nanci Gomez MD Medicines: ? [...] Action Action Date Dose Rate Site fentaNYL 50mcg/mL injection Given 05/06/2012 11:11 AM EDT 50 mcg Righ t Arm ONCE PRN, Starting on Wed05/06/12 at 1055, Until Wed05/06/12 at 1644, Pain, Intra-Operative (Intra-Procedure), Routine Given 05/06/2012 11:06 AM EDT 50 mcg Righ t Arm Given 05/06/2012 10:59 AM EDT 50 mcg Righ t Arm midazolam (VERSED) injection Given 05/06/2012 11:06 AM EDT 1 mg Righ t Arm ONCE PRN, Starting on Wed05/06/12 at 1055, Until Wed05/06/12 at 1644, Sleep, Intra-Operative (Intra-Procedure), Routine Given 05/06/2012 10:59 AM EDT 1 mg Righ t Arm Given 05/06/2012 10:55 AM EDT 2 mg Righ t Arm sodium chloride 0.9% infusion New Bag 05/06/2012 9:40 AM EDT 30 mL/hr 30 mL/hr 30 mL/hr, Intravenous, CONTINUOUS, Starting on Wed05/06/12 [...] Routine documented in this encounter Care Teams Supervisory Forester Relationship Specialty Start Date End Date Nanci Gomez MD PCP - General 08/19/10 [address] [place] [address] documented as of this encounter
--- OUTSIDE RECORDS SUMMARY | 2022-04-16 02:02 | XMS_ITS | Encounter Summary ---
:1945 Author Organization [facility] [place] [address] Care Team Providers Name Role Phone Nanci Gomez MD Primary Care Provider Encounter Details Date Type Department Care Team Description 05/12/2013 Hospital Encounter XRay at [address] [place] [address] Social History Tobacco Use Types Packs/Day [...] 0 04/22/2007 (HYDRODIURIL) 50 mg tablet fexofenadine (CAHNTAL) 60 mg 0 007 tablet cyanocobalamin, vitamin B-12, Take 100 mcg by 0 10/27/2017 100 mcg tablet mouth daily. raloxifene (EVISTA) 60 mg 0 04/22/2007 07/22/2017 tablet documented as of this encounter Plan of Treatment Upcoming Encounters Date Type Specialty Care Team Description 05/14/2022 Hospital Encounter Gastroenterology Evelyn Michel MD [facility] GASTROENTEROLOGY DEPT. [place], [place] [address] 05/14/2022 Surgery Gastroenterology Evelyn Michel, EGD, U PPER GI MD ENDOSCOPY [facility] DR GASTROENTEROLOGY DEPT[facility] [place] [address] 05/28/2022 Appointment Pulmonology Scheduled Procedures Name Priority Associated Diagnoses Date/Time EGD, UPPER GI ENDOSCOPY Achalasia 05/14/2022 2:30 PM EDT Dysphagia, unspecified type COLONOSCOPY, DIAGNOSTIC Achalasia 05/14/2022 2:30 PM EDT Dysphagia, unspecified type documented as of this encounter Procedures Procedure Name Priority Date/Time Associated Diagnosis Comme nts DXA CENTRAL SPINE, Routine 05/12/2013 11:08 AM Re sults for this HIP, AND/OR WHOLE EDT procedure are in BODY (GENERIC) the results section. documented in this encounter Results Dexa central-spine, hip, and/or whole body (05/12/2013 11:08 AM EDT) Anatomical Region Laterality Modality C-spine, Hip N/A Radiographic Imaging Specimen (Source) Anatomical Collection Method Collection Time Re ceived Time Location / / Volume Laterality 05/12/2013 11:08 AM EDT Narrative 05/19/2013 10:38 AM EDT Examination DXA CENTRAL-SPINE,HIP, AND/OR WHOLE BODY Clinical History FU 05/09/09 ??PT ON EVISTA Technique Scans were acquired at the lumbar spine, left hip, . Findings Lowest T-score at a diagnostic region of interest: T-score: -0.8,BHUMI: Femoral neck and lumb ar spine, WHO diagnosis: Normal ??................COMPARISON........... ............ Recent scan: 2008 Total Hip: Compared to the most recent scan, no si gnificant change. ?? Total spine: ??Compared to the most recent scan, no significant change. ?? Impression The measurements fulfill the WHO classif ication for normal. The absence of change in her measurements indicates pos itive response to therapy. ?? _ Estimating Fracture Risk: The relationship between bone mineral de nsity (BMD) and risk of fracture is well established. As BMD decreases, risk increases. Quantifying risk is difficult and is usually limited to nurys mation of the relative risk - a term which may have limited value when trying to discuss an individual's risk. Estimating the absolute risk for a patie nt requires an understanding of the incidence rate in a given population and consideration of multiple, partially independent, risk factors in addition to BMD. The World Health Organization (WHO) has developed a fracture risk prediction tool that calculates a ten-year risk of major osteoporotic fracture based on femoral neck bone density measurements a nd nine clinical risk factors for individuals who have not been treated fo r osteoporosis. This is available through an interactive web-based [employer] ce (http://www.shef.ac.uk/FRAX/) and can be used to estimate a given patient' s absolute risk of major osteoporotic fracture or hip fracture over the next 1 0 years. These estimates may prove useful when discussing risk with a patie nt. It is important, however, to understand the tool's limitations and ho w a given individual's risk might differ from the tool's estimate. The too l does not take into account the dose-response associated with most risk factors. For example, the significant increase in risk associated with multipl e prior fractures compared to a single prior fracture is not taken into account . Similarly, the location of a previous fracture, the amount of glucocorticoids and number of cigarettes smoked are not considered. These limitations are discus sed in a Frequently Asked Questions section of the FRAX website which you ar e encouraged to review. DEXA data sheets with BMD measurements a nd plots are available in [email or web address] under the imaging tab. Paper copies will be sent to providers without [employer]-Mobile[employer] access. If you have received this report without the data sheet and do not have access to [email or web address], please contact Radiology [facility] at [phone] Wednesday thru Wednesday 8am-4pm. Procedure Note Rosita Miranda MD - 05/19/2013Formatt ing of this note might be different from the original. Examination DXA CENTRAL-SPINE,HIP, AND/OR WHOLE BODY Clinical History FU 05/09/09 PT ON EVISTA Technique Scans were acquired at the lumbar spine, left hip, . Findings Lowest T-score at a diagnostic region of interest: T-score: -0.8,BHUMI: Femoral neck and lumb ar spine, WHO diagnosis: Normal ................COMPARISON............. .......... Recent scan: 2008 Total Hip: Compared to the most recent scan, no si gnificant change. Total spine: Compared to the most recent scan, no si gnificant change. Impression The measurements fulfill the WHO classif ication for normal. The absence of change in her measurements indicates pos itive response to therapy. _ Estimating Fracture Risk: The relationship between bone mineral de nsity (BMD) and risk of fracture is well established. As BMD decreases, risk increases. Quantifying risk is difficult and is usually limited to nurys mation of the relative risk - a term which may have limited value when trying to discuss an individual's risk. Estimating the absolute risk for a patie nt requires an understanding of the incidence rate in a given population and consideration of multiple, partially independent, risk factors in addition to [...] can be used to estimate a given patient' s absolute risk of major osteoporotic fracture or hip fracture over the next 1 0 years. These estimates may prove useful when discussing risk with a patie nt. It is important, however, to understand the tool's limitations and ho w a given individual's risk might differ from the tool's estimate. The too l does not take into account the dose-response associated with most risk factors. For example, the significant increase in risk associated with multipl e prior fractures compared to a single prior fracture is not taken into account . Similarly, the location of a previous fracture, the amount of glucocorticoids and number of cigarettes smoked are not considered. These limitations are discus sed in a Frequently Asked Questions section of the FRAX website which you ar e encouraged to review. DEXA data sheets with BMD measurements a nd plots are available in [email or web address] under the imaging tab. Paper copies will be sent to providers without E-MobileRQ access. If you have received this report without the data sheet and do not have access to [employer], please contact Radiology [facility] at [phone] Wednesday thru Wednesday 8am-4pm. Nanci Gomez MD IMG DEXA ORDERABLES documented in this encounter Visit Diagnoses Not on filedocumented in this encounter Care Teams Sisal Picker Relationship Specialty Start Date End Date Nanci Gomez MD PCP - General 08/19/10 [address] [place] [address] documented as of this encounter
--- OUTSIDE RECORDS SUMMARY | 2022-04-16 02:02 | XMS_ITS | Encounter Summary ---
:1945 Author Organization [facility] [place] [address] Care Team Providers Name Role Phone Nanci Gomez MD Primary Care Provider Encounter Details Date Type Department Care Team Description 05/26/2013 Hospital Encounter Mammography at [facility], DR MURILLO Abnormal mammogram, [facility] Nanci Gomez MD [address] [place] [address] [place] [address] Social History Tobacco Use Types Packs/Day Years [...] 05/14/2022 Hospital Encounter Gastroenterology Evelyn Michel MD [facility] GASTROENTEROLOGY DEPT. [place], [place] [address] 05/14/2022 Surgery Gastroenterology Evelyn Michel, EGD, U PPER GI ENDOSCOPY [facility] GASTROENTEROLOGY DEPT. [place], [place] [address] 05/28/2022 Appointment Pulmonology Scheduled Procedures Name Priority Associated Diagnoses Date/Time EGD, UPPER GI ENDOSCOPY Achalasia 05/14/2022 2:30 PM EDT Dysphagia, unspecified type COLONOSCOPY, DIAGNOSTIC Achalasia 05/14/2022 2:30 PM EDT Dysphagia, unspecified type documented as of this encounter Procedures Procedure Name Priority Date/Time Associated Diagnosis Comme nts MAMMO CALL BACK Routine 05/26/2013 2:04 PM Abnormal mammogram, Results for this DIAGNOSTIC EXTRA EDT unspecified procedure a re in VIEW UNILATERAL the results section. documented in this encounter Results Mammo call back diagnostic extra view unilateral [...] DIAGNOSTIC RIGHT MAMMOGRAPHY AND ULTRASO UND ON 05/26/13: CLINICAL INDICATION: Mass noted on recen t [...] encounter Visit Diagnoses Diagnosis Abnormal mammogram, unspecified Achalasia Achalasia and cardiospasm Dysphagia, unspecified type documented in this encounter Care Teams Finishing Tunnel Operator Relationship Specialty Start Date End Date Nanci Gomez MD PCP - General 08/19/10 [address] [place] [address] documented as of this encounter
--- OUTSIDE RECORDS SUMMARY | 2022-04-16 02:02 | XMS_ITS | Encounter Summary ---
:1945 Author Organization [facility] [place] [address] Care Team Providers Name Role Phone Nanci Gomez MD Primary Care Provider Encounter Details Date Type Department Care Team Description 05/12/2013 Hospital Encounter Mammography at [facility], [facility] Nanci Anthony MD [address] [place] [address] [place] [address] Social History Tobacco Use Types Packs/Day [...] 05/14/2022 Hospital Encounter Gastroenterology Evelyn Michel MD [facility] DR GASTROENTEROLOGY DEPT. [place], [place] [address] 05/14/2022 Surgery Gastroenterology Evelyn Michel, EGD, U PPER GI ENDOSCOPY [facility] GASTROENTEROLOGY DEPT. [place], [place] [address] 05/28/2022 Appointment Pulmonology Scheduled Procedures Name Priority Associated Diagnoses Date/Time EGD, UPPER GI ENDOSCOPY Achalasia 05/14/2022 2:30 PM EDT Dysphagia, unspecified type COLONOSCOPY, DIAGNOSTIC Achalasia 05/14/2022 2:30 PM EDT Dysphagia, unspecified type documented as of this encounter Procedures Procedure Name Priority Date/Time Associated Diagnosis Comme nts MAMMO SCREENING CAD Routine 05/12/2013 10:01 AM R esults for this BILATERAL EDT procedure are i n the results section. documented in this encounter Results Mammo digital bilateral Screening with CAD (05/12/2013 10:01 AM EDT) Anatomical Region Laterality Modality Breast Bilateral Mammography Specimen (Source) Anatomical Collection Method Collection Time Re ceived Time Location / / Volume Laterality 05/12/2013 10:01 AM EDT Narrative 05/15/2013 11:26 AM EDT REASON FOR EXAM: Screening ?? TECHNIQUE: Cranio-caudal (CC) and mediol ateral oblique (MLO) views of the both breasts obtained with direct digital cap ture. The exam was evaluated by CAD Version 8.3.17. ?? RIGHT BREAST MAMMOGRAPHY ?? This is an indeterminate (ACR Category 0 ) mammogram of the Right breast. There is a question of a mass in the lower Rig ht breast, requiring additional imaging. ? LEFT BREAST MAMMOGRAPHY ?? This is a negative mammogram (ACR Catego ry 1). There is a stable fibroglandular pattern without significant change as co mpared to prior studies. There is no mammographic evidence of cancer. ? The breasts are predominantly fatty. ? CONCLUSION ?? ASSESSMENT IS INCOMPLETE: Additional karolina ging recommended (ACR Category 0) of the Right breast. The [facility] will contact the patient to schedule additional imaging. ?? The contralateral breast is NEGATIVE (AC R Category 1). Routine screening mammography is recommended of the Left b reast with the frequency dependent on the patient's age and breast cancer risk factors. Procedure Note Anne Zabala MD - 05/15/2013 REASON FOR EXAM: Screening TECHNIQUE: Cranio-caudal (CC) and mediol ateral oblique (MLO) views of the both breasts obtained with direct digital cap ture. The exam was evaluated by CAD Version 8.3.17. RIGHT BREAST MAMMOGRAPHY This is an indeterminate (ACR Category 0 ) mammogram of the Right breast. There is a question of a mass in the lower Rig ht breast, requiring additional imaging. LEFT BREAST MAMMOGRAPHY This is a negative mammogram (ACR Catego ry 1). There is a stable fibroglandular pattern without significant change as co mpared to prior studies. There is no mammographic evidence of cancer. The breasts are predominantly fatty. CONCLUSION ASSESSMENT IS INCOMPLETE: Additional karolina ging recommended (ACR Category 0) of the Right breast. The [facility] will contact the patient to schedule additional imaging. The contralateral breast is NEGATIVE (AC R Category 1). Routine screening mammography is recommended of the Left b reast with the frequency dependent on the patient's age and breast cancer risk factors. Nanci Gomez MD IMG MAMMO ORDERABLES documented in this encounter Visit Diagnoses Not on filedocumented in this encounter Care Teams Head Baker Relationship Specialty Start Date End Date Nanci Gomez MD PCP - General 08/19/10 [address] [place] [address] documented as of this encounter
--- OUTSIDE RECORDS SUMMARY | 2022-04-16 02:02 | XMS_ITS | Encounter Summary ---
:1945 Author Organization [facility] [place] [address] Care Team Providers Name Role Phone Nanci Gomez MD Primary Care Provider Encounter Details Date Type Department Care Team Description 05/06/2012 Hospital Encounter Mammography at [facility], DR [facility] Nanci Anthony MD [address] [place] [address] [place] [address] Social History Tobacco Use Types Packs/Day [...] 05/14/2022 Hospital Encounter Gastroenterology Evelyn Michel MD [facility] DR GASTROENTEROLOGY DEPT. [place], [place] [address] 05/14/2022 Surgery Gastroenterology Evelyn Michel, EGD, U PPER GI ENDOSCOPY [facility] DR GASTROENTEROLOGY DEPT. [place], [place] [address] 05/28/2022 Appointment Pulmonology Scheduled Procedures Name Priority Associated Diagnoses Date/Time EGD, UPPER GI ENDOSCOPY Achalasia 05/14/2022 2:30 PM EDT Dysphagia, unspecified type COLONOSCOPY, DIAGNOSTIC Achalasia 05/14/2022 2:30 PM EDT Dysphagia, unspecified type documented as of this encounter Procedures Procedure Name Priority Date/Time Associated Diagnosis Comme nts MAMMO SCREENING CAD Routine 05/06/2012 9:32 AM Re sults for this BILATERAL EDT procedure are i n the results section. documented in this encounter Results MAMMO DIGITAL BILATERAL SCREENING WITH CAD (05/06/2012 9:32 AM EDT) Anatomical Region Laterality Modality Breast Bilateral Mammography Specimen (Source) Anatomical Collection Method Collection Time Re ceived Time Location / / Volume Laterality 05/06/2012 9:32 AM EDT Narrative 05/10/2012 12:28 PM EDT BILATERAL MAMMOGRAPHY ?? REASON FOR EXAM: Screening ?? TECHNIQUE: Cranio-caudal (CC) and mediol ateral oblique (MLO) views of both breasts obtained with direct digital cap ture. The exam was evaluated by CAD Version 8.3.17. ?? FINDINGS: This is a negative mammogram ( ACR Category 1). There is a stable fibroglandular pattern without significa nt change as compared to prior studies. There is no mammographic evidence of can cer. ? The breasts are predominantly fatty. ? CONCLUSION ?? This is a NEGATIVE mammogram (ACR Catego ry 1). Routine screening mammography is recommended with the frequency dependent on the patient's age and breast cancer risk factors. ?? A letter has been sent to this patient b y [facility]. Procedure Note Marlene Arriaza MD - 2011 BILATERAL MAMMOGRAPHY REASON FOR EXAM: Screening TECHNIQUE: Cranio-caudal (CC) and mediol ateral oblique (MLO) views of both breasts obtained with direct digital cap ture. The exam was evaluated by CAD Version 8.3.17. FINDINGS: This is a negative mammogram ( ACR Category 1). There is a stable fibroglandular pattern without significa nt change as compared to prior studies. There is no mammographic evidence of can cer. The breasts are predominantly fatty. CONCLUSION This is a NEGATIVE mammogram (ACR Catego ry 1). Routine screening mammography is recommended with the frequency dependent on the patient's age and breast cancer risk factors. A letter has been sent to this patient b y [facility]. Nanci Gomez MD IMG MAMMO ORDERABLES documented in this encounter Visit Diagnoses Not on filedocumented in this encounter Care Teams Shower Maid Relationship Specialty Start Date End Date Nanci Gomez MD PCP - General 08/19/10 [address] [place] [address] documented as of this encounter
--- OUTSIDE RECORDS SUMMARY | 2022-04-16 02:02 | XMS_ITS | Encounter Summary ---
:1945 Author Organization [facility] [place] [address] Care Team Providers Name Role Phone Nanci Gomez MD Primary Care Provider Encounter Details Date Type Department Care Team Description 05/26/2013 [facility] [place] [facility] [place], [facility] [place] [address] Social History Tobacco Use Types Packs/Day [...] MD [facility] GASTROENTEROLOGY DEPT. [place], [place] [address] 05/14/2022 Surgery Gastroenterology Evelyn Michel, EGD, U PPER GI MD ENDOSCOPY [facility] DR GASTROENTEROLOGY DEPT. [place], [place] [address] 05/28/2022 Appointment Pulmonology Scheduled Procedures Name Priority Associated Diagnoses Date/Time EGD, UPPER GI ENDOSCOPY Achalasia 05/14/2022 2:30 PM EDT Dysphagia, unspecified type COLONOSCOPY, DIAGNOSTIC Achalasia 05/14/2022 2:30 PM EDT Dysphagia, unspecified type documented as of this encounter Procedures Procedure Name Priority Date/Time Associated Diagnosis Comme nts MAMMO BREAST US Routine 05/26/2013 2:15 PM EDT Abnormal mammog karla, LIMITED unspecified documented in this encounter Results Mammo breast US unilateral bilateral (05/26/2013 2:15 PM EDT) Anatomical Region Laterality Modality Breast N/A Mammography Specimen (Source) Anatomical Collection Method Collection Time Re ceived Time Location / / Volume Laterality 05/26/2013 2:15 PM EDT Anne Zabala MD IMG MAMMO ORDERABLES documented in this encounter Visit Diagnoses Diagnosis Abnormal mammogram, unspecified Achalasia Achalasia and cardiospasm Dysphagia, unspecified type documented in this encounter Care Teams Mortgage Loan Originator Relationship Specialty Start Date End Date Nanci Gomez MD PCP - General 08/19/10 [address] [place] [address] documented as of this encounter
--- OUTSIDE RECORDS SUMMARY | 2022-04-16 02:02 | XMS_ITS | Encounter Summary ---
:1945 Author Organization [facility] [place] [address] Care Team Providers Name Role Phone Nanci Gomez MD Primary Care Provider Encounter Details Date Type Department Care Team Description 06/29/2014 Hospital Encounter Mammography at [facility], [facility] Nanci Anthony MD [address] [place] [address] [place] [address] Social History Tobacco Use Types Packs/Day [...] 05/14/2022 Hospital Encounter Gastroenterology Evelyn Michel MD [facility] DR GASTROENTEROLOGY DEPT. [place], [place] [address] 05/14/2022 Surgery Gastroenterology Evelyn Michel, EGD, U PPER GI ENDOSCOPY [facility] DR GASTROENTEROLOGY DEPT. [place], [place] [address] 05/28/2022 Appointment Pulmonology Scheduled Procedures Name Priority Associated Diagnoses Date/Time EGD, UPPER GI ENDOSCOPY Achalasia 05/14/2022 2:30 PM EDT Dysphagia, unspecified type COLONOSCOPY, DIAGNOSTIC Achalasia 05/14/2022 2:30 PM EDT Dysphagia, unspecified type documented as of this encounter Procedures Procedure Name Priority Date/Time Associated Diagnosis Comme nts MAMMO SCREENING CAD Routine 06/29/2014 1:21 PM Re sults for this BILATERAL EDT procedure are i n the results section. documented in this encounter Results Mammo digital bilateral Screening with CAD (06/29/2014 1:21 PM EDT) Anatomical Region Laterality Modality Breast Bilateral Mammography Specimen (Source) Anatomical Collection Method Collection Time Re ceived Time Location / / Volume Laterality 06/29/2014 1:21 PM EDT Narrative 07/02/2014 10:47 AM EDT Reason for Exam: Screening ?? Technique: Craniocaudal (CC) and Medio-l ateral Oblique (MLO) views of both breasts obtained with direct digital cap ture. ?? The exam was evaluated by CAD version 8. 3.17. ?? Findings: ?? This is a negative mammogram (ACR Catego ry 1). There is a stable fibroglandular pattern without significant change from prior studies. There is no mammographic evidence of can cer. The breasts are predominately fatty. ?? CONCLUSION: This is a NEGATIVE mammogram (ACR Catego ry 1). ?? Routine screening mammography is recomme nded with the frequency dependent upon the patients age and breast cancer risk factors. ?? A letter has been sent to this patient b y the breast imaging center. Procedure Note Macrina Nesbitt MD - 07/02/2014Formattin g of this note might be different from the original. Reason for Exam: Screening Technique: Craniocaudal (CC) and Medio-l ateral Oblique (MLO) views of both breasts obtained with direct digital cap ture. The exam was evaluated by CAD version 8. 3.17. Findings: This is a negative mammogram (ACR Catego ry 1). There is a stable fibroglandular pattern without significant change from prior studies. There is no mammographic evidence of can cer. The breasts are predominately fatty. CONCLUSION: This is a NEGATIVE mammogram (ACR Catego ry 1). Routine screening mammography is recomme nded with the frequency dependent upon the patients age and breast cancer risk factors. A letter has been sent to this patient b y the breast imaging center. Nanci Gomez MD IMG MAMMO ORDERABLES documented in this encounter Visit Diagnoses Not on filedocumented in this encounter Care Teams Sleep Lab Technician Relationship Specialty Start Date End Date Nanci Gomez MD PCP - General 08/19/10 [address] [place] [address] documented as of this encounter
--- OUTSIDE RECORDS SUMMARY | 2022-04-16 02:02 | XMS_ITS | Encounter Summary ---
:1945 [place] [address] Care Team Providers Name Role Phone Nanci Gomez MD Primary Care Provider Encounter Details Date Type Department Care Team Description 05/01/2011 Hospital Encounter Mammography at [facility] Nanci Anthony MD [address] [place], [place] [id number] [place] [address] Social History Tobacco Use Types Packs/Day Years Used Date Never Assessed Sex Assigned at Date Recorded Not on file documented as of this encounter Medications at Time of Discharge Medication Sig Dispensed Refills Start Date End Date hydrochlorothiazide (HYDRODIURIL) 50 mg 0 04/22/2007 tablet fexofenadine (CHANTAL) 60 mg tablet 0 04/22/2007 raloxifene (EVISTA) 60 mg tablet 0 07/22/2017 documented as of this encounter Plan of Treatment Upcoming Encounters Date Type Specialty Care Team Description 05/14/2022 Hospital Encounter Gastroenterology Evelyn Michel MD [facility] GASTROENTEROLOGY DEPT. [place], [place] [address] 05/14/2022 Surgery Gastroenterology Evelyn Michel, EGD, U PPER GI ENDOSCOPY [facility] GASTROENTEROLOGY DEPT. [place], [place] [address] 05/28/2022 Appointment Pulmonology Scheduled Procedures Name Priority Associated Diagnoses Date/Time EGD, UPPER GI ENDOSCOPY Achalasia 05/14/2022 2:30 PM EDT Dysphagia, unspecified type COLONOSCOPY, DIAGNOSTIC Achalasia 05/14/2022 2:30 PM EDT Dysphagia, unspecified type documented as of this encounter Procedures Procedure Name Priority Date/Time Associated Diagnosis Comme nts MAMMO SCREENING CAD Routine 05/01/2011 1:56 PM Re sults for this BILATERAL EDT procedure are i n the results section. documented in this encounter Results MAMMO DIGITAL BILATERAL SCREENING WITH CAD (05/01/2011 1:56 PM EDT) Anatomical Region Laterality Modality Breast Bilateral Mammography Specimen (Source) Anatomical Collection Method Collection Time Re ceived Time Location / / Volume Laterality 05/01/2011 1:56 PM EDT Narrative 05/05/2011 1:07 PM EDT ? BILATERAL MAMMOGRAPHY ?? REASON FOR EXAM: Screening [...] of can cer. ? The breasts are of scattered density. ? CONCLUSION ?? This is a NEGATIVE mammogram (ACR Catego ry 1). Routine screening mammography is recommended with the frequency dependent on the patient's age and breast cancer risk factors. ?? A letter has been sent to this patient b y the [facility]. Procedure Note Jessica Marc MD - 05/05/2011Forma tting of this note might be different from the original. BILATERAL MAMMOGRAPHY REASON FOR EXAM: Screening TECHNIQUE: [...] evidence of can cer. The breasts are of scattered density. CONCLUSION This is a NEGATIVE mammogram (ACR Catego ry 1). Routine screening mammography is recommended with the frequency dependent on the patient's age and breast cancer risk factors. A letter has been sent to this patient b y the [facility]. Nanci Gomez MD IMG MAMMO ORDERABLES documented in this encounter Visit Diagnoses Not on filedocumented in this encounter Care Teams Guardian Family Member Relationship Specialty Start Date End Date Nanci Gomez MD PCP - General 08/19/10 [address] [place] [address] documented as of this encounter
--- OUTSIDE RECORDS SUMMARY | 2022-04-16 02:04 | XMS_ITS | Encounter Summary ---
:1945 Author Organization [facility] Address [address] [place] [address] Care Team Providers Name Role Phone Unavailable Primary Care Provider Unavailable Encounter Details Date Type Department Care Team Description 09/24/2006 Results Only [facility] - Lizeth Yan NP conversion [facility] [address] [place] [address] [place], [place] [address] [phone] Social History Tobacco Use Types Packs/Day Years Used Date Never Assessed Sex Assigned at Date Recorded Not on file documented as of this encounter Plan of Treatment Not on filedocumented as of this encounter Procedures Procedure Name Priority Date/Time Associated Diagnosis Comme nts CYTOPATHOLOGY Routine 09/24/2006 0:00 EST Results for this procedure are i n the results section . documented in this encounter Results CYTOPATHOLOGY (09/24/2006 0:00 EST) Pathology Report: CYTOPATHOLOGY REPORT [facility] Reports generated via electronic interface contain shabana ginal data; however they are lacking the format of the original re port. Caution should be taken when reading/interpreting unfo rmatted reports. Name: ? REZA LAUREANO ? Accession #: ? [id number] : ? 1945 (Age: 61) ??F ?Collect Date: ? 08/28 Location: ? [facility] ? Receive Date : ? 09/29/2006 Provider: ?LIZETH BERKOWITZ MECHANICAL FACILITIES TECHNICIAN Copy to: ? Specimen/Source: ? ThinPrep Pap Test, Cervix/Endocervix, processed on mSpokePrep Imaging System, with manual evaluation Last Menstrual Period: ? Menstrual/ Status: ? Post Menopausal Other: ? Additional clinical information: No HRT ? SPECIMEN ADEQUACY ? Satisfactory for Evaluation - transformation zone component present GENERAL CATEGORIZATION ? Negative for Intraepithelial Lesion or Malignan cy ? Document reviewed and electronically signed by: ? KENNY Ann(ASCP) ? Report Date: ??10/01/2006 08:57 End of Report Specimen Performing Organization Address City/State/ZIP Code Phon e Number [facility] [address] [place] [address] SERVICES [facility] [address] [place] [address] documented in this encounter Visit Diagnoses Not on filedocumented in this encounter
--- OUTSIDE RECORDS SUMMARY | 2022-04-16 02:04 | XMS_ITS | Encounter Summary ---
:1945 Author Organization [facility] Address [address] [place] [address] Care Team Providers Name Role Phone Unavailable Primary Care Provider Unavailable Encounter Details Date Type Department Care Team Description 06/17/2012 Results Only [facility] Soumya Gomez MD Laboratory Services - [address] [address] [address] [facility] [place] [address] [phone] Social History Tobacco Use Types Packs/Day Years Used Date Never Assessed Sex Assigned at Date Recorded Not on file documented as of this encounter Plan of Treatment Not on filedocumented as of this encounter Procedures Procedure Name Priority Date/Time Associated Diagnosis Comme nts PAP TEST- RESULT Routine 06/17/2012 0:00 EDT Resu lts for this ONLY procedure are i n the results section. documented in this encounter Results PAP TEST- RESULT ONLY (06/17/2012 0:00 EDT) Pathology Report: CYTOPATHOLOGY REPORT [facility] Reports generated via electronic interface contain shabana ginal data; however they are lacking the format of the original re port. Caution should be taken when reading/interpreting unfo rmatted reports. Name: ? REZA LAUREANO ? Accession #: ? [id number] : ? 1945 (Age: 66) ??F ?Collect Date: ? 05/29 Location: ? [facility] ? Receive Date : ? 06/20/2012 Provider: ?ANTONY GOMEZ MD Copy to: ? Specimen/Source: ? Pap Test, Cervix, ThinPrep Imaging System with manual evaluation Last Menstrual Period: ? Other: ? Additional clinical information: Source ? endocervical, WINDOWS SYSTEMS ENGINEER Clinical/Treatment History - negative ? SPECIMEN ADEQUACY ? Satisfactory for Evaluation - assessment of transformation zone component not appl icable ( e.g. atrophy, vaginal sample, hysterectomy) GENERAL CATEGORIZATION ? Negative for Intraepithelial Lesion or Malignan cy ? Document reviewed and electronically signed by: ? Lizeth Wan, SCT(ASCP) ? Report Date: ??06/30/2012 11:17 End of Report Specimen Performing Organization Address City/State/ZIP Code Phon e Number [facility] [address] [place] [address] [facility] [address] [place] [address] documented in this encounter Visit Diagnoses Not on filedocumented in this encounter
--- OUTSIDE RECORDS SUMMARY | 2022-04-16 02:04 | XMS_ITS | Clinical Summary ---
:1945 Author Organization [facility] Address [address] [place] [address] Care Team Providers Name Role Phone Nanci Gomez MD Primary Care Provider Allergies Active Allergy Reactions Severity Noted Date Comments Doxycycline 05/17/2019 Lisinopril 05/17/2019 Medications Medication Sig Dispensed Refills Start Date End Date Status VITAMIN B COMPLEX ORAL Take 1 Tab by 0 Active mouth daily. MULTIVITAMIN ORAL Take 1 Tab by 0 Active mouth daily. cetirizine (ZYRTEC) 10 mg Take 10 mg by 0 Active tablet mouth daily. hydroCHLOROthiazide Take 25 mg by 0 Active (HYDRODIURIL) 25 mg tablet mouth daily. OMEPRAZOLE ORAL Take 20 mg by 0 Active mouth daily. gabapentin (NEURONTIN) 100 Take 100 mg 0 Active mg capsule by mouth daily. losartan potassium Take 25 mg by 0 Active (LOSARTAN ORAL) mouth daily. ASPIRIN ORAL Take 81 mg by 0 Act ashlie mouth daily. Camphor-Methyl Apply 0 Activ e Salicyl-Menthol (SALONPAS) topically. adhesive patch,medicated Active Problems Patient Care Coordination Note Formatting of this note might be differe nt from the original. [facility] Memory Program [facility]I scanned to [facility] on: 2019-05-15 Problem Noted Date Achalasia 05/17/2019 History of anemia 05/17/2019 Dysphagia 05/17/2019 Peripheral neuropathy 05/17/2019 Diverticulosis 05/17/2019 GERD (gastroesophageal reflux disease) 05/17/2019 Allergic rhinitis 05/17/2019 Hypertension 05/17/2019 Hearing loss 05/17/2019 Surgical History Surgery Date Site/Laterality Comments TOTAL HIP ARTHROPLASTY ESOPHAGEAL DILATATION BUNIONECTOMY Medical History Medical History Date Comments Hearing loss Heart disease Hypertension Family History Medical History Relation Name Comments Dementia Maternal Great-Grandmother Dementia Mother Relation Name Status Comments Maternal Great-Grandmother Mother Social History Tobacco Use Types Packs/Day Years Used Date Never Smoker Smokeless Tobacco: Never Used Alcohol Use Standard Drinks/Week Comments Yes 0 (1 standard drink = 0.6 oz pure alcoho l) very seldom Alcohol Habits Answer Date Recorded How often do you have a drink containing alcohol? Not asked How many drinks containing alcohol do you have on a typical Not asked day when you are drinking? How often do you have six or more drinks on one occasion? No t asked Comment: very seldom 05/22/2019 Sex Assigned at Date Recorded Not on file Last Filed Vital Signs Vital Sign Reading Time Taken Comments Blood Pressure 150/95 05/22/2019 1012 EDT Pulse 72 05/22/2019 1012 EDT Temperature - - Respiratory Rate - - Oxygen Saturation - - Inhaled Oxygen Concentration - - Weight - - Height - - Body Mass Index - - Plan of Treatment Health Maintenance Due Date Last Done Comments Fall Risk Screening 05/22/2020 05/22/2019 Care Teams Social Work Coordinator Relationship Specialty Start Date End Date Nanci Gomez MD PCP - General 11/02/18 [address] [place] [address]
--- OUTSIDE RECORDS SUMMARY | 2022-04-16 02:04 | XMS_ITS | Encounter Summary ---
:1945 Author Organization [facility] Address [address] [place] [address] Care Team Providers Name Role Phone Nanci Gomez MD Primary Care Provider Reason for Visit Reason Comments Memory Loss Referral (Routine) - Authorization Not Required Specialty Diagnoses / Procedures Referred By Contact Refer red To Contact Psychology Nanci Gomez MD [facility] [id number] [place] [phone] Fax: Referral ID Status Reason Start Expiration Visits Visits Date Date Requested Authorized [id number] Authorization Not 2 2 Required Encounter Details Date Type Department Care Team Description 05/22/2019 Office Visit [facility] - Curtis Magdaleno MD difficulty (Primary Medical Office 2 [facility] [address] [facility] [place] [place] [address] Medical Office [phone] [facility], [facility] [address] [place] [address] Social History Tobacco Use Types Packs/Day Years [...] - - Body Mass Index - - documented in this encounter Progress Notes Wm Sharla Larry MD, MD - 05/22/2019 1000 EDT The remainder of this office note has been dictated. ROS: Constitutional:No Breathing Problems: No Vision: No Endocrine: No Ears/Nose/Throat: Yes, Decreased hearing, Runny nose Blood/Lymph:No Heart Problems:No Skin:No Stomach or Bowel Problems: No Psychiatric: No Bladder Problems: No Sleep: No Muscle/Joint: No Other (Specify): No Neurological Symptoms: No I personally reviewed this data with the patient and/or family Curtis Larry M.D. 05/22/2019 documented in this encounter Consult Notes Wm Sharla Larry MD, MD - 05/22/2019 0000 EDT [facility] MEMORY [facility] CONSULTATION - 05/22/2019 REASON FOR CONSULTATION: The patient is concerned regarding word finding difficulty. CONSULTATIVE SOURCE: I was asked to see this patient in consultation by Nanci Gomez MD. INFORMANTS: Mrs Laureano, her sister, Angela Avilez, records provided for review and review of PRISM. PATIENT PROFILE: Ivis Laureano is a 73-year-old white right-handed woman, currently living with her of 45 years in [place]. Mrs Laureano indicates that she was born in [place] and grew up in [place]. She is the oldest of 5 children with her siblings all living in the area. She graduated from high school in 1963 and completed a one year cosmetology program. 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 She did this for 42 years. She and her have no children. Psychiatric history is generally negative. ALLERGIES: DOXYCYCLINE, LISINOPRIL. MEDICATIONS: Aspirin 81 mg. Salonpas adhesive patch. Cetirizine 10 mg. Gabapentin 100 mg at bedtime. Hydrochlorothiazide 25 mg. Losartan 25 mg. Multivitamin. Omeprazole 20 mg. Vitamin B complex. HISTORY OF PRESENT ILLNESS: Mrs Laureano reports coming to the Memory Program due to memory issues, mostly for names, something she has been struggling with for about 9-12 years. She does not think thatshe is having significant issues remembering remote information, recent events, or recent conversations. She has no reported problems with prospective memory, such as for appointments and other plannedactivities. She denies problems with procedural memory, such as when accessing previously well-learned skills. However, she does report problems with the new learning now. She does not think that she is misplacing belongings more frequently than in the past. ?? Mrs Laureano reports significant problems with word retrieval when speaking, which she indicates thatthis is her greatest concern at this point. She does not think that she is having problems with auditory comprehension when following the conversations of others. She does a good deal of leisure reading, mostly books, and notes no problems with reading comprehension. She indicates that her handwritinghas declined some over time. Lastly, she reports no issues or problems for math computations, reasoning, decision making, or geographic orientation. ?? Angela Avilez (sister) was available to provide additional information about Mrs Laureano's cognitivefunctioning and daily activities. She is aware that Ms. Laureano has been having concerns about her memory, something that she has been aware of her about 2 years. She has noticed minor issues, but doesnot have any great concerns about her sister's mental functioning. She notes only minimal problems for her sister's recall of remote information or her memory for recent conversations. She is not awareof any problems with her sisters prospective memory or procedural memory. She does not think that her sister is misplacing belongings more frequently. She could not evaluate her sister's decision making skills. ?? Ms Avilez reports that her sister is managing her basic self-care independently and adequately. As far she knows, her sister is handling her own medications okay. She indicates that her sister does manage most of the cooking, grocery shopping, and cleaning. Other than being historically a bit of a hoarder, she is managing her household adequately. She did not know about money management issues. She indicates that her sister drives on a regular basis and has not observed any issues regarding driving safety or navigation. She indicates that her sister is fairly active in the community, attending alevism, a senior exercise group, and other social activities. She reports no other concerns about her sisters emotional or behavioral functioning. MEDICAL HISTORY: Peripheral neuropathy, history of anemia, achalasia, diverticulosis, dysphagia, GERD, hypertension, hearing loss, and allergic rhinitis. Surgery has included total hip replacement on the right, esophageal dilation, and bunionectomy. Mrs Laureano has never smoked and currently describes alcohol use as very seldom. FAMILY HISTORY: Mrs Laureano indicates that her mother at the age of 89 due to a series of strokes. Her mother was actually seen in the memory program a number of years ago because of the possibility of progressive dementia. Mrs Laureano's father at the age of 88 from congestive heart failure.Mrs Laureano notes that her maternal great-grandmother may also have had some memory disorder, late in life. PHYSICAL EXAMINATION: General: The blood pressure in the left upper extremity while sitting was 150/95. Pulse was 72 and regular. Weight was not determined; however, Mrs Laureano appeared overweight, her stated age, was in no acute distress, and was cooperative for the interview and examination. Grooming and hygiene were unremarkable. There were no hallucinations, delusions or evidence of depression. Carotid bruits were not heard. Cardiac exam revealed no abnormalities and lung arambula were clear. Examination of head and neck functions revealed no thyromegaly and no evidence of lymph nodes. The throat was clear as were the eardrums. Extremities were nontender, as were joints. The skin was clear. Neurological: The Hachinski ischemic score was 1. Cranial nerve examination revealed the following. Pupils were equal and reactive to light and accommodation. EOMs were full without nystagmus. Arambula were full to confrontation. The face was symmetric at rest and moved symmetrically. Jaw power was fulland there was no evidence of weakness of the tongue or fasciculations. Shoulder shrugging was full. Motor exam revealed full strength, no abnormalities of tone and normal bulk. No involuntary movementswere noted. Reflexes were 2+ throughout with downgoing toes. Gross sensory examination to pin and cotton was unremarkable. Coordination as tested by finger to nose, rapid rhythmic alternating movementswas normal. Station and gait were unremarkable. ADDITIONAL PERTINENT INFORMATION: Mrs Laureano had a CT scan of the brain that was completed on 05/09/2019 and this showed nonspecific age-related changes. Recent laboratory testing germane to a memory evaluation was unremarkable or nonspecific. ASSESSMENT: Mrs Laureano scored 28 on the Mini-Mental State Exam and 7 on the Alzheimer's Disease Assessment Scale. Neither her history nor results of neuropsychologic testing provide any convincing evidence of a progressive neurodegenerative condition. I will take the opportunity today to reassure Mrs Laureano and suggest no followup at this time. PLAN: 1. I met with Mrs Laureano and her brother for 30 minutes of [id number] conversation and discussion, with more than half of that time used for counseling and coordination of care. 2. I addressed questions. 3. I provided my assessment as above. 4. No followup planned at this time. Curtis Larry MD 10 42 AM - Curtis Larry MD tn Dictation ID: [id number] cc: Nanci Gomez MD, [address], [address] [address] documented in this encounter Plan of Treatment Not on filedocumented as of this encounter Visit Diagnoses Diagnosis Word finding difficulty - Primary Problems with communication (including s peech) documented in this encounter Historical Medications This list may reflect changes made after this encounter. Medication Sig Dispensed Refills Start Date End Date Camphor-Methyl Salicyl-Menthol Apply topically. 0 (SALONPAS) adhesive patch,medicated ASPIRIN ORAL Take 81 mg by 0 mouth daily. losartan potassium (LOSARTAN Take 25 mg by 0 ORAL) mouth daily. gabapentin (NEURONTIN) 100 mg Take 100 mg by 0 capsule mouth daily. OMEPRAZOLE ORAL Take 20 mg by 0 mouth daily. hydroCHLOROthiazide Take 25 mg by 0 (HYDRODIURIL) 25 mg tablet mouth daily. cetirizine (ZYRTEC) 10 mg Take 10 mg by 0 tablet mouth daily. MULTIVITAMIN ORAL Take 1 Tab by 0 mouth daily. VITAMIN B COMPLEX ORAL Take 1 Tab by 0 mouth daily. added in this encounter Care Teams Log Inspector Relationship Specialty Start Date End Date Nanci Gomez MD PCP - General 11/02/18 [address] [place] [address] documented as of this encounter
--- OUTSIDE RECORDS SUMMARY | 2022-04-16 02:04 | XMS_ITS | Encounter Summary ---
:1945 Author Organization [facility] Address [address] [place] [address] Care Team Providers Name Role Phone Nanci Gomez MD Primary Care Provider Encounter Details Date Type Department Care Team Description 10/18/2020 Lab Requisition [facility] Outr Resulting Lab, Pathology & Laboratory Provider [facility] [address] [address], [place] [id number] Social History Tobacco Use Types Packs/Day Years [...] Procedure Name Priority Date/Time Associated Comments Diagnosis DO NOT ORDER Today 10/18/2020 10:30 Results for this STANDALONE - BROAD EST procedure are in COVID TEST the results section. COVID-19 TESTING Routine 10/18/2020 10:30 Results for this EST procedure are i n the results section. documented in this encounter Results DO NOT ORDER STANDALONE - BROAD COVID TEST (10/18/2020 10:30 EST) COVID-19 rt-PCR NEGATIVE Negative [facility] Result Comment: LABORATORY 2019-novel Coronavirus (2019 -nCoV) not detected by the qRT-PCR assay. Consider testing for other respiratory viruses or re-collecting for 2019-nCoV testing. Note: Optimum timing for peak viral levels du ring infections caused by 20 -nCoV have not been determined. Collection of multiple specimens from the same patient may be necessary to detect the virus. Limitations Positive results are indicat ashlie of active infection with SARS-CoV-2 but do not rule out bacterial infection or co-infection with other viruses. The agent detected may not be the definite cause of diseas e. In addition, detection of viral RNA may not indicate the presence of infectious virus or that SARS-CoV-2 is the causative agent for clinical symptoms. Negative results do not prec lude SARS-CoV-2 infection and should not be used as the sole basis for patient management decisions. Negative results must be combined with clinical observations, patient his tory, and epidemiological in formation. False negative results may also occur if amplification inhibitors are present in the specimen or if inadequate numbers of organisms are present in the specimen. Op timum specimen types and hipolito ing for peak viral levels during infections caused by SARS-CoV-2 have not been fully determined. Collection of multiple specimens (types and time points) from the same patient may be necessary to detect the virus. The test was validated for u with upper respiratory specimens obtained via nasopharyngeal or oropharyngeal swabs in VTM, UTM, M4, M5, M6, saline, and MTM media. The performance of this test has not be en established for other spe cimens. Specimens collected using other FDA recommended Specimen Collection Materials listed in the FDA COVID-19 [employer] communication (December 21, 2019) are pr ocessed with the caveat that they were not all validated for use with this test and the result must be interpreted in this context. Furthermore, a false negative results may occur if a specimen is improperly collected, transported or handled. If the virus mutates in the RT-PCR target region, SARS-CoV-2 may not be detected or may be detected less predictably. Inhibitors or other types of interference may produce a false negative result. An interference study evaluating the effect of common cold medications was not performed. This test is not FDA-cleared but its performance characteristics were established by our CLIA-certified, CAP-accredited, high complexity laboratory in accordance with CLIA regulations, [employer] (CAP) guidel eliud (Dec 14, 2019), and FDA guidance (Nov 25, 2019). This test is only for use un nabila the Food and Drug Administration's Emergency Use Authorization. Specimen Swab - Entire nasopharynx (body structur e) Performing Organization Address City/State/ZIP Code Phon e Number [facility] [place] COVID-19 TESTING (10/18/2020 10:30 EST) COVID-19 rt-PCR NEGATIVE Negative [facility] Result Comment: LABORATORY 2019-novel Coronavirus (2019 -nCoV) not detected by the qRT-PCR assay. Consider testing for other respiratory viruses or re-collecting for 2019-nCoV testing. Note: Optimum timing for peak viral levels du ring infections caused by 20 -nCoV have not been determined. Collection of multiple specimens from the same patient may be necessary to detect the virus. Limitations Positive results are indicat ashlie of active infection with SARS-CoV-2 but do not rule out bacterial infection or co-infection with other viruses. The agent detected may not be the definite cause of diseas e. In addition, detection of viral RNA may not indicate the presence of infectious virus or that SARS-CoV-2 is the causative agent for clinical symptoms. Negative results do not prec lude SARS-CoV-2 infection and should not be used as the sole basis for patient management decisions. Negative results must be combined with clinical observations, patient his tory, and epidemiological in formation. False negative results may also occur if amplification inhibitors are present in the specimen or if inadequate numbers of organisms are present in the specimen. Op timum specimen types and hipolito ing for peak viral levels during infections caused by SARS-CoV-2 have not been fully determined. Collection of multiple specimens (types and time points) from the same patient may be necessary to detect the virus. The test was validated for u se with upper respiratory specimens obtained via nasopharyngeal or oropharyngeal swabs in VTM, UTM, M4, M5, M6, saline, and MTM media. The performance of this test has not be en established for other spe cimens. Specimens collected using other FDA recommended Specimen Collection Materials listed in the FDA COVID-19 [employer] communication (December 21, 2019) are pr ocessed with the caveat that they were not all validated for use with this test and the result must be interpreted in this context. Furthermore, a false negative results may occur if a specimen is improperly collected, transported or handled. If the virus mutates in the RT-PCR target region, SARS-CoV-2 may not be detected or may be detected less predictably. Inhibitors or other types of interference may produce a false negative result. An interference study evaluating the effect of common cold medications was not performed. This test is not FDA-cleared but its performance characteristics were established by our CLIA-certified, CAP-accredited, high complexity laboratory in accordance with CLIA regulations, [employer] (CAP) guidel eliud (Dec 14, 2019), and FDA guidance (Nov 25, 2019). This test is only for use un nabila the Food and Drug Administration's Emergency Use Authorization. Performing Lab [facility] LABORATORY SERVICES Specimen Swab Performing Organization Address City/State/ZIP Code Phon e Number [facility] [address] [place] [address] SERVICES [facility] [place], [place] documented in this encounter Visit Diagnoses Not on filedocumented in this encounter Care Teams Fuller Brush Man Relationship Specialty Start Date End Date Nanci Gomez MD PCP - General 11/02/18 [address] [place], [place] [address] documented as of this encounter
--- OUTSIDE RECORDS SUMMARY | 2022-04-16 02:04 | XMS_ITS | Encounter Summary ---
:1945 Author Organization [facility] Address [address] [place] [id number] Care Team Providers Name Role Phone Nanci Gomez MD Primary Care Provider Reason for Visit Reason Comments Memory Loss Referral (Routine) - Authorization Not Required Specialty Diagnoses / Procedures Referred By Contact Refer red To Contact Psychology Nanci Gomez MD [id number] [place] [phone] Fax: Referral ID Status Reason Start Expiration Visits Visits Date Date Requested Authorized [id number] Authorization Not 2 2 Required Encounter Details Date Type Department Care Team Description 05/09/2019 Office Visit [facility] Ramiro Renee, Memory loss (Primary Memory Program - PhD Dx) Medical Office [address] [facility] [address] [place] [address] [place], Re[facility] [phone] [place] [address] Social History Tobacco Use Types Packs/Day Years Used Date Never Assessed Sex Assigned at Date Recorded Not on file documented as of this encounter Discharge Diagnoses Diagnosis R41.3 Other amnesia-R41.3[ICD-10-CM] documented in this encounter Discharge Disposition Disposition Code Departure Means Destination Auto Discharge documented in this encounter Progress Notes Thelma Phd, Ramiro, PhD - 05/09/2019 1300 EDT NEUROPSYCHOLOGICAL EVALUATION Ivis Laureano was seen for interview and testing on 05/09/2019. She was referred by Dr. Nanci Gomez ([facility]) and was seen as an outpatient at the Medical Office Building on the [facility] the [facility]. PATIENT PROFILE: Ms. Laureano was born in [place] and grew up in [place]. Her mother at age 89 due to complications from a series of CVAs. Her father at about age 88 of congestive heartfailure. She is the oldest of five children and her family, with most of her siblings living in the area. She graduated from high school in 1963 and completed a one-year cosmetology program. 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 She currently resides in [facility] with Adam Laureano, her of 45 years. They have no children. Her medical history is noteworthy for HTN, peripheral neuropathy, and syncope. Her family neurological history is noteworthy for her mother having dementia, which was largely due to her strokes, but there also may have been a comorbid neurodegenerative disorder. Her maternal grandmother also had some form of dementia. There is no reported family history of significant psychiatric disorder. HISTORY OF PRESENTING ILLNESS: Ms. Laureano reports coming to the Memory Program due to memory issues, mostly for names, something she has been struggling with for about 9-12 years. She does not think that she is having significant issues remembering remote information, recent events, or recent conversations. She has no reported problems with prospective memory, such as for appointments and other planned activities. She denies problems with procedural memory, such as when accessing previously well-learned skills. However, she does report problems with the new learning now. She does not think that she is misplacing belongings more frequently than in the past. Ms. Laureano reports significant problems with word retrieval [...] computations, reasoning, decision making, or geographic orientation. Angela Avilez (sister) was available to provide additional information about Ms. Laureano's cognitivefunctioning and daily activities. She is [...] not evaluate her sister's decision making skills. Ms. Avilez reports that her sister is managing [...] about her sisters emotional or behavioral functioning. BEHAVIORAL OBSERVATION AND MENTAL STATUS EXAMINATION: Ms. Laureano presented as a 73-year-old, right-handed woman who arrived on time for her appointment, accompanied by her sister. She is casually dressed and adequately groomed. Her affect was within normal limits, and her eye contact was acceptable. She appeared to be a reasonable historian upon interview. She participated fully in all aspects of the formal cognitive testing portion of the evaluation. Ms. Laureano reports that her mood is generally pretty good and that she is generally happy, exceptfor some frustration with her . Otherwise, she denies depression and anxiety. She also deniesanhedonia, passive wishes for , and suicidal ideation. She has had occasional onset insomnia and nocturnal awakening, but adds that her sleep has been better over recent years, and her energy is acceptable. Her appetite is good and her weight has increased a little. Hallucinations and delusions are not noted. She does not use tobacco or recreational drugs, and her alcohol consumption is limited to about 2 drinks per year. She obtained a score of 1 on the Geriatric Depression Scale, which falls in the nondepressed range. NEUROPSYCHOLOGICAL FINDINGS: Ms. Laureano was administered a battery of neuropsychological tests, evaluating a range of cognitive functions. Her performance on these measures is reviewed below. 1. Orientation: She was adequately oriented to self, date/time, and situation. She was slightly off for the name of our facility. She was able to recall the name of the president and the [place] governor, but not that of the service mechanic. 2. Attention/processing: She could repeat 5 digits forward and 4 digits backward, which falls in thelow average to average range for her age. She made one error performing serial sevens but was able to spell world backward correctly. Visual scanning and sequencing fell squarely in the average rangefor her age. 3. Communication skills: Her spontaneous speech was intelligible and otherwise unremarkable. Upon testing, confrontation naming was intact; she was able to name all 26 of 26 pictures and 13 of 14 objects. Her oral fluency was high average; she was able to generate 22 animal names in one minute. She had no problems following multiple-step commands. Her word recognition reading was in the low average range for her age. 4. Memory functioning: She could correctly recall 2 of 3 words after a brief delay. Immediate recallof short stories was low average (9th percentile). 30- minute delayed recall of short stories was lowaverage to average (25th percentile); corresponding delayed recognition memory of short stories was a verage (26-50th percentile). Immediate recall of visually-presented spatial material was impaired (1st percentile). 30-minute delayed recall of visuospatial information fell in the average range (37th percentile); delayed recognition memory of visuospatial material was also average (51-75th percentile). 5. Spatial organization skills: Her block design reproductions were performed in the superior range for her age. Her clock drawing and her other figure drawings were all acceptable. 6. Reasoning skills: She correctly solved 3 of 3 word-pair similarities, 2 of 3 functional verbal problems and 1 of 3 proverb interpretations, with the remaining 2 proverbs being answered concretely. 7. Index scores: She achieved a score of 28 on the Mini-Mental State Examination (MMSE), which fallsin the normal or unimpaired range, and a score of 7 on the Alzheimer???s Disease Assessment Scale (ADAS), which also falls in the normal or unimpaired range. SUMMARY AND IMPRESSION: Ms. Laureano is a 73-year-old, right-handed, woman with about 13 years of education. She comes to the Memory Program with a self-identified 9-12-year history of word retrieval difficulties. There are no clear declines identified for her adaptive daily functioning. [facility] finds her to be acceptably oriented. She is functioning in the normal range for most aspects of attention/concentration, mental processing speed, communication skills, and spatial organization. For verbal reasoning, she was within normal limits, except for having problems with proverb interpretations. Her new learning and memory functions were somewhat weak for immediate recall, but was in the average range for delayed recall and delayed recognition memory. In short, this is a very normal-appearing neuropsychological evaluation, with nothing noted on testing or interview that would indicate cognitive changes other than those related to age. PLAN: Ms. Laureano will be seen for neurological consultation by Dr. Curtis Larry on 05/22/2019 for the second part of her Memory Program work-up. DIAGNOSIS: Memory Loss (R41.3) TIME / PROCEDURES: Neurobehavioral Status Examination -43 minutes (1 unit of 04849) provided by neuropsychologist; Professional services time - 41 minutes (1 unit of 91489) provided by neuropsychologist; Testing by control systems technician - 66 minutes (1 unit of 74867 and 1 unit(s) of 02399) consisting of administration and scoring. Ramiro Renee, PhD Psychologist - Doctorate documented in this encounter Plan of Treatment Not on filedocumented as of this encounter Visit Diagnoses Diagnosis Memory loss - Primary documented in this encounter Care Teams Marketing Programs Manager Relationship Specialty Start Date End Date Nanci Gomez MD PCP - General 11/02/[address] [place] [id number] documented as of this encounter
--- OUTSIDE RECORDS SUMMARY | 2022-04-16 02:04 | XMS_ITS | Encounter Summary ---
:1945 Author Organization [facility] Address [address] [place] [address] Care Team Providers Name Role Phone Stevenson Thomas MD Primary Care Provider [phone] Nanci Gomez MD Primary Care Provider Encounter Details Date Type Department Care Team Description 09/24/2006 Hospital Encounter [facility] - Jewell Wilcox, GAS STATION ATTENDANT Other [facility] [address] [place] [phone] (Wo rk) Social History Tobacco Use Types [...] filedocumented as of this encounter Visit Diagnoses Not on filedocumented in this encounter Care Teams Entry Level Sales Consultant Relationship Specialty Start Date End Date Stevenson Thomas MD PCP - General 08/02/15 11/01/18 Nanci Gomez MD PCP - General 11/02/18 [address] [place], [place] [id number] documented as of this encounter
--- OUTSIDE RECORDS SUMMARY | 2022-04-16 02:04 | XMS_ITS | Encounter Summary ---
:1945 Author Organization [facility] Address [address] [place] [address] Care Team Providers Name Role Phone Nanci Gomez MD Primary Care Provider Reason for Referral Radiology Services (Routine) - Specialty Report Received Specialty Diagnoses / Procedures Referred By Contact Refer red To Contact Diagnoses Memory loss Curtis Larry MD Procedures CT HEAD WO CONTRAST [address] [facility] Medical Office [facility], [facility] [address] [place] [address] Referral ID Status Reason Start Date Expiration Date Visits V isits Requested Authorized [id number] Specialty 11/21/2018 1 1 Report Received Encounter Details Date Type Department Care Team Description 11/21/2018 Orders Only [facility] Abbey Larry ss (Primary Memory Program - Curtis Magdaleno MD Dx) Medical Office 7[address] [facility] [address] [place] [address] Medical Office [phone] [facility], [address] [place] [address] Social History Tobacco Use Types Packs/Day Years Used Date Never Assessed Sex Assigned at Date Recorded Not on file documented as of this encounter Plan of Treatment Not on filedocumented as of this encounter Procedures Procedure Name Priority Date/Time Associated Diagnosis Comme nts CT HEAD WO CONTRAST Routine 05/09/2019 14:38 Memory loss Resu lts for this EDT procedure are i n the results section. documented in this encounter Results TSH (05/09/2019 14:55 EDT) TSH 1.88 0.47 - 4.68 [facility] Comment: uIU/ml LABORATORY SERVICES The results of this assay can be falsely lowered due to the consumption of Biotin. Specimen Blood specimen (specimen) - Blood Performing Organization Address City/[facility]/ZIP Code Phon e Number [facility] LABORATORY [address] [place] [address] SERVICES SYPHILIS SEROLOGY (05/09/2019 14:55 EDT) Syphilis Serology NegativeComment: [facility] Reference Range: LABORATORY SERVICES Negative Specimen Blood specimen (specimen) - Blood Performing Organization Address [facility] Phon e Number [facility] [address] [place] [address] SERVICES (ABNORMAL) VITAMIN B12 (05/09/2019 14:55 EDT) Pathologist Sig nature Vitamin B-12 1,241 (H) 211 - 911 pg/ml [facility] LABORATORY SERVICES Specimen Blood specimen (specimen) - Blood Performing Organization Address [facility] Phon e Number [facility] [address] [place] [address] SERVICES (ABNORMAL) COMPLETE BLOOD COUNT AND DIFFERENTIAL (05/09/2019 14:55 EDT) Pathologist Sig nature WBC 5.34 4.0 - 12.4 [facility] LABORATORY SERVICES RBC 3.71 (L) 3.86 - 5.04 [facility] LABORATORY SERVICES Hemoglobin 12.0 11.6 - 15.2 [facility] gm/dl LABORATORY SERVICES HCT 33.0 (L) 34.9 - 44.4 % [facility] LABORATORY SERVICES MCV 89 81 - 98 fl [facility] LABORATORY SERVICES MCH 32.3 26.7 - 33.3 pg [facility] LABORATORY SERVICES MCHC 36.4 (H) 32.1 - 35.9 [facility] gm/dl LABORATORY SERVICES RDW-CV 12.2 <14.7 % [facility] LABORATORY SERVICES RDW-SD 39.4 <50.4 fl [facility] LABORATORY SERVICES PLT 217 141 - 377 K/[facility] LABORATORY SERVICES MPV 10.0 9.5 - 12.7 fl [facility] LABORATORY SERVICES Neutrophils 59.8 % [facility] LABORATORY SERVICES Lymphocytes 29.4 % [facility] LABORATORY SERVICES Monocytes 8.2 % [facility] LABORATORY SERVICES Eosinophils 1.7 % [facility] LABORATORY SERVICES Basophils 0.7 % [facility] LABORATORY SERVICES Immature Grans 0.2 % [facility] LABORATORY SERVICES ABS Neutrophils 3.19 2.20 - 8.85 [facility] K/[facility] LABORATORY SERVICES ABS Lymphs 1.57 1.09 - 3.30 [facility] LABORATORY SERVICES ABS Monocytes 0.44 0.1 - 0.8 /[facility] LABORATORY SERVICES ABS Eosinophils 0.09 0.03 - 0.61 [facility] K/[facility] LABORATORY SERVICES ABS Basophils 0.04 0.01 - 0.11 [facility] LABORATORY SERVICES ABS Immature Grans 0.01 0 - 0.06 [facility] LABORATORY SERVICES Type of Diff: Automated [facility] LABORATORY SERVICES Specimen Blood specimen (specimen) - Blood Performing Organization Address City/State/ZIP Code Phon e Number [facility] [address] [place] [address] SERVICES (ABNORMAL) COMPREHENSIVE METABOLIC PANEL (CMP) (05/09/2019 14:55 EDT) Potassium 4.0 3.5 - 5.0 [facility] mEq/L [facility] Sodium 140 136 - 145 [facility] mEq/L [facility] Chloride 104 96 - 110 [facility] mEq/L [facility] CO2 29 22 - 32 mEq/L [facility] LABORATORY SERVICES Total Alkaline 105 38 - 126 U/L [facility] Phosphatase [facility] Bilirubin, Total 0.5 <1.4 mg/dl [facility] LABORATORY SERVICES AST 31 15 - 46 U/L [facility] LABORATORY SERVICES ALT 32 <53 U/L [facility] LABORATORY SERVICES Albumin 4.0 3.4 - 4.9 [facility] g/dl [facility] Total Protein 6.5 6.3 - 8.2 [facility] g/dl [facility] Creatinine 0.96 0.52 - 1.04 [facility] mg/dl [facility] GFR, Calculated 59 (L) >60 [facility] Comment: ml/min/1.73m2 [facility] eGFR calculated using CKD-EPI equation for SERVICES non Americans. Multiply eGFR by 1.16 for Americans. BUN 22 10 - 26 mg/dl [facility] LABORATORY SERVICES Calcium 9.4 8.5 - 10.5 [facility] MEDICAL mg/dl [facility] SERVICES Calculated Calcium 9.4 8.5 - 10.5 [facility] MEDICAL mg/dl [facility] Glucose, Serum 111 (H) 70 - 100 [facility] MEDICAL mg/dl [facility] Fasting? No [facility] LABOR[facility]ORY SERVICES Specimen Blood specimen (specimen) - Blood Performing Organization Address City/State/ZIP Code Phon e Number [facility] [address] [place] [address] HEAD WO CONTRAST (05/09/2019 14:38 EDT) Anatomical Region Laterality Modality Other Specimen Narrative [facility] RADIOLOGY [facility] - 05/09/2019 16:[address] HEAD WO CONTRAST HISTORY: R41.3-Other [id number]; Memory Loss TECHNIQUE: CT head without contrast. COMPARISON: No comparison FINDINGS: Parenchyma: No evidence of infarction. No evidence o f intracranial hemorrhage. No ??mass or midline shift. Parenchymal volume appears commensurate with age. Extra-Axial Spaces: No extra-axial collection. No extra-axia l mass. Ventricular System: Normal size and configuration. No hydroc ephalus. Vessels: Limited evaluation without IV contrast. Mild calcific atherosclerosis identified in the intrac ranial arteries. Normal density in the dural venous sinuses. Bones: No concerning bone lesions. No evidence of fracture. Paranasal Sinuses/Mastoid Air Cells: Mucosal retention cyst in the left maxil robert sinus. Otherwise clear. Extra-Cranial Soft Tissues: Unremarkable. IMPRESSION: No evidence of recent intracranial hemor rhage, large territory infarct, or mass. I have personally reviewed the images an d the above interpretation and agree with the findings. Procedure Note Julio Murphy MD, - 05/09/2019 CT HEAD WO CONTRAST HISTORY: R41.3-Other [id number]; Memory Loss TECHNIQUE: CT head without contrast. COMPARISON: No comparison FINDINGS: Parenchyma: No evidence of infarction. No evidence o f intracranial hemorrhage. No mass or midline shift. Parenchymal vo lume appears commensurate with age. Extra-Axial Spaces: No extra-axial collection. No extra-axia l mass. Ventricular System: Normal size and configuration. No hydroc ephalus. Vessels: Limited evaluation without IV contrast. Mild calcific atherosclerosis identified in the intrac ranial arteries. Normal density in the dural venous sinuses. Bones: No concerning bone lesions. No evidence of fracture. Paranasal Sinuses/Mastoid Air Cells: Mucosal retention cyst in the left maxil robert sinus. Otherwise clear. Extra-Cranial Soft Tissues: Unremarkable. IMPRESSION: No evidence of recent intracranial hemor rhage, large territory infarct, or mass. I have personally reviewed the images an d the above interpretation and agree with the findings. Performing Organization Address City/State/ZIP Code Phon e Number [facility] RADIOLOGY [facility] documented in this encounter Visit Diagnoses Diagnosis Memory loss - Primary documented in this encounter Care Teams Geography Teacher Relationship Specialty Start Date End Date Nanci Gomez MD PCP - General 11/02/18 [address] [place] [address] documented as of this encounter
--- OUTSIDE RECORDS SUMMARY | 2022-04-16 02:04 | XMS_ITS | Encounter Summary ---
:1945 Author Organization [facility] Address [address] [place] [address] Care Team Providers Name Role Phone Nanci Gomez MD Primary Care Provider Encounter Details Date Type Department Care Team Description 11/01/2020 Lab Requisition [facility] Outr Resulting Lab, Pathology & Laboratory Provider [facility] [address] [place], [place] [id number] Social History Tobacco Use Types Packs/Day Years [...] Procedure Name Priority Date/Time Associated Comments Diagnosis HIGH SENSITIVITY Routine 10/31/2020 9:35 Results for this C-REACTIVE PROTEIN EST procedure are in (CARDIOVASCULAR the results DISEASE) section. ANTI NUCLEAR AB Routine 10/31/2020 9:35 Results f or this (ULISES), IFA EST procedure are i n the results section. documented in this encounter Results ANTI NUCLEAR AB (ULISES), IFA (10/31/2020 9:35 EST) ULISES Interpretation NegativeComment: Negative [facility] No titer LABORATORY SERVICES performed, ULISES Screen is negative. Specimen Blood - Venous blood (substance) Narrative [facility] LABORATORY SERVICES - 11/04/2020 15:04 EST Results were obtained with the [employer] NOV A Lite HEp-2 ULISES Kit by indirect immunofluorescence. Performing Organization Address City/[facility] Phon e Number [facility] LABORATORY [address] [place] [address] SERVICES HIGH SENSITIVITY C-REACTIVE PROTEIN (CARDIOVASCULAR DISEASE) (10/31/2020 9:35 EST) High Sensitivity 3.76 See Note [facility] CRP Comment: mg/L [facility] Reference Range: SERVICES ??Source: [employer] Clinical Practice Recommendations, 2003 ??Low Risk: ? <1.0 mg/L ??Average Risk: ?? 1.0 - 3.0 mg/L ??High Risk: ?>3.0 mg/L ??Indeterminate*: >10.0 mg/L ??*May be an indication of another source of inflamma tion or infection Specimen Blood - Venous blood (substance) Performing Organization Address City/State/[facility] Code Phon e Number [facility] [address] [place] [address] SERVICES documented in this encounter Visit Diagnoses Not on filedocumented in this encounter Care Teams Extractor Loader And Unloader Relationship Specialty Start Date End Date Nanci Gomez MD PCP - General 11/02/18 [address] [place], [place] [address] documented as of this encounter
--- OUTSIDE RECORDS SUMMARY | 2022-04-16 02:04 | XMS_ITS | Encounter Summary ---
:1945 Author Organization [facility] Address [address] [place] [address] Care Team Providers Name Role Phone Nanci Gomez MD Primary Care Provider Encounter Details Date Type Department Care Team Description 02/27/2020 Lab Requisition [facility] Outr Resulting Lab, Pathology & Laboratory Provider [facility] [address], [place] [id number] Social History Tobacco Use Types Packs/Day Years [...] Name Priority Date/Time Associated Diagnosis Comme nts COVID-19 TEST [facility] Today 02/27/2020 9:20 EDT LAB PCR COVID-19 TESTING Routine 02/27/2020 9:20 EDT Resu lts for this procedure are i n the results section. documented in this encounter Results COVID-19 TEST [facility] PCR (02/27/2020 9:20 EDT) Specimen Swab - Entire nasopharynx (body structur e) Performing Organization Address City/State/ZIP Code Phon e Number [facility] [address] [place] [address] SERVICES COVID-19 TESTING (02/27/2020 9:20 EDT) COVID-19 rt-PCR Negative Negative [facility] Result Comment: CENTER [facility]ORY This test has not been FDA c leared or approved. This test has been authorized by FDA under an EUA for use by authorized laboratories. This test has been authorized only for detection of nucleic acid fro SERVICES m 2019-nCoV, not for any oth er viruses or pathogens. This test is only authorized for the duration of the declaration that circumstances exist justifying the authorization of emergency use of in vitro d iagnostic tests for detectio n and/or diagnosis of 2019-nCoV under section 564(b)(1) of Act, 21 U.S.C ?? 360bbb-3(b) (1), unless the authorization is terminated or revoked sooner. Negative results do not prec lude 2019-nCoV infection and should not be used as the sole basis for treatment or other patient management decisions. Negative results must be combined with clinical observa tions, patient history, and epidemiological informatio n. Performed on the Modeboher Fusion instrument Performing Lab [facility] Lab [facility] SERVICES Specimen Swab - Entire nasopharynx (body structur e) Performing Organization Address City/State/ZIP Code Phon e Number [facility] [address] [place] [address] SERVICES documented in this encounter Visit Diagnoses Not on filedocumented in this encounter Care Teams Blow Machine Tender Starch Spraying Relationship Specialty Start Date End Date Nanci Gomez MD PCP - General 11/02/18 [address] [place], [place] [id number] documented as of this encounter
--- OUTSIDE RECORDS SUMMARY | 2022-04-16 02:05 | XMS_ITS | Encounter Summary ---
:1945 Author Organization [facility] Address [address] [place] [address] Care Team Providers Name Role Phone Unavailable Primary Care Provider Unavailable Encounter Details Date Type Department Care Team Description 09/16/2000 Results Only [facility] - Cassidy Amaya, DIRECTOR OF PREMIUM SEAT SALES conversion [address] [place] [address] Social History Tobacco Use Types Packs/Day Years Used Date Never Assessed Sex Assigned at Date Recorded Not on file documented as of this encounter Plan of Treatment Not on filedocumented as of this encounter Procedures Procedure Name Priority Date/Time Associated Diagnosis Comme [facility] CYTOPATHOLOGY Routine 09/16/2000 0:00 EST Results for this procedure are i n the results section . documented in this encounter Results CYTOPATHOLOGY (09/16/2000 0:00 EST) Pathology Report: CYTOPATHOLOGY REPORT [facility] Reports generated via electronic interface contain shabana ginal data; however they are lacking the format of the original re port. Caution should be taken when reading/interpreting unfo rmatted reports. Name: ? REZA LAUREANO ? Accession #: ? [id number] : ? 1945 (Age: 55) ??F ?Collect Date: ? 08/28 Location: ? [facility] ? Receive Date : ? 09/22/2000 Provider: ?CASSIDY SHAFFER DIRECTOR OF PREMIUM SEAT SALES Copy to: ? Specimen/Source: ?ThinPrep Pap Test, Cervix/ Endocervix Last Menstrual Period: ? 1996 Hormonal/Contraceptive Status: ? Yes: Evista Other: ? Additional clinical information: Stenotic os. ? SPECIMEN ADEQUACY ? Satisfactory for evaluation. GENERAL CATEGORIZATION ? Within Normal Limits ? Document reviewed and electronically signed by: ? KENNY Vogel(ASCP) ? Report Date: ??09/22/2000 14:38 End of Report Specimen Performing Organization Address City/State/ZIP Code Phon e Number [facility] [address] [place] [address] SERVICES [facility] [address] [place] [address] documented in this encounter Visit Diagnoses Not on filedocumented in this encounter
--- OUTSIDE RECORDS SUMMARY | 2022-04-16 02:05 | XMS_ITS | Encounter Summary ---
:1945 Author Organization [facility] Address [address] [place] [address] Care Team Providers Name Role Phone Unavailable Primary Care Provider Unavailable Encounter Details Date Type Department Care Team Description 08/27/2005 Results Only [facility] - Marielos Jackson, Pallavi Rivas, jose PALeroyC [address] [place] [address] [place] [address] (Wo rk) Social History Tobacco Use Types Packs/Day Years Used Date Never Assessed Sex Assigned at Date Recorded Not on file documented as of this encounter Plan of Treatment Not on filedocumented as of this encounter Procedures Procedure Name Priority Date/Time Associated Diagnosis Comme [facility] CYTOPATHOLOGY Routine 08/27/2005 0:00 EST Results for this procedure are i n the results section . documented in this encounter Results CYTOPATHOLOGY (08/27/2005 0:00 EST) Pathology Report: CYTOPATHOLOGY REPORT [facility] Reports generated via electronic interface contain shabana ginal data; however they are lacking the format of the original re port. Caution should be taken when reading/interpreting unfo rmatted reports. Name: ? REZA LAUREANO ? Accession #: ? [id number] : ? 1945 (Age: 60) ??F ?Collect Date: ? 120 09/2004 Location: ? [facility] ? Receive Date : ? 08/31/2005 Provider: ?CHAZ PATEL Copy to: ? Specimen/Source: ? ThinPrep Pap Test, Cervix/Endocervix, processed on Th[employer] Friend[employer] ThinPrep Imaging System, with manual evaluation Last Menstrual Period: ? 5 + years ago Hormonal/Contraceptive Status: ? Yes: Evista ? SPECIMEN ADEQUACY ? Satisfactory for Evaluation - transformation zone component present GENERAL CATEGORIZATION ? Negative for Intraepithelial Lesion or Malignan cy ? Document reviewed and electronically signed by: ? KENNY Mckeon(ASCP) ? Report Date: ??09/01/2005 15:47 End of Report Specimen Performing Organization Address City/State/ZIP Code Phon e Number [facility] [address] [place] [address] SERVICES [facility] [address] [place] [address] documented in this encounter Visit Diagnoses Not on filedocumented in this encounter
--- OUTSIDE RECORDS SUMMARY | 2022-04-16 02:05 | XMS_ITS | Encounter Summary ---
:1945 Author Organization [facility] Address [address] [place] [address] Care Team Providers Name Role Phone Unavailable Primary Care Provider Unavailable Encounter Details Date Type Department Care Team Description 10/01/2003 Results Only [facility] - Cassidy Amaya, BULK SEALER OPERATOR conversion [address] [place] [address] Social History Tobacco Use Types Packs/Day Years Used Date Never Assessed Sex Assigned at Date Recorded Not on file documented as of this encounter Plan of Treatment Not on filedocumented as of this encounter Procedures Procedure Name Priority Date/Time Associated Diagnosis Comme [facility] CYTOPATHOLOGY Routine 10/01/2003 0:00 EST Results for this procedure are i n the results section . documented in this encounter Results CYTOPATHOLOGY (10/01/2003 0:00 EST) Pathology Report: CYTOPATHOLOGY REPORT [facility] Reports generated via electronic interface contain shabana ginal data; however they are lacking the format of the original re port. Caution should be taken when reading/interpreting unfo rmatted reports. Name: ? REZA LAUREANO ? Accession #: ? [id number] : ? 1945 (Age: 58) ??F ?Collect Date: ? 01/2004 Location: ? [facility] ? Receive Date : ? 10/03/2003 Provider: ?CASSIDY SHAFFER BULK SEALER OPERATOR Copy to: ? Specimen/Source: ?ThinPrep Pap Test, Cervix/ Endocervix Last Menstrual Period: ? 1996 ? SPECIMEN ADEQUACY ? Satisfactory for Evaluation - transformation zone component present GENERAL CATEGORIZATION ? Negative for Intraepithelial Lesion or Malignan cy ? Document reviewed and electronically signed by: ? KENNY Rivera(ASCP)(IAC) ? Report Date: ??10/08/2003 11:39 End of Report Specimen Performing Organization Address City/State/ZIP Code Phon e Number [facility] [address] [place] [address] SERVICES [facility] [address] [place] [address] documented in this encounter Visit Diagnoses Not on filedocumented in this encounter
--- OUTSIDE RECORDS SUMMARY | 2022-04-16 02:05 | XMS_ITS | Encounter Summary ---
:1945 Author Organization [facility] Address [address] [place] [address] Care Team Providers Name Role Phone Unavailable Primary Care Provider Unavailable Encounter Details Date Type Department Care Team Description 09/05/2001 Results Only [facility] - Cassidy Amaya, LUIS MIGUEL conversion [address] [place] [address] Social History Tobacco Use Types Packs/Day Years Used Date Never Assessed Sex Assigned at Date Recorded Not on file documented as of this encounter Plan of Treatment Not on filedocumented as of this encounter Procedures Procedure Name Priority Date/Time Associated Diagnosis Comme [facility] CYTOPATHOLOGY Routine 09/05/2001 0:00 EST Results for this procedure are i n the results section . documented in this encounter Results CYTOPATHOLOGY (09/05/2001 0:00 EST) Pathology Report: CYTOPATHOLOGY REPORT [facility] Reports generated via electronic interface contain shabana ginal data; however they are lacking the format of the original re port. Caution should be taken when reading/interpreting unfo rmatted reports. Name: ? REZA LAUREANO ? Accession #: ? [id number] : ? 1945 (Age: 56) ??F ?Collect Date: ? 08/27 Location: ? [facility] ? Receive Date : ? 09/07/2001 Provider: ?CASSIDY SHAFFER HAY CHOPPER Copy to: ? Specimen/Source: ?ThinPrep Pap Test, Cervix/ Endocervix Last Menstrual Period: ? 1996 ? SPECIMEN ADEQUACY ? Satisfactory for evaluation. GENERAL CATEGORIZATION ? Within Normal Limits ? Document reviewed and electronically signed by: ? KENNY Gates(ASCP) ? Report Date: ??09/09/2001 13:17 End of Report Specimen Performing Organization Address City/State/ZIP Code Phon e Number [facility] [address] [place] [address] SERVICES [facility] [address] [place] [address] documented in this encounter Visit Diagnoses Not on filedocumented in this encounter
== END 2022-04-16 01:53 | disposition home or self-care (01) ==
LOC: RT 01:52
PROVIDERS: PCP Family Medicine; Visit Provider Student in an Organized Health Care Education/Training Program

== ENCOUNTER 2022-04-16 01:52 | Outpatient (CLI) | payer MEDICARE, SELFPAY ==
--- NOTE | 2022-04-17 15:03 | W.PFT ---
Date of service: 04/16/22 Time of Service: 15:00 Pulmonary Function Test Result Indications: Hypoxic respiratory failure 6 Minute Walk Test Distance walked: 800 feet Desaturations: Required 4 LPM Heart rate changes:105bpm to 126bpm Recommendation: Will need 4LPM with exertion. No oxygen need at rest. Chastity Barr MD Pulmonary & Critical Care Medicine
== END 2022-04-16 01:53 | disposition home or self-care (01) ==
LOC: RT 01:53
PROVIDERS: PCP Family Medicine; Visit Provider Student in an Organized Health Care Education/Training Program
DX: J96.91 Respiratory failure, unspecified with hypoxia (principal)
CPT/HCPCS: 94618

== ENCOUNTER → 2022-05-11 01:09 | Outpatient (CLI) | payer MEDICARE, SELFPAY ==
--- NOTE | 2022-05-11 12:24 | DI.MAMMO_ITS ---
Exam(s) MAMMO SCREENING EXAM: MAMMO SCREENING CLINICAL HISTORY: SCREENING, Z12.31, HX ABNL FINDINGS, N64.69. TECHNIQUE: Bilateral full field digital CC and MLO mammographic images were obtained with 3D tomosyn thesis and utilizing computer aided detection (CAD). COMPARISON: Prior mammograms were reviewed, the most recent being March 2021 and September 2021. Left breast ultrasound 10/27/2021 was reviewed FINDINGS: Previously described nodule in the left breast remains unchanged and shown to be a cyst on prior ultr asound. The opposite-right breast there is a somewhat posteriorly located nodule which is unchanged at least 1999 and therefore benign. There are benign microcalcifications in both breasts. There are no new spiculated masses nor malignant appearing microcalcification groups. There is no significant architectural distortion nor skin thickening-retraction. IMPRESSION: No radiographic evidence of malignancy. BI-RADS Category 2 - Benign Findings Breast Density - Category A - Almost entirely fatty Breast density Category C or D implies that the patient has dense breast tissue. Dense breast tissue can make it harder to find cancer on a mammogram. Dense breast tissue is also associated with an incr eased risk of breast cancer. This information about the result of the mammogram report was provided to the patient to raise their awareness. Use this report when you speak with the patient about their risks for breast cancer, which includes their family history. At that time, you may recommend additional screening tests (Ultrasoun d or MRI) as these tests may add significant information. A negative radiographic report should not delay biopsy if a dominant or clinically suspicious mass is present. Up to ten percent of cancers are not identified on mammography. A negative report may reinforce clinical impression. Adenosis and dense breasts may obscure an underlying neoplasm. False positive reports average 6 to 10%. Patient will receive a letter notifying them of these results.
== END ==
PROVIDERS: PCP Family Medicine; Visit Provider Family Medicine
DX: Z12.31 Encounter for screening mammogram for malignant neoplasm of breast (principal)
CPT/HCPCS: 77063; 77067

== ENCOUNTER → 2022-05-19 01:34 | Outpatient (CLI) | payer MEDICARE, SELFPAY ==
--- NOTE | 2022-05-19 | DI.CT_ITS ---
Exam(s) CT CHEST/ABD WO EXAM: CT CHEST/ABD WO CLINICAL HISTORY: F/U RT RENAL CYST,N28.1 AND PULMONARY NODULE,R91.1 TECHNIQUE: CT examination of the chest and upper abdomen was performed without contrast administrati on. COMPARISON: CT CT CHEST WO from 07/02/2021 FINDINGS: Images obtained through the upper abdomen show unremarkable appearance of visualized portions of the liver and spleen except for an incidental a 22 millimeter in diameter right hepatic lobe cyst. The pancreas is unremarkable in appearance. Adrenals and kidneys are unremarkable except for a 6 cm in diameter simple cyst of the right kidney. Visualized portions of abdominal aorta are of normal di ameter. No focal bowel pathology. No adenopathy. Note is made of coronary artery calcification.. There is no mediastinal or hilar adenopathy. Mediastinal vascular structures appear intact by noncon trast criteria. Tracheobronchial tree appears intact. No pleural effusion or pleural-based mass. The lungs are predominantly clear, there is a stable 5 millimeter mean diameter right middle lobe fis sural nodule unchanged from prior examination of June 2021.. IMPRESSION: Stable right middle lobe fissural pulmonary nodule. Stable hepatic and renal cysts noted. No eviden ce of acute process.. RADIATION DOSE DELIVERED: 909.37mGy.cm Total DLP CTDIvol 909.37mGy.cm Total DLP !Error CTDIvol DATA REPOSITORY: All CT scans at this facility are submitted to the National Radiology Data Registry (NRDR) Dose Index Registry (DIR) with the [employer] (ACR). RADIATION OPTIMIZATION: All CT scans at this facility use at least one of these dose optimization te chniques: automated exposure control; mA and/or kV adjustment per patient size (includes targeted exa ms where dose is matched to clinical indication); or iterative reconstruction.
[2022-05-19] MEDS: Barium Sulfate 2% W/V-Berry Smoothie 450 ML BTL PO (08:51)
== END ==
PROVIDERS: PCP Family Medicine; Visit Provider Nurse Practitioner Family
DX: R91.1 Solitary pulmonary nodule (principal); K76.9 Liver disease, unspecified
CPT/HCPCS: 71250; 74150

== ENCOUNTER → 2022-05-27 09:10 | Outpatient (BNVA) | payer MEDICARE, SELFPAY | PROVIDERS: PCP Family Medicine; Referring Provider Family Medicine; Visit Provider Psychiatry & Neurology Neurology | DX: G62.9 Polyneuropathy, unspecified (principal); G25.81 Restless legs syndrome; I10 Essential (primary) hypertension; R51.9 Headache, unspecified; G89.29 Other chronic pain | CPT/HCPCS: 99214 ==

== ENCOUNTER → 2022-06-05 08:48 | Outpatient (BNVA) | payer MEDICARE, SELFPAY | PROVIDERS: PCP Family Medicine; Referring Provider Family Medicine; Visit Provider Internal Medicine Cardiovascular Disease | DX: Z99.81 Dependence on supplemental oxygen; J96.91 Respiratory failure, unspecified with hypoxia; I10 Essential (primary) hypertension | CPT/HCPCS: 93005; 99214 ==

== ENCOUNTER 2022-06-05 08:49 | Outpatient (CLI) | payer MEDICARE, SELFPAY ==
--- NOTE | 2022-06-05 08:45 | RT.EKG_ITS ---
APPROVED REPORT Exam: Resting ECG Reason for Exam: DOWELL Patient Location: O HR:72 bpm ECG Measurements Heart Rate 72 AXIS MT 174 P -3 QRSd 99 QRS -7 QT 386 T 46 QTc 423 Conclusion Sinus rhythm...normal P axis, V-rate 50- 99 Left ventricular hypertrophy...multiple voltage criteria
== END 2022-06-05 08:50 | disposition home or self-care (01) ==
LOC: DI.CARD 08:50
PROVIDERS: PCP Family Medicine; Visit Provider Internal Medicine Cardiovascular Disease
DX: R06.00 Dyspnea, unspecified (principal); R06.02 Shortness of breath; R94.31 Abnormal electrocardiogram [ECG] [EKG]
CPT/HCPCS: 93010

== ENCOUNTER 2022-06-10 01:50 | Outpatient (CLI) | payer MEDICARE, SELFPAY ==
[2022-06-10 11:45] LABS: Abs Immature Grans 0.02 10^3/uL (0.0-0.06); Absolute Basophil Count 0.04 10^3/uL (0.0-0.2); Absolute Eosinophil Count 0.19 10^3/uL (0.0-0.7); Absolute Lymphocyte Count 1.76 10^3/uL (1.2-3.4); Absolute Neutrophil Count 3.54 10^3/uL (1.2-6.7); Basophils % 0.7; Eosinophils % 3.1; HCT 33.7 % (36.0-46.0); HGB 11.5 g/dL (11.2-15.7); Immature Grans % 0.3; Lymphocytes % 29.1; MCHC 34.1 % (32.0-36.0); MCV 91 fL (80-95); MPV 9.6 fL (8.0-11.0); Monocytes % 8.3; Neutrophils % 58.5; Platelet Count 230 10^3/uL (130-400); RBC 3.71 10^6/uL (3.93-5.22); RDW 11.8 % (11.7-14.6); RDW-SD 38.9 fL; WBC 6.05 10^3/uL (4.4-10.8)
[2022-06-10 11:57] LABS: PTT Activated 23.7 sec (21.0-27.5); Prothrombin Time 9.7 sec (9.3-11.0)
[2022-06-10 12:00] LABS: Hemoglobin A1C 5.5 % (<5.7)
[2022-06-10 12:11] LABS: BUN 15 mg/dL (7-18); CREATININE 1.1 mg/dL (0.55-1.02); Chloride 100 mmol/L (98-107); Estimated GFR 52.08 (mL/min/1.73m2); Glucose 91 mg/dL (74-106); Potassium 3.7 mmol/L (3.5-5.1); Sodium 137 mmol/L (136-145)
[2022-06-11 12:09] LABS: Albumin g/dL 3.8 g/dL (3.6-5.2); Total Protein 6.2 g/dL (6.3-8.2)
== END 2022-06-10 01:51 | disposition home or self-care (01) ==
LOC: LBO 01:51
PROVIDERS: Psychiatry & Neurology Neurology; PCP Family Medicine; Visit Provider Internal Medicine Cardiovascular Disease
DX: R73.9 Hyperglycemia, unspecified (principal); I10 Essential (primary) hypertension; Z01.810 Encounter for preprocedural cardiovascular examination; R06.02 Shortness of breath; G62.9 Polyneuropathy, unspecified
CPT/HCPCS: 36415; 80051; 82947; 84520; 82565; 83036; 84165; 85025; 85610; 85730

== ENCOUNTER → 2022-07-22 09:58 | Outpatient (BNVA) | payer MEDICARE, SELFPAY | PROVIDERS: PCP Family Medicine; Referring Provider Family Medicine; Visit Provider Psychiatry & Neurology Neurology | DX: R06.09 Other forms of dyspnea (principal); G62.9 Polyneuropathy, unspecified; Z79.52 Long term (current) use of systemic steroids; R51.9 Headache, unspecified; G89.29 Other chronic pain | CPT/HCPCS: 99214 ==

== ENCOUNTER 2022-09-11 01:03 | Outpatient (CLI) | payer MEDICARE, SELFPAY ==
[2022-09-11 12:04] LABS: Reticulocyte 1.2 % (0.5-2.4)
[2022-09-11 12:18] LABS: ALT 21 U/L (14-59); AST 20 U/L (15-37); Albumin 3.7 g/dL (3.4-5.0); Alkaline Phosphatase 101 U/L (46-116); Bilirubin, Direct 0.1 mg/dL (0.0-0.2); Bilirubin, Total 0.4 mg/dL (0.2-1.0); LDH 184 U/L (81-234); Total Protein 7.1 g/dL (6.4-8.2)
[2022-09-12 13:32] LABS: HIV-1/2 Ag & Ab Screen Negative (Negative)
[2022-09-12 16:15] LABS: Myeloperoxidase Ab IgG <0.2 U; Proteinase 3 Ab (PR3) <0.2 U; Scl 70 Antibodies, IgG <0.2 U
[2022-09-14 09:48] LABS: Haptoglobin 97 mg/dL (32-197)
[2022-09-14 10:44] LABS: Hepatitis A Antibody IgM Negative (Negative); Hepatitis B Core Antibody Negative (Negative); Hepatitis B surface Ag Negative (Negative); Hepatitis C Ab w Rflx HCV PCR Negative (Negative)
[2022-09-14 15:10] LABS: ANA Interpretation Negative (Negative)
[2022-09-15 14:04] LABS: SS-A Antibody 1.5 Units (<20.0); SS-B (La) Ab, IgG 4.8 Units (<20.0)
[2022-09-15 14:16] LABS: Sm (Smith) Ab, IgG 2.9 Units (<20.0)
[2022-09-15 14:30] LABS: dsDNA Ab, IgG <12.3 IU/mL (<30.0)
[2022-09-30 18:10] LABS: Anti-EJ Ab Negative (Negative); Anti-Jo-1 Ab <20 Units (<20); Anti-Ku Ab Negative (Negative); Anti-MDA-5 Ab (CADM-140) <20 Units (<20); Anti-Mi-2-Ab Negative (Negative); Anti-NXP-2 (P140) Ab <20 Units (<20); Anti-OJ Ab Negative (Negative); Anti-PL-12 Ab Negative (Negative); Anti-PL-7 Ab Negative (Negative); Anti-PM/Scl-100 Ab <20 Units (<20); Anti-SRP Ab Negative (Negative); Anti-SS-A 52kD Ab, IgG <20 Units (<20); Anti-TIF-1gamma Ab <20 Units (<20); Anti-U1 RNP Ab <20 Units (<20); Anti-U2 RNP Ab Negative (Negative); Anti-U3 RNP (Fibrillarin) Negative (Negative)
== END 2022-09-11 01:04 | disposition home or self-care (01) ==
LOC: LBO 01:03
PROVIDERS: PCP Family Medicine; Visit Provider Student in an Organized Health Care Education/Training Program
DX: I27.21 Secondary pulmonary arterial hypertension (principal); R91.1 Solitary pulmonary nodule; J96.91 Respiratory failure, unspecified with hypoxia; Z79.52 Long term (current) use of systemic steroids; Z99.81 Dependence on supplemental oxygen; K76.89 Other specified diseases of liver; Z11.4 Encounter for screening for human immunodeficiency virus [HIV]
CPT/HCPCS: 36415; 80076; 83516; 86235; 86704; 86709; 86803; 87340; 87389; 83010; 83615; 85045; 86038; 86225

== ENCOUNTER → 2022-09-30 12:16 | Outpatient (BNVA) | payer MEDICARE, SELFPAY | PROVIDERS: PCP Family Medicine; Referring Provider Family Medicine; Visit Provider Psychiatry & Neurology Neurology | DX: G62.9 Polyneuropathy, unspecified (principal); R51.9 Headache, unspecified; G89.29 Other chronic pain; I10 Essential (primary) hypertension; R06.09 Other forms of dyspnea | CPT/HCPCS: 99214 ==

== ENCOUNTER 2022-11-23 14:00 | Outpatient (RCR) | payer MEDICARE, SELFPAY | END 2022-11-24 23:59 | disposition home or self-care (01) | LOC: PRC 14:00 | PROVIDERS: PCP Family Medicine; Visit Provider Student in an Organized Health Care Education/Training Program | DX: I27.21 Secondary pulmonary arterial hypertension (principal); Z51.89 Encounter for other specified aftercare | CPT/HCPCS: 94626 ==

== ENCOUNTER → 2022-12-07 12:51 | Outpatient (BNVA) | payer MEDICARE, SELFPAY | PROVIDERS: PCP Family Medicine; Visit Provider Psychiatry & Neurology Neurology | DX: R06.09 Other forms of dyspnea (principal); R51.9 Headache, unspecified; G89.29 Other chronic pain; G62.9 Polyneuropathy, unspecified | CPT/HCPCS: 99213 ==

== ENCOUNTER 2022-12-25 14:33 | Outpatient (RCR) | payer MEDICARE, SELFPAY | END 2022-12-25 23:59 | disposition home or self-care (01) | LOC: PRC 14:33 | PROVIDERS: PCP Family Medicine; Visit Provider Student in an Organized Health Care Education/Training Program | DX: G47.34 Idiopathic sleep related nonobstructive alveolar hypoventilation (principal) | CPT/HCPCS: 94626 ==

== ENCOUNTER 2022-12-28 14:00 | Outpatient (RCR) | payer MEDICARE, SELFPAY ==
--- NOTE | 2022-12-31 10:13 | W.PFT ---
Date of service: 12/28/22 Time of Service: 14:26 Pulmonary Function Test Result Indications: Completion of pulmonary rehab Interpretation Spirometry: There is no airflow limitation. Impression Normal spirometry Note: There is no significant change in spirometry when compared to 12/22/2021 Clinical Correlation therefore is recommended.
== END 2023-01-24 23:59 | disposition home or self-care (01) ==
LOC: PRC 14:00
PROVIDERS: PCP Family Medicine; Visit Provider Student in an Organized Health Care Education/Training Program
DX: G47.34 Idiopathic sleep related nonobstructive alveolar hypoventilation (principal)
CPT/HCPCS: 94626

== ENCOUNTER 2023-02-17 14:35 | Outpatient (CLI) | payer MEDICARE, SELFPAY ==
[2023-02-17 14:39] LABS: HCT 32.5 % (36.0-46.0); HGB 11.1 g/dL (11.2-15.7); MCHC 34.2 % (32.0-36.0); MCV 91 fL (80-95); MPV 9.6 fL (8.0-11.0); Platelet Count 227 10^3/uL (130-400); RBC 3.58 10^6/uL (3.93-5.22); RDW-SD 39.8 fL; WBC 5.91 10^3/uL (4.4-10.8)
[2023-02-17 15:39] LABS: Iron 100 ug/dL (50-170)
[2023-02-17 15:42] LABS: ALT 28 U/L (14-59); AST 23 U/L (15-37); Albumin 3.6 g/dL (3.4-5.0); Alkaline Phosphatase 99 U/L (46-116); Anion Gap 6.2 mmol/L (3-11); BUN 27 mg/dL (7-18); Bilirubin, Total 0.5 mg/dL (0.2-1.0); CO2 32.8 mmol/L (21.0-32.0); CREATININE 1.4 mg/dL (0.55-1.02); Calcium 9.9 mg/dL (8.5-10.1); Calculated LDL 142 mg/dL (<100); Chloride 102 mmol/L (98-107); Cholesterol 233 mg/dL (<200); Estimated GFR 38.75 (mL/min/1.73m2); Glucose 117 mg/dL (74-106); HDL Cholesterol 47 mg/dL (40-60); Potassium 3.6 mmol/L (3.5-5.1); Sodium 141 mmol/L (136-145); Total Protein 7.2 g/dL (6.4-8.2); Triglyceride 224 mg/dL (<150)
[2023-02-19 16:11] LABS: Lyme Ab w Rflx to Lyme Confirm Negative (Negative)
== END 2023-02-17 14:36 | disposition home or self-care (01) ==
LOC: LBO 14:36
PROVIDERS: PCP Family Medicine; Visit Provider Family Medicine
DX: I10 Essential (primary) hypertension (principal); I49.8 Other specified cardiac arrhythmias; Z00.00 Encounter for general adult medical examination without abnormal findings
CPT/HCPCS: 36415; 80053; 80061; 85027; 83540; 86618

== ENCOUNTER → 2023-04-05 12:37 | Outpatient (BNVA) | payer MEDICARE, SELFPAY | PROVIDERS: PCP Family Medicine; Referring Provider Family Medicine; Visit Provider Psychiatry & Neurology Neurology | DX: R06.00 Dyspnea, unspecified (principal); R51.9 Headache, unspecified; G89.29 Other chronic pain; G62.9 Polyneuropathy, unspecified | CPT/HCPCS: 99214 ==

== ENCOUNTER 2023-04-30 12:58 | Outpatient (REF) | payer MEDICARE, SELFPAY ==
[2023-04-30 16:43] LABS: HCT 32.1 % (36.0-46.0); HGB 11.1 g/dL (11.2-15.7)
[2023-04-30 17:09] LABS: Anion Gap 6.1 mmol/L (3-11); BUN 26 mg/dL (7-18); C-Reactive Protein 0.13 mg/dL (0.0-0.3); CO2 32.9 mmol/L (21.0-32.0); CREATININE 1.2 mg/dL (0.55-1.02); Calcium 9.6 mg/dL (8.5-10.1); Chloride 101 mmol/L (98-107); Estimated GFR 46.62 (mL/min/1.73m2); Glucose 134 mg/dL (74-106); Potassium 3.8 mmol/L (3.5-5.1); Sodium 140 mmol/L (136-145); TSH (W/Ref FT4) 1.69 uIU/mL (0.36-3.74)
[2023-04-30 17:16] LABS: ESR 15 mm/hr (0-30)
[2023-04-30 18:17] LABS: Ferritin 95 ng/mL (8-252); Vitamin B12 949 pg/mL (193-986)
[2023-05-01 22:03] LABS: Rheumatoid Factor <8.6 IU/mL (<12.0)
== END 2023-04-30 12:59 | disposition home or self-care (01) ==
LOC: NCHCN 12:58
PROVIDERS: PCP Family Medicine; Visit Provider Family Medicine
DX: D64.9 Anemia, unspecified (principal); R09.02 Hypoxemia; I27.20 Pulmonary hypertension, unspecified
CPT/HCPCS: 80048; 85652; 82607; 82728; 84443; 85014; 85018; 86140; 86431

== ENCOUNTER → 2023-05-03 01:19 | Outpatient (CLI) | payer MEDICARE, SELFPAY ==
--- NOTE | 2023-05-03 07:30 | DI.CT_ITS ---
Exam(s) CT CHEST WO EXAM: CT CHEST WO CLINICAL HISTORY: f/u pulmonary nodules,r91.1. TECHNIQUE: Imaging protocol: Axial computed tomography images were obtained and coronal and sagittal reformatted images were created and reviewed. CONTRAST MATERIAL: Noncontrast COMPARISON: CT CT CHEST WO from 05/02/[address] CHEST/ABD WO from 05/19/2022 FINDINGS: Pulmonary parenchyma: No consolidation. Stable nodule in the minor fissure measuring 4 millimeters by 6 millimeters. No suspicious features. No additional nodules. Emphysema: None. Tracheobronchial tree: No mucous plugging. No bronchiectasis . Interstitial changes: None. Pleura: No effusion or pneumothorax. Heart: The heart is mildly dilated. The coronary arteries show minimal calcifications. Aorta: Thoracic aorta non-dilated. Mildatherosclerotic changes. Lymph nodes: No enlarged lymph nodes. Bones: Degenerative changes are seen. No evidence of compression fracture. Upper abdomen: Unremarkable. Stable liver cysts. Soft tissues: Unremarkable. IMPRESSION: Benign-appearing pulmonary nodule is stable since 2019. No further follow-up recommended. No acute abnormality. RADIATION DOSE DELIVERED: 602.6mGy.cm Total DLP 602.6mGy.cm Total DLP 602.6mGy.cm Total DLP DATA REPOSITORY: All CT scans at this facility are submitted to the National Radiology Data Registry (NRDR) Dose Index Registry (DIR) with the [employer] (ACR). RADIATION OPTIMIZATION: All CT scans at this facility use at least one of these dose optimization te chniques: automated exposure control; mA and/or kV adjustment per patient size (includes targeted exa ms where dose is matched to clinical indication); or iterative reconstruction.
== END ==
PROVIDERS: PCP Family Medicine; Visit Provider Physician Assistant Surgical
DX: R91.1 Solitary pulmonary nodule (principal)
CPT/HCPCS: 71250

== ENCOUNTER → 2023-06-08 01:00 | Outpatient (CLI) | payer MEDICARE, SELFPAY ==
--- NOTE | 2023-06-08 11:26 | DI.MAMMO_ITS ---
Exam(s) MAMMO SCREENING EXAM: MAMMO SCREENING CLINICAL HISTORY: SCREENING MAMMO FOR BREAST CANCER Z12.31 TECHNIQUE: Mammograms were interpreted according to the usual protocol including computer analysis w [employer] CAD system, tomosynthesis and C-view imaging. COMPARISON: 2013 through 2021 FINDINGS: The breasts are composed of mainly fatty density , Breast Density category A. No suspicious masses or suspicious microcalcifications are seen. No skin thickening or abnormal axillary lymph nodes are seen. There has been no significant change from prior exams. IMPRESSION: BI-RADS Category 1, Negative mammogram Yearly screening mammography is recommended. Breast Density - Category A, fatty density. A negative radiographic report should not delay biopsy if a dominant or clinically suspicious mass is present. Up to ten percent of cancers are not identified on mammography. A negative report may reinforce clinical impression. Adenosis and dense breasts may obscure an underlying neoplasm. False positive reports average 6 to 10%. Patient will receive a letter notifying them of these results.
== END ==
PROVIDERS: PCP Family Medicine; Visit Provider Family Medicine
DX: Z12.31 Encounter for screening mammogram for malignant neoplasm of breast (principal)
CPT/HCPCS: 77063; 77067

== ENCOUNTER 2023-07-14 04:01 | Outpatient (CLI) | payer MEDICARE, SELFPAY ==
[2023-07-14 13:29] LABS: Anion Gap 3.3 mmol/L (3-11); BUN 23 mg/dL (7-18); CO2 31.7 mmol/L (21.0-32.0); CREATININE 1.1 mg/dL (0.55-1.02); Calcium 9.7 mg/dL (8.5-10.1); Chloride 105 mmol/L (98-107); Estimated GFR 51.75 (mL/min/1.73m2); Glucose 120 mg/dL (74-106); NT-proBNP 185 pg/mL (<300); Potassium 3.9 mmol/L (3.5-5.1); Sodium 140 mmol/L (136-145)
== END 2023-07-14 04:02 | disposition home or self-care (01) ==
LOC: LBO 04:01
PROVIDERS: PCP Family Medicine; Visit Provider Family Medicine
DX: I50.32 Chronic diastolic (congestive) heart failure (principal)
CPT/HCPCS: 36415; 80048; 83880

== ENCOUNTER 2023-08-26 01:50 | Outpatient (CLI) | payer MEDICARE, SELFPAY ==
--- OUTSIDE RECORDS SUMMARY | 2023-08-26 01:52 | XMS_ITS | Continuity of Care Document ---
Author Name Unknown Organization [facility] Address [address] [place] [id number] Care Team Providers Care Labeling Associate Name Role Phone ANTONY MCDONALD Primary Care Physician [phone] Encounter [facility]TT[facility]_PR FIN NBR [id number] Date(s): 08/04/23 - 08/04/[address] [address]- Discharge Disposition: Home or Self Care Attending Physician: FLORINDA MA Admitting Physician: FLORINDA MA Referring Physician: ANTONY MCDONALD Allergies, Adverse Reactions, Alerts Substance Reaction Severity Status Seasonal Unknown Unknown Active Assessment and Plan Future Appointments Future Scheduled Tests Laboratory* CBC w/ Diff 08/04/23 * C-Reactive Protein 08/04/23 * Sedimentation Rate (ESR) 08/04/23 Radiology* NM Bone Three Phase Study 08/11/23 Medications aspirin 81 mg oral delayed release tablet 81 mg = 1 tab, Oral, Daily, # 30 tab, 0 Refill(s) Start Date: 08/04/23 Status: Ordered B 100 Complex oral tablet 1 tab, Oral, Daily, # 100 tab, 0 Refill(s) Start Date: 08/04/23 Status: Ordered DME Oxygen Therapy 3L nc, Supply, See instructions, # 1 EA, 0 Refill(s) Start Date: 08/04/23 Status: Ordered Fish Oil 1200 mg oral capsule 1,200 mg = 1 cap, Oral, Daily, # 90 cap, 0 Refill(s) Start Date: 08/04/23 Status: Ordered furosemide 20 mg oral tablet 45 EA, 0 Refill(s), TAKE 1/2 TABLET BY MOUTH EVERY MORNING NEEDED CAN USE EVERY OTHER DAY TO START WITH, 0 Refill(s) Start Date: 08/04/23 Status: Ordered gabapentin 100 mg oral capsule See Instructions, 1 cap Oral in the morning 2 cap Oral in the evening, 0 Refill(s) Start Date: 08/04/23 Status: Ordered hydroCHLOROthiazide 25 mg oral tablet 90 EA, 0 Refill(s), TAKE ONE TABLET BY MOUTH EVERY DAY, 0 Refill(s) Start Date: 08/04/23 Status: Ordered MetroGel 1% topical gel 1 marcella, Topical, Daily, # 60 g, 0 Refill(s) Start Date: 08/04/23 Status: Ordered pantoprazole 40 mg oral delayed release tablet 180 EA, 0 Refill(s), TAKE 1 TABLET BY MOUTH TWICE DAILY, 0 Refill(s) Start Date: 08/04/23 Status: Ordered Refresh 1 drops, Eye-Both, BID, 0 Refill(s) Start Date: 08/04/23 Status: Ordered rOPINIRole 1 mg oral tablet 90 EA, 0 Refill(s), TAKE 1 TABLET BY MOUTH IN THE EVENING 1-3 HOURS BEFORE BEDTIME, 0 Refill(s) Start Date: 08/04/23 Status: Ordered Salonpas (camphor) topical film 1 patches, Topical, Daily, do not leave patch on for more than 8 hours at a time, # 6 EA, 0 Refill(s) Start Date: 08/04/23 Status: Ordered Tylenol 8 HR Arthritis Pain 650 mg oral tablet, extended release 1,300 mg = 2 tab, Oral, every 8 hr, PRN as needed for pain, # 50 tab, 0 Refill(s) Start Date: 08/04/23 Status: Ordered Problem List Condition Confirmation Course Effective Dates Status [facility] at Informant High blood pressure Confirmed Active Procedures Procedure Date Related Diagnosis Body Site Status Total replacement of left hip joint 12/09/14 Completed Fluoroscopic arthrogram of left hip 07/29/14 Completed Bunionectomy 2003 Completed Procedure on esophagus Co mpleted 1Right foot Results Radiology Reports * Exam Date Time Procedure Performing Provider Status 08/04/23 9:54 AM XR Spine Lumbosacral 2 or 3 Views Pros per, Masha; Auth (Verified) Notes: (XR Spine Lumbosacral 2 or 3 Views) Reason For Exam: back pain XR Spine Lumbosacral 2 or 3 Views EXAM DESCRIPTION: XR Spine Lumbosacral 2 or 3 Views 08/04/2023 INDICATION: BACK PAIN COMPARISON: None IMPRESSION: No acute fracture. Mild retrolisthesis at L1-2, L2-3 and L3-4. No significant scoliosis. Spondylotic changes throughout the lumbar spine and visualized lower thoracic spine with endplate osteophyte formation and scattered intervertebral disc space narrowing No significant SI joint asymmetry. No focal lytic or sclerotic lesion identified JOB #: [id number] Final Signed by: Kaden Joyner MD Signed (Electronic Signature): 08/04/2023 9:59 am Social History Social History Type Response Tobacco Never tobacco user T obacco Use:. Sex Patient Care team information Care Team Personnel Name: ANTONY MCDONALD Position: No Access Member Role: Primary Care Physician Address: Address: [address] [place] [id number] [place] Care Team Related Persons Name: KWAN GARCIA Address: Home
--- OUTSIDE RECORDS SUMMARY | 2023-08-26 01:52 | XMS_ITS | Continuity of Care Document ---
Author Name Unknown Organization [facility] Address [address] [place] [phone] Care Team Providers Care Placement Director Name Role Phone ANTONY MCDONALD Primary Care Physician [phone] Encounter [facility] [facility] NBR [id number] Date(s): 08/03/23 - 08/03/23 [facility] [address] [place] [address]- Discharge Disposition: Home or Self Care Attending Physician: Barb Cho APRN Admitting Physician: Barb Cho APRN Referring Physician: ANTONY MCDONALD Allergies, Adverse Reactions, Alerts Substance Reaction Severity Status Seasonal Unknown Unknown Active Assessment and Plan Future Appointments Medications aspirin 81 mg oral delayed release [...] List Condition Confirmation Course Effective Dates Status Health St atus Informant High blood pressure Confirmed Active Procedures Procedure Date Related Diagnosis Body Site Status Total replacement of left hip joint 12/09/14 Completed Fluoroscopic arthrogram of left hip 07/29/14 Completed Bunionectomy 2003 Completed Procedure on esophagus Co mpleted 1Right foot Results Radiology Reports * Exam Date Time Procedure Performing Provider Status 08/03/23 10:01 AM XR Hip 2-3 Views w/A P Pelvis Left Ysabel Dickinson; Lea (Verified) Notes: (XR Hip 2-3 Views w/AP Pelvis Left) Reason For Exam: hip pain XR Hip 2-3 Views w/AP Pelvis Left EXAM DESCRIPTION: XR Hip 2-3 Views w/AP Pelvis Left 08/03/2023 INDICATION: HIP PAIN TECHNIQUE: Pelvis and left hip, three views COMPARISON: 12/17/2021 IMPRESSION: Status post left hip arthroplasty with stable satisfactory appearance. No focal lytic or destructive changes to suggest loosening or infection No acute fracture or dislocation. SI joints appear symmetric and pubic symphysis appears intact. No significant right hip arthritic changes. JOB #: [id number] Final Signed by: Kaden Joyner MD Signed (Electronic Signature): 08/03/2023 10:35 am Social History Social History Type Response Tobacco Never tobacco user T obacco Use:. Sex Patient Care team information Care Team Personnel Name: ANTONY MCDONALD Position: No Access Member Role: Primary Care Physician Address: Address: [address] [place] [phone] [place] Care Team Related Persons Name: KWAN GARCIA
--- OUTSIDE RECORDS SUMMARY | 2023-08-26 01:52 | XMS_ITS | Continuity of Care Document ---
Author Name Unknown Organization [facility] Address [address] [place] [phone] Care Team Providers Care Medication Aide Name Role Phone ANTONY MCDONALD Primary Care Physician [phone] Encounter [facility] NBR [id number] Date(s): 08/11/23 - 08/11/[address] [address]- Discharge Disposition: Home or Self Care Attending Physician: Barb Cho APRN Admitting Physician: Barb Cho APRN Referring Physician: Barb Cho APRN Allergies, Adverse Reactions, Alerts Substance Reaction Severity [...] Exam Date Time Procedure Performing Provider Status 08/11/23 1:12 PM [place] Bone Three Phase Study DomainUser, Generated; Auth (Verified) Notes: ([place] Bone Three Phase Study) Reason For Exam: eval for loosening hardware [place] Bone Three Phase Study EXAM DESCRIPTION: [place] Bone Three Phase Study 08/11/2023 1:12 RADIOPHARM: A 3 phase bone scan of the hip region was performed. Following IV administration of 23.8 mCi of 99 M technetium MDP, small [id number] initial dynamic, blood pool and delayed images of the hip region were obtained including delayed whole body images. INDICATION: EVAL FOR LOOSENING HARDWARE COMPARISON: Three-phase bone scan from 03/15/2019 as well as routine radiographs of the pelvis and left hip from 08/03/2023 FINDINGS: No asymmetrically increased activity in the hip region on either side on initial dynamic images. Mild uptake in the left acetabular region on blood pool images. Minimal activity slightly higher than background adjacent to the left lateral greater trochanter region and distal aspect of the femoral component of left hip arthroplasty on delayed images. Mild left hip prosthetic loosening can not be excluded. Mild uptake in the knee region bilaterally suggesting arthritic changes. Uptake in the foot and ankle region bilaterally suggesting arthritic changes. IMPRESSION: Mild uptake in the left hip region on blood pool and delayed images as described above. Mild prosthetic loosening can not be excluded. JOB #: [id number] Final Signed by: Kaden Joyner MD Signed (Electronic Signature): 08/11/2023 1:27 pm Social History Social History Type Response Tobacco Never tobacco user T obacco Use:. Sex Patient Care team information Care Team Personnel Name: ANTONY MCDONALD Position: No Access Member Role: Primary Care Physician Address: Address: [address] [place] [phone] [place] Care Team Related Persons Name: KWAN GARCIA
--- OUTSIDE RECORDS SUMMARY | 2023-08-26 01:52 | XMS_ITS | Continuity of Care Document ---
Author Name Unknown Organization [facility] Amb[facility] Address [address] [place] [address] Care Team Providers Care Certified Medical Technician Name Role Phone ANTONY MCDONALD Primary Care Physician Encounter [facility] NBR [id number] Date(s): 08/04/23 - 08/04/23 [facility] Ambulatory [facility] [address] [place], [place] [address] Encounter Diagnosis Degenerative disc disease, lumbar(Discharge Diagnosis) - 08/04/23 History of left hip replacement(Discharge Diagnosis) - 08/04/23 Discharge Disposition: Home or Self Care Attending Physician: Barb Cho APRN Referring Physician: ANTONY [...] arthrogram of left hip 07/29/14 Completed Bunionectomy 1 2003 Completed Procedure on esophagus Co mpleted 1Right foot Vital Signs Most recent to oldest [Reference Range]: 1 Peripheral Pulse Rate [60-100 bpm] 68 bp m (08/04/23 10:14 AM) Blood Pressure [90-140/60-90 mmHg] 152/7 6mmHg *HI* (08/04/23 10:14 AM) Mean Arterial Pressure, Cuff [70-110 mmH g] 101 mmHg (08/04/23 10:14 AM) Weight 105.14 kg (08/04/23 10:14 AM) Weight Measured (lbs) 231.794 lb (08/04/23 10:14 AM) Weight Dosing 105.140 kg (08/04/23 10:14 AM) Height 179.07 cm (08/04/23 10:14 AM) Height/Length Measured (inches) 70.5 inc h (08/04/23 10:14 AM) Body Mass Index 32.79 kg/m2 (08/04/23 10:14 AM) Social History Social History Type Response Tobacco Never tobacco user T obacco Use:. Sex Physician Outpatient Note * Barb Cho, DIRECTOR OF DISTANCE LEARNING: PERFORM Event Display: Office Clinic Note Physician Authored Date: [id number] REZA GARCIA :1945 Age:78 years Sex:Female Visit Date:08/04/2023 Primary Care Physician: ANTONY MCDONALD Chief Complaint Left Hip Pain (Hx ISAEL), pain for several weeks History of Present Illness Reza??is a 78-year-old female, here today for follow-up evaluation for left hip replacement that was done by Dr. Cho on 12/20/2014.?? She has been back several times over the past years with??complaints of left hip discomfort, bone scan was completed March 15, 2019 which was negative, she waslast evaluated??in November 2021,??x-rays looked fine, at that point she was given a 2-year follow-up but she is back today for reevaluation a bit early.?? She did have x-rays of her lumbar spine??done this morning, as well as new x-rays of her left hip done yesterday. 3-4 weeks ago hip became bothersome, maybe over did it, no injury or infections.?? 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 Has stopped exercises when the hip became bothersome. ?? Groin, buttock and anterior thigh pain.?? Must sleep on the left side- if crosses body it is painful, achy pain, difficult to find a comfortable position.?? No radicular pain, no numbness or tingling.?? Feels weak like it might give out.? Pulmonary hypertension and heart failure.?? On oxygen therapy continuously now. Review of Systems Constitutional:?No??fevers,?No??chills,?No??sweats Eye:?No??recent visual problems ENT:?No??ear pain,?No??nasal congestion,?No??sore throat Respiratory:?No??shortness of breath,?No??cough Cardiovascular:?No??Chest pain,?No??palpitations,?No??syncope Gastrointestinal:?Nonausea,?No??vomiting,?No??diarrhea Genitourinary:?No??hematuria Eric/Lymph:?No??bruising tendency,?No??swollen lymph glands Endocrine:?No??excessive thirst,??No??excessive hunger Musculoskeletal:??No??back pain,??No??neck pain,??Positive for??joint pain,??No??muscle pain,??No??decreased range of motion Integumentary:?No??rash,?No??pruritus,?No??abrasions Neurologic: Alert & oriented X 4 Psychiatric:?No??anxiety,?No??depression Physical Exam Vitals & Measurements HR:??68??(Peripheral)?? BP:??152/76?? SpO2:??98%?? HT:??179.07??cm?? WT:??105.14??kg?? BMI:??32.79?? Pain Score:??2?? General: ??appears stated age, well dressed HEENT: no loss of hearing, normocephalic, EOMs intact Neuro: ??grossly intact, if indicated see specific neurology exam Psych: ??alert and oriented to place and time, pleasant, cooperative Dermatology: ??no gross open areas of skin-see exam of limb for specifics Lymphatics: ??no lymphedema of affected limb Gait: Normal Vascular: ??pulses distally of limb are 2+?? Musculoskeletal: Left hip:??She is able to fully extend, she is able to straight leg raise but thisdoes cause some groin discomfort, I am able to flex her to about 85 degrees with groin??discomfort.?? External rotation 10 degrees with minimal pain internal rotation only to neutral with groin and buttock discomfort.?? There is slight tenderness at the trochanteric bursa none at the sciatic notch,??no shock of the left hip, no discomfort with heel tap. Assessment/Plan 1.??Degenerative disc disease, lumbar??M51.36 X-rays are reviewed on [facility] today which shows degenerative disc disease with slight narrowing of L5 on S1. 2.??History of left hip replacement??Z96.642 X-rays are reviewed on [facility] today which shows well-placed and aligned Victorina total hip prostheses,??I do not see any signs of periprosthetic loosening or acute change or just fracture ?? Waneta??and I spent??30 minutes together today with 20 this minutes spent reviewing the fact that she is having groin and buttock discomfort, anterior thigh discomfort, she has not had any recent illness or event,??movement of the hip does cause pain, x-rays appear??normal,??it is a bit concerning though she is having pain that would suggest something in the femoral acetabular joint, and??it is reproducible. ??I think at this point we should repeat three-phase bone scan and CBC ESR CRP, I will call her the with the results of those,??we will make a more definitive plan of care once that isobtained. ??We will want to ensure that the total hip arthroplasty that was implanted in 2014 is still doing well.?? She is in agreement.?? If she has any issues or concerns in the meantime she is encouraged to call otherwise we will try to get these diagnostic testings completed. Problem List/Past Medical History Ongoing High blood pressure Historical No qualifying data Procedure/Surgical History ???Total replacement of left hip joint (12/10/2014)???Fluoroscopic arthrogram of left hip (07/30/2014)???Bunionectomy (2003)???Procedure on esophagus Medications aspirin 81 mg oral delayed release tablet, 81 mg= 1 tab, Oral, Daily B 100 Complex oral tablet, 1 tab, Oral, Daily DME Oxygen Therapy, See instructions Fish Oil 1200 mg oral capsule, 1200 mg= 1 cap, Oral, Daily furosemide 20 mg oral tablet gabapentin 100 mg oral capsule, See Instructions hydroCHLOROthiazide 25 mg oral tablet MetroGel 1% topical gel, 1 marcella, Topical, Daily pantoprazole 40 mg oral delayed release tablet Refresh, 1 drops, Eye-Both, BID rOPINIRole 1 mg oral tablet Salonpas (camphor) topical film, 1 patches, Topical, Daily Tylenol 8 HR Arthritis Pain 650 mg oral tablet, extended release, 1300 mg= 2 tab, Oral, every 8 hr,PRN Allergies Seasonal??(Unknown) Social History Electronic Cigarette/Vaping Electronic Cigarette Use: Never. Home/Environment Home equipment: Oxygen. Tobacco Never tobacco user Tobacco Use:. Health Maintenance ?Pending??(in the next year) ?Due?Adult Wellness Exam due?08/04/23?and every 1?years ?Alcohol Use Screening due?08/04/23?and every 1?years ?Annual Wellness Visit (Medicare) due?08/04/23?and every 1?years ?Bone Density Screening due?08/04/23?and every 2?years ?Depression Screening due?08/04/23?and every 1?years ?Fall Risk Screening due?08/04/23?and every 1?years ?Glaucoma Screening due?08/04/23?and every 1?years ?Hepatitis C Screening due?08/04/23?One-time only ?Hypertension - Basic Metabolic Panel due?08/04/23?and every 1?years ?Initial Preventative Physical Examination (Medicare) due?08/04/23?One-time only ?Lipid Screening due?08/04/23?and every 5?years ?Due In Future?Hypertension - Blood Pressure not due until?02/02/24?and every 6?months ?Satisfied??(in the past 1 year) ?Satisfied?Body Mass Index on?08/04/23.?Satisfied by Brenna Ortiz ?Hypertension - Blood Pressure on?08/04/23.?Satisfied by Brenna Ortiz ?? Electronically Signed on 08/04/23 11:04 AM Barb Cho APRN Reviewed by: Kiran Cho DO Patient Care team information Care Team Personnel Name: ANTONY MCDONALD Position: No Access Member Role: Primary Care Physician Address: Address: [address] [place] [phone] Care Team Related Persons Name: KWAN GARCIA Address: Home
--- OUTSIDE RECORDS SUMMARY | 2023-08-26 01:52 | XMS_ITS | Continuity of Care Document ---
Author Name Unknown Organization [facility] Ambulatory Clinics Address [address] [place] [address] Care Team Providers Care Griddle Cook Name Role Phone ANTONY MCDONALD Primary Care Physician Encounter [facility] NBR [id number] Date(s): 08/04/23 - 08/04/23 [facility] Ambulatory Clinics [address] [place] [address]- [place] Discharge Disposition: Home Allergies, Adverse Reactions, Alerts Substance Reaction Severity [...] Procedure on esophagus Co mpleted 1Right foot Social History Social History Type Response Tobacco Never tobacco user T obacco Use:. Sex Patient Care team information Care Team Personnel Name: ANTONY MCDONALD Position: No Access Member Role: Primary Care Physician Address: Address: [address] [place] [phone] [place] Care Team Related Persons Name: KWAN GARCIA Address: Home
--- OUTSIDE RECORDS SUMMARY | 2023-08-26 01:52 | XMS_ITS | Continuity of Care Document ---
Author Name Unknown Organization [facility] Address [address] [place] [phone] Care Team Providers Care Hematology Supervisor Name Role Phone ANTONY MCDONALD Primary Care Physician Encounter [facility] NBR [id number] Date(s): 08/11/23 - 08/11/[address] [address]- Discharge Disposition: Home or Self Care Attending [...] on esophagus Co mpleted 1Right foot Results Laboratory List Name Date Automated Diff 08/11/23 C-Reactive Protein 08/11/23 CBC w/ Diff 08/11/23 Sedimentation Rate (ESR) 08/11/23 Most recent to oldest [Reference Range]: 1 WBC [4.8-10.8 K/mcL] 6.2 K/mcL (08/11/23 9:46 AM) RBC [4.20-5.40 Million/mcL] 3.36 Million /mcL *LOW* (08/11/23 9:46 AM) Neutro Auto [42.2-75.2 %] 65.8 % (08/11/23 9:46 AM) Lymph Auto [20.5-51.1 %] 25.3 % (08/11/23 9:46 AM) Benton Auto [1.7-9.3 %] 6.1 % (08/11/23 9:46 AM) Basophil Auto [0.0-0.8 %] 0.6 % (08/11/23 9:46 AM) Baso Absolute [0.0-0.2 K/mcL] 0.0 K/mcL (08/11/23 9:46 AM) MCV [81.0-99.0 fL] 92.9 fL (08/11/23 9:46 AM) CRP [<=10.0 mg/L] 8.3 mg/L (08/11/23 9:46 AM) MCHC [32.0-37.0 g/dL] 34.3 g/dL (08/11/23 9:46 AM) Lymph Absolute [1.2-3.4 K/mcL] 1.6 K/mcL (08/11/23 9:46 AM) Hct [37.0-47.0 %] 31.2 % *LOW* (08/11/23 9:46 AM) Benton Absolute [0.1-0.6 K/mcL] 0.4 K/mcL (08/11/23 9:46 AM) MCH [27.0-31.0 pg] 31.8 pg *HI* (08/11/23 9:46 AM) Neutro Absolute [1.4-6.5 K/mcL] 4.1 K/mc L (08/11/23 9:46 AM) Hgb [12.0-16.0 g/dL] 10.7 g/dL *LOW* (08/11/23 9:46 AM) MPV [7.4-10.4 fL] 9.3 fL (08/11/23 9:46 AM) Platelets [130-400 K/mcL] 215 K/mcL (08/11/23 9:46 AM) Eos Absolute [0.0-0.2 K/mcL] 0.1 K/mcL (08/11/23 9:46 AM) RDW-CV [11.5-14.5 %] 12.3 % (08/11/23 9:46 AM) Imm Gran Absolute [0.00-0.02 K/mcL] 0.02 K/mcL (08/11/23 9:46 AM) Imm Gran Auto [0.0-0.5 %] 0.3 % (08/11/23 9:46 AM) Slide Review Not Indicated (08/11/23 9:46 AM) Eos, Auto [0.00-3.00 %] 1.90 % (08/11/23 9:46 AM) ESR, Westergren [0-20 mm/hr] 17 mm/hr (08/11/23 9:46 AM) Social History Social History Type Response Tobacco Never tobacco user T obacco Use:. Sex Patient Care team information Care Team Personnel Name: ANTONY MCDONALD Position: No Access Member Role: Primary Care Physician Address: Address: [address] [place] [phone] [place] Care Team Related Persons Name: KWAN GARCIA
[2023-08-26 14:13] LABS: HCT 31.7 % (36.0-46.0); HGB 10.7 g/dL (11.2-15.7)
[2023-08-26 14:54] LABS: Anion Gap 6.7 mmol/L (3-11); BUN 27 mg/dL (7-18); CO2 32.3 mmol/L (21.0-32.0); CREATININE 1.4 mg/dL (0.55-1.02); Chloride 105 mmol/L (98-107); Estimated GFR 38.51 (mL/min/1.73m2); Glucose 95 mg/dL (74-106); NT-proBNP 135 pg/mL (<300); Potassium 3.8 mmol/L (3.5-5.1); Sodium 144 mmol/L (136-145)
== END 2023-08-26 01:51 | disposition home or self-care (01) ==
LOC: LBO 01:50
PROVIDERS: PCP Family Medicine; Visit Provider Internal Medicine Critical Care Medicine
DX: I50.32 Chronic diastolic (congestive) heart failure (principal); D64.9 Anemia, unspecified; I27.20 Pulmonary hypertension, unspecified
CPT/HCPCS: 36415; 80048; 83880; 85014; 85018

== ENCOUNTER 2023-09-13 03:21 | Outpatient (CLI) | payer MEDICARE, SELFPAY ==
[2023-09-13 11:52] LABS: HCT 31.3 % (36.0-46.0); HGB 10.5 g/dL (11.2-15.7)
[2023-09-13 13:01] LABS: Anion Gap 5.7 mmol/L (3-11); BUN 23 mg/dL (7-18); CO2 34.3 mmol/L (21.0-32.0); CREATININE 1.3 mg/dL (0.55-1.02); Calcium 9.7 mg/dL (8.5-10.1); Calculated LDL 109 mg/dL (<100); Chloride 103 mmol/L (98-107); Cholesterol 198 mg/dL (<200); Estimated GFR 42.09 (mL/min/1.73m2); Glucose 104 mg/dL (74-106); HDL Cholesterol 36 mg/dL (40-60); Potassium 3.8 mmol/L (3.5-5.1); Sodium 143 mmol/L (136-145); Triglyceride 267 mg/dL (<150)
[2023-09-13 13:04] LABS: Folate > 20.0 ng/mL (8.6-20.0)
[2023-09-13 13:22] LABS: NT-proBNP 155 pg/mL (<300)
== END 2023-09-13 03:22 | disposition home or self-care (01) ==
PROVIDERS: PCP Family Medicine; Visit Provider Internal Medicine Critical Care Medicine
DX: I50.32 Chronic diastolic (congestive) heart failure (principal); I27.20 Pulmonary hypertension, unspecified
CPT/HCPCS: 36415; 80048; 80061; 82668; 82746; 83880; 85014; 85018

== ENCOUNTER → 2023-10-04 11:01 | Outpatient (BNVA) | payer MEDICARE, SELFPAY | PROVIDERS: PCP Family Medicine; Referring Provider Family Medicine; Visit Provider Psychiatry & Neurology Neurology | DX: R06.00 Dyspnea, unspecified (principal); R51.9 Headache, unspecified; G89.29 Other chronic pain | CPT/HCPCS: 99213 ==

== ENCOUNTER → 2023-10-08 11:19 | Outpatient (BNVA) | payer MEDICARE, SELFPAY | PROVIDERS: PCP Family Medicine; Referring Provider Family Medicine; Visit Provider Student in an Organized Health Care Education/Training Program | DX: J96.91 Respiratory failure, unspecified with hypoxia (principal); G47.34 Idiopathic sleep related nonobstructive alveolar hypoventilation; R91.1 Solitary pulmonary nodule; I27.21 Secondary pulmonary arterial hypertension | CPT/HCPCS: 94618; 99214 ==

== ENCOUNTER 2023-10-25 04:01 | Outpatient (CLI) | payer MEDICARE, SELFPAY ==
[2023-10-25 14:11] LABS: Ferritin 164 ng/mL (8-252); Iron 103 ug/dL (50-170); Total Iron Binding Capacity 309 ug/dL (250-450); Transferrin Sat 33 % (15-50); Vitamin B12 1202 pg/mL (193-986)
== END 2023-10-25 04:02 | disposition home or self-care (01) ==
LOC: LBO 04:01
PROVIDERS: PCP Family Medicine; Visit Provider Family Medicine
DX: D64.9 Anemia, unspecified (principal); R20.2 Paresthesia of skin
CPT/HCPCS: 36415; 82607; 82728; 83540; 83550

== ENCOUNTER 2023-11-01 05:26 | Outpatient (CLI) | payer MEDICARE, SELFPAY ==
[2023-11-01 13:16] LABS: Abs Immature Grans 0.02 10^3/uL (0.0-0.06); Absolute Basophil Count 0.03 10^3/uL (0.0-0.2); Absolute Eosinophil Count 0.17 10^3/uL (0.0-0.7); Absolute Lymphocyte Count 1.48 10^3/uL (1.2-3.4); Absolute Monocyte Count 0.33 10^3/uL (0.1-0.8); Absolute Neutrophil Count 3.05 10^3/uL (1.2-6.7); Basophils % 0.6; Eosinophils % 3.3; HCT 31.4 % (36.0-46.0); HGB 10.6 g/dL (11.2-15.7); Immature Grans % 0.4; Lymphocytes % 29.1; MCH 31.1 pg (27.0-33.0); MCHC 33.8 % (32.0-36.0); MCV 92 fL (80-95); MPV 9.1 fL (8.0-11.0); Monocytes % 6.5; Neutrophils % 60.1; Platelet Count 228 10^3/uL (130-400); RBC 3.41 10^6/uL (3.93-5.22); RDW 12.5 % (11.7-14.6); RDW-SD 42.1 fL; Reticulocyte 1.3 % (0.5-2.4); WBC 5.08 10^3/uL (4.4-10.8)
[2023-11-01 13:36] LABS: Iron 85 ug/dL (50-170); Total Iron Binding Capacity 325 ug/dL (250-450); Transferrin Sat 26 % (15-50)
[2023-11-01 13:59] LABS: ALT 27 U/L (14-59); AST 20 U/L (15-37); Albumin 3.4 g/dL (3.4-5.0); Alkaline Phosphatase 102 U/L (46-116); Anion Gap 4.5 mmol/L (3-11); BUN 24 mg/dL (7-18); Bilirubin, Total 0.4 mg/dL (0.2-1.0); CO2 33.5 mmol/L (21.0-32.0); CREATININE 1.3 mg/dL (0.55-1.02); Calcium 9.7 mg/dL (8.5-10.1); Chloride 104 mmol/L (98-107); Estimated GFR 42.09 (mL/min/1.73m2); Ferritin 162 ng/mL (8-252); Folate > 20.0 ng/mL (8.6-20.0); Glucose 126 mg/dL (74-106); Potassium 3.9 mmol/L (3.5-5.1); Sodium 142 mmol/L (136-145); Total Protein 7.1 g/dL (6.4-8.2); Vitamin B12 1428 pg/mL (193-986)
[2023-11-01 14:10] LABS: LDH 170 U/L (81-234)
[2023-11-01 20:10] LABS: NT-proBNP 93 pg/mL (<300)
[2023-11-02 13:10] LABS: Albumin 60.9 % (55.8-66.1); Total Protein 6.6 g/dL (6.3-8.2)
[2023-11-02 19:51] LABS: Erythropoietin 15.7 mIU/mL (2.6 - 18.5)
[2023-11-03 12:32] LABS: Copper, Serum 113 mcg/dL (77-206)
== END 2023-11-01 05:27 | disposition home or self-care (01) ==
PROVIDERS: PCP Family Medicine; Visit Provider Internal Medicine Hematology & Oncology
DX: D64.9 Anemia, unspecified (principal)
CPT/HCPCS: 36415; 80053; 82525; 82668; 82607; 82728; 82746; 83540; 83550; 83615; 83880; 84165; 84443; 85025; 85045; 86880

== ENCOUNTER 2023-12-23 12:40 | Outpatient (RCR) | payer MEDICARE, SELFPAY ==
--- NOTE | 2023-12-23 13:00 | HOLTER_ITS ---
APPROVED REPORT Conclusion This is a 48-hour Holter monitor Rhythm throughout is sinus with an average heart rate of 68. Minimum is 54, maximum 102 There are occasional ventricular ectopic beats There are rare atrial premature beats There are several self-limited atrial runs. The longest of these was 7 beats in duration There was no atrial fibrillation, no high-grade AV block, no pauses greater than 3 seconds Symptoms were reported which had no correlation to any dysrhythmia
== END 2023-12-26 23:59 | disposition home or self-care (01) ==
LOC: CARDOPNVT 12:40
PROVIDERS: PCP Family Medicine; Visit Provider Internal Medicine Cardiovascular Disease
DX: R06.00 Dyspnea, unspecified (principal)
CPT/HCPCS: 93227; 93225

== ENCOUNTER 2023-12-27 14:15 | Outpatient (RCR) | payer MEDICARE, SELFPAY | END 2024-01-25 23:59 | disposition home or self-care (01) | LOC: CARDOPNVT 14:15 | PROVIDERS: PCP Family Medicine; Visit Provider Family Medicine | DX: R06.00 Dyspnea, unspecified (principal); I49.1 Atrial premature depolarization | CPT/HCPCS: 93227; 93226 ==

== ENCOUNTER → 2024-02-02 11:04 | Outpatient (BNVA) | payer MEDICARE, SELFPAY | PROVIDERS: PCP Family Medicine; Referring Provider Family Medicine; Visit Provider Podiatrist | DX: L60.3 Nail dystrophy (principal); R60.0 Localized edema; L84 Corns and callosities; M79.675 Pain in left toe(s); M72.2 Plantar fascial fibromatosis; I73.9 Peripheral vascular disease, unspecified; L60.0 Ingrowing nail; G62.9 Polyneuropathy, unspecified; M79.672 Pain in left foot | CPT/HCPCS: 11719; 11721 ==

== ENCOUNTER 2024-02-22 14:06 | Outpatient (CLI) | payer MEDICARE, SELFPAY ==
[2024-02-22 14:13] LABS: Anion Gap 5.6 mmol/L (3-11); BUN 29 mg/dL (7-18); CO2 30.4 mmol/L (21.0-32.0); CREATININE 1.6 mg/dL (0.55-1.02); Calcium 9.6 mg/dL (8.5-10.1); Chloride 104 mmol/L (98-107); Estimated GFR 32.81 (mL/min/1.73m2); Glucose 125 mg/dL (74-106); NT-proBNP 196 pg/mL (<300); Potassium 4.3 mmol/L (3.5-5.1); Sodium 140 mmol/L (136-145)
== END 2024-02-22 14:07 | disposition home or self-care (01) ==
LOC: LBO 14:06
PROVIDERS: PCP Family Medicine; Visit Provider Internal Medicine Critical Care Medicine
DX: I50.32 Chronic diastolic (congestive) heart failure (principal)
CPT/HCPCS: 36415; 80048; 83880

== ENCOUNTER 2024-03-01 05:13 | Outpatient (CLI) | payer MEDICARE, SELFPAY ==
[2024-03-01 12:42] LABS: Abs Immature Grans 0.01 10^3/uL (0.0-0.06); Absolute Basophil Count 0.04 10^3/uL (0.0-0.2); Absolute Eosinophil Count 0.23 10^3/uL (0.0-0.7); Absolute Lymphocyte Count 1.55 10^3/uL (1.2-3.4); Absolute Monocyte Count 0.44 10^3/uL (0.1-0.8); Absolute Neutrophil Count 3.32 10^3/uL (1.2-6.7); Basophils % 0.7 %; Eosinophils % 4.1 %; HCT 35.8 % (36.0-46.0); HGB 11.8 g/dL (11.2-15.7); Immature Grans % 0.2 %; Lymphocytes % 27.7 %; MCH 30.9 pg (27.0-33.0); MCV 94 fL (80-95); MPV 9.1 fL (8.0-11.0); Monocytes % 7.9 %; Neutrophils % 59.4 %; Platelet Count 215 10^3/uL (130-400); RBC 3.82 10^6/uL (3.93-5.22); RDW 12.2 % (11.7-14.6); RDW-SD 41.9 fL; WBC 5.59 10^3/uL (4.4-10.8)
[2024-03-01 12:57] LABS: ALT 25 U/L (14-59); AST 20 U/L (15-37); Albumin 3.6 g/dL (3.4-5.0); Alkaline Phosphatase 105 U/L (46-116); Anion Gap 7.1 mmol/L (3-11); BUN 32 mg/dL (7-18); Bilirubin, Total 0.5 mg/dL (0.2-1.0); CO2 30.9 mmol/L (21.0-32.0); CREATININE 1.6 mg/dL (0.55-1.02); Chloride 104 mmol/L (98-107); Estimated GFR 32.81 (mL/min/1.73m2); Glucose 131 mg/dL (74-106); Potassium 4.2 mmol/L (3.5-5.1); Sodium 142 mmol/L (136-145); Total Protein 7.1 g/dL (6.4-8.2)
== END 2024-03-01 05:14 | disposition home or self-care (01) ==
LOC: LBO 05:22
PROVIDERS: PCP Family Medicine; Visit Provider Internal Medicine Hematology & Oncology
DX: D64.9 Anemia, unspecified (principal); R74.8 Abnormal levels of other serum enzymes
CPT/HCPCS: 36415; 80053; 85025

== ENCOUNTER → 2024-04-05 12:43 | Outpatient (BNVA) | payer MEDICARE, SELFPAY | PROVIDERS: PCP Family Medicine; Referring Provider Family Medicine; Visit Provider Physician Assistant Surgical | DX: J96.91 Respiratory failure, unspecified with hypoxia (principal); G47.34 Idiopathic sleep related nonobstructive alveolar hypoventilation; R91.1 Solitary pulmonary nodule; I27.21 Secondary pulmonary arterial hypertension | CPT/HCPCS: 99214 ==

== ENCOUNTER → 2024-05-31 10:44 | Outpatient (BNVA) | payer MEDICARE, SELFPAY | PROVIDERS: PCP Family Medicine; Referring Provider Family Medicine; Visit Provider Podiatrist | DX: L60.3 Nail dystrophy (principal); R60.0 Localized edema; I73.89 Other specified peripheral vascular diseases; G62.9 Polyneuropathy, unspecified; L84 Corns and callosities; M79.674 Pain in right toe(s); M79.675 Pain in left toe(s) | CPT/HCPCS: 11719 ==

== ENCOUNTER 2024-06-05 12:51 | Outpatient (CLI) | payer MEDICARE, SELFPAY ==
--- NOTE | 2024-06-05 12:45 | RT.EKG_ITS ---
APPROVED REPORT Exam: Resting ECG Reason for Exam: Chest discomfort Patient Location: O HR:59 bpm ECG Measurements Heart Rate 59 AXIS GA 169 P 5 QRSd 102 QRS 17 QT 429 T 43 QTc 425 Conclusion Sinus rhythm...normal P axis, V-rate 50- 99 Normal Electrocardiogram
== END 2024-06-05 12:52 | disposition home or self-care (01) ==
LOC: DI.CM 12:52
PROVIDERS: PCP Family Medicine; Visit Provider Physician Assistant
DX: R07.89 Other chest pain (principal)
CPT/HCPCS: 93010

== ENCOUNTER 2024-06-05 13:33 | Outpatient (REF) | payer MEDICARE, SELFPAY | END 2024-06-05 13:34 | disposition home or self-care (01) | LOC: LBN 13:33 | PROVIDERS: PCP Family Medicine; Visit Provider Physician Assistant | DX: N39.0 Urinary tract infection, site not specified (principal); R82.89 Other abnormal findings on cytological and histological examination of urine | CPT/HCPCS: 87086 ==

== ENCOUNTER 2024-06-05 14:33 | Outpatient (CLI) | payer MEDICARE, SELFPAY ==
[2024-06-05 14:46] LABS: Abs Immature Grans 0.02 10^3/uL (0.0-0.06); Absolute Basophil Count 0.04 10^3/uL (0.0-0.2); Absolute Eosinophil Count 0.14 10^3/uL (0.0-0.7); Absolute Lymphocyte Count 1.76 10^3/uL (1.2-3.4); Absolute Monocyte Count 0.36 10^3/uL (0.1-0.8); Absolute Neutrophil Count 3.22 10^3/uL (1.2-6.7); Basophils % 0.7 %; Eosinophils % 2.5 %; HCT 36.3 % (36.0-46.0); HGB 11.8 g/dL (11.2-15.7); Immature Grans % 0.4 %; Lymphocytes % 31.8 %; MCH 31.1 pg (27.0-33.0); MCHC 32.5 % (32.0-36.0); MCV 96 fL (80-95); MPV 9.5 fL (8.0-11.0); Monocytes % 6.5 %; Neutrophils % 58.1 %; Platelet Count 248 10^3/uL (130-400); RDW 12.3 % (11.7-14.6); RDW-SD 42.7 fL; WBC 5.54 10^3/uL (4.4-10.8)
[2024-06-05 15:54] LABS: ALT 23 U/L (14-59); AST 22 U/L (15-37); Albumin 3.6 g/dL (3.4-5.0); Alkaline Phosphatase 99 U/L (46-116); Anion Gap 4.3 mmol/L (3-11); BUN 25 mg/dL (7-18); Bilirubin, Total 0.52 mg/dL (0.2-1.0); CO2 32.7 mmol/L (21.0-32.0); CREATININE 1.5 mg/dL (0.55-1.02); Calcium 10.4 mg/dL (8.5-10.1); Chloride 101 mmol/L (98-107); Estimated GFR 35.45 (mL/min/1.73m2); Glucose 105 mg/dL (74-106); Potassium 3.9 mmol/L (3.5-5.1); Sodium 138 mmol/L (136-145); TSH (W/Ref FT4) 2.12 uIU/mL (0.36-3.74); Total Protein 7.1 g/dL (6.4-8.2)
[2024-06-06 12:45] LABS: Lyme Ab w Rflx to Lyme Confirm Negative (Negative)
[2024-06-08 22:54] LABS: Anaplasma phagocytophilum Negative (Negative); B. miyamotoi PCR Negative (Negative); Babesia divergens/MO-1 Negative (Negative); Babesia duncani Negative (Negative); Babesia microti Negative (Negative); Ehrlichia chaffeensis Negative (Negative); Ehrlichia ewingii/canis Negative (Negative); Ehrlichia muris eauclairensis Negative (Negative)
== END 2024-06-05 14:34 | disposition home or self-care (01) ==
LOC: LBO 14:34
PROVIDERS: Physician Assistant; PCP Family Medicine; Visit Provider Internal Medicine Cardiovascular Disease
DX: R53.83 Other fatigue (principal); D64.9 Anemia, unspecified
CPT/HCPCS: 36415; 80053; 87798; 84443; 85025; 86618

== ENCOUNTER 2024-06-09 00:05 | Outpatient (CLI) | payer MEDICARE, SELFPAY ==
--- NOTE | 2024-06-09 | DI.MAMMO_ITS ---
Exam(s) MAMMO SCREENING EXAM: MAMMO SCREENING CLINICAL HISTORY: SCREENING, Z12.31 TECHNIQUE: Mammograms were interpreted according to the usual protocol including computer analysis w [employer] CAD system, tomosynthesis and C-view imaging. COMPARISON: 2013 through 2022 FINDINGS: The breasts are composed of mainly fatty density , Breast Density category A. No suspicious masses or suspicious microcalcifications are seen. No skin thickening or abnormal axillary lymph nodes are seen. There has been no significant change from prior exams. IMPRESSION: BI-RADS Category 1, Negative mammogram Yearly screening mammography is recommended. Breast Density - Category A, fatty density. A negative radiographic report should not delay biopsy if a dominant or clinically suspicious mass is present. Up to ten percent of cancers are not identified on mammography. A negative report may reinforce clinical impression. Adenosis and dense breasts may obscure an underlying neoplasm. False positive reports average 6 to 10%. Patient will receive a letter notifying them of these results.
== END 2024-06-09 00:25 ==
LOC: DI 00:07
PROVIDERS: PCP Family Medicine; Visit Provider Family Medicine
DX: Z12.31 Encounter for screening mammogram for malignant neoplasm of breast (principal)
CPT/HCPCS: 77063; 77067

== ENCOUNTER 2024-07-03 02:26 | Outpatient (CLI) | payer MEDICARE, SELFPAY ==
[2024-07-03 11:39] LABS: Abs Immature Grans 0.02 10^3/uL (0.0-0.06); Absolute Basophil Count 0.04 10^3/uL (0.0-0.2); Absolute Eosinophil Count 0.18 10^3/uL (0.0-0.7); Absolute Lymphocyte Count 1.33 10^3/uL (1.2-3.4); Absolute Neutrophil Count 3.07 10^3/uL (1.2-6.7); Basophils % 0.8 %; Eosinophils % 3.6 %; HCT 35.8 % (36.0-46.0); HGB 11.9 g/dL (11.2-15.7); Immature Grans % 0.4 %; Lymphocytes % 26.4 %; MCH 31.6 pg (27.0-33.0); MCHC 33.2 % (32.0-36.0); MCV 95 fL (80-95); MPV 9.9 fL (8.0-11.0); Monocytes % 7.9 %; Neutrophils % 60.9 %; Platelet Count 230 10^3/uL (130-400); RBC 3.77 10^6/uL (3.93-5.22); RDW 12.4 % (11.7-14.6); RDW-SD 42.7 fL; WBC 5.04 10^3/uL (4.4-10.8)
[2024-07-03 12:29] LABS: ALT 21 U/L (14-59); AST 24 U/L (15-37); Albumin 3.5 g/dL (3.4-5.0); Alkaline Phosphatase 102 U/L (46-116); Anion Gap 5.9 mmol/L (3-11); BUN 32 mg/dL (7-18); Bilirubin, Total 0.55 mg/dL (0.2-1.0); CO2 34.1 mmol/L (21.0-32.0); CREATININE 1.7 mg/dL (0.55-1.02); Calcium 9.9 mg/dL (8.5-10.1); Chloride 106 mmol/L (98-107); Glucose 110 mg/dL (74-106); Potassium 4.4 mmol/L (3.5-5.1); Sodium 146 mmol/L (136-145)
== END 2024-07-03 02:27 | disposition home or self-care (01) ==
LOC: LBO 02:26
PROVIDERS: PCP Family Medicine; Visit Provider Internal Medicine Hematology & Oncology
DX: D64.9 Anemia, unspecified (principal); R74.8 Abnormal levels of other serum enzymes
CPT/HCPCS: 36415; 80053; 85025

== ENCOUNTER → 2024-10-02 10:50 | Outpatient (BNVA) | payer MEDICARE, SELFPAY | PROVIDERS: PCP Family Medicine; Visit Provider Psychiatry & Neurology Neurology | DX: R06.00 Dyspnea, unspecified (principal); R51.9 Headache, unspecified; G89.29 Other chronic pain; G62.9 Polyneuropathy, unspecified | CPT/HCPCS: 99213 ==

== ENCOUNTER → 2024-10-18 10:12 | Outpatient (BNVA) | payer MEDICARE, SELFPAY | PROVIDERS: PCP Family Medicine; Referring Provider Family Medicine; Visit Provider Podiatrist | DX: L60.3 Nail dystrophy (principal); R60.0 Localized edema; L84 Corns and callosities; M79.674 Pain in right toe(s); M79.675 Pain in left toe(s); I73.89 Other specified peripheral vascular diseases; G62.9 Polyneuropathy, unspecified; L85.8 Other specified epidermal thickening; R09.89 Other specified symptoms and signs involving the circulatory and respiratory systems; I83.93 Asymptomatic varicose veins of bilateral lower extremities; L65.9 Nonscarring hair loss, unspecified; R23.8 Other skin changes; L60.2 Onychogryphosis | CPT/HCPCS: 11055; 11721 ==

== ENCOUNTER 2024-12-26 16:36 | Outpatient (CLI) | payer MEDICARE, SELFPAY ==
[2024-12-26 14:08] LABS: HCT 38.9 % (36.0-46.0); HGB 12.7 g/dL (11.2-15.7); MCH 31.3 pg (27.0-33.0); MCHC 32.6 % (32.0-36.0); MCV 96 fL (80-95); MPV 10.2 fL (8.0-11.0); Platelet Count 272 10^3/uL (130-400); RBC 4.06 10^6/uL (3.93-5.22); RDW 12.2 % (11.7-14.6); WBC 8.05 10^3/uL (4.4-10.8)
[2024-12-26 16:00] LABS: ALT 19 U/L (14-59); AST 30 U/L (15-37); Albumin 3.6 g/dL (3.4-5.0); Alkaline Phosphatase 114 U/L (46-116); Anion Gap 3.4 mmol/L (3-11); BUN 28 mg/dL (7-18); Bilirubin, Total 0.7 mg/dL (0.2-1.0); CO2 33.6 mmol/L (21.0-32.0); CREATININE 1.5 mg/dL (0.55-1.02); Chloride 105 mmol/L (98-107); Estimated GFR 35.23 (mL/min/1.73m2); Glucose 104 mg/dL (74-106); Potassium 4.7 mmol/L (3.5-5.1); Sodium 142 mmol/L (136-145); Total Protein 7.4 g/dL (6.4-8.2)
== END 2024-12-26 16:37 | disposition home or self-care (01) ==
LOC: LBO 16:37
PROVIDERS: PCP Family Medicine; Visit Provider Family Medicine
DX: Z00.00 Encounter for general adult medical examination without abnormal findings (principal)
CPT/HCPCS: 36415; 80053; 85027

== ENCOUNTER → 2025-02-14 10:45 | Outpatient (BNVA) | payer MEDICARE, SELFPAY | PROVIDERS: PCP Family Medicine; Referring Provider Family Medicine; Visit Provider Podiatrist | DX: L60.3 Nail dystrophy (principal); R60.0 Localized edema; L84 Corns and callosities; G62.9 Polyneuropathy, unspecified; I73.89 Other specified peripheral vascular diseases; M79.671 Pain in right foot; M79.672 Pain in left foot; R09.89 Other specified symptoms and signs involving the circulatory and respiratory systems; I83.93 Asymptomatic varicose veins of bilateral lower extremities; L65.9 Nonscarring hair loss, unspecified; R23.8 Other skin changes; L60.2 Onychogryphosis; L85.8 Other specified epidermal thickening | CPT/HCPCS: 11719 ==

== ENCOUNTER 2025-05-01 03:49 | Outpatient (CLI) | payer MEDICARE, SELFPAY ==
[2025-05-01 12:27] LABS: HCT 35.7 % (36.0-46.0); HGB 12.1 g/dL (11.2-15.7); MCH 32.0 pg (27.0-33.0); MCHC 33.9 % (32.0-36.0); MCV 94 fL (80-95); MPV 9.4 fL (8.0-11.0); Platelet Count 215 10^3/uL (130-400); RBC 3.78 10^6/uL (3.93-5.22); RDW 12.1 % (11.7-14.6); RDW-SD 42.1 fL; WBC 4.88 10^3/uL (4.4-10.8)
[2025-05-01 13:00] LABS: Anion Gap 6.7 mmol/L (3-11); BUN 28 mg/dL (7-18); CO2 30.3 mmol/L (21.0-32.0); Calcium 9.7 mg/dL (8.5-10.1); Chloride 102 mmol/L (98-107); Estimated GFR 41.83 (mL/min/1.73m2); Glucose 102 mg/dL (74-106); Magnesium 2.3 mg/dL (1.8-2.4); Potassium 4.3 mmol/L (3.5-5.1); Sodium 139 mmol/L (136-145)
[2025-05-07 10:02] LABS: 1,25-Dihydroxyvitamin D 31 pg/mL (18-78)
== END 2025-05-01 03:50 | disposition home or self-care (01) ==
LOC: LBO 03:50
PROVIDERS: PCP Family Medicine; Visit Provider Family Medicine
DX: Z13.21 Encounter for screening for nutritional disorder (principal); R53.83 Other fatigue
CPT/HCPCS: 36415; 80048; 85027; 82652; 83735

== ENCOUNTER 2025-05-29 15:27 | Emergency (ER) | payer MEDICARE, SELFPAY ==
[2025-05-29 15:22] VITALS: BP 130/64; PULSE 63; RESP 18; TEMP 36.2; O2SAT 96
--- NOTE | 2025-05-29 15:30 | RT.EKG_ITS ---
APPROVED REPORT Exam: Resting ECG Reason for Exam: Patient Location: E HR:81 bpm ECG Measurements Heart Rate 81 AXIS WI 193 P 40 QRSd 95 QRS 26 QT 396 T 44 QTc 462 Conclusion Sinus rhythm...normal P axis, V-rate 60- 99 Low voltage, precordial leads...precordial leads <1.0mV
--- NOTE | 2025-05-29 15:41 | W.ED.GENAD ---
Discharge Plan Disposition Patient Disposition: Home Condition: Stable Discharge Details Clinical Impression: Light-headedness Primary Care Provider: Nanci Gomez V ED Provider: Meliton Martin Home Meds and New Rx's Prescriptions: Continued fexofenadine [Constanza Allergy] 60 mg tablet 60 mg PO DAILY Benefiber Clear SF (dextrin) 3 gram/3.5 gram powder in packet 1.5 g PO DAILY PRN Rx Instructions: mix into at least 4 oz water or juice before administering spironolactone 25 mg tablet 25 mg PO DAILY triamcinolone acetonide 0.1 % cream 1 applic topical DAILY magnesium oxide 400 mg magnesium tablet 400 mg PO DAILY metronidazole [Metrogel] 1 % gel 1 applic topical BID furosemide [Lasix] 20 mg tablet 40 mg PO DAILY (DME) Oxygen Tank See Rx Instructions .Route Rx Instructions: As directed gabapentin 300 mg capsule See Rx Instructions PO .COMPLEX Qty: 270 3RF Rx Instructions: 600mg HS with an additional 300mg at 4-5pm prn RLS symptoms Jardiance 10 mg tablet 10 mg PO DAILY losartan 25 mg tablet 25 mg PO DAILY cholecalciferol (vitamin D3) 25 mcg (1,000 unit) capsule 25 mcg PO DAILY B Complex Plus Vitamin C 20-62-08-5-300 mg capsule 1 cap PO DAILY Rx Instructions: give with food (meal/snack) Zyrtec 10 mg capsule 10 mg PO DAILY PRN ondansetron 8 mg tablet,disintegrating 8 mg PO Q12H pantoprazole 40 mg tablet,delayed release (DR/EC) 40 mg PO BID ropinirole 1 mg tablet 1 mg PO QHS Qty: 90 3RF Rx Instructions: administer 1-3 hours before bedtime Discharge Instructions Additional Instructions: Your blood work did not show any concerning findings at this time. I recommend following up with your primary care provider if your symptoms continue. If you feel more ill, have severe chest pain or difficulty breathing return to the emergency department for reevaluation. HPI General Mode of arrival: EMS. Date/Time Provider Initiated Documentation: 05/29/25 15:27. Limitations to Documentation: no limitations. Information obtained by: patient. History of Present Illness 79 year old F presents to the emergency department with the chief complaint of lightheaded, described as moderate, Patient started experiencing this hour(s) (1) and it has been now resolved. No relieving factors improve symptom(s), No exacerbating factors reported . Patient notes chest pain; denies shortness of breath. Patient did receive the following treatments prior to arrival, none Related Data Home Medications ?Medication ?Instructions ?Recorded ?Confirmed pantoprazole 40 mg tablet,delayed 40 mg PO BID 01/29/21 05/29/25 release magnesium oxide 400 mg PO DAILY 07/24/21 05/29/25 fexofenadine 60 mg tablet (Constanza 60 mg PO DAILY 06/05/22 05/29/25 Allergy) wheat dextrin 3 gram/3.5 gram oral 1.5 g PO DAILY PRN 09/30/22 05/29/25 powder packet (Benefiber Clear Sugar Free(dextrin)) metronidazole 1 % topical gel 1 applic topical BID 11/18/22 05/29/25 (Metrogel) cholecalciferol (vitamin D3) 25 25 mcg PO DAILY 03/06/24 05/29/25 mcg (1,000 unit) capsule empagliflozin 10 mg tablet 10 mg PO DAILY 03/06/24 05/29/25 (Jardiance) furosemide 20 mg tablet (Lasix) 40 mg PO DAILY 03/06/24 05/29/25 losartan 25 mg tablet 25 mg PO DAILY 03/06/24 05/29/25 vitamin B comp and C no.3 15 mg-10 1 cap PO DAILY 03/06/24 05/29/25 mg-50 mg-5 mg-300 mg capsule (B Complex Plus Vitamin C) spironolactone 25 mg tablet 25 mg PO DAILY 06/05/24 05/29/25 triamcinolone acetonide 0.1 % 1 applic topical DAILY 06/05/24 05/29/25 topical cream ropinirole 1 mg tablet 1 mg PO QHS #90 tabs 09/11/24 05/29/25 Oxygen 10/02/24 05/29/25 gabapentin 300 mg capsule See Rx Instructions PO .COMPLEX 10/02/24 05/29/25 #270 caps cetirizine 10 mg capsule (Zyrtec) 10 mg PO DAILY PRN 10/17/24 05/29/25 ondansetron 8 mg disintegrating 8 mg PO Q12H 10/17/24 05/29/25 tablet Previous Rx's ?Medication ?Instructions ?Recorded ropinirole 1 mg tablet 1 mg PO QHS #90 tabs 09/11/24 gabapentin 300 mg capsule See Rx Instructions PO .COMPLEX 10/02/24 #270 caps Allergies Allergy/AdvReac Type Severity Reaction Status Date / Time lisinopril Allergy Intermediate cough Verified 10/18/24 16:48 doxycycline Allergy Mild unknown Verified 10/18/24 16:48 seasonal Allergy Mild seasonal Uncoded 10/18/24 16:48 General Stated Complaint: Dizzy/Sync MICHAEL: 3 Review of Systems All systems reviewed & are unremarkable except as noted in HPI and below Constitutional Constitutional: Denies chills, Denies fever(s) and Denies weakness Cardiovascular Cardiovascular: Reports chest pain, Reports lightheadedness and Denies dyspnea Respiratory Respiratory: Denies cough and Denies dyspnea Gastrointestinal Gastrointestinal: Denies abdominal pain, Denies nausea and Denies vomiting Neurologic Neurologic: Denies weakness Exam Const General: no acute distress Orientation: alert HENMT Head: normal to inspection Ears: external ears normal General nose exam: external nose normal Mouth: moist mucous membranes Eyes General: appearance normal, both eyes and all related structures Neck Neck: normal visual inspection Resp Effort & Inspection: normal respiratory effort and able to speak in complete sentences Auscultation: clear to auscultation bilaterally Cardio Jugular venous pressure: no JVD Rate: regular rate Heart Sounds: no murmurs Skin General skin exam: no rashes or lesions noted Neuro General: patient alert and patient oriented x3 Extrem General: normal to inspection Psych Mental Status: mental status grossly normal Course Vital Signs Vital signs: Vital Signs Temperature 36.2 C L 05/29/25 15:22 Pulse 63 05/29/25 15:22 Respiratory Rate 18 05/29/25 15:22 Blood Pressure 130/64 05/29/25 15:22 Pulse Oximetry 96 05/29/25 15:22 Temperature 36.2 C L 05/29/25 15:22 Pulse 63 05/29/25 15:22 Respiratory Rate 18 05/29/25 15:22 Blood Pressure 130/64 05/29/25 15:22 Pulse Oximetry 96 05/29/25 15:22 Oxygen Delivery Method Room Air 05/29/25 15:22 Oxygen Flow Rate 0 05/29/25 15:22 Pain Level 0 05/29/25 15:22 Medical Decision Making 79-year-old female with a history of GERD, hypertension, who states she gets frequent episodes of lightheadedness and dizziness was at PT when she was having the symptoms and also was complaining of chest discomfort so EMS was called and she was brought here. She is now states that she has no symptoms and has no complaints currently. She says the pain in her chest was a burning sensation in the center of her chest. She had no radiation, no diaphoresis, no vomiting she is well-appearing speaking full sentences, oriented x 4. She is moving all extremities well and equally and cranial nerves II through XII are intact. I suspect she could have orthostasis with. But given her age we will check a CBC CMP and troponins. She states that her symptoms were like lightheadedness and less like dizziness and she had no other neurological symptoms so I doubt central vertigo and do not feel imaging of her head is indicated. There is no tachycardia or hypoxia and no evidence of DVT on exam so I doubt PE and she has no tearing back pain and has equal peripheral pulses so I doubt dissection Patient asymptomatic and lab work shows no significant changes from baseline, 2 negative troponins. Given she is asymptomatic I feel she is stable for discharge and can follow-up with her PCP, return precautions given Differential Diagnosis Differential Diagnosis: Orthostasis, GERD Medical Records Medical records reviewed: Yes I reviewed the patient's medical records. ECG Data Attestation: I personally reviewed and interpreted this ECG (s) as follows: Prior ECG tracings: available for review Interpretation: sinus rate of 81 no stemi PFSH All Active Problems (Updated 05/29/25 @ 18:40 by Meliton Martin MD) Light-headedness (Acute) Disorder of esophagus (Acute) Pain in left hip (Acute) Pain in left foot (Acute) PAD (peripheral artery disease) (Acute) Leg edema (Acute) bi-lateral Other specified peripheral vascular diseases (Acute) Callus (Acute) Toe pain, left (Acute) Toe pain, right (Acute) Hallux rigidus, right foot (Acute) Plantar fasciitis (Acute) GERD (gastroesophageal reflux disease) (Chronic) History of restless legs syndrome (Acute) Ingrowing nail (Acute) Nail dystrophy (Acute) Pulmonary arterial hypertension (Acute) Respiratory failure with hypoxia (Acute) Nocturnal hypoxia (Acute) Pulmonary nodule (Acute) Hypertension (Chronic) Peripheral neuropathy (Acute) Chronic headache (Acute) Dyspnea on exertion (Acute) Shortness of breath (Acute) Medical History Preprocedural cardiovascular examination Allergic rhinitis Diverticulosis of colon Dysphagia Fatigue Achalasia Vasovagal syncope Mild memory disturbance H/O urinary frequency Vaginal dryness Heart murmur, systolic Hx of adenomatous polyp of colon Esophageal thickening Headache Abnormal breast finding Skin lesion Arm pain, left Bilateral leg cramps Foot pain Bilateral leg weakness Renal cyst, acquired, right History of infection due to Zika virus 2016, diagnosed by blood test after visiting [facility] Surgical History S/P laparoscopic fundoplication lower esphageal sphincterectomy November 2017 gastric polyp removed 2020 Status post right foot surgery bunion and hammer toes Status post left hip replacement 2005 Family History Mother Hypertension Hyperlipidemia Stroke Father Heart disease COPD (chronic obstructive pulmonary disease) Sister Asthma Social History Smoking/Tobacco Use Status: Never Smoking risk assessment performed?: Yes Alcohol Intake: current Alcohol Intake frequency: holidays/special occasions only Drug use: Never Household members: spouse Housing: house Number of Children: 0 Communication Needs: Hard of Hearing and Corrective Lenses 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 [place] farm.
[2025-05-29 16:19] LABS: Abs Immature Grans 0.03 10^3/uL (0.0-0.06); HCT 37.1 % (36.0-46.0); HGB 12.5 g/dL (11.2-15.7); Immature Grans % 0.4 %; MCH 31.5 pg (27.0-33.0); MCHC 33.7 % (32.0-36.0); MCV 94 fL (80-95); RBC 3.97 10^6/uL (3.93-5.22); RDW 11.9 % (11.7-14.6); RDW-SD 41.1 fL; WBC 7.47 10^3/uL (4.4-10.8)
[2025-05-29 16:36] LABS: RBC Morphology Normal
[2025-05-29 16:42] LABS: ALT 36 U/L (14-59); AST 42 U/L (15-37); Albumin 3.8 g/dL (3.4-5.0); Alkaline Phosphatase 106 U/L (46-116); Anion Gap 5.6 mmol/L (3-11); BUN 22 mg/dL (7-18); Bilirubin, Total 0.5 mg/dL (0.2-1.0); CO2 32.4 mmol/L (21.0-32.0); Calcium 9.9 mg/dL (8.5-10.1); Chloride 102 mmol/L (98-107); Estimated GFR 38.27 (mL/min/1.73m2); Glucose 107 mg/dL (74-106); Magnesium 2.5 mg/dL (1.8-2.4); Potassium 4.7 mmol/L (3.5-5.1); Sodium 140 mmol/L (136-145); Total Protein 7.3 g/dL (6.4-8.2); Troponin I 6 ng/L (<or=51)
[2025-05-29] MEDS: Normal Saline 1,000 ML 1000 ML IV (16:52)
[2025-05-29 16:53] VITALS: RESP 18
[2025-05-29 18:11] LABS: Glucose 500 mg/dL (Negative)
[2025-05-29 18:19] LABS: C & S Indicated? No; RBC 0-2 HPF (0-2); WBC 0-2 HPF (0-5)
[2025-05-29 18:29] LABS: Troponin I 7 ng/L (<or=51)
[2025-05-29 18:53] VITALS: BP 139/61; PULSE 71; RESP 16; TEMP 36.9; O2SAT 100
== END 2025-05-29 18:56 | disposition home or self-care (01) ==
PROVIDERS: Emergency Provider Emergency Medicine; PCP Family Medicine
DX: R42 Dizziness and giddiness (principal)
CPT/HCPCS: 36415; 80053; 93005; 96360; 99284; 81003; 81015; 83735; 84484; 85025; 93010; 99283

== ENCOUNTER → 2025-06-12 14:13 | Outpatient (BNVA) | payer MEDICARE, SELFPAY | PROVIDERS: PCP Family Medicine; Referring Provider Family Medicine; Visit Provider Podiatrist | DX: L60.3 Nail dystrophy (principal); R60.0 Localized edema; L84 Corns and callosities; G62.9 Polyneuropathy, unspecified; I73.89 Other specified peripheral vascular diseases; R09.89 Other specified symptoms and signs involving the circulatory and respiratory systems; I83.93 Asymptomatic varicose veins of bilateral lower extremities; L65.9 Nonscarring hair loss, unspecified; R23.4 Changes in skin texture; L60.2 Onychogryphosis; L85.8 Other specified epidermal thickening | CPT/HCPCS: 11719 ==

== ENCOUNTER 2025-06-27 16:55 | Emergency (ER) | payer MEDICARE, SELFPAY ==
[2025-06-27 17:02] VITALS: BP 196/106; PULSE 83; RESP 16; TEMP 36.6; O2SAT 94
[2025-06-27] MEDS: Fluorescein STRIPS 100/BOX 1 MG (18:42)
--- NOTE | 2025-06-27 19:08 | W.ED.GENAD ---
Discharge Plan Disposition Patient Disposition: Home Condition: Stable Discharge Details Clinical Impression: Acute right eye pain Primary Care Provider: Nanci Gomez V ED Provider: Elaina Yoder Home Meds and New Rx's Prescriptions: No Action fexofenadine [Constanza Allergy] 60 mg tablet 60 mg PO DAILY Benefiber Clear SF (dextrin) 3 gram/3.5 gram powder in packet 1.5 g PO DAILY PRN Rx Instructions: mix into at least 4 oz water or juice before administering triamcinolone acetonide 0.1 % cream 1 applic topical DAILY magnesium oxide 400 mg magnesium tablet 400 mg PO DAILY metronidazole [Metrogel] 1 % gel 1 applic topical BID (DME) Oxygen Tank See Rx Instructions .Route Rx Instructions: As directed gabapentin 300 mg capsule See Rx Instructions PO .COMPLEX Qty: 270 3RF Rx Instructions: 600mg HS with an additional 300mg at 4-5pm prn RLS symptoms losartan 25 mg tablet 25 mg PO DAILY cholecalciferol (vitamin D3) 25 mcg (1,000 unit) capsule 25 mcg PO DAILY B Complex Plus Vitamin C 56-57-75-5-300 mg capsule 1 cap PO DAILY Rx Instructions: give with food (meal/snack) Zyrtec 10 mg capsule 10 mg PO DAILY PRN ondansetron 8 mg tablet,disintegrating 8 mg PO Q12H nystatin 100,000 unit/gram cream 1 applic topical BID nystatin 100,000 unit/gram powder 1 applic topical BID pantoprazole 40 mg tablet,delayed release (DR/EC) 40 mg PO BID ropinirole 1 mg tablet 1 mg PO QHS Qty: 90 3RF Rx Instructions: administer 1-3 hours before bedtime Discharge Instructions Instructions: How to Care for Your Eyes Additional Instructions: You were seen in the emergency department today for evaluation of gradually worsening pain in your right eye with some redness. In our department you had a full ocular examination, which showed that your intraocular pressure is not significantly elevated, you did not have a sign of foreign body or damage to your eye, and you had labs that did not show any signs of temporal arteritis. Your CT scan did not show any infections behind your eye, though certainly you could have an early infection in the front part of your eye. You had a stye on your lower lid, and had some evidence of inflammation on your slit-lamp exam. We discussed your case with the flat hammerer at [facility] who are on-call, they recommend holding on any treatments until you are evaluated thoroughly by your flat hammerer at your appointment scheduled for tomorrow. You must not miss this appointment. If you are not going to be able to make it, you can certainly go to [facility] which is the closest emergency department associated with an ophthalmology program. You are also always welcome to come back to our emergency department if you have any concerning symptoms that require reevaluation. Please continue to use your eyedrops as prescribed, you may wear your glasses, and thank you for allowing us to be part of your care. HPI General Mode of arrival: ambulatory. Date/Time Provider Initiated Documentation: 06/27/25 17:00. Limitations to Documentation: no limitations. Information obtained by: patient, family and old records reviewed. HPI Narrative: This is a 79-year-old female patient with a past medical history significant for peripheral vascular disease, GERD, pulmonary hypertension, hypertension, presenting for evaluation of eye pain. The patient reports that she has had gradually worsening pain in her right eye with some blurry vision for the last 3 days. She reports that she cannot think of anything that she did to injure her eye, denies foreign body, wears corrective lenses but not contact lenses. She reports that she has some worsening of her pain with eye movement and bright lights, resting her eyes closed feels better. She states that she is being monitored for elevated intraocular pressures but has not been formally diagnosed with glaucoma. Has a history of cataracts and is pursuing surgical intervention with her flat hammerer. The patient reports that she is having a mild headache, denies flashers or floaters, zoroastrian pain, fever or chills. Related Data Home Medications ?Medication ?Instructions ?Recorded ?Confirmed pantoprazole 40 mg tablet,delayed 40 mg PO BID 01/29/21 06/27/25 release magnesium oxide 400 mg PO DAILY 07/24/21 06/27/25 fexofenadine 60 mg tablet (Constanza 60 mg PO DAILY 06/05/22 06/27/25 Allergy) wheat dextrin 3 gram/3.5 gram oral 1.5 g PO DAILY PRN 09/30/22 06/27/25 powder packet (Benefiber Clear Sugar Free(dextrin)) metronidazole 1 % topical gel 1 applic topical BID 11/18/22 06/27/25 (Metrogel) cholecalciferol (vitamin D3) 25 25 mcg PO DAILY 03/06/24 06/27/25 mcg (1,000 unit) capsule losartan 25 mg tablet 25 mg PO DAILY 03/06/24 06/27/25 vitamin B comp and C no.3 15 mg-10 1 cap PO DAILY 03/06/24 06/27/25 mg-50 mg-5 mg-300 mg capsule (B Complex Plus Vitamin C) triamcinolone acetonide 0.1 % 1 applic topical DAILY 06/05/24 06/27/25 topical cream ropinirole 1 mg tablet 1 mg PO QHS #90 tabs 09/11/24 06/27/25 Oxygen 10/02/24 06/27/25 gabapentin 300 mg capsule See Rx Instructions PO .COMPLEX 10/02/24 06/27/25 #270 caps cetirizine 10 mg capsule (Zyrtec) 10 mg PO DAILY PRN 10/17/24 06/27/25 ondansetron 8 mg disintegrating 8 mg PO Q12H 10/17/24 06/27/25 tablet nystatin 100,000 unit/gram topical 1 applic topical BID 06/08/25 06/27/25 cream nystatin 100,000 unit/gram topical 1 applic topical BID 06/08/25 06/27/25 powder Previous Rx's ?Medication ?Instructions ?Recorded ropinirole 1 mg tablet 1 mg PO QHS #90 tabs 09/11/24 gabapentin 300 mg capsule See Rx Instructions PO .COMPLEX 10/02/24 #270 caps Allergies Allergy/AdvReac Type Severity Reaction Status Date / Time lisinopril Allergy Intermediate cough Verified 06/27/25 17:07 doxycycline Allergy Mild unknown Verified 06/27/25 17:07 seasonal Allergy Mild seasonal Uncoded 06/27/25 17:07 General Stated Complaint: EyeProblem MICHAEL: 4 Exam Narrative Exam Narrative: Gen: Awake and alert, in no apparent distress HEENT: Non-icteric sclera, though there is some conjunctival injection of the right eye. Pupils equal and reactive, EOMs are full though the patient endorses movement of the eye in all directions exacerbates pain. Visual acuity 20/50 corrected right eye, 20/30 corrected left eye. The patient endorses only slight improvement of her discomfort with instillation of tetracaine. Lids and lashes notable for a stye on the inner aspect of the central lower lid. No fluorescein uptake suggestive of corneal abrasions or ulcerations. Slit-lamp exam with some evidence of cell in the right anterior chamber compared to the unaffected eye. Intraocular pressure 20 mmHg right eye, 21 left eye. No surrounding redness, induration, or swelling. No temporal artery tortuosity or tenderness to palpation. Neck: Supple Lungs: No apparent respiratory distress, normal respiratory effort. CV: Appears well perfused Abdomen: Non-distended MSK: Moves 4 extremities without apparent limitation in ROM Skin: Visualized skin without rashes, cyanosis. Neuro: Normal Gait, preserved strength and sensation, symmetrical, no facial asymmetry. Speaks in full, clear sentences. Psych: Appropriate for situation. Course Vital Signs Vital signs: Vital Signs Temperature 36.6 C 06/27/25 17:02 Pulse 83 06/27/25 17:02 Respiratory Rate 16 06/27/25 17:02 Blood Pressure 196/106 H 06/27/25 17:02 Pulse Oximetry 94 06/27/25 17:02 Temperature 36.6 C 06/27/25 17:02 Pulse 83 06/27/25 17:02 Respiratory Rate 16 06/27/25 17:02 Blood Pressure 196/106 H 06/27/25 17:02 Pulse Oximetry 94 06/27/25 17:02 Oxygen Delivery Method Room Air 06/27/25 17:02 Oxygen Flow Rate 0 06/27/25 17:02 Pain Level 8 06/27/25 17:02 Medical Decision Making This is a 79-year-old female patient presenting for evaluation of 3 days of gradually worsening right eye blurriness and pain. Differential includes but is not limited to infectious pathologies including orbital cellulitis, preseptal cellulitis. The patient's stye could certainly be a source of pain or infection. I note no significant corneal abrasions or ulcerations. The patient's intraocular pressure is borderline elevated, though symmetrical bilaterally which is less concerning for acute angle-closure glaucoma. The cell in the anterior chamber could represent uveitis. I also considered episcleritis/scleritis, temporal arteritis, optic neuritis. No visual loss, flashers or floaters to suggest CRAO, retinal detachment, vitreous hemorrhage. We will proceed with laboratory studies to include CBC, BMP, magnesium, ESR and CRP. I will also obtain a CT of the orbits with contrast to evaluate for infectious findings. After the workup is complete I will reach out to ophthalmology to discuss workup. Reassuringly the patient has visit with her flat hammerer tomorrow. -I independently interpreted the laboratory studies, which show no significant leukocytosis, anemia, or thrombocytopenia. The chemistry panel is without evidence of electrolyte abnormality, new or worsening kidney dysfunction, or liver injury. Inflammatory markers are not elevated. CT orbits reviewed by myself, a question of preseptal swelling of soft tissues is noted, no evidence for orbital cellulitis or other significant abnormality. I discussed this case with the ophthalmology team at [facility]. The primary diagnostic considerations are inflammatory pathology such as uveitis versus infectious pathology such as preseptal cellulitis. They recommend given the reassuring examination to hold on initiation of any medication such as antibiotics or steroids. The patient should be formally evaluated by ophthalmology at her appointment scheduled for tomorrow afternoon. Any medications can be initiated at that time. I discussed return precautions with the patient and her family member, and the patient reports that her symptoms are tolerable. I counseled her on Tylenol and ibuprofen for ongoing discomfort, continuing her eyedrops as prescribed, and contacting her flat hammerer to ensure that they are aware of this ER visit. At this time, the patient has had a full medical evaluation and is safe for discharge to home. They are hemodynamically stable, ambulatory, and tolerating PO. They are understanding of the follow-up plan and return precautions. They left our facility without incident. Elaina Yoder MD [facility] All Active Problems (Updated 06/27/25 @ 20:57 by Elaina Yoder MD) Acute right eye pain (Acute) Bradycardia (Acute) Acquired cystic kidney disease (Acute) Peripheral venous insufficiency (Acute) Allergic rhinitis (Acute) Bilateral leg weakness (Acute) Mild memory disturbance (Acute) Heart murmur, systolic (Acute) Foot pain (Acute) Light-headedness (Acute) Disorder of esophagus (Acute) Pain in left hip (Acute) Pain in left foot (Acute) PAD (peripheral artery disease) (Acute) Leg edema (Acute) bi-lateral Other specified peripheral vascular diseases (Acute) Callus (Acute) Toe pain, left (Acute) Toe pain, right (Acute) Hallux rigidus, right foot (Acute) Plantar fasciitis (Acute) GERD (gastroesophageal reflux disease) (Chronic) History of restless legs syndrome (Acute) Ingrowing nail (Acute) Nail dystrophy (Acute) Pulmonary arterial hypertension (Acute) Respiratory failure with hypoxia (Acute) Nocturnal hypoxia (Acute) Pulmonary nodule (Acute) Hypertension (Chronic) Peripheral neuropathy (Acute) Chronic headache (Acute) Dyspnea on exertion (Acute) Shortness of breath (Acute) Medical History Preprocedural cardiovascular examination Diverticulosis of colon Dysphagia Fatigue Achalasia Vasovagal syncope H/O urinary frequency Vaginal dryness Hx of adenomatous polyp of colon Esophageal thickening Headache Abnormal breast finding Skin lesion Arm pain, left Bilateral leg cramps Renal cyst, acquired, right History of infection due to Zika virus 2017, diagnosed by blood test after visiting [facility] Surgical History S/P laparoscopic fundoplication lower esphageal sphincterectomy November 2017 gastric polyp removed 2020 Status post right foot surgery bunion and hammer toes Status post left hip replacement 2005 Family History Mother Hypertension Hyperlipidemia Stroke Father Heart disease COPD (chronic obstructive pulmonary disease) Sister Asthma Social History Smoking/Tobacco Use Status: Never Smoking risk assessment performed?: Yes Alcohol Intake: current Alcohol Intake frequency: holidays/special occasions only Drug use: Never Substance use type: does not use Household members: spouse Housing: house Number of Children: 0 Communication Needs: Hard of Hearing and Corrective Lenses 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 [place] up [place] farm.
[2025-06-27 19:41] LABS: Abs Immature Grans 0.02 10^3/uL (0.0-0.06); HCT 35.7 % (36.0-46.0); HGB 12.0 g/dL (11.2-15.7); Immature Grans % 0.3 %; MCH 31.3 pg (27.0-33.0); MCHC 33.6 % (32.0-36.0); MCV 93 fL (80-95); MPV 9.8 fL (8.0-11.0); Platelet Count 264 10^3/uL (130-400); RBC 3.83 10^6/uL (3.93-5.22); RDW 12.1 % (11.7-14.6); RDW-SD 41.5 fL; WBC 6.58 10^3/uL (4.4-10.8)
[2025-06-27 19:43] LABS: ESR 16 mm/hr (0-30)
[2025-06-27] MEDS: Normal Saline Flush 10 ML SYR IVP (19:45)
[2025-06-27] MEDS: Normal Saline - Diluent 50 ML VIAL IJ (19:45)
[2025-06-27 19:55] LABS: Anion Gap 6.2 mmol/L (3-11); BUN 22 mg/dL (7-18); C-Reactive Protein < 0.50 mg/dL (<or=0.5); CO2 31.8 mmol/L (21.0-32.0); Calcium 9.7 mg/dL (8.5-10.1); Chloride 104 mmol/L (98-107); Estimated GFR 46.05 (mL/min/1.73m2); Glucose 94 mg/dL (74-106); Magnesium 2.3 mg/dL (1.8-2.4); Potassium 4.5 mmol/L (3.5-5.1); Sodium 142 mmol/L (136-145)
[2025-06-27] MEDS: Omnipaque 350 MG/ML 100 ML BTL IJ (20:00)
--- NOTE | 2025-06-27 20:00 | DI.CT_ITS ---
Exam(s) CT ORBITS W EXAM: CT ORBITS W CLINICAL HISTORY: pain with eye movements, eval orbital cellulitis. TECHNIQUE: Imaging Protocol: Axial computed tomography images with coronal and sagittal reformatted images were created and reviewed. INTRAVENOUS CONTRAST: OMNIPAQUE 350-100 ML COMPARISON: No exams were available for comparison FINDINGS: MAXILLOFACIAL ORBITS CT SCAN WITH IV CONTRAST: There are no facial fractures. There is a large post inflammatory retention cyst in the left maxillary sinus which measures approximately 3.7 cm AP by 2 cm craniocaudal by 1.6 cm wide. There is no associated fluid level. The other paranasal sinuses are clear. Nasal septum is relatively midline. No significant nasal septal spur. There is no fluid in the middle ear cavities. There is very mild right periorbital swelling. No evidence of involvement of the retro conal space. Optic globes appear unremarkable. Optic nerves appear unremarkable. Extraocular muscles appear symmetrical. IMPRESSION: No evidence of orbital cellulitis, as per request. Large post inflammatory retention cyst or polyp noted in left maxillary sinus with measurements as above. There are no associated fluid collections. RADIATION DOSE DELIVERED: 135.68mGy.cm Total DLP DATA REPOSITORY: All CT scans at this facility are submitted to the National Radiology Data Registry (NRDR) Dose Index Registry (DIR) with the [employer] ([employer]). RADIATION OPTIMIZATION: All CT scans at this facility use at least one of these dose optimization techniques: automated exposure control; mA and/or kV adjustment per patient size (includes targeted exams where dose is matched to clinical indication); or iterative reconstruction.
--- NOTE | 2025-06-27 20:27 | DI.VRAD_ITS ---
PROCEDURE INFORMATION: Exam: CT Orbits With Contrast Exam date and time: 06/27/2025 7:40 PM Age: 79 years old Clinical indication: Eye pain; Right; Pain with eye movements, eval orbital cellulitis TECHNIQUE: Imaging protocol: Computed tomography of the orbits with contrast. Radiation optimization: All CT scans at this facility use at least one of these dose optimization techniques: automated exposure control; mA and/or kV adjustment per patient size (includes targeted exams where dose is matched to clinical indication); or iterative reconstruction. Contrast material: [id number]; Contrast volume: 100 ml; Contrast route: INTRAVENOUS (IV); COMPARISON: No relevant prior studies available. FINDINGS: Paranasal sinuses: A polyp/retention cyst is noted in the left maxillary sinus.No air-fluid levels. Orbital cavities: Orbits are normal. Globes are unremarkable. Bones/joints: No acute fracture. Soft tissues: Question mild right periorbital swelling. IMPRESSION: No CT evidence for orbital cellulitis Question mild right periorbital swelling/cellulitis. No abscess Dictated and Authenticated by: Andrez Keller MD. Orderin [facility]. Reyes Delaney MD
[2025-06-27 20:28] VITALS: BP 170/70; PULSE 73; TEMP 37.2
[2025-06-27 21:11] VITALS: BP 170/70; PULSE 83; RESP 16; TEMP 37.2; O2SAT 94
== END 2025-06-27 21:16 | disposition home or self-care (01) ==
PROVIDERS: Emergency Provider Emergency Medicine; PCP Family Medicine
DX: H57.11 Ocular pain, right eye (principal); I87.2 Venous insufficiency (chronic) (peripheral); K21.9 Gastro-esophageal reflux disease without esophagitis
CPT/HCPCS: 99285; 99284; 36415; 80048; 85652; 70481; 83735; 85025; 86140; J3490

== ENCOUNTER 2025-07-06 03:09 | Outpatient (CLI) | payer MEDICARE, SELFPAY ==
--- NOTE | 2025-07-06 | DI.MRI_ITS ---
Exam(s) MR LUMBAR SPINE WO EXAM: MR LUMBAR SPINE WO CLINICAL HISTORY: LUMBAR SPINAL STENOSIS,SPONDYLOSIS OF LSPINE W RADICULOPATHY,M48.061 M47.27. TECHNIQUE: Multiplanar multisequence MRI of the Lumbar spine was performed. COMPARISON: CT CT CHEST/ABD WO from 05/19/2022 MR MR SPINE LUMBAR WO CONT from 01/18/2024 FINDINGS: Bones: The last intervertebral disc space is designated the L5/S1 level for the numbering purpose of this examination. The vertebral body heights are well maintained. Alignment is satisfactory. There are degenerative endplate signal changes present. There are bilateral sacral perineural root sleeve cyst. Cord: It is of normal size and signal intensity. T12-L1: There is a small sequestered disc posterior to the T12 vertebral body likely arising from T12-L1. No significant central spinal canal or nerve root compression results. No central spinal canal or neural foraminal stenosis. L1-2: No disc herniations or bulges are present. No central spinal canal or neural foraminal stenosis. L2-3: There is a diffuse disc bulge. Degenerative changes of the facets are seen. There is very mild narrowing of the central spinal canal. There is mild narrowing of the neural foramen bilaterally. L3-4: There is a mild diffuse disc bulge. There are prominent changes of the facets. These all contribute to cause [id number] central spinal canal stenosis. There is mild bilateral neural foraminal stenosis. L4-5: No disc herniations or bulges are present. There are degenerative changes of the facets and hypertrophy of the ligamentum flavum. This contributes to cause mild narrowing of the central spinal canal.There is also mild bilateral neural foraminal narrowing. L5-S1: There is a mild diffuse disc bulge which extends into the neural foramen bilaterally causing mild bilateral neural foraminal narrowing. There is no significant central spinal canal stenosis. There are degenerative changes of the facets present. Soft tissues: The visualized SI joints and sacrum are well maintained. The paraspinal soft tissues are unremarkable. Visualized abdominal organs: Note is again made of a simple right renal cyst. No follow-up recommended. IMPRESSION: 1. Multilevel degenerative changes are seen throughout the lumbar spine resulting in central spinal canal or neural foraminal stenosis as described above. 2. Small sequestered disc posterior to T12 likely arising from T12-L1. No significant central spinal canal or nerve root compression results. DATA REPOSITORY:
== END 2025-07-06 03:29 ==
LOC: DI 03:09
PROVIDERS: PCP Family Medicine; Visit Provider Nurse Practitioner Family
DX: M48.061 Spinal stenosis, lumbar region without neurogenic claudication (principal); M47.27 Other spondylosis with radiculopathy, lumbosacral region
CPT/HCPCS: 72148

== ENCOUNTER → 2025-07-25 08:52 | Outpatient (BNVA) | payer MEDICARE, SELFPAY | PROVIDERS: PCP Family Medicine; Visit Provider Psychiatry & Neurology Neurology | DX: G62.9 Polyneuropathy, unspecified (principal); R51.9 Headache, unspecified; G89.29 Other chronic pain; R06.00 Dyspnea, unspecified; I10 Essential (primary) hypertension | CPT/HCPCS: 99213 ==

== ENCOUNTER → 2025-08-01 02:18 | Outpatient (CLI) | payer MEDICARE, SELFPAY ==
--- NOTE | 2025-08-01 11:54 | DI.MAMMO_ITS ---
Exam(s) MAMMO SCREENING EXAM: MAMMO SCREENING CLINICAL HISTORY: SCREENING MAMMO Z12.31. TECHNIQUE: Bilateral full field digital CC and MLO mammographic images were obtained with 3D tomosynthesis and utilizing computer aided detection (CAD). COMPARISON: Prior mammograms were reviewed. FINDINGS: There has been no significant change in the appearance and distribution of the fibroglandular tissue. Nodular density in the central right breast is unchanged from at least 2016 and therefore benign. Small nodular density in left breast is unchanged from 2018 and therefore benign. There are no new spiculated masses nor new malignant appearing microcalcification groups. There is no significant architectural distortion nor skin thickening-retraction. IMPRESSION: Stable benign-appearing findings. No radiographic evidence of malignancy. BI-RADS Category 2 - Benign Findings Breast Density - Category A - The breast are almost entirely fatty. Breast density Category C or D implies that the patient has dense breast tissue. Dense breast tissue can make it harder to find cancer on a mammogram. Dense breast tissue is also associated with an increased risk of breast cancer. This information about the result of the mammogram report was provided to the patient to raise their awareness. Use this report when you speak with the patient about their risks for breast cancer, which includes their family history. At that time, you may recommend additional screening tests (Ultrasound or MRI) as these tests may add significant information. A negative radiographic report should not delay biopsy if a dominant or clinically suspicious mass is present. Up to ten percent of cancers are not identified on mammography. A negative report may reinforce clinical impression. Adenosis and dense breasts may obscure an underlying neoplasm. False positive reports average 6 to 10%. Patient will receive a letter notifying them of these results.
== END ==
LOC: DI 02:18
PROVIDERS: PCP Family Medicine; Visit Provider Family Medicine
DX: Z12.31 Encounter for screening mammogram for malignant neoplasm of breast (principal); R92.323 Mammographic fibroglandular density, bilateral breasts
CPT/HCPCS: 77063; 77067

== ENCOUNTER 2025-09-04 12:24 | Outpatient (CLI) | payer MEDICARE, SELFPAY ==
[2025-09-04 12:40] LABS: ALT 20 U/L (10-49); AST 25 U/L (<34); Albumin 4.1 g/dL (3.2-5.0); Alkaline Phosphatase 84 U/L (46-116); Anion Gap 7.9 mmol/L (3-11); BUN 23 mg/dL (9-23); Bilirubin, Total 0.7 mg/dL (0.2-1.2); CO2 30.1 mmol/L (20.0-31.0); Calcium 10.0 mg/dL (8.3-10.6); Chloride 105 mmol/L (98-107); Glucose 90 mg/dL (74-106); Potassium 4.3 mmol/L (3.5-5.1); Sodium 143 mmol/L (136-145); Total Protein 6.9 g/dL (5.7-8.2)
[2025-09-04 12:41] LABS: TSH 1.50 uIU/mL (0.55-4.78)
[2025-09-04 14:40] LABS: Hemoglobin A1C 5.2 % (<5.7)
== END 2025-09-04 12:25 | disposition home or self-care (01) ==
LOC: LBO 12:24
PROVIDERS: PCP Family Medicine; Visit Provider Family Medicine
DX: R81 Glycosuria (principal); R13.10 Dysphagia, unspecified; I10 Essential (primary) hypertension
CPT/HCPCS: 36415; 80053; 82043; 82570; 83036; 84443

== ENCOUNTER 2025-09-04 15:46 | Outpatient (REF) | payer MEDICARE, SELFPAY | END 2025-09-04 15:47 | disposition home or self-care (01) | LOC: NCHCN 15:46 | PROVIDERS: PCP Family Medicine; Visit Provider Family Medicine | DX: N89.8 Other specified noninflammatory disorders of vagina (principal); R81 Glycosuria | CPT/HCPCS: 82043; 82570; 87480; 87510; 87660 ==